=== PATIENT | female | born 1950 | race Caucasian/White ===

== ENCOUNTER → 2016-12-10 | Outpatient (CLI) | payer MEDICARE, OTHER | END | disposition home or self-care (01) | LOC: LABWHC1 13:02 | PROVIDERS: ATTEND Internal Medicine Endocrinology, Diabetes & Metabolism | DX: E05.90 Thyrotoxicosis, unspecified without thyrotoxic crisis or storm (principal) | CPT/HCPCS: 36415; 84439; 84443 ==

== ENCOUNTER → 2017-03-03 | Outpatient (CLI) | payer MEDICARE, OTHER ==
--- NOTE | 2017-03-03 13:56 | US ---
EXAMINATION TYPE: US thyroid st tissue head/neck DATE OF EXAM: 03/03/2017 COMPARISON: 09/28/2015 CLINICAL HISTORY: E05.90 THYROTOXICOSIS. Follow up thyroid nodules GLAND SIZE: Right Lobe: 4.3 x 1.8 x 1.6 cm Overall Parenchyma: heterogenous Left Lobe: 3.6 x 1.1 x 1.1 cm Overall Parenchyma: heterogeneous Isthmus Thickness: 0.3 cm NODULES RIGHT: # of nodules measured on right: 4 1. 1.1 X 0.7 x 1.1 cm solid nodule at the upper pole with well-defined margins; . This nodule is w ider than tall and shows intranodular vascularity. Prior size: 1.0 x 0.6 x 1.1 cm 2. 1.1 X 0.9 x 0.9 cm solid nodule at the mid pole with well-defined margins; . This nodule is tall er than wide and shows intranodular vascularity. Prior size: 1.1 x 0.9 x 1.1 cm 3. 1.0 X 0.6 x 0.8 cm solid nodule at the lower pole with well-defined margins; . This nodule is wi miriam than tall and shows intranodular vascularity. Prior size: 1.1 x 0.6 x 0.9 cm 4. 1.6 X 0.7 x 1.1 cm solid nodule at the lower pole with well-defined margins; . This nodule is wi miriam than tall and shows intranodular vascularity. Prior size: 1.6 x 1.1 x 1.4 cm LEFT: # of nodules measured on left: 3 1. 0.3 X 0.2 x 0.4 cm cystic nodule at the upper pole with well-defined margins; . This nodule is wider than tall and shows intranodular vascularity. Prior size: 0.4 x 0.4 x 0.4 cm 2. 1.0 X 0.6 x 0.7 cm solid nodule at the mid pole with well-defined margins; . This nodule is wide r than tall and shows intranodular vascularity. Prior size: 0.7 x 0.5 x 0.7 cm 3. 1.0 X 0.8 x 1.1 cm solid nodule at the lower pole with well-defined margins; . This nodule is wi miriam than tall and shows intranodular vascularity. Prior size: 1.1 x 1.0 x 1.1 cm ISTHMUS: # of nodules measured in the isthmus: 0 Bilateral neck scanned, no evidence of lymphadenopathy. Heterogeneous gland. Little change compared to prior exam IMPRESSION: Multinodular thyroid changes with a single nodule incrementally increased in size within the left thy roid now measuring 1 x 0.7 cm and previously measuring 0.7 x 0.7 cm. Thyroid tissue is heterogeneous correlate for thyroiditis.
== END | disposition home or self-care (01) ==
LOC: RADUSWWP 12:03
PROVIDERS: ATTEND Internal Medicine Endocrinology, Diabetes & Metabolism
DX: E04.2 Nontoxic multinodular goiter (principal)
CPT/HCPCS: 36415; 76536; 84439; 84443

== ENCOUNTER → 2017-06-23 | Outpatient (CLI) | payer MEDICARE, OTHER | END | disposition home or self-care (01) | LOC: LABWHC1 10:36 | PROVIDERS: ATTEND Internal Medicine Endocrinology, Diabetes & Metabolism | DX: E05.90 Thyrotoxicosis, unspecified without thyrotoxic crisis or storm (principal) | CPT/HCPCS: 36415; 84439; 84443; 84480 ==

== ENCOUNTER → 2017-09-11 | Outpatient (CLI) | payer MEDICARE, OTHER | END | disposition home or self-care (01) | LOC: LABWHC1 13:47 | PROVIDERS: ATTEND Internal Medicine Endocrinology, Diabetes & Metabolism | DX: E05.90 Thyrotoxicosis, unspecified without thyrotoxic crisis or storm (principal) | CPT/HCPCS: 36415; 84439; 84443; 84480 ==

== ENCOUNTER → 2018-09-01 | Outpatient (CLI) | payer MEDICARE, OTHER ==
--- NOTE | 2018-09-01 13:52 | US ---
EXAMINATION TYPE: US thyroid st tissue head/neck DATE OF EXAM: 09/01/2018 COMPARISON: US 03/03/17 CLINICAL HISTORY: E04.2 goiter. GLAND SIZE: Right Lobe: 3.6 x 1.9 x 1.3 cm Overall Parenchyma: heterogenous Left Lobe: 3.1 x 2.0 x 1.0 cm Overall Parenchyma: heterogeneous Isthmus Thickness: 0.3 cm NODULES RIGHT: # of nodules measured on right: 4 1. 1.6 X 1.3 x 0.8 cm hypoechoic solid nodule at the upper pole with well-defined margins; present with microcalcifications. This nodule is wider than tall and shows intranodular vascularity. Prior size: 1.1 x 0.7 x 0.1 cm 2. 1.1 X 0.9 x 0.8 cm hypoechoic solid nodule at the mid pole with well-defined margins; . This nod ule is wider than tall and shows intranodular vascularity. Prior size: 1.1 x 0.9 x 0.9 cm 3. 1.0 X 0.9 x 0.9 cm hypoechoic solid nodule at the lower pole with well-defined margins; . This n odule is wider than tall and shows intranodular vascularity. Prior size: 1.0 x 0.6 x 0.8 cm 4. 1.0 X 0.9 x 0.8 cm hypoechoic solid nodule at the lower pole with well-defined margins; . This n odule is wider than tall and shows intranodular vascularity. Prior size: 1.6 x 0.7 x 1.1 cm LEFT: # of nodules measured on left: 3 1. 0.5 X 0.4 x 0.4 cm hypoechoic cystic nodule at the upper pole with well-defined margins; . This nodule is wider than tall and shows no intranodular vascularity. Prior size: 0.3 x 0.2 x 0.4 cm 2. 0.9 X 0.7 x 0.7 cm hypoechoic solid nodule at the mid pole with well-defined margins; . This nod ule is wider than tall and shows intranodular vascularity. Prior size: 1.0 x 0.6 x 0.7 cm 3. 1.3 X 1.2 x 0.8 cm hypoechoic solid nodule at the lower pole with well-defined margins; present w ith microcalcifications. This nodule is wider than tall and shows intranodular vascularity. Prior size: 1.0 x 0.8 x 1.1 cm ISTHMUS: # of nodules measured in the isthmus: 0 Bilateral neck scanned, no evidence of lymphadenopathy. Heterogeneous multinodular small thyroid redemonstrated with scattered indistinct nodules. No signifi cant change from prior. IMPRESSION: Overall stable findings, markedly heterogeneous small size multinodular thyroid redemonstrated.
== END ==
LOC: RADUSWWP 12:11
PROVIDERS: ATTEND Internal Medicine Endocrinology, Diabetes & Metabolism
DX: E04.2 Nontoxic multinodular goiter (principal)
CPT/HCPCS: 76536

== ENCOUNTER → 2019-06-08 | Outpatient (CLI) | payer MEDICARE, OTHER ==
[2019-06-08 13:29] LABS: T4, Free (Free Thyroxine) 0.65 ng/dL (0.78-2.19)
--- NOTE | 2019-06-08 13:47 | US ---
EXAMINATION TYPE: US thyroid st tissue head/neck DATE OF EXAM: 06/08/2019 COMPARISON: Thyroid ultrasound September 01, 2018. CLINICAL HISTORY: E04.2 nontoxic multinodular goiter. follow up nodules. GLAND SIZE: Right Lobe: 3.2 x 1.7 x 1.6 cm Overall Parenchyma: heterogenous Left Lobe: 3.1 x 1.1 x 1.1 cm Overall Parenchyma: heterogeneous Isthmus Thickness: 0.3 cm NODULES RIGHT: # of nodules measured on right: 4 Very difficult to follow nodules due to nodular parench yma 1. 1.3 X 0.8 x 0.6 cm hypoechoic solid nodule at the upper pole with well-defined margins. This no dule is wider than tall and shows intranodular vascularity. Prior size: 1.6 x 1.3 x 0.8 cm 2. 1.1 X 1.0 x 0.8 cm hypoechoic nodule at the mid pole with well-defined margins. This nodule is w ider than tall and shows intranodular vascularity. Prior size: 1.1 x 0.9 x 0.8 cm 3. 1.1 X 0.6 x 0.7 cm hypoechoic nodule at the lower pole with well-defined margins. This nodule is taller than wide and shows intranodular vascularity. Prior size: 1.0 x 0.9 x 0.9 cm 4. 0.8 X 0.8 x 0.8 cm hypoechoic nodule at the lower pole with well-defined margins. This nodule is wide as tall and shows no intranodular vascularity. Prior size: 1.0 x 0.9 x 0.8 cm LEFT: # of nodules measured on left: 3 1. 0.4 X 0.3 x 0.3 cm cystic nodule at the upper pole with well-defined margins. This nodule is wi de as tall and shows no intranodular vascularity. Prior size: 0.5 x 0.4 x 0.4 cm 2. 0.6 X 0.5 x 0.6 cm hypoechoic nodule at the mid pole with well-defined margins. This nodule is t aller than wide and shows intranodular vascularity. Prior size: 0.9 x 0.7 x 0.7 cm 3. 1.0 X 1.0 x 1.1 cm mixed nodule at the lower pole with well-defined margins. This nodule is tall er than wide and shows intranodular vascularity. Prior size: 1.3 x 1.2 x 0.8 cm ISTHMUS: # of nodules measured in the isthmus: 0 Bilateral neck scanned, no evidence of lymphadenopathy. Redemonstration of heterogeneous somewhat small size multinodular thyroid without significant interva l change. IMPRESSION: As above. No new or enlarging nodules are seen.
== END | disposition home or self-care (01) ==
LOC: RADUSWWP 10:53
PROVIDERS: ATTEND Internal Medicine Endocrinology, Diabetes & Metabolism
DX: E04.2 Nontoxic multinodular goiter (principal)
CPT/HCPCS: 36415; 76536; 84439; 84443

== ENCOUNTER → 2020-11-27 | Outpatient (CLI) | payer MEDICARE, OTHER ==
--- NOTE | 2020-11-27 11:54 | US ---
EXAMINATION TYPE: US thyroid st tissue head/neck DATE OF EXAM: 11/27/2020 COMPARISON: 06/08/19 CLINICAL HISTORY: 70-year-old female E04.2 nontoxic multinodular goiter. TECHNIQUE: Multiple sonographic images of the thyroid gland are obtained. FINDINGS: GLAND SIZE: Right Lobe: 4.0 x 1.8 x 1.2 cm Overall Parenchyma: heterogenous Left Lobe: 3.3 x 1.6 x 1.2 cm Overall Parenchyma: heterogeneous Isthmus Thickness: 0.4 cm NODULES RIGHT: # of nodules measured on right: 4 1. 1.5 X 0.9 x 0.7 cm, upper , solid or almost completely solid, isoechoic nodule, which is wider than tall, with smooth margins, with echogenic foci. Prior size: 1.3 x 0.8 x 0.6 cm 2. 1.4X 1.1 x 1.1 cm, mid mid, , hypoechoic nodule, which is wider than tall, with smooth margins, without echogenic foci. Prior size: 1.1 x 1.0 x 0.8 cm 3. 1.0 X 0.8 x 0.5 cm, mid, solid or almost completely solid, hypoechoic nodule, which is wider austyn n tall, with smooth margins, with echogenic foci. Prior size: 1.1 x 0.6 x 0.7 cm 4. 1.1 X 1.0 x 0.9 cm, lower , , hypoechoic nodule, which is wider than tall, with smooth margins, without echogenic foci. Prior size: 0.8 x 0.8 x 0.9 cm LEFT: # of nodules measured on left: 3 1. 0.4 X 0.3 x 0.2 cm, upper , solid or almost completely solid, hypoechoic nodule, which is wider than tall, with ill-defined margins, without echogenic foci. Prior size: 0.4 x 0.3 x 0.3 cm 2. 0.8 X 0.7 x 0.7 cm, lower , solid or almost completely solid, hypoechoic nodule, which is wider than tall, with smooth margins, without echogenic foci. Prior size: 0.6 x 0.5 x 0.6 cm 3. 1.1 X 1.0 x 0.9 cm, lower , solid or almost completely solid, nodule, which is wider than tall, with ill-defined margins, with echogenic foci. Prior size: 1.0 x 1.0 x 1.1 cm ISTHMUS: # of nodules measured in the isthmus: 0 Bilateral neck scanned, no evidence of lymphadenopathy. IMPRESSION: 1. A 1.5 cm TR 4 nodule in the right upper pole, slightly increased from 1.3 cm. FNA can now be consi dered. 2. A 1 cm TR 5 nodule in the right midpole is relatively unchanged. Follow up versus FNA. 3. A 1.4 cm TR 4 nodule in the right midpole slightly increased from 1.1 cm. Continue to follow and F NA if it reaches 1.5 cm. 4. A 1.1 cm TR 5 nodule in the left lower pole remains unchanged. Follow-up versus FNA.
== END | disposition home or self-care (01) ==
LOC: RADUSWWP 10:57
PROVIDERS: ATTEND Internal Medicine Endocrinology, Diabetes & Metabolism
DX: E04.2 Nontoxic multinodular goiter (principal)
CPT/HCPCS: 76536

== ENCOUNTER → 2022-10-21 | Outpatient (CLI) | payer MEDICARE, OTHER ==
--- NOTE | 2022-10-21 12:10 | US ---
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 Thyrotoxicosis, goiter. Patient is on thyroid medication. GLAND SIZE: Right Lobe: 4.3 x 1.4 x 1.8 cm Overall Parenchyma: heterogenous Left Lobe: 3.7 x 1.2 x 1.1 cm Overall Parenchyma: heterogeneous Isthmus Thickness: 0.22 cm NODULES RIGHT: # of nodules measured on right: 4 1. 1.5 X 1.5 x 0.8 cm, upper mid, solid or almost completely solid, isoechoic nodule, which is wide r than tall, with smooth margins, with echogenic foci. TR 4. Prior size: 1.5 x 0.9 x 0.7 cm 2. 1.5 X 1.5 x 1.3 cm, mid mid, solid or almost completely solid, isoechoic nodule, which is wider than tall, with smooth margins, with echogenic foci. TR 4. Prior size: 1.5 x 1.1 x 1.1 cm 3. 0.5 X 0.5 x 0.7 cm, mid mid, solid or almost completely solid, hypoechoic nodule, which is talle r than wide, with smooth margins, without echogenic foci. TR 4. Prior size: Unable to correlate with certainty 4. 0.8 X 0.5 x 0.4 cm, upper lateral, mixed cystic and solid, hypoechoic nodule, which is wider austyn n tall, with smooth margins, without echogenic foci. TR 3. Prior size: Unable to correlate with certainty LEFT: # of nodules measured on left: 3 1. 0.4 X 0.5 x 0.4 cm, upper mid, solid or almost completely solid, hypoechoic nodule, which is wid er than tall, with smooth margins, without echogenic foci. TR 4. Prior size: 0.4 x 0.2 x 0.2 cm 2. 0.8 X 0.9 x 0.7 cm, mid, solid or almost completely solid, hypoechoic nodule, which is wider th an tall, with smooth margins, without echogenic foci. TR 4. Prior size: 0.8 x 0.7 x 0.7 cm 3. 1.6 X 1.3 x 1.2 cm, lower mid, solid or almost completely solid, isoechoic nodule, which is wide r than tall, with smooth margins, with echogenic foci. TR 4. Prior size: 1.1 x 1.0 x 0.9 cm ISTHMUS: # of nodules measured in the isthmus: 0 Bilateral neck scanned, Isoechoic areas seen within the right lateral neck may represent thyroid nodules. #1 measures: 1.5 x 0.8 x 0.9 cm. #2 measures: 1.5 x 1.1 x 0.9 cm. IMPRESSION: 1. Increased size of mid left thyroid lobe 1.6 cm TR 4 nodule. FNA cannot be considered. 2. 2 additional subcentimeter nodules within the right thyroid lobe that are not definitively visual ized prior examination. Remaining thyroid nodules are stable from prior examination as described abov e. 3. There 2 right lateral neck isoechoic areas which may represent thyroid nodules. Attention on foll ow-up examination in one year.
== END | disposition home or self-care (01) ==
LOC: RADUSWWP 11:02
PROVIDERS: ATTEND Internal Medicine Endocrinology, Diabetes & Metabolism
DX: E04.2 Nontoxic multinodular goiter (principal); E05.20 Thyrotoxicosis with toxic multinodular goiter without thyrotoxic crisis or storm
CPT/HCPCS: 76536

== ENCOUNTER 2023-03-10 09:28 | Day surgery (SDC) | payer MEDICARE, OTHER ==
[~2023-03-10 09:28] MED LIST: ACETAMINOPHEN TAB 500 MG TAB PO PRN; DEXAMETHASONE SOD PHOSPHATE 4 MG/ML 1 ML VIAL IV ONE; HEPARIN SODIUM,PORCINE/PF 5,000 UNIT/0.5 ML SYRINGE SQ PRN; HYDROmorphone 0.5 MG/0.5 ML SYRINGE IVP PRN; LIDOCAINE 1% (10MG/ML) FOR IV START INTRADERMA PRN; ONDANSETRON 4 MG/2 ML VIAL IVP ONE; Pre Op ABX Message 1 EACH MISC MISCELLANE ONE; droPERidol 5 MG/2 ML VIAL IVP ONE
[2023-03-10] MEDS: LACTATED RINGERS 1,000 ML IV SCH (10:26)
--- NOTE | 2023-03-10 11:44 | P.GSHP ---
History of Present Illness H&P Date: 03/10/23 Chief Complaint: Multinodular goiter This a 72-year-old female who has history of multinodular goiter. Patient has had increased in size or nodules. Patient resents today for total thyroidectomy. Patient is aware the risks of surgery including possible recurrent laryngeal nerve injury and injury to the parathyroid gland. Past Medical History Past Medical History: Osteoarthritis (OA), Thyroid Disorder Additional Past Medical History / Comment(s): hot thyroid nodules per pt. History of Any Multi-Drug Resistant Organisms: None Reported Past Surgical History: Hysterectomy Additional Past Surgical History / Comment(s): hemorrhoidectomy, colonoscopies Past Anesthesia/Blood Transfusion Reactions: No Reported Reaction Smoking Status: Current every day smoker - Past Family History Mother Family Medical History: No Reported History Medications and Allergies Home Medications Medication Instructions Recorded Confirmed Type Acetaminophen Tab [Tylenol] 325 mg PO Q4H PRN 03/07/23 03/07/23 History Multivitamins, Thera [Multivitamin 1 tab PO DAILY 03/07/23 03/07/23 History (formulary)] methIMAzole [Tapazole] 5 mg PO HS 03/07/23 03/07/23 History Allergies Allergy/AdvReac Type Severity Reaction Status Date / Time No Known Allergies Allergy Verified 03/10/23 09:48 Surgical - Exam Vital Signs Temp Pulse Resp BP Pulse Ox 97.7 F 89 16 129/59 95 03/10/23 09:59 03/10/23 09:59 03/10/23 09:59 03/10/23 09:59 03/10/23 09:59 - General well developed, well nourished, no distress - Eyes PERRL - ENT Prominent multinodular goiter Results - Labs Diabetes panel 03/10/23 Range/Units 10:13 Calcium 9.1 (8.4-10.2) mg/dL Calcium panel 03/10/23 Range/Units 10:13 Calcium 9.1 (8.4-10.2) mg/dL Pituitary panel 03/10/23 Range/Units 10:13 Calcium 9.1 (8.4-10.2) mg/dL Adrenal panel 03/10/23 Range/Units 10:13 Calcium 9.1 (8.4-10.2) mg/dL Assessment and Plan Plan: Multinodular goiter. We will perform Total thyroidectomy.
[2023-03-10] MEDS ORDERED: MIDAZOLAM 2 MG/2 ML VIAL ONE (12:04)
[2023-03-10] MEDS ORDERED: SUCCINYLCHOLINE CHLORIDE 200 MG/10 ML VIAL IV ONE (12:04)
[2023-03-10] MEDS ORDERED: PHENYLEPHRINE-0.9% NACL SYG 1,000 MCG/10 ML SYRINGE ONE (12:04)
[2023-03-10] MEDS ORDERED: ePHEDrine 50 MG/ML 1 ML VIAL ONE (12:04)
[2023-03-10] MEDS ORDERED: LIDOCAINE 2% INJ 20 MG/ML (2 ML VIAL) ONE (12:04)
[2023-03-10] MEDS ORDERED: fentaNYL (PF) 50 MCG/ML 2 ML AMP ONE (12:04)
[2023-03-10] MEDS ORDERED: LIDOCAINE 4% LTA KIT (4 ML) TOPICAL ONE (12:04)
[2023-03-10] MEDS ORDERED: PROPOFOL 10 MG/ML 20 ML VIAL IV ONE (12:04)
[2023-03-10] MEDS ORDERED: SODIUM CHLORIDE 0.9% 50 ML with ceFAZolin 1,000 MG IV ONE ×2 (12:10)
[2023-03-10] MEDS ORDERED: LACTATED RINGERS 1,000 ML IV ONE ×2 (12:40→13:17)
[2023-03-10] MEDS ORDERED: HYDROmorphone 0.5 MG/0.5 ML SYRINGE IVP PRN (13:17)
[2023-03-10] MEDS ORDERED: NALOXONE 0.4 MG/ML 1 ML VIAL IV PRN (13:17)
[2023-03-10] MEDS ORDERED: ONDANSETRON 4 MG/2 ML VIAL IVP PRN (13:17)
[2023-03-10] MEDS ORDERED: ACETAMINOPHEN TAB 325 MG TAB PO PRN (13:17)
[2023-03-10] MEDS: KETOROLAC 15 MG/ML 1 ML VIAL IVP SCH (18:03)
[2023-03-11] MEDS: KETOROLAC 15 MG/ML 1 ML VIAL IVP SCH ×3 (00:34→13:01)
[2023-03-11 06:44] LABS: ALT 17 U/L (4-34); AST 22 U/L (14-36); African American GFR (CKD) >90 (>60 ml/min/1.73 sqM); Albumin 3.3 g/dL (3.5-5.0); Alkaline Phosphatase 63 U/L (38-126); Anion Gap 8 mmol/L; Blood Urea Nitrogen 11 mg/dL (7-17); Calcium 8.8 mg/dL (8.4-10.2); Carbon Dioxide 20 mmol/L (22-30); Chloride 105 mmol/L (98-107); Globulin 3.2 g/dL; Glucose 107 mg/dL (74-99); Non-African American GFR(CKD) >90 (>60 ml/min/1.73 sqM); Sodium 133 mmol/L (137-145); Total Bilirubin 0.4 mg/dL (0.2-1.3); Total Protein 6.5 g/dL (6.3-8.2)
[2023-03-11] MEDS: LACTATED RINGERS 1,000 ML IV SCH (07:27)
[2023-03-11] MEDS ORDERED: ENOXAPARIN 40 MG/0.4 ML SYRINGE SQ SCH (09:00)
[2023-03-11] MEDS ORDERED: MULTIVITAMINS, THERA 1 EACH TAB PO SCH (09:00)
[2023-03-11 09:27] LABS: Basophils # (A) 0.04 X 10*3/uL (0.00-0.10); Basophils % (A) 0.6 %; Eosinophils # (A) 0.01 X 10*3/uL (0.04-0.35); Eosinophils % (A) 0.2 %; HCT 33.8 % (37.2-46.3); HGB 11.2 d/dL (12.0-15.0); Lymphocytes # (A) 1.06 X 10*3/uL (0.90-5.00); Lymphocytes % (A) 16.3 %; MCH 31.9 pg (27.0-32.0); MCHC 33.1 d/dL (32.0-37.0); MCV 96.3 FL (80.0-97.0); Mean Platelet Volume 9.3 FL (9.5-12.2); Monocytes # (A) 0.66 X 10*3/uL (0.20-1.00); Monocytes % (A) 10.2 %; NRBC Per 100 WBC 0 X 10*3/uL (0.00-0.01); Neutrophils # (A) 4.72 X 10*3/uL (1.80-7.70); Neutrophils % (A) 72.5 %; Platelet Count 295 X 10*3/uL (140-440); RBC 3.51 X 10*6/uL (4.10-5.20); RDW 13.3 % (11.5-14.5)
[2023-03-11] MEDS ORDERED: HYDROcodone/APAP 5-325MG 1 EACH TAB PO PRN (10:49)
--- NOTE | 2023-03-11 14:09 | P.DS ---
Providers Date of admission: 03/10/23 13:34 Expected date of discharge: 03/11/23 Attending physician: Alcides Balderas Consults: 03/10/23 13:17 Consult Physician Routine Consulting Provider: Geraldine Araya Consult Reason/Comments: Medical management Do you want consulting provider notified?: Yes Primary care physician: Nelsy Martinez Hospital Course: Discharge diagnosis 1. Multinodular goiter status post total thyroidectomy Hospital course This is a 72-year-old female with a multinodular goiter status post left total thyroidectomy. She tolerated surgery well. Her pain is controlled. No evidence of hoarseness. She has been up and ambulating without difficulty. She's afebrile. She is stable for discharge. Patient seen and examined with Dr. Balderas. Please refer to chart for any further details. Physician Spudder note has been reviewed by physician. Signing provider agrees with the documented findings, assessment, and plan of care. Patient Condition at Discharge: Stable Plan - Discharge Summary Discharge Rx Participant: Yes New Discharge Prescriptions: New oxyCODONE HCL [OxyIR] 5 mg PO Q6H PRN 3 Days #12 tab PRN Reason: Pain Acetaminophen Tab [Tylenol Tab] 650 mg PO Q4H PRN #30 tablet PRN Reason: Pain Continue Multivitamins, Thera [Multivitamin (formulary)] 1 tab PO DAILY Discontinued Acetaminophen Tab [Tylenol] 325 mg PO Q4H PRN PRN Reason: Pain methIMAzole [Tapazole] 5 mg PO HS Discharge Medication List Multivitamins, Thera [Multivitamin (formulary)] 1 tab PO DAILY 03/07/23 [History] Acetaminophen Tab [Tylenol Tab] 650 mg PO Q4H PRN #30 tablet 03/11/23 [Rx] oxyCODONE HCL [OxyIR] 5 mg PO Q6H PRN 3 Days #12 tab 03/11/23 [Rx] Follow up Appointment(s)/Referral(s): Alcides Balderas MD [STAFF PHYSICIAN] - 1 Week Nelsy Martinez MD [Primary Care Provider] - 3 Days Patient Instructions/Handouts: How to Stop Smoking (DC), Total Thyroidectomy (DC) Discharge Disposition: HOME SELF-CARE
[2023-03-11 15:00] VITALS: BP 163/78; PULSE 90; RESP 19; TEMP 98.6
--- NOTE | 2023-03-27 11:41 | P.OP ---
Date of Procedure: 03/10/23 Preoperative Diagnosis: Multinodular goiter Postoperative Diagnosis: Defer to pathology Procedure(s) Performed: Total Thyroidectomy Anesthesia: HALEIGH Surgeon: Alcides Balderas Estimated Blood Loss (ml): 15 Pathology: other (Thyroid gland) Condition: stable Disposition: PACU Description of Procedure: The patient's placed on the operating table in the supine position. She received general endotracheal tube anesthesia. The patient was then placed in a beachchair type position. Her neck was prepped and draped in usual sterile fashion. A standard Emma incision was made approximately 2 cm above the sternal notch. Using electrocautery the subcutaneous tissues and platysma was divided. The platysma flaps were created superiorly and inferiorly using electro cautery. And then a pair of Gelpi retractors placed in the wound to retract the flaps. The strap muscles were then divided in the midline. And then another retractor was used to retract the strap muscles. The thyroid gland was visualized. The right thyroid lobe was dissected first. Using a pair of retractors retractors the strap muscles retracted laterally. The thyroid was meticulously dissected. The middle thyroid vessels were ligated and divided between 3-0 silk ties. The superior thyroid vessels were meticulously dissected and then were ligated with 2-0 silk ties. The inferior thyroid vessels were dissected and then divided between 3-0 silk ties. The gland was rotated medially. There was some inflammatory changes around the gland. Using meticulous dissection the thyroid gland was dissected free. Care was taken to identify and preserve the recurrent laryngeal nerve. Several small venous branches were divided using the Harmonic scissors. The thyroid gland was then dissected off the trachea using the Harmonic scissors. The dissection continued towards the isthmus. And then the left thyroid gland was dissected. The Klein retractors were placed on the left side and retracted the strap muscles. The superior thyroid vessels were dissected and divided between 2-0 silk ties. The inferior thyroid vessels were divided between 3-0 silk ties. And then the middle thyroid vessels were divided between 3-0 silk ties. The gland was then rotated medially. Care was taken to identify and preserve the parathyroid glands. Using meticulous dissection the thyroid was dissected free. The recurrent laryngeal nerve was visualized and protected. The thyroid did have some inflammatory changes and appeared to be scarred. The gland was then mobilized off the trachea using the Harmonic scissors. A suture tag was placed to orientate the thyroid gland. And was sent to pathology. The wound was packed for hemostasis. There was no significant bleeding seen. Surgicel pallor was placed in the wound. No bleeding was seen. The strap muscles were then reapproximated using 3-0 Vicryl suture. The platysma was reapproximated using 3-0 Vicryl suture. The skin was then closed with Monocryl. Patient tolerated procedure well and was sent to recovery room stable condition.
== END 2023-03-11 17:30 | disposition home or self-care (01) ==
LOC: OR 09:28 → UNDOADMIN 13:34 → 5NMEDONC 13:34 → OR 03-11 17:30 → UNDODISIN 03-11 17:30
PROVIDERS: ATTEND Surgery
DX: D49.7 Neoplasm of unspecified behavior of endocrine glands and other parts of nervous system (principal); E04.2 Nontoxic multinodular goiter; F17.210 Nicotine dependence, cigarettes, uncomplicated; Z79.899 Other long term (current) drug therapy
CPT/HCPCS: 80053; 82310; 85025; 88307; 60240; J2250; J0330; J1100; J2405; J0690; J1650; J3010; J1885 ×2; J2370; J2704; J1170; J1644; J2001

== ENCOUNTER 2023-03-14 17:09 | Inpatient (IN) | payer MEDICARE, OTHER ==
--- NOTE | 2023-03-14 17:58 | ED ---
General Adult HPI - General Chief complaint: Shortness of Breath Stated complaint: SHIVA,sent from urgent care Time Seen by Provider: 03/14/23 17:45 Source: patient, RN notes reviewed, old records reviewed Mode of arrival: ambulatory Limitations: no limitations - History of Present Illness Initial comments: 72-year-old female presenting for evaluation of cough, dyspnea. Patient was seen in urgent care and sent to the emergency department for evaluation. She's had cough and increased respiratory noises over the past 4 days. She is postop day 4 status post thyroidectomy. Patient denies fever. She does report some sputum production. She quit smoking at the time of the surgery. Denies central chest pain. States she has a tightness in her neck at the surgical site. She states that the cough and dyspnea has been present this for the past 4 days. - Related Data Home Medications Medication Instructions Recorded Confirmed Multivitamins, Thera [Multivitamin 1 tab PO DAILY 03/07/23 03/14/23 (formulary)] Previous Rx's Medication Instructions Recorded Acetaminophen Tab [Tylenol Tab] 650 mg PO Q4H PRN #30 tablet 03/11/23 oxyCODONE HCL [OxyIR] 5 mg PO Q6H PRN 3 Days #12 tab 03/11/23 Allergies Allergy/AdvReac Type Severity Reaction Status Date / Time No Known Allergies Allergy Verified 03/14/23 19:56 Review of Systems ROS Statement: Those systems with pertinent positive or pertinent negative responses have been documented in the HPI. ROS Other: All systems not noted in ROS Statement are negative. Past Medical History Past Medical History: Osteoarthritis (OA), Thyroid Disorder Additional Past Medical History / Comment(s): hot thyroid nodules per pt. History of Any Multi-Drug Resistant Organisms: None Reported Past Surgical History: Hysterectomy Additional Past Surgical History / Comment(s): hemorrhoidectomy, colonoscopies, thyroidectomy Past Anesthesia/Blood Transfusion Reactions: No Reported Reaction Past Psychological History: No Psychological Hx Reported Smoking Status: Current every day smoker Past Alcohol Use History: None Reported Past Drug Use History: None Reported - Past Family History Mother Family Medical History: No Reported History General Exam Limitations: no limitations General appearance: alert, in no apparent distress Head exam: Present: atraumatic, normocephalic Eye exam: Present: normal appearance, PERRL ENT exam: Present: normal oropharynx, mucous membranes moist Neck exam: Present: other (Hematoma over the anterior neck, the incision is clean and dry, no active bleeding no erythema) Respiratory exam: Present: respiratory distress (Mild), rhonchi, stridor Cardiovascular Exam: Present: regular rate, normal rhythm GI/Abdominal exam: Present: soft. Absent: distended, tenderness Extremities exam: Present: normal inspection, normal capillary refill Neurological exam: Present: alert, oriented X3, CN II-XII intact. Absent: motor sensory deficit Psychiatric exam: Present: normal affect, normal mood Skin exam: Present: warm Course Vital Signs 03/14/23 17:39 Temperature 98.0 F Pulse Rate 74 Respiratory 26 H Rate Blood Pressure 167/77 O2 Sat by Pulse 95 Oximetry Medical Decision Making - Medical Decision Making Was pt. sent in by a medical professional or institution ([facility], [facility] [facility], urgent care, hospital, or [place] [facility] facility...) When possible be specific @ -No Did you speak to anyone other than the patient for history (EMS, parent, family, police, friend...)? What history was obtained from this source @ -No Did you review nursing and triage notes (agree or disagree)? Why? @ -I reviewed and agree with nursing and triage notes Were old charts reviewed (outside hosp., previous admission, EMS record, old EKG, old radiological studies, urgent care reports/EKG's, [place] [facility] facility records)? Report findings @ -No old charts were reviewed Differential Diagnosis (chest pain, altered mental status, abdominal pain women, abdominal pain men, vaginal bleeding, weakness, fever, dyspnea, syncope, headache, dizziness, GI bleed, back pain, seizure, CVA, palpatations, mental health, musculoskeletal)? @ -not applicable EKG interpreted by me (3pts min.). @ -EKG: Sinus rhythm rate of 68, MO interval 138, QRS duration 70, QTC [address] segment elevation. X-rays interpreted by me (1pt min.). @ -No focal pneumonia, changes consistent with COPD CT interpreted by me (1pt min.). @ -CT soft tissue neck showing postsurgical changes with mild narrowing of the trachea. U/S interpreted by me (1pt. min.). @ -None done What testing was considered but not performed or refused? (CT, X-rays, U/S, labs)? Why? @ -None What meds were considered but not given or refused? Why? @ -None Did you discuss the management of the patient with other professionals (professionals i.e. Dr., PA, DOCK PUMPER, lab, RT, psych nurse, social media content specialist, fire watchman, teacher, ethics officer, clinical case manager)? Give summary @ -[Dr. Araya, Dr. Mayfield Was smoking cessation discussed for >3mins.? @ -No Was critical care preformed (if so, how long)? @ -No Were there social determinants of health that impacted care today? How? (Homele ssness, low income, unemployed, alcoholism, drug addiction, transportation, low edu. Level, literacy, decrease access to med. care, fdc, rehab)? @ -No Was there de-escalation of care discussed even if they declined (Discuss DNR or withdrawal of care, Hospice)? DNR status @ -No What co-morbidities impacted this encounter? (DM, HTN, Smoking, COPD, CAD, Cancer, CVA, ARF, Chemo, Hep., AIDS, mental health diagnosis, sleep apnea, morbid obesity)? @ -[COPD, status post thyroidectomy Was patient admitted / discharged? Hospital course, mention meds given and route, prescriptions, significant lab abnormalities, going to OR and other pertinent info. @ -[72-year-old female with dyspnea, mild stridor at rest, 4 days status post thyroidectomy. She has stated that this dyspnea and stridor at the present in the entire postoperative period. She is mildly tachypneic with otherwise stable vitals. Workup reveals postsurgical changes in the thyroid bed and mild narrowing of the trachea. Patient started on Decadron in the emergency department. I think she also has a component of COPD contrary to her dyspnea and is also started on urinalysis. I discussed case with Dr. Mayfield who is covering for Dr. Balderas, and with Dr. Araya who will admit. Pulmonology will also be placed on consult. Undiagnosed new problem with uncertain prognosis? @ -No Drug Therapy requiring intensive monitoring for toxicity (Heparin, Nitro, Insulin, Cardizem)? @ -No Were any procedures done? @ -No Diagnosis/symptom? @ -Dyspnea, stridor secondary to upper airway soft tissue swelling and COPD Acute, or Chronic, or Acute on Chronic? @ -acute Uncomplicated (without systemic symptoms) or Complicated (systemic symptoms)? @ -[Complicated Side effects of treatment? @ -No Exacerbation, Progression, or Severe Exacerbation? @ -No Poses a threat to life or bodily function? How? (Chest pain, [place], [place], pneumonia, PE, COPD, DKA, ARF, appy, cholecystitis, CVA, Diverticulitis, Homicidal, Suicidal, threat to staff... and all critical care pts) @ -[Yes, airway compromise, respiratory failure - Lab Data Result diagrams: 03/14/23 18:12 03/14/23 18:12 Lab Results 03/14/23 03/14/23 03/14/23 Range/Units 18:12 18:12 18:12 WBC 6.1 (3.8-10.6) k/uL RBC 4.04 (3.80-5.40) m/uL Hgb 12.8 (11.4-16.0) gm/dL Hct 38.3 (34.0-46.0) % MCV 94.7 (80.0-100.0) fL MCH 31.7 (25.0-35.0) pg MCHC 33.4 (31.0-37.0) g/dL RDW 12.8 (11.5-15.5) % Plt Count 349 (150-450) k/uL MPV 7.0 Neutrophils % 80 % Lymphocytes % 13 % Monocytes % 4 % Eosinophils % 1 % Basophils % 0 % Neutrophils # 4.9 (1.3-7.7) k/uL Lymphocytes # 0.8 L (1.0-4.8) k/uL Monocytes # 0.3 (0-1.0) k/uL Eosinophils # 0.1 (0-0.7) k/uL Basophils # 0.0 (0-0.2) k/uL PT 9.9 (9.0-12.0) sec INR 0.9 (<1.2) APTT 26.1 (22.0-30.0) sec Sodium 130 L (137-145) mmol/L Potassium 3.7 (3.5-5.1) mmol/L Chloride 100 (98-107) mmol/L Carbon Dioxide 21 L (22-30) mmol/L Anion Gap 9 mmol/L BUN 11 (7-17) mg/dL Creatinine 0.51 L (0.52-1.04) mg/dL Est GFR (CKD-EPI)AfAm >90 (>60 ml/min/1.73 sqM) Est GFR (CKD-EPI)NonAf >90 (>60 ml/min/1.73 sqM) Glucose 133 H (74-99) mg/dL Plasma Lactic Acid Steve (0.7-2.0) mmol/L Calcium 9.3 (8.4-10.2) mg/dL Total Bilirubin 0.5 (0.2-1.3) mg/dL AST 27 (14-36) U/L ALT 17 (4-34) U/L Alkaline Phosphatase 71 (38-126) U/L Troponin I (0.000-0.034) ng/mL NT-Pro-B Natriuret Pep pg/mL Total Protein 7.5 (6.3-8.2) g/dL Albumin 4.1 (3.5-5.0) g/dL 03/14/23 03/14/23 03/14/23 Range/Units 18:12 18:12 18:12 WBC (3.8-10.6) k/uL RBC (3.80-5.40) m/uL Hgb (11.4-16.0) gm/dL Hct (34.0-46.0) % MCV (80.0-100.0) fL MCH (25.0-35.0) pg MCHC (31.0-37.0) g/dL RDW (11.5-15.5) % Plt Count (150-450) k/uL MPV Neutrophils % % Lymphocytes % % Monocytes % % Eosinophils % % Basophils % % Neutrophils # (1.3-7.7) k/uL Lymphocytes # (1.0-4.8) k/uL Monocytes # (0-1.0) k/uL Eosinophils # (0-0.7) k/uL Basophils # (0-0.2) k/uL PT (9.0-12.0) sec INR (<1.2) APTT (22.0-30.0) sec Sodium (137-145) mmol/L Potassium (3.5-5.1) mmol/L Chloride (98-107) mmol/L Carbon Dioxide (22-30) mmol/L Anion Gap mmol/L BUN (7-17) mg/dL Creatinine (0.52-1.04) mg/dL Est GFR (CKD-EPI)AfAm (>60 ml/min/1.73 sqM) Est GFR (CKD-EPI)NonAf (>60 ml/min/1.73 sqM) Glucose (74-99) mg/dL Plasma Lactic Acid Steve 0.8 (0.7-2.0) mmol/L Calcium (8.4-10.2) mg/dL Total Bilirubin (0.2-1.3) mg/dL AST (14-36) U/L ALT (4-34) U/L Alkaline Phosphatase (38-126) U/L Troponin I <0.012 (0.000-0.034) ng/mL NT-Pro-B Natriuret Pep 91 pg/mL Total Protein (6.3-8.2) g/dL Albumin (3.5-5.0) g/dL Disposition Clinical Impression: Acute exacerbation of chronic obstructive pulmonary disease, Stridor, Status post thyroidectomy Disposition: ADMITTED IP TO THIS HOSP Condition: Stable Is patient prescribed a controlled substance at d/c from ED?: No Referrals: Nelsy Martinez MD [Primary Care Provider] - 1-2 days Time of Disposition: 20:04
[2023-03-14 18:23] LABS: Basophils % (A) 0 %; Eosinophils # (A) 0.1 k/uL (0-0.7); Eosinophils % (A) 1 %; HCT 38.3 % (34.0-46.0); HGB 12.8 gm/dL (11.4-16.0); Lymphocytes # (A) 0.8 k/uL (1.0-4.8); Lymphocytes % (A) 13 %; MCH 31.7 pg (25.0-35.0); MCHC 33.4 g/dL (31.0-37.0); MCV 94.7 fL (80.0-100.0); Monocytes # (A) 0.3 k/uL (0-1.0); Monocytes % (A) 4 %; Neutrophils # (A) 4.9 k/uL (1.3-7.7); Neutrophils % (A) 80 %; Platelet Count 349 k/uL (150-450); RBC 4.04 m/uL (3.80-5.40); RDW 12.8 % (11.5-15.5); WBC 6.1 k/uL (3.8-10.6)
[2023-03-14 18:36] LABS: INR 0.9 (<1.2); Partial Thromboplastin Time 26.1 sec (22.0-30.0); Prothrombin Time 9.9 sec (9.0-12.0)
[2023-03-14 18:47] LABS: ALT 17 U/L (4-34); AST 27 U/L (14-36); African American GFR (CKD) >90 (>60 ml/min/1.73 sqM); Albumin 4.1 g/dL (3.5-5.0); Alkaline Phosphatase 71 U/L (38-126); Anion Gap 9 mmol/L; Blood Urea Nitrogen 11 mg/dL (7-17); Calcium 9.3 mg/dL (8.4-10.2); Carbon Dioxide 21 mmol/L (22-30); Chloride 100 mmol/L (98-107); Glucose 133 mg/dL (74-99); Non-African American GFR(CKD) >90 (>60 ml/min/1.73 sqM); Potassium 3.7 mmol/L (3.5-5.1); Sodium 130 mmol/L (137-145); Total Bilirubin 0.5 mg/dL (0.2-1.3); Total Protein 7.5 g/dL (6.3-8.2)
--- NOTE | 2023-03-14 19:11 | XR ---
EXAMINATION TYPE: XR chest 2V DATE OF EXAM: 03/14/2023 6:52 PM COMPARISON: None TECHNIQUE: XR chest 2V Frontal and lateral views of the chest. CLINICAL INDICATION:Female, 72 years old with history of difficulty breathing; FINDINGS: Lungs/Pleura: There is flattening of the diaphragm with increased lucency of the lungs. No evidence o f pneumothorax, pleural effusion or focal consolidation. Pulmonary vascularity: Unremarkable. Heart/mediastinum: Cardiomediastinal silhouette is unremarkable. Musculoskeletal: No acute osseous pathology. Scoliosis changes. IMPRESSION: 1. No acute cardiopulmonary disease process. 2. COPD changes.
--- NOTE | 2023-03-14 19:17 | CT ---
EXAMINATION TYPE: CT soft tissue neck w con CT DLP: 187.3 mGycm, Automated exposure control for dose reduction was used. DATE OF EXAM: 03/14/2023 7:06 PM COMPARISON: Thyroid 10/21/2022 ultrasound. CLINICAL INDICATION:Female, 72 years old with history of Stridor status post thyroidectomy; PHH, stri sandra after thyroidectomy on Friday03/10/23 TECHNIQUE: Standard enhanced CT of the neck. Axial sections with coronal and sagittal reformats were obtained. Contrast used:100 mL of Isovue 300 with IV Contrast, Oral contrast used: none. FINDINGS: Brain: Visualized portions are grossly unremarkable. Orbits: Unremarkable Sinuses: Grossly unremarkable. Spaces of the neck: As described below Musculoskeletal: No acute osseous pathology. Lymph nodes: Multiple nonenlarged lymph nodes are seen along both anterior chains of the neck. Vascular structures: Visualized major arteries are patent without evidence of aneurysm. No evidence f or pulmonary arterial vascular filling defect to suggest embolus. Thoracic Inlet/airway: There is mild narrowing of the trachea at the level of the surgical bed Moderate to severe emphysema changes. Right upper lung lung calcified granuloma. Soft tissues/Thyroid: Surgical thyroid bed demonstrates low density approximately 22 Hounsfield unit tissue. Few foci of gas which extend down into the anterior mediastinum. No peripheral enhancement v isualized. Other: none. IMPRESSION: 1. Suspected organizing fluid collections in the surgical bed bilaterally with few foci of gas exten ding into the mediastinum. These findings are likely postsurgical in change consider ultrasound imagi ng for characterization of the surgical bed. 2. There may be mild narrowing of the trachea at the level of the surgical bed. 3. Moderate to severe emphysema changes.
[2023-03-14] MEDS ORDERED: DEXAMETHASONE SOD PHOSPHATE 10 MG/ML 1 ML VIAL IV STA (19:49)
[2023-03-14] MEDS ORDERED: IPRATROPIUM-ALBUTEROL 3 ML NEB INHALATION STA (19:49)
[2023-03-14] MEDS ORDERED: ONDANSETRON 4 MG/2 ML VIAL IVP PRN (19:50)
[2023-03-14] MEDS ORDERED: NALOXONE 0.4 MG/ML 1 ML VIAL IV PRN (19:50)
[2023-03-15] MEDS: DEXAMETHASONE SOD PHOSPHATE 4 MG/ML 1 ML VIAL IVP SCH ×4 (01:14→20:41)
[2023-03-15] MEDS: IPRATROPIUM-ALBUTEROL 3 ML NEB INHALATION SCH ×4 (08:01→20:01)
--- NOTE | 2023-03-15 12:26 | P.HPIM ---
History of Present Illness H&P Date: 03/15/23 Maryann Santos, is a 72-year-old female patient of Dr. Martinez who presented to [facility] emergency room with a chief complaint of worsening shortness of breath and cough, patient was recently admitted to [facility] by Dr. Balderas and underwent complete thyroi dectomy, she was discharged home the next day in good condition, patient started having worsening shortness of breath and audible wheezing and decided to come to emergency room. She was evaluated in the emergency room vital examination on presentation revealed a temperature of 98 pulse 74 respiration 26 blood pressure 167/77 pulse ox 95% on room air Laboratory data revealed a white blood count of 6.1 hemoglobin 12.8 platelet count 349 sodium 1:30 potassium 3.7 chloride 100 CO2 21 BUN 11 creatinine 0.54 Testing in the emergency room revealed chest x-ray was done in the emergency room and revealed no acute cardiopulmonary disease, with changes suggestive of COPD, computed tomography scan of the neck revealed suspected organizing fluid collection in the surgical bed bilaterally with few foci of gas extending into the mediastinum with narrowing of the trachea at the level of the surgical bed, there was also evidence of moderate to severe emphysema changes. Patient was admitted to medical floor for further evaluation and treatment, surgical consultation was requested and pulmonary consultation was requested, patient was started on IV dexamethasone Past Medical History Past Medical History: Osteoarthritis (OA), Thyroid Disorder Additional Past Medical History / Comment(s): hot thyroid nodules per pt. History of Any Multi-Drug Resistant Organisms: None Reported Past Surgical History: Hysterectomy Additional Past Surgical History / Comment(s): hemorrhoidectomy, colonoscopies, thyroidectomy Past Anesthesia/Blood Transfusion Reactions: No Reported Reaction Past Psychological History: No Psychological Hx Reported Smoking Status: Current every day smoker Past Alcohol Use History: None Reported Past Drug Use History: None Reported - Past Family History Mother Family Medical History: No Reported History Medications and Allergies Home Medications Medication Instructions Recorded Confirmed Type Multivitamins, Thera [Multivitamin 1 tab PO DAILY 03/07/23 03/14/23 History (formulary)] Acetaminophen Tab [Tylenol Tab] 650 mg PO Q4H PRN #30 tablet 03/11/23 03/14/23 Rx oxyCODONE HCL [OxyIR] 5 mg PO Q6H PRN 3 Days #12 tab 03/11/23 03/14/23 Rx Allergies Allergy/AdvReac Type Severity Reaction Status Date / Time No Known Allergies Allergy Verified 03/14/23 19:56 Physical Exam Vitals: Vital Signs Temp Pulse Resp BP Pulse Ox 03/15/23 08:20 70 03/15/23 08:01 76 03/15/23 07:41 97.8 F 83 70 H 131/76 93 L 03/15/23 01:00 85 18 135/70 96 03/15/23 00:00 122/67 92 L 03/14/23 23:00 122/67 94 L 03/14/23 22:37 122/67 95 03/14/23 22:36 83 17 122/67 95 03/14/23 22:35 122/67 95 03/14/23 22:34 122/67 95 03/14/23 22:33 122/67 95 03/14/23 22:32 92 L 03/14/23 20:18 75 03/14/23 20:12 72 03/14/23 19:59 71 18 161/86 97 03/14/23 17:39 98.0 F 74 26 H 167/77 95 Intake and Output 03/14/23 03/15/23 03/15/23 22:59 06:59 14:59 Other: Weight 48.534 kg In general patient is alert and oriented x 3 in no distress HEENT head normocephalic and atraumatic Neck is supple no JVD no goiter no lymphadenopathy no carotid bruit Chest examination reveals a scattered rhonchi bilaterally with audible stridor and wheezing Cardiac exam reveals regular heart sounds S1 and S2 no gallops no murmurs Abdomen is soft nontender no organomegaly with normal bowel sounds Extremity exam reveals no edema no cyanosis or clubbing Neurological examination reveals no gross focal deficits Results CBC & Chem 7: 03/14/23 18:12 03/14/23 18:12 Labs: Abnormal Lab Results - Last 24 Hours (Table) 03/14/23 03/14/23 Range/Units 18:12 18:12 Lymphocytes # 0.8 L (1.0-4.8) k/uL Sodium 130 L (137-145) mmol/L Carbon Dioxide 21 L (22-30) mmol/L Creatinine 0.51 L (0.52-1.04) mg/dL Glucose 133 H (74-99) mg/dL Assessment and Plan Plan: Worsening shortness of breath and cough, post complete thyroidectomy done on 03/10/2023 for multinodular goiter Evidence of fluid collection in the surgical bed in the neck on computed tomography scan Evidence of COPD with moderate to severe emphysematous changes in the chest Post complete thyroidectomy, patient will need to be started on thyroid replacement therapy during this admission, will check TSH free T4 and free T3 At this time patient was seen and examined in the emergency room Home medications reviewed and reordered Consultation for pulmonary and surgery requested Check TSH, free T3, and free T4, will start thyroid replacement therapy during this admission Will follow closely
[2023-03-15 13:34] LABS: T4, Free (Free Thyroxine) 0.61 ng/dL (0.78-2.19)
--- NOTE | 2023-03-15 13:57 | P.CNPUL ---
History of Present Illness Consult date: 03/15/23 Reason for consult: COPD (Stridor) History of present illness: A 78-year-old female patient, known history of smoking, known history of multinodular goiter, underwent a thyroidectomy earlier this week and the patient was discharged home. While at home and over the past 24-48 hours, the patient developed worsening shortness of breath and she is having some audible stridor. For that reason, the patient came in back to the hospital for evaluation. Surgical scar is clean. No hematoma. No bruising. Pulse ox is 95% on room air oxygen. The patient has a stridor indeed. The patient also has developed some organizing fluid collection in the surgical bed based on the CAT scan of the neck that was done in emergency department. She also was found to have some gas extending into the mediastinum which is a routine postsurgical changes. The patient has some limited narrowing of the trachea at the level of the surgical bed. There is also background emphysema. She, clinically stable. She is currently on Decadron. She is also on bronchodilators. Her speech is also change. She is able to swallow. She has no drooling. She is breathing comfortably at this point in time. Review of Systems Constitutional: Reports as per HPI Eyes: denies as per HPI, denies blurred vision, denies bulging eye, denies decreased vision, denies diplopia, denies discharge, denies dry eye, denies irritation, denies itching, denies pain, denies photophobia, denies loss of peripheral vision, denies loss of vision, denies tunnel vision/blind spots Ears: deny: decreased hearing, ear discharge, earache, tinnitus Ears, nose, mouth and throat: Reports as per HPI Breasts: absent: as per HPI, change in shape, gynecomastia, masses, nipple discharge, pain, skin changes, swelling Cardiovascular: Reports as per HPI Respiratory: Reports as per HPI, Reports dyspnea Gastrointestinal: Reports as per HPI Genitourinary: Reports as per HPI Menstruation: Reports as per HPI Musculoskeletal: Reports as per HPI Musculoskeletal: absent: ankle pain, ankle stiffness, ankle swelling Integumentary: Reports as per HPI Neurological: Reports as per HPI Psychiatric: Reports as per HPI Endocrine: Reports as per HPI Hematologic/Lymphatic: Reports as per HPI Allergic/Immunologic: Reports as per HPI Past Medical History Past Medical History: COPD, Osteoarthritis (OA), Thyroid Disorder Additional Past Medical History / Comment(s): Multinodular goiter History of Any Multi-Drug Resistant Organisms: None Reported Past Surgical History: Hysterectomy Additional Past Surgical History / Comment(s): hemorrhoidectomy, colonoscopies, thyroidectomy Past Anesthesia/Blood Transfusion Reactions: No Reported Reaction Past Psychological History: No Psychological Hx Reported Smoking Status: Current every day smoker Past Alcohol Use History: None Reported Past Drug Use History: None Reported - Past Family History Mother Family Medical History: No Reported History Medications and Allergies Home Medications Medication Instructions Recorded Confirmed Type Multivitamins, Thera [Multivitamin 1 tab PO DAILY 03/07/23 03/14/23 History (formulary)] Acetaminophen Tab [Tylenol Tab] 650 mg PO Q4H PRN #30 tablet 03/11/23 03/14/23 Rx oxyCODONE HCL [OxyIR] 5 mg PO Q6H PRN 3 Days #12 tab 03/11/23 03/14/23 Rx Allergies Allergy/AdvReac Type Severity Reaction Status Date / Time No Known Allergies Allergy Verified 03/14/23 19:56 Physical Exam Vitals: Vital Signs Temp Pulse Resp BP Pulse Ox 03/15/23 11:33 88 03/15/23 11:21 92 03/15/23 08:20 70 03/15/23 08:01 76 03/15/23 07:41 97.8 F 83 70 H 131/76 93 L 03/15/23 01:00 85 18 135/70 96 03/15/23 00:00 122/67 92 L 03/14/23 23:00 122/67 94 L 03/14/23 22:37 122/67 95 03/14/23 22:36 83 17 122/67 95 03/14/23 22:35 122/67 95 03/14/23 22:34 122/67 95 03/14/23 22:33 122/67 95 03/14/23 22:32 92 L 03/14/23 20:18 75 03/14/23 20:12 72 03/14/23 19:59 71 18 161/86 97 03/14/23 17:39 98.0 F 74 26 H 167/77 95 Intake and Output 06/23/23 06/24/23 06/24/23 22:59 06:59 14:59 Other: Weight 48.534 kg The patient appeared well nourished and normally developed. Vital signs as documented. Head exam is unremarkable. No scleral icterus or corneal arcus noted. Neck is without jugular venous distension, thyromegaly, or carotid bruits. The patient has a scar over the anterior neck the level of her thyroid. No significant swelling. No definite hematoma. The surgical one-sided dry clean and intact. There is some inspiratory stridor appreciated. Carotid upstrokes are brisk bilaterally. Lungs are clear to auscultation and percussion. Cardiac exam reveals the PMI to be normally sized and situated. Rhythm is regular. First and second heart sounds normal. No murmurs, rubs or gallops. Abdominal exam reveals normal bowel sounds, no masses, no organomegaly and no aortic enlargement. Extremities are nonedematous and both femoral and pedal pulses are normal.Examination of the skin revealed no evidence of significant rashes, suspicious appearing nevi or other concerning lesions.Neurologically, the patient is awake and alert and the patient does not have any focal neurological deficit. Cranial nerves are essentially intact. Results - Laboratory Findings CBC and BMP: 03/14/23 18:12 03/14/23 18:12 PT/INR, D-dimer PT 9.9 sec (9.0-12.0) 03/14/23 18:12 INR 0.9 (<1.2) 03/14/23 18:12 Abnormal lab findings: Abnormal Labs 03/14/23 03/14/23 18:12 18:12 Lymphocytes # 0.8 L Sodium 130 L Carbon Dioxide 21 L Creatinine 0.51 L Glucose 133 H - Diagnostic Findings Chest x-ray: image reviewed Assessment and Plan Plan: Stridor, most likely due to some edema in the surgical bed causing some tracheal narrowing. No clear indication for any vocal cords paralysis. Shortness of breath secondary to above, no hypoxemia COPD Multinodular goiter point thyroidectomy, surgery was done on 03/10/2023. The calcium levels are normal at this point in time. Plan Continue Decadron Monitor stridor Monitor speech Monitor swallow May need an ENT evaluation of dizziness suspicion for vocal cords visually/paralysis post thyroidectomy We'll continue to follow He is receiving the hospital for now for further monitoring and steroid treatment
--- NOTE | 2023-03-15 15:30 | P.GSCN ---
History of Present Illness Consult date: 03/15/23 History of present illness: Patient seen and evaluated. Has clinical stridor however denies any troubles with breathing. Patient has baseline COPD. Since admission, she reports her breathing has improved. Incisions are clean dry and intact status post thyroidectomy. Stable for discharge pending pulmonary clear. CT of the neck independent review without gross hematoma. Follow-up as outpatient with index surgeon. Past Medical History Past Medical History: COPD, Osteoarthritis (OA), Thyroid Disorder Additional Past Medical History / Comment(s): Multinodular goiter History of Any Multi-Drug Resistant Organisms: None Reported Past Surgical History: Hysterectomy Additional Past Surgical History / Comment(s): hemorrhoidectomy, colonoscopies, thyroidectomy Past Anesthesia/Blood Transfusion Reactions: No Reported Reaction Past Psychological History: No Psychological Hx Reported Smoking Status: Current every day smoker Past Alcohol Use History: None Reported Past Drug Use History: None Reported - Past Family History Mother Family Medical History: No Reported History Medications and Allergies Home Medications Medication Instructions Recorded Confirmed Type Multivitamins, Thera [Multivitamin 1 tab PO DAILY 03/07/23 03/14/23 History (formulary)] Acetaminophen Tab [Tylenol Tab] 650 mg PO Q4H PRN #30 tablet 03/11/23 03/14/23 Rx oxyCODONE HCL [OxyIR] 5 mg PO Q6H PRN 3 Days #12 tab 03/11/23 03/14/23 Rx Allergies Allergy/AdvReac Type Severity Reaction Status Date / Time No Known Allergies Allergy Verified 03/14/23 19:56 Surgical - Exam Vital Signs Temp Pulse Resp BP Pulse Ox 98.0 F 74 26 H 167/77 95 03/14/23 17:39 03/14/23 17:39 03/14/23 17:39 03/14/23 17:39 03/14/23 17:39 Results - Labs 03/14/23 18:12 03/14/23 18:12 Abnormal Lab Results - Last 24 Hours (Table) 03/14/23 03/14/23 03/15/23 Range/Units 18:12 18:12 12:45 Lymphocytes # 0.8 L (1.0-4.8) k/uL Sodium 130 L (137-145) mmol/L Carbon Dioxide 21 L (22-30) mmol/L Creatinine 0.51 L (0.52-1.04) mg/dL Glucose 133 H (74-99) mg/dL Free T4 0.61 L (0.78-2.19) ng/dL Free T3 pg/mL 1.5 L (2.8-5.3) pg/ml Diabetes panel 03/14/23 Range/Units 18:12 Sodium 130 L (137-145) mmol/L Potassium 3.7 (3.5-5.1) mmol/L Chloride 100 (98-107) mmol/L Carbon Dioxide 21 L (22-30) mmol/L BUN 11 (7-17) mg/dL Creatinine 0.51 L (0.52-1.04) mg/dL Glucose 133 H (74-99) mg/dL Calcium 9.3 (8.4-10.2) mg/dL AST 27 (14-36) U/L ALT 17 (4-34) U/L Alkaline Phosphatase 71 (38-126) U/L Total Protein 7.5 (6.3-8.2) g/dL Albumin 4.1 (3.5-5.0) g/dL Thyroid panel 03/15/23 Range/Units 12:45 TSH 1.520 (0.465-4.680) mIU/L Calcium panel 03/14/23 Range/Units 18:12 Calcium 9.3 (8.4-10.2) mg/dL Albumin 4.1 (3.5-5.0) g/dL Pituitary panel 03/14/23 03/15/23 Range/Units 18:12 12:45 Sodium 130 L (137-145) mmol/L Potassium 3.7 (3.5-5.1) mmol/L Chloride 100 (98-107) mmol/L Carbon Dioxide 21 L (22-30) mmol/L BUN 11 (7-17) mg/dL Creatinine 0.51 L (0.52-1.04) mg/dL Glucose 133 H (74-99) mg/dL Calcium 9.3 (8.4-10.2) mg/dL TSH 1.520 (0.465-4.680) mIU/L Adrenal panel 03/14/23 Range/Units 18:12 Sodium 130 L (137-145) mmol/L Potassium 3.7 (3.5-5.1) mmol/L Chloride 100 (98-107) mmol/L Carbon Dioxide 21 L (22-30) mmol/L BUN 11 (7-17) mg/dL Creatinine 0.51 L (0.52-1.04) mg/dL Glucose 133 H (74-99) mg/dL Calcium 9.3 (8.4-10.2) mg/dL Total Bilirubin 0.5 (0.2-1.3) mg/dL AST 27 (14-36) U/L ALT 17 (4-34) U/L Alkaline Phosphatase 71 (38-126) U/L Total Protein 7.5 (6.3-8.2) g/dL Albumin 4.1 (3.5-5.0) g/dL
[2023-03-15] MEDS ORDERED: ACETAMINOPHEN TAB 325 MG TAB PO PRN (23:30)
[2023-03-16] MEDS: DEXAMETHASONE SOD PHOSPHATE 4 MG/ML 1 ML VIAL IVP SCH ×4 (02:55→20:18)
[2023-03-16] MEDS: IPRATROPIUM-ALBUTEROL 3 ML NEB INHALATION SCH ×4 (07:33→20:55)
[2023-03-16] MEDS ORDERED: DEXTROSE 50% SYRINGE 50 ML IVP PRN ×2 (08:58)
--- NOTE | 2023-03-16 10:19 | P.PN ---
Subjective Progress Note Date: 03/16/23 Maryann Santos, is a 72-year-old female patient of Dr. Martinez who presented to [facility] emergency room with a chief complaint of worsening shortness of breath and cough, patient was recently admitted to [facility] by Dr. Balderas and underwent complete thyroidectomy , she was discharged home the next day in good condition, patient started having worsening shortness of breath and audible wheezing and decided to come to emergency room. She was evaluated in the emergency room vital examination on presentation revealed a temperature of 98 pulse 74 respiration 26 blood pressure 167/77 pulse ox 95% on room air Laboratory data revealed a white blood count of 6.1 hemoglobin 12.8 platelet count 349 sodium 1:30 potassium 3.7 chloride 100 CO2 21 BUN 11 creatinine 0.54 Testing in the emergency room revealed chest x-ray was done in the emergency room and revealed no acute cardiopulmonary disease, with changes suggestive of COPD, computed tomography scan of the neck revealed suspected organizing fluid collection in the surgical bed bilaterally with few foci of gas extending into the mediastinum with narrowing of the trachea at the level of the surgical bed, there was also evidence of moderate to severe emphysema changes. Patient was admitted to medical floor for further evaluation and treatment, surgical consultation was requested and pulmonary consultation was requested, patient was started on IV dexamethasone On patient is alert and oriented 3. Patient remains on IV Decadron. Pulmonary and surgical services following. Current vital signs temp 97.5, heart rate 84, respiratory rate 18, blood pressure 144/73 with pulse ox 96% on room air Objective - Vital Signs Vital signs: Vital Signs Temp 97.5 F L 03/16/23 08:53 Pulse 84 03/16/23 08:53 Resp 18 03/16/23 08:53 BP 144/73 03/16/23 08:53 Pulse Ox 96 03/16/23 08:53 FiO2 Intake & Output 03/15/23 03/16/23 03/16/23 18:59 06:59 18:59 Intake Total 1090 120 Output Total 0 Balance 1090 120 Weight 48.534 kg Intake: IV 10 Invasive Line 1 10 Oral 1080 120 Output: Urine 0 Other: Voiding Method Toilet - Exam In general patient is alert and oriented x 3 in no distress HEENT head normocephalic and atraumatic Neck is supple no JVD no goiter no lymphadenopathy no carotid bruit Chest examination reveals a scattered rhonchi bilaterally with audible stridor and wheezing Cardiac exam reveals regular heart sounds S1 and S2 no gallops no murmurs Abdomen is soft nontender no organomegaly with normal bowel sounds Extremity exam reveals no edema no cyanosis or clubbing Neurological examination reveals no gross focal deficits - Labs CBC & Chem 7: 03/14/23 18:12 03/14/23 18:12 Labs: Abnormal Lab Results - Last 24 Hours (Table) 03/15/23 Range/Units 12:45 Free T4 0.61 L (0.78-2.19) ng/dL Free T3 pg/mL 1.5 L (2.8-5.3) pg/ml Assessment and Plan Plan: Worsening shortness of breath and cough, post complete thyroidectomy done on 03/10/2023 for multinodular goiter Evidence of fluid collection in the surgical bed in the neck on computed tomography scan Evidence of COPD with moderate to severe emphysematous changes in the chest Post complete thyroidectomy, patient will need to be started on thyroid replacement therapy during this admission, will check TSH free T4 and free T3 At this time patient was seen and examined in the emergency room Home medications reviewed and reordered Consultation for pulmonary and surgery requested Check TSH, free T3, and free T4, will start thyroid replacement therapy during this admission Will follow closely
[2023-03-16 11:50] LABS: Glucose,Whole Blood 146 mg/dL (70-110)
[2023-03-16] MEDS: INSULIN ASPART (NovoLOG) 100 UNIT/ML VIAL SQ SCH ×3 (12:01→20:36)
--- NOTE | 2023-03-16 12:17 | P.PN ---
Subjective Progress Note Date: 03/16/23 A 78-year-old female patient, known history of smoking, known history of multin odular goiter, underwent a thyroidectomy earlier this week and the patient was discharged home. While at home and over the past 24-48 hours, the patient developed worsening shortness of breath and she is having some audible stridor. For that reason, the patient came in back to the hospital for evaluation. Surgical scar is clean. No hematoma. No bruising. Pulse ox is 95% on room air oxygen. The patient has a stridor indeed. The patient also has developed some organizing fluid collection in the surgical bed based on the CAT scan of the neck that was done in emergency department. She also was found to have some gas extending into the mediastinum which is a routine postsurgical changes. The patient has some limited narrowing of the trachea at the level of the surgical bed. There is also background emphysema. She, clinically stable. She is currently on Decadron. She is also on bronchodilators. Her speech is also change. She is able to swallow. She has no drooling. She is breathing comfortably at this point in time. On today's evaluation of 03/16/2023, the patient is slightly improved compared to yesterday. Speech is better. Continues to have some limited stridor. R emains on Decadron. Surgical one-sided striking and intact. A surgical consultation was also obtained. No drooling. No aspiration. Objective - Vital Signs Vital signs: Vital Signs Temp 97.5 F L 03/16/23 08:53 Pulse 84 03/16/23 08:53 Resp 18 03/16/23 08:53 BP 144/73 03/16/23 08:53 Pulse Ox 96 03/16/23 08:53 FiO2 Intake & Output 03/15/23 03/16/23 03/16/23 18:59 06:59 18:59 Intake Total 1090 120 Output Total 0 Balance 1090 120 Weight 48.534 kg Intake: IV 10 Invasive Line 1 10 Oral 1080 120 Output: Urine 0 Other: Voiding Method Toilet - Exam The patient appeared well nourished and normally developed. Vital signs as documented. Head exam is unremarkable. No scleral icterus or corneal arcus noted. Neck is without jugular venous distension, thyromegaly, or carotid bruits. The patient has a scar over the anterior neck the level of her thyroid. No significant swelling. No definite hematoma. The surgical one-sided dry clean and intact. There is some inspiratory stridor appreciated. Carotid upstrokes are brisk bilaterally. Lungs are clear to auscultation and percussion. Cardiac exam reveals the PMI to be normally sized and situated. Rhythm is regular. First and second heart sounds normal. No murmurs, rubs or gallops. Abdominal exam reveals normal bowel sounds, no masses, no organomegaly and no aortic enlargement. Extremities are nonedematous and both femoral and pedal pulses are normal.Examination of the skin revealed no evidence of significant rashes, suspicious appearing nevi or other concerning lesions.Neurologically, the patient is awake and alert and the patient does not have any focal neurological deficit. Cranial nerves are essentially intact. - Labs CBC & Chem 7: 03/14/23 18:12 03/14/23 18:12 Labs: Abnormal Lab Results - Last 24 Hours (Table) 03/15/23 Range/Units 12:45 Free T4 0.61 L (0.78-2.19) ng/dL Free T3 pg/mL 1.5 L (2.8-5.3) pg/ml Assessment and Plan Plan: Stridor, most likely due to some edema in the surgical bed causing some tracheal narrowing. No clear indication for any vocal cords paralysis. Shortness of breath secondary to above, no hypoxemia COPD Multinodular goiter point thyroidectomy, surgery was done on 03/10/2023. The calcium levels are normal at this point in time. Plan The patient's stridor is improving Continue Decadron Monitor stridor Monitor speech Monitor swallow May need an ENT evaluation of dizziness suspicion for vocal cords visually/paralysis post thyroidectomy We'll continue to follow May need another 24 hours of systemic steroids
[2023-03-16 16:45] LABS: Glucose,Whole Blood 147 mg/dL (70-110)
[2023-03-16 20:30] LABS: Glucose,Whole Blood 132 mg/dL (70-110)
--- NOTE | 2023-03-16 21:08 | P.PN ---
Subjective Progress Note Date: 03/16/23 CHIEF COMPLAINT: Status post thyroidectomy HISTORY OF PRESENT ILLNESS: The patient is a 72-year-old female status post thyroidectomy who is brought in family for inspiratory stridor. She reports feeling better. She has COPD. No dysphagia. ROS: No reports of nausea and vomiting. No fevers or chills. No new chest pain. PHYSICAL EXAM: VITAL SIGNS: Reviewed CONSTITUTIONAL: Well developed and in no acute distress. EYES: Conjuctivae without sclera icterus. Extraocular movements grossly intact. HEAD, EARS, NOSE, THROAT: Moist buccal mucosa. Head is atraumatic, normocephalic. Hears conversational speech. Collar incision is intact. RESPIRATORY: Non-labored respirations and equal bilateral excursions. Inspiratory stridor improving. CARDIOVASCULAR: Palpable 2+ radial pulses. ABDOMEN: Nontender MUSCULOSKELETAL: No gross deformity of the lower extremities noted. No clubbing. No cyanosis. SKIN: Good skin turgor. Well perfused. NEUROLOGIC: Cranial nerves II through XII grossly intact. No focal or lateralizing signs. PSYCH: Appropriate affect. Alert and oriented to [place]. CLINICAL LABS: Reviewed. ASSESSMENT: 1. Multinodular goiter 2. Status post thyroidectomy 3. COPD. PLAN: 1. Diet as tolerated 2. Discharge pending clearance from pulmonary. Objective - Vital Signs Vital signs: Vital Signs Temp 98 F 03/16/23 20:00 Pulse 75 03/16/23 20:55 Resp 18 03/16/23 20:00 BP 161/82 03/16/23 20:00 Pulse Ox 96 03/16/23 20:00 FiO2 Intake & Output 03/16/23 03/16/23 03/17/23 06:59 18:59 06:59 Intake Total 1090 120 550 Output Total 0 Balance 1090 120 550 Intake: IV 10 10 Invasive Line 1 10 10 Oral 1080 120 540 Output: Urine 0 Other: Voiding Method Toilet Toilet Toilet - Labs CBC & Chem 7: 03/14/23 18:12 03/14/23 18:12 Labs: Abnormal Lab Results - Last 24 Hours (Table) 03/16/23 03/16/23 03/16/23 Range/Units 11:49 16:44 20:28 POC Glucose (mg/dL) 146 H 147 H 132 H (70-110) mg/dL Microbiology - Last 24 Hours (Table) 03/14/23 18:00 Blood Culture - Preliminary Blood 03/14/23 18:10 Blood Culture - Preliminary Blood
[2023-03-17] MEDS: DEXAMETHASONE SOD PHOSPHATE 4 MG/ML 1 ML VIAL IVP SCH ×3 (03:02→14:14)
[2023-03-17 06:16] LABS: Glucose,Whole Blood 110 mg/dL (70-110)
[2023-03-17] MEDS ORDERED: LEVOTHYROXINE 100 MCG TAB PO SCH (06:30)
[2023-03-17] MEDS: INSULIN ASPART (NovoLOG) 100 UNIT/ML VIAL SQ SCH ×2 (06:41→11:36)
[2023-03-17 08:12] LABS: Basophils % (A) 0 %; Eosinophils % (A) 0 %; HCT 40.5 % (34.0-46.0); Lymphocytes # (A) 0.3 k/uL (1.0-4.8); Lymphocytes % (A) 3 %; MCH 30.6 pg (25.0-35.0); MCHC 32.1 g/dL (31.0-37.0); MCV 95.4 fL (80.0-100.0); Mean Platelet Volume 7.7; Monocytes # (A) 0.3 k/uL (0-1.0); Monocytes % (A) 2 %; Neutrophils # (A) 10.9 k/uL (1.3-7.7); Neutrophils % (A) 95 %; Platelet Count 441 k/uL (150-450); RBC 4.25 m/uL (3.80-5.40); RDW 13.1 % (11.5-15.5); WBC 11.5 k/uL (3.8-10.6)
[2023-03-17 08:24] VITALS: RESP 18; TEMP 98.5
[2023-03-17 08:27] LABS: ALT 21 U/L (4-34); AST 25 U/L (14-36); African American GFR (CKD) >90 (>60 ml/min/1.73 sqM); Albumin 4.4 g/dL (3.5-5.0); Alkaline Phosphatase 69 U/L (38-126); Anion Gap 13 mmol/L; Blood Urea Nitrogen 14 mg/dL (7-17); Calcium 10.8 mg/dL (8.4-10.2); Carbon Dioxide 25 mmol/L (22-30); Chloride 92 mmol/L (98-107); Glucose 97 mg/dL (74-99); Non-African American GFR(CKD) 88 (>60 ml/min/1.73 sqM); Potassium 4.6 mmol/L (3.5-5.1); Sodium 130 mmol/L (137-145); Total Bilirubin 0.4 mg/dL (0.2-1.3); Total Protein 7.9 g/dL (6.3-8.2)
[2023-03-17] MEDS: IPRATROPIUM-ALBUTEROL 3 ML NEB INHALATION SCH ×2 (09:39→13:14)
[2023-03-17 11:34] LABS: Glucose,Whole Blood 115 mg/dL (70-110)
[2023-03-17 12:14] VITALS: BP 135/78
[2023-03-17 12:20] VITALS: BMI 20.1
--- NOTE | 2023-03-17 13:43 | P.PN ---
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 While at home and over the past 24-48 hours, the patient developed worsening shortness of breath and she is having some audible stridor. For that reason, the patient came in back to the hospital for evaluation. Surgical scar is clean. No hematoma. No bruising. Pulse ox is 95% on room air oxygen. The patient has a stridor indeed. The patient also has developed some organizing fluid collection in the surgical bed based on the CAT scan of the neck that was done in emergency department. She also was found to have some gas extending into the mediastinum which is a routine postsurgical changes. The patient has some limited narrowing of the trachea at the level of the surgical bed. There is also background emphysema. She, clinically stable. She is currently on Decadron. She is also on bronchodilators. Her speech is also change. She is able to swallow. She has no drooling. She is breathing comfortably at this point in time. Reevaluated today on 03/17/2023, continues to have hoarseness in her voice, continues to have inspiratory stridor, ENT consultation is pending. Patient is not in any distress, not complaining of shortness of breath or cough. Remains on Decadron and on bronchodilators CBC is relatively normal electrocerebral normal renal profile is normal Objective - Vital Signs Vital signs: Vital Signs Temp 98.5 F 03/17/23 08:22 Pulse 92 03/17/23 13:26 Resp 18 03/17/23 12:13 BP 135/78 03/17/23 12:13 Pulse Ox 97 03/17/23 12:13 FiO2 Intake & Output 03/16/23 03/17/23 03/17/23 18:59 06:59 18:59 Intake Total 120 1090 340 Balance 120 1090 340 Weight 48.398 kg Intake: IV 10 Invasive Line 1 10 Oral 120 1080 340 Other: Voiding Method Toilet Toilet Toilet - Exam Physical Exam: Revealed a 72-year-old female in no distress, patient is noted to have dysphonia. Head: Atraumatic, normocephalic. HEENT:[Neck is supple.] [No neck masses.] [No thyromegaly.] [No JVD.] Surgical incision is clean and intact. Chest: [Clear throughout, no crackles, no rhonchi, no wheezes.] Cardiac Exam: [Normal S1 and S2, no S3 gallop, no murmur.] Abdomen: [Soft, nontender, no megaly, no rebound, no guarding, normal bowel sounds.] Extremities: [No clubbing, no edema, no cyanosis.] Neurological Exam: [No focal neurologic deficit.] Psychiatric: Normal mood affect and normal mental status examination. Skin: No rashes - Labs CBC & Chem 7: 03/17/23 06:50 03/17/23 06:50 Labs: Abnormal Lab Results - Last 24 Hours (Table) 03/16/23 03/16/23 03/17/23 Range/Units 16:44 20:28 06:50 WBC 11.5 H (3.8-10.6) k/uL Neutrophils # 10.9 H (1.3-7.7) k/uL Lymphocytes # 0.3 L (1.0-4.8) k/uL Sodium (137-145) mmol/L Chloride (98-107) mmol/L POC Glucose (mg/dL) 147 H 132 H (70-110) mg/dL Calcium (8.4-10.2) mg/dL 03/17/23 03/17/23 Range/Units 06:50 11:32 WBC (3.8-10.6) k/uL Neutrophils # (1.3-7.7) k/uL Lymphocytes # (1.0-4.8) k/uL Sodium 130 L (137-145) mmol/L Chloride 92 L (98-107) mmol/L POC Glucose (mg/dL) 115 H (70-110) mg/dL Calcium 10.8 H (8.4-10.2) mg/dL Microbiology - Last 24 Hours (Table) 03/14/23 18:00 Blood Culture - Preliminary Blood 03/14/23 18:10 Blood Culture - Preliminary Blood Assessment and Plan Assessment: Impression: Stridor secondary to postoperative laryngeal edema or possible vocal cord paralysis. 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 Recommendation: Continue Decadron Continue bronchodilators Continue to monitor speech ENT consultation is pending. We will continue to follow Time with Patient: Less than 30
--- NOTE | 2023-03-17 13:58 | P.PN ---
Subjective Progress Note Date: 03/17/23 CHIEF COMPLAINT: Status post thyroidectomy with stridor HISTORY OF PRESENT ILLNESS: Patient continues to have a weak voice. Her stridor has improved.. She reports that it's less than it had been. She is on Decadron. ENT consult is pending. She is followed by pulmonary service. Afebrile. WBC 11.5 H to be 13 platelets 441 seconds 1:30 potassium 4.6 creatinine 0.68 calcium 10.8 PHYSICAL EXAM: VITAL SIGNS: Reviewed. GENERAL: Well-developed in no acute distress. HEENT: Incision site clean dry and intact ABDOMEN: Soft. Nondistended. Nontender. NEUROLOGIC: Alert and oriented. Cranial nerves II through XII grossly intact. ASSESSMENT: 1. Multiple nodular goiter status post total thyroidectomy on 03/10/2023. 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 The patient's stridor has improved. The patient is awaiting ENT evaluation for possible recurrent laryngeal nerve injury/palsy. The patient's voice was normal immediately postoperative period PLAN: -Awaiting ENT evaluation -Continue IV Decadron -Continue supportive care -Continue regular Physician [employer]ctor note has been reviewed by physician. Signing provider agrees with the documented findings, assessment, and plan of care. Objective - Vital Signs Vital signs: Vital Signs Temp 98.5 F 03/17/23 08:22 Pulse 92 03/17/23 13:26 Resp 18 03/17/23 12:13 BP 135/78 03/17/23 12:13 Pulse Ox 97 03/17/23 12:13 FiO2 Intake & Output 03/16/23 03/17/23 03/17/23 18:59 06:59 18:59 Intake Total 120 1090 340 Balance 120 1090 340 Weight 48.398 kg Intake: IV 10 Invasive Line 1 10 Oral 120 1080 340 Other: Voiding Method Toilet Toilet Toilet - Labs CBC & Chem 7: 03/17/23 06:50 03/17/23 06:50 Labs: Abnormal Lab Results - Last 24 Hours (Table) 03/16/23 03/16/23 03/17/23 Range/Units 16:44 20:28 06:50 WBC 11.5 H (3.8-10.6) k/uL Neutrophils # 10.9 H (1.3-7.7) k/uL Lymphocytes # 0.3 L (1.0-4.8) k/uL Sodium (137-145) mmol/L Chloride (98-107) mmol/L POC Glucose (mg/dL) 147 H 132 H (70-110) mg/dL Calcium (8.4-10.2) mg/dL 03/17/23 03/17/23 Range/Units 06:50 11:32 WBC (3.8-10.6) k/uL Neutrophils # (1.3-7.7) k/uL Lymphocytes # (1.0-4.8) k/uL Sodium 130 L (137-145) mmol/L Chloride 92 L (98-107) mmol/L POC Glucose (mg/dL) 115 H (70-110) mg/dL Calcium 10.8 H (8.4-10.2) mg/dL Microbiology - Last 24 Hours (Table) 03/14/23 18:00 Blood Culture - Preliminary Blood 03/14/23 18:10 Blood Culture - Preliminary Blood
[2023-03-17 14:45] VITALS: PULSE 88
--- NOTE | 2023-03-17 15:41 | P.DS ---
Providers Date of admission: 03/14/23 19:50 Expected date of discharge: 03/17/23 Attending physician: Geraldine Araya Consults: 03/14/23 19:50 Consult Physician Routine Consulting Provider: Jass Moya Consult Reason/Comments: COPD, stridor after thyroidectomy Do you want consulting provider notified?: Yes 03/17/23 08:22 Consult Physician Routine Consulting Provider: Alcides Balderas Consult Reason/Comments: stridor, post thyroidectomy Do you want consulting provider notified?: Already Contacted 03/17/23 09:26 Consult Physician Routine Consulting Provider: Jack Hackett Consult Reason/Comments: ? vocal cord injury post thyroidectomy Do you want consulting provider notified?: Yes Primary care physician: Nelsy Martinez Hospital Course: Diagnosis on discharge: Worsening shortness of breath and cough, post complete thyroidectomy done on 03/10/2023 for multinodular goiter Evidence of fluid collection in the surgical bed in the neck on computed tomography scan Evidence of COPD with moderate to severe emphysematous changes in the chest Post complete thyroidectomy, patient will need to be started on thyroid replacement therapy during this admission, will check TSH free T4 and free T3 Pathology report significant for 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 Patient will need to be referred to endocrinology and ENT for follow-up as outpatient. Patient was informed she will follow-up with her primary care physician within few days for further evaluation and treatment Hospital course: Maryann Santos, is a 72-year-old female patient of Dr. Martinez who presented to [facility] emergency room with a chief complaint of worsening shortness of breath and cough, patient was recently admitted to [facility] by Dr. Balderas and underwent complete thyroidectomy, she was discharged home the next day in good condition, patient started having worsening shortness of breath and audible wheezing and decided to come to emergency room. She was evaluated in the emergency room vital examination on presentation revealed a temperature of 98 pulse 74 respiration 26 blood pressure 167/77 pulse ox 95% on room air Laboratory data revealed a white blood count of 6.1 hemoglobin 12.8 platelet count 349 sodium 1:30 potassium 3.7 chloride 100 CO2 21 BUN 11 creatinine 0.54 Testing in the emergency room revealed chest x-ray was done in the emergency room and revealed no acute cardiopulmonary disease, with changes suggestive of COPD, computed tomography scan of the neck revealed suspected organizing fluid collection in the surgical bed bilaterally with few foci of gas extending into the mediastinum with narrowing of the trachea at the level of the surgical bed, there was also evidence of moderate to severe emphysema changes. Patient was admitted to medical floor for further evaluation and treatment, surgical consultation was requested and pulmonary consultation was requested, patient was started on IV dexamethasone On 03/16/2023 patient is alert and oriented 3. Patient remains on IV Decadron. Pulmonary and surgical services following. Current vital signs temp 97.5, heart rate 84, respiratory rate 18, blood pressure 144/73 with pulse ox 96% on room air On 03/17/2023 patient was seen and examined on the medical floor she is alert and oriented 3 in no apparent distress there is no fever or chills no headache or dizziness no chest pain no shortness of breath no cough no nausea or vomiting no abdominal pain no diarrhea and no urinary symptoms. Patient shortness of breath and stridors has improved, she was cleared by pulmonary and general surgery for discharge, she was given a prescription for a nebulizer and 1 neb updrafts or effusion, she was also given a prescription for a steroid taper. During this admission patient was started on Synthroid 100 g daily, she will need to follow-up with endocrinology for further adjustment of her thyroid med ications. Patient Condition at Discharge: Stable Plan - Discharge Summary Discharge Rx Participant: Yes New Discharge Prescriptions: New Ipratropium-Albuterol Nebulize [Duoneb 0.5 mg-3 mg/3 ml Soln] 3 ml INHALATION RT-QID each dexAMETHasone [Decadron] 4 mg PO DIRECTED #15 tablet Levothyroxine Sodium [Synthroid] 100 mcg PO DAILY@0630 tab Continue oxyCODONE HCL [OxyIR] 5 mg PO Q6H PRN 3 Days #12 tab PRN Reason: Pain Acetaminophen Tab [Tylenol] 650 mg PO Q4H PRN #30 tablet PRN Reason: Pain Multivitamins, Thera [Multivitamin (formulary)] 1 tab PO DAILY Discharge Medication List Multivitamins, Thera [Multivitamin (formulary)] 1 tab PO DAILY 03/07/23 [History] Acetaminophen Tab [Tylenol] 650 mg PO Q4H PRN #30 tablet 03/11/23 [Rx] oxyCODONE HCL [OxyIR] 5 mg PO Q6H PRN 3 Days #12 tab 03/11/23 [Rx] Ipratropium-Albuterol Nebulize [Duoneb 0.5 mg-3 mg/3 ml Soln] 3 ml INHALATION RT-QID each 03/17/23 [Rx] Levothyroxine Sodium [Synthroid] 100 mcg PO DAILY@0630 tab 03/17/23 [Rx] dexAMETHasone [Decadron] 4 mg PO DIRECTED #15 tablet 03/17/23 [Rx] Follow up Appointment(s)/Referral(s): Nelsy Martinez MD [Primary Care Provider] - 1-2 days Alcides Balderas MD [STAFF PHYSICIAN] - 03/20/23
--- NOTE | 2023-03-18 12:13 | CDI ---
Documentation Clarification Form Date: 03/18/2023 11:55:05 AM From: Cherri Huff Admit Date: 03/14/2023 07:50:00 PM Patient Name: Maryann Santos Visit Number: [id number] Discharge Date: 03/17/2023 04:26:00 PM ATTENTION: The Clinical Documentation Specialists (CDI) and [facility] Coding Staff appreciate your assistance in clarifying documentation. Please respond to the clarification below the line at the bottom and electronically sign. The CDI & [facility] Coding staff will review the response and follow-up if needed. Please note: Queries are made part of the Legal Health Record. If you have any questions, please contact the author of this message via ITS. Dr. Geraldine Araya Postoperativelaryngeal edema is documented per Progress Note 03/17/23. Additional clarification regarding laryngeal edema is requested. History/Risk Factors: 72yo F, non-invasive follicular thyroidneoplasm s/p total thyroidectomy,stridor, AECOPD, recently quit smoking Clinical Indicators: postsurgical changes with mildnarrowingof the trachea; No clear indication for any vocal cordsparalysis Treatment: Pathology report significant for noninvasivefollicular thyroidneoplasmwith papillary like nuclear feature and NIFTP withnegativemargins and background nodularhyperplasiaand a small benign extrathyroid the lymphnode. Patient will need to be referred to endocrinology and ENT forfollow-upas outpatient. Patient was informed she willfollow- upwith her primary care physician within few days for furtherevaluationand treatment Please clarify if laryngeal edema is a complication of the surgical procedure? [ ] Yes, laryngeal edema is a complication of surgical procedure [ ] No, laryngeal edema is an expected outcome of the surgical procedure [ ] Laryngeal edema is related to patients co-morbid condition(s) of (insert co-morbid condition(s)) & not a complication of the procedure [ ] Other, please specify [ ] Unable to determine please send to surgical team. MIHIR BRAN
== END 2023-03-17 16:26 | disposition home or self-care (01) | DRG 921 ==
LOC: EC 17:09 → 3SCARD 19:50
PROVIDERS: ADMIT Internal Medicine; ATTEND Internal Medicine
DX: T81.89XA Other complications of procedures, not elsewhere classified, initial encounter (principal); J38.4 Edema of larynx; J39.8 Other specified diseases of upper respiratory tract; E89.0 Postprocedural hypothyroidism; J43.9 Emphysema, unspecified; S10.83XA Contusion of other specified part of neck, initial encounter; R49.0 Dysphonia; Z86.018 Personal history of other benign neoplasm; Z98.890 Other specified postprocedural states; Z87.891 Personal history of nicotine dependence
CPT/HCPCS: 36415; 70491; 71046; 80053; 83605; 83880; 84439; 84443; 84481; 84484; 85025; 85610; 85730; 87040; 93005; 94640; 96361; 96365; 96375; 99285

== ENCOUNTER 2023-03-24 21:48 | Inpatient (IN) | payer MEDICARE, OTHER ==
--- NOTE | 2023-03-24 22:11 | ED ---
SOB HPI - General Chief Complaint: Shortness of Breath Stated Complaint: Difficulty breathing Time Seen by Provider: 03/24/23 21:54 Source: patient Mode of arrival: EMS Limitations: no limitations - History of Present Illness Initial Comments: This patient is 72-year-old woman who is here complaining of trouble with breathing and increased noise of breathing. She states that she did have a thyroidectomy here, with Dr. Balderas, 03/11. She had been admitted in the hospital a few days later for some swelling at surgical site and some shortness of breath. She was subsequently discharged and has been taking dexamethasone and states she was a little better and then today the symptoms started to worsen. She does note swelling anteriorly at the surgical site. She states it feels like there is pressure when she breathes. She has not noted fever or chills. She does have occasional cough. Nonproductive. MD Complaint: shortness of breath, cough Onset/Timin -: week(s) Severity: moderate Quality: dull Consistency: constant Improves With: nothing Worsens With: nothing Known History Of: COPD Associated Symptoms: cough - Related Data Home Medications Medication Instructions Recorded Confirmed Multivitamins, Thera [Multivitamin 1 tab PO DAILY 03/07/23 03/25/23 (formulary)] dexAMETHasone [Decadron] See Taper PO DIRECTED 03/25/23 03/25/23 Previous Rx's Medication Instructions Recorded Acetaminophen Tab [Tylenol] 650 mg PO Q4H PRN #30 tablet 03/11/23 oxyCODONE HCL [OxyIR] 5 mg PO Q6H PRN 3 Days #12 tab 03/11/23 Ipratropium-Albuterol Nebulize 3 ml INHALATION RT-QID each 03/17/23 [Duoneb 0.5 mg-3 mg/3 ml Soln] Levothyroxine Sodium [Synthroid] 100 mcg PO DAILY@0630 tab 03/17/23 Amoxic-Pot Clav 875-125Mg 1 tab PO BID 10 Days #20 tab 03/31/23 [Augmentin 875-125] Ciprofloxacin HCl [Cipro] 500 mg PO Q12HR 10 Days #20 tab 03/31/23 Allergies Allergy/AdvReac Type Severity Reaction Status Date / Time No Known Allergies Allergy Verified 03/25/23 11:01 Review of Systems ROS Statement: Those systems with pertinent positive or pertinent negative responses have been documented in the HPI. ROS Other: All systems not noted in ROS Statement are negative. Constitutional: Denies: fever, chills, weakness ENT: Reports: throat pain. Denies: congestion Respiratory: Reports: cough, dyspnea, stridor Cardiovascular: Denies: chest pain, palpitations, syncope Gastrointestinal: Denies: abdominal pain, vomiting, diarrhea Genitourinary: Denies: dysuria, hematuria Musculoskeletal: Denies: back pain Skin: Denies: rash Neurological: Denies: headache, weakness, numbness Past Medical History Past Medical History: COPD, Osteoarthritis (OA), Thyroid Disorder Additional Past Medical History / Comment(s): Multinodular goiter History of Any Multi-Drug Resistant Organisms: None Reported Past Surgical History: Hysterectomy Additional Past Surgical History / Comment(s): hemorrhoidectomy, colonoscopies, thyroidectomy Past Anesthesia/Blood Transfusion Reactions: No Reported Reaction Past Psychological History: No Psychological Hx Reported Smoking Status: Current every day smoker Past Alcohol Use History: None Reported Past Drug Use History: None Reported - Past Family History Mother Family Medical History: No Reported History General Exam Limitations: no limitations General appearance: alert, in no apparent distress Head exam: Present: atraumatic, normocephalic Eye exam: Present: normal appearance. Absent: scleral icterus, conjunctival injection ENT exam: Present: normal oropharynx Neck exam: Present: tenderness, full ROM, other (There is a mild amount of swelling anteriorly on the neck centered on the surgical incision. Trace erythema and warmth.). Absent: meningismus, lymphadenopathy Respiratory exam: Present: normal lung sounds bilaterally, wheezes, stridor. Absent: respiratory distress, rales, rhonchi Cardiovascular Exam: Present: regular rate, normal rhythm, normal heart sounds. Absent: systolic murmur, diastolic murmur, rubs, gallop GI/Abdominal exam: Present: soft. Absent: distended, tenderness, guarding, rebound, rigid, mass Extremities exam: Present: normal inspection, normal capillary refill. Absent: pedal edema, calf tenderness Back exam: Present: normal inspection. Absent: CVA tenderness (R), CVA tenderness (L) Neurological exam: Present: alert Skin exam: Present: warm, dry, intact, normal color. Absent: rash Course Vital Signs 03/24/23 03/24/23 03/24/23 21:49 22:35 23:00 Temperature 98 F Pulse Rate 88 82 Respiratory 22 22 16 Rate Blood Pressure 119/64 O2 Sat by Pulse 97 98 98 Oximetry 03/25/23 03/25/23 03/25/23 02:38 03:26 06:13 Temperature Pulse Rate 83 82 79 Respiratory 20 18 Rate Blood Pressure 132/64 143/74 O2 Sat by Pulse 98 98 Oximetry 03/25/23 03/25/23 03/25/23 07:17 07:44 07:55 Temperature Pulse Rate 93 89 88 Respiratory 18 Rate Blood Pressure O2 Sat by Pulse 96 97 Oximetry 03/25/23 03/25/23 03/25/23 10:55 11:06 11:40 Temperature Pulse Rate 88 90 90 Respiratory 16 Rate Blood Pressure 146/70 O2 Sat by Pulse 97 Oximetry 03/25/23 03/25/23 03/25/23 12:15 12:30 12:45 Temperature Pulse Rate 95 96 98 Respiratory 20 20 17 Rate Blood Pressure 144/68 144/68 144/68 O2 Sat by Pulse 98 98 98 Oximetry 03/25/23 03/25/23 03/25/23 13:00 13:15 13:26 Temperature Pulse Rate 96 78 Respiratory 18 18 Rate Blood Pressure 144/68 147/63 134/78 O2 Sat by Pulse 98 99 Oximetry Medical Decision Making - Medical Decision Making This patient is 72-year-old woman presenting for evaluation related to noisy breathing and swelling of the anterior neck area. She had previous thyroidectomy days ago. The workup reveals that the patient's airway is patent. She does have marked leukocytosis and there is concern about possibility of postoperative infection versus leukocytosis due to the steroids that she had been given. In addition patient is found to be moderately hyponatremic. The patient will be admitted, have consultation related to the neck swelling Was pt. sent in by a medical professional or institution (, PA, [facility] [employer] [facility], urgent care, hospital, or jail...) When possible be specific @ -[No] Did you speak to anyone other than the patient for history (EMS, parent, family, police, friend...)? What history was obtained from this source @ -[No] Did you review nursing and triage notes (agree or disagree)? Why? @ -[I reviewed and agree with nursing and triage notes] Were old charts reviewed (outside hosp., previous admission, EMS record, old EKG, old radiological studies, urgent care reports/EKG's, jail records)? Report findings @ -[yes, old charts were reviewed] Differential Diagnosis (chest pain, altered mental status, abdominal pain women, abdominal pain men, vaginal bleeding, weakness, fever, dyspnea, syncope, headache, dizziness, GI bleed, back pain, seizure, CVA, palpatations, mental health, musculoskeletal)? @ -[Differential Dyspnea: Coronary syndrome, arrhythmia, tamponade, asthma, COPD, pulmonary embolism, pneumonia, pneumothorax, pulmonary effusion, anaphylaxis, diabetic ketoacidosis, flailed chest, pulmonary contusion, diaphragmatic rupture, anemia, neuromuscular, this is not meant to be an all-inclusive list. EKG interpreted by me (3pts min.). @ -[As above] X-rays interpreted by me (1pt min.). @ -[None done] CT interpreted by me (1pt min.). @ -[The patient had CT scan of the soft tissue of the neck that I interpreted as showing patency of the airway. There is fluid collection anteriorly in the postsurgical area U/S interpreted by me (1pt. min.). @ -[None done] What testing was considered but not performed or refused? (CT, X-rays, U/S, labs)? Why? @ -[None] What meds were considered but not given or refused? Why? @ -[None] Did you discuss the management of the patient with other professionals (professionals i.e. , PA, [facility] [employer] [facility], lab, RT, psych nurse, social work nurse, parking lot attendant, teacher, credit officer, case making machine operator)? Give summary @ -[Yes the case is discussed with the admitting physician Was smoking cessation discussed for >3mins.? @ -[No] Was critical care preformed (if so, how long)? @ -[No] Were there social determinants of health that impacted care today? How? (Homelessness, low income, unemployed, alcoholism, drug addiction, transportation, low edu. Level, literacy, decrease access to med. care, [facility], rehab)? @ -[No] Was there de-escalation of care discussed even if they declined (Discuss DNR or withdrawal of care, Hospice)? DNR status @ -[No] What co-morbidities impacted this encounter? (DM, HTN, Smoking, COPD, CAD, Cancer, CVA, ARF, Chemo, Hep., AIDS, mental health diagnosis, sleep apnea, morbid obesity)? @ -[None] Was patient admitted / discharged? Hospital course, mention meds given and route, prescriptions, significant lab abnormalities, going to OR and other pertinent info. @ -[Patient admitted to have treatment of the hyponatremia as well as surgical consultation. Started on saline replacement. Undiagnosed new problem with uncertain prognosis? @ -[No] Drug Therapy requiring intensive monitoring for toxicity (Heparin, Nitro, Insulin, Cardizem)? @ -[No] Were any procedures done? @ -[No] Diagnosis/symptom? @ -[Mild COPD exacerbation Acute hyponatremia Anterior neck swelling Acute, or Chronic, or Acute on Chronic? @ -[Acute Uncomplicated (without systemic symptoms) or Complicated (systemic symptoms)? @ -[Uncomplicated Side effects of treatment? @ -[No] Exacerbation, Progression, or Severe Exacerbation? @ -[No] Poses a threat to life or bodily function? How? (Chest pain, USA, PR, pneumonia, PE, COPD, DKA, ARF, appy, cholecystitis, CVA, Diverticulitis, Homicidal, Suicidal, threat to staff... and all critical care pts) @ -[No] - Lab Data Result diagrams: 04/01/23 06:36 04/01/23 06:36 Lab Results 03/24/23 03/24/23 Range/Units 22:08 22:08 WBC 28.1 H (3.8-10.6) k/uL RBC 4.10 (3.80-5.40) m/uL Hgb 13.0 (11.4-16.0) gm/dL Hct 39.4 (34.0-46.0) % MCV 95.9 (80.0-100.0) fL MCH 31.6 (25.0-35.0) pg MCHC 33.0 (31.0-37.0) g/dL RDW 13.0 (11.5-15.5) % Plt Count 444 (150-450) k/uL MPV 7.2 Neutrophils % (Manual) 83 % Band Neuts % (Manual) 10 % Lymphocytes % (Manual) 3 % Monocytes % (Manual) 4 % Metamyelocytes % 1 % Neutrophils # (Manual) 26.10 H (1.3-7.7) k/uL Lymphocytes # (Manual) 0.84 L (1.0-4.8) k/uL Monocytes # (Manual) 1.12 H (0-1.0) k/uL Metamyelocytes # (Man) 0.28 H (0) k/uL Nucleated RBCs 0 (0-0) /100 WBC Manual Slide Review Performed RBC Morphology Normal ESR 12 (0-20) mm/hr Sodium 124 L (137-145) mmol/L Potassium 4.3 (3.5-5.1) mmol/L Chloride 92 L (98-107) mmol/L Carbon Dioxide 22 (22-30) mmol/L Anion Gap 10 mmol/L BUN 14 (7-17) mg/dL Creatinine 0.48 L (0.52-1.04) mg/dL Est GFR (CKD-EPI)AfAm >90 (>60 ml/min/1.73 sqM) Est GFR (CKD-EPI)NonAf >90 (>60 ml/min/1.73 sqM) Glucose 155 H (74-99) mg/dL Calcium 9.0 (8.4-10.2) mg/dL Total Bilirubin 0.9 (0.2-1.3) mg/dL AST 24 (14-36) U/L ALT 23 (4-34) U/L Alkaline Phosphatase 73 (38-126) U/L Total Protein 7.1 (6.3-8.2) g/dL Albumin 4.2 (3.5-5.0) g/dL Disposition Clinical Impression: Acute exacerbation of chronic obstructive pulmonary disease, Hyponatremia Disposition: ADMITTED IP TO THIS HOSP Condition: Fair
[2023-03-24 22:29] LABS: ALT 23 U/L (4-34); AST 24 U/L (14-36); African American GFR (CKD) >90 (>60 ml/min/1.73 sqM); Albumin 4.2 g/dL (3.5-5.0); Alkaline Phosphatase 73 U/L (38-126); Anion Gap 10 mmol/L; Blood Urea Nitrogen 14 mg/dL (7-17); Carbon Dioxide 22 mmol/L (22-30); Chloride 92 mmol/L (98-107); Glucose 155 mg/dL (74-99); Non-African American GFR(CKD) >90 (>60 ml/min/1.73 sqM); Potassium 4.3 mmol/L (3.5-5.1); Sodium 124 mmol/L (137-145); Total Bilirubin 0.9 mg/dL (0.2-1.3); Total Protein 7.1 g/dL (6.3-8.2)
[2023-03-24 22:35] LABS: HCT 39.4 % (34.0-46.0); MCH 31.6 pg (25.0-35.0); MCV 95.9 fL (80.0-100.0); Mean Platelet Volume 7.2; Platelet Count 444 k/uL (150-450)
[2023-03-24 22:45] LABS: WBC 28.1 k/uL (3.8-10.6)
[2023-03-24 23:21] LABS: Band Neutrophils % 10 %; Lymphocytes # (M) 0.84 k/uL (1.0-4.8); Metamyelocytes # (M) 0.28 k/uL (0); Metamyelocytes % 1 %; Monocytes # (M) 1.12 k/uL (0-1.0); Neutrophils % (M) 83 %; Nucleated Red Blood Cells 0 /100 WBC (0-0); Total Cells Counted 200
[2023-03-24 23:22] LABS: RBC Morphology Normal
--- NOTE | 2023-03-24 23:39 | CT ---
EXAM: CT Neck Without Intravenous Contrast CLINICAL HISTORY: ITS.REASON CT Reason: stridor, post-surgery TECHNIQUE: Axial computed tomography images of the neck without intravenous contrast. CTDI is 5 mGy and DLP is 168.8 mGy-cm. This CT exam was performed using one or more of the following dose reduction techniques: automated exposure control, adjustment of the mA and/or kV according to patient size, and/or use of iterative reconstruction technique. COMPARISON: 03/14/2023 FINDINGS: Oropharynx: Unremarkable. No significant tonsillar enlargement. Hypopharynx: Unremarkable. Larynx: Unremarkable. Normal epiglottis. Trachea: Unremarkable. Retropharyngeal space: Unremarkable. Submandibular/parotid glands: Unremarkable. Glands are normal in size. Thyroid: Status post thyroidectomy. Fluid within the surgical bed circumferentially around the lower neck airway measuring up to 2.6 cm in thickness anteriorly, 2.3 cm in thickness laterally to the left and 2.3 cm in thickness laterally to the right. Overall fluid is not significantly changed and no compression of the airway. Bones/joints: No acute fracture. Soft tissues: Opacification of the right sphenoid sinus. Vasculature: No acute findings. Lymph nodes: Unremarkable. No lymphadenopathy. Lung apices: Centrilobular emphysema. IMPRESSION: Status post thyroidectomy. Fluid within the surgical bed circumferentially around the lower neck airway measuring up to 2.6 cm in thickness anteriorly, 2.3 cm in thickness laterally to the left and 2.3 cm in thickness laterally to the right. Overall fluid is not significantly changed from prior study and no compression of the airway.
[2023-03-24 23:48] LABS: Erythrocyte Sedimentation Rate 12 mm/hr (0-20)
[2023-03-25] MEDS ORDERED: SODIUM CHLORIDE 0.9% 1,000 ML IV STA (01:59)
[2023-03-25] MEDS ORDERED: SODIUM CHLORIDE 0.9% 500 ML 500 ML IV STA (01:59)
[2023-03-25] MEDS ORDERED: NALOXONE 0.4 MG/ML 1 ML VIAL IV PRN (02:00)
[2023-03-25] MEDS ORDERED: ALBUTEROL NEBULIZED 2.5 MG/3 ML INHALATION PRN (02:28)
[2023-03-25] MEDS: ALBUTEROL NEBULIZED 2.5 MG/3 ML INHALATION SCH ×2 (07:41→10:52)
--- NOTE | 2023-03-25 10:08 | XR ---
EXAMINATION TYPE: XR chest 1V portable DATE OF EXAM: 03/25/2023 COMPARISON: 03/14/2023 INDICATION: Short of breath TECHNIQUE: Single frontal view of the chest is obtained. FINDINGS: The heart size is normal. The pulmonary vasculature is normal. Right lower lobe infiltrate is present. Correlate for pneumonia, follow-up is recommended. IMPRESSION: 1. Right lower lobe consolidation with air bronchograms. Correlate for pneumonia. Follow-up is recomm ended.
[2023-03-25] MEDS: DEXAMETHASONE SOD PHOSPHATE 4 MG/ML 1 ML VIAL IVP SCH ×4 (10:31→21:05)
[2023-03-25] MEDS ORDERED: IPRATROPIUM-ALBUTEROL 3 ML NEB INHALATION PRN (11:19)
[2023-03-25] MEDS ORDERED: AMPICILLIN-SULBACTAM 3 GM in SODIUM CHLORIDE 0.9% 100 ML IVPB SCH (12:00)
[2023-03-25] MEDS: FOLIC ACID 1 MG TAB PO SCH (12:26)
[2023-03-25] MEDS: THIAMINE 100 MG TAB PO SCH (12:26)
[2023-03-25] MEDS: MULTIVITAMINS, THERA 1 EACH TAB PO SCH (12:26)
--- NOTE | 2023-03-25 12:51 | HP ---
HISTORY AND PHYSICAL CHIEF COMPLAINT: Stridor and shortness of breath. HISTORY OF PRESENT ILLNESS: This is a 72-year-old woman with a past medical history of recent thyroidectomy, had shortness of breath previously. The patient was admitted and treated symptomatically. The patient was discharged, but because of her increasing symptoms of shortness of breath, stridor, and neck swelling, the patient came to [facility] and admitted for further evaluation and treatment. The biopsy was apparently positive for noninvasive follicular thyroid neoplasm with papillary-like nuclear features. Outpatient followup is also planned. CT scan showed fluid within the surgical bed circumferentially and some thickening, but no compression of the airway was noted. There is no history of any fever, rigor, or chills at this time. PAST MEDICAL HISTORY: Reviewed includes recent thyroidectomy and COPD. Rest of the history and rest of the chart are also reviewed. HOME MEDICATIONS: Oxy IR. Doses and rest of the medications are reviewed. ALLERGIES: None. FAMILY HISTORY: No history of heart disease or strokes in the family. SOCIAL HISTORY: History of continued smoking. REVIEW OF SYSTEMS: Fourteen-point review of system is negative except as mentioned earlier. PHYSICAL EXAMINATION: VITAL SIGNS: Pulse is 88, blood pressure is 143/75, respirations 18. HEENT: Conjunctivae are normal. NECK: Status post thyroid surgery. Erythema and minimal tenderness also present. RESPIRATORY: Bilateral scattered rhonchi and crackles. Stridor also present. ABDOMEN: Soft and nontender. LEGS: No edema. NERVOUS SYSTEM: Nonfocal. SKIN: No ulcers or rashes. JOINTS: No active deforming arthropathy. LABORATORY DATA: WBC 28.1. Procalcitonin 0.17. ASSESSMENT: 1. Chronic obstructive pulmonary disease acute exacerbation. 2. Possible stridor. Rt lower lobe pneumonia 3. History of recent thyroidectomy for noninvasive follicular thyroid neoplasm. 4. Increased WBC. 5. Hyponatremia. 6. Degenerative joint disease. 7. History of multinodular goiter. 8. History of nicotine dependence, continued ongoing. RECOMMENDATIONS AND DISCUSSION: In this 72-year-old woman presented with multiple complex medical issues, we will monitor the patient closely. Treat the COPD intensively with intensive bronchodilators and IV steroids. Empiric antibiotics will be given. Cultures will be obtained. We will also obtain ENT consultation. I have talked with Dr. Hahn, who will evaluate the patient, and we will recommend Pulmonary and Infectious Disease evaluation also. Overall, prognosis is extremely guarded because of multiple complex medical issues, which was discussed with the family and the patient. Further recommendations to follow. See orders for the details. DVT prophylaxis. MMODL / IJN: [id number] / MTDDorothy
[2023-03-25] MEDS: PIPERACILLIN-TAZOBACTAM 3.375 GM in SODIUM CHLORIDE 0.9% 100 ML IVPB SCH ×2 (13:02→19:26)
--- NOTE | 2023-03-25 13:07 | P.GSCN ---
History of Present Illness Consult date: 03/25/23 Reason for Consult: Surgical site swelling History of present illness: 72-year-old female underwent total thyroidectomy on 03/10. She came back to the hospital on 623 with complaints of stridor. She was seen by surgery and pulmonary. She was treated with steroids, clinically improved, and discharged home. She was home on oral steroids apparently. Starting earlier yesterday she noticed increased stridor and some trouble breathing. No dysphagia. No fevers. She says the incision site became more swollen over the last 2 days. Some re dness was noted. She came to the ER for evaluation. Apparently she was admitted to the medical team and we were consulted. Dr. Larson notified me of the consult about an hour and a half ago. Patient was still in the emergency department. She was there with her niece at the bedside. Patient complains of feeling anxious. Says the stridor is about the same as it was when she came to the ER last night. White blood cell count noted to be elevated at 28,000. X- ray of the chest suggested right lower lobe infiltrate. CT of the neck was performed showing a 2.6 cm fluid collection at the surgical site. This is similar in size to the previous CAT scan. Fluid is seen both anterior and lateral to the trachea. Patient was then assessed by pulmonary and our anesthesia team. Review of Systems The patient denies any acute changes in vision or hearing, no dysphagia or odynophagia, no dysuria or hematuria, no headache, no runny nose, no rectal bleeding or melena, no unexplained weight loss Past Medical History Past Medical History: COPD, Osteoarthritis (OA), Thyroid Disorder Additional Past Medical History / Comment(s): Multinodular goiter History of Any Multi-Drug Resistant Organisms: None Reported Past Surgical History: Hysterectomy Additional Past Surgical History / Comment(s): hemorrhoidectomy, colonoscopies, thyroidectomy Past Anesthesia/Blood Transfusion Reactions: No Reported Reaction Past Psychological History: No Psychological Hx Reported Smoking Status: Current every day smoker Past Alcohol Use History: None Reported Past Drug Use History: None Reported - Past Family History Mother Family Medical History: No Reported History Medications and Allergies Home Medications Medication Instructions Recorded Confirmed Type Multivitamins, Thera [Multivitamin 1 tab PO DAILY 03/07/23 03/25/23 History (formulary)] Acetaminophen Tab [Tylenol] 650 mg PO Q4H PRN #30 tablet 03/11/23 03/25/23 Rx oxyCODONE HCL [OxyIR] 5 mg PO Q6H PRN 3 Days #12 tab 03/11/23 03/25/23 Rx Ipratropium-Albuterol Nebulize 3 ml INHALATION RT-QID each 03/17/23 03/25/23 Rx [Duoneb 0.5 mg-3 mg/3 ml Soln] Levothyroxine Sodium [Synthroid] 100 mcg PO DAILY@0630 tab 03/17/23 03/25/23 Rx dexAMETHasone [Decadron] See Taper PO DIRECTED 03/25/23 03/25/23 History Allergies Allergy/AdvReac Type Severity Reaction Status Date / Time No Known Allergies Allergy Verified 03/25/23 11:01 Surgical - Exam Vital Signs Temp Pulse Resp BP Pulse Ox 98 F 88 22 119/64 97 03/24/23 21:49 03/24/23 21:49 03/24/23 21:49 03/24/23 21:49 03/24/23 21:49 Physical exam: General: Well-developed, well-nourished, audible stridor present, patient appears anxious HEENT: Lower cervical transverse incision noted, mild erythema, some edema present with serous drainage laterally on the left, mild tenderness Abdomen: Nontender, nondistended Extremities: No edema Neuro: Alert and oriented Results - Labs 03/24/23 22:08 03/24/23 22:08 Abnormal Lab Results - Last 24 Hours (Table) 03/24/23 03/24/23 03/25/23 Range/Units 22:08 22:08 02:02 WBC 28.1 H (3.8-10.6) k/uL Neutrophils # (Manual) 26.10 H (1.3-7.7) k/uL Lymphocytes # (Manual) 0.84 L (1.0-4.8) k/uL Monocytes # (Manual) 1.12 H (0-1.0) k/uL Metamyelocytes # (Man) 0.28 H (0) k/uL Sodium 124 L (137-145) mmol/L Chloride 92 L (98-107) mmol/L Creatinine 0.48 L (0.52-1.04) mg/dL Glucose 155 H (74-99) mg/dL Procalcitonin 0.17 H (0.02-0.09) ng/mL Diabetes panel 03/24/23 Range/Units 22:08 Sodium 124 L (137-145) mmol/L Potassium 4.3 (3.5-5.1) mmol/L Chloride 92 L (98-107) mmol/L Carbon Dioxide 22 (22-30) mmol/L BUN 14 (7-17) mg/dL Creatinine 0.48 L (0.52-1.04) mg/dL Glucose 155 H (74-99) mg/dL Calcium 9.0 (8.4-10.2) mg/dL AST 24 (14-36) U/L ALT 23 (4-34) U/L Alkaline Phosphatase 73 (38-126) U/L Total Protein 7.1 (6.3-8.2) g/dL Albumin 4.2 (3.5-5.0) g/dL Calcium panel 03/24/23 Range/Units 22:08 Calcium 9.0 (8.4-10.2) mg/dL Albumin 4.2 (3.5-5.0) g/dL Pituitary panel 03/24/23 Range/Units 22:08 Sodium 124 L (137-145) mmol/L Potassium 4.3 (3.5-5.1) mmol/L Chloride 92 L (98-107) mmol/L Carbon Dioxide 22 (22-30) mmol/L BUN 14 (7-17) mg/dL Creatinine 0.48 L (0.52-1.04) mg/dL Glucose 155 H (74-99) mg/dL Calcium 9.0 (8.4-10.2) mg/dL Adrenal panel 03/24/23 Range/Units 22:08 Sodium 124 L (137-145) mmol/L Potassium 4.3 (3.5-5.1) mmol/L Chloride 92 L (98-107) mmol/L Carbon Dioxide 22 (22-30) mmol/L BUN 14 (7-17) mg/dL Creatinine 0.48 L (0.52-1.04) mg/dL Glucose 155 H (74-99) mg/dL Calcium 9.0 (8.4-10.2) mg/dL Total Bilirubin 0.9 (0.2-1.3) mg/dL AST 24 (14-36) U/L ALT 23 (4-34) U/L Alkaline Phosphatase 73 (38-126) U/L Total Protein 7.1 (6.3-8.2) g/dL Albumin 4.2 (3.5-5.0) g/dL Assessment and Plan Assessment: 72-year-old female with stridor after recent total thyroidectomy. Patient previously was admitted for this and seemed to respond well to IV steroids. Patient now with elevated white blood cell count and erythema at the incision site. Suspect seroma or possibly infected seroma. Case discussed with anesthesia and pulmonary along with the hospitalist service. Both operative and nonoperative approaches discussed with patient and family as well. At this time recommend and we will proceed with evacuation of surgical site seroma. We'll obtain cultures. Will leave a Casanova drain in place. With decompression of the surgical bed we would anticipate improvement in the patient's stridorous symptoms. May still require laryngoscopy to evaluate the vocal cords. Continue antibiotics for possible surgical site infection and pneumonia. Patient will be kept on the ventilator overnight tonight and reassess airway by pulmonary tomorrow. Risks of bleeding, infection, wound formation, recurrent symptoms, loss of airway, respiratory failure, cardiac complications, and reviewed. Patient understands and wishes to proceed.
--- NOTE | 2023-03-25 13:11 | P.CNPUL ---
History of Present Illness Consult date: 03/25/23 Requesting physician: Dennise Larson Reason for consult: other (Stridor) Chief complaint: Difficulty breathing, swollen neck History of present illness: This is a very pleasant 72-year-old female patient with a known history of chronic obstructive pulmonary disease, chronic and ongoing tobacco dependence. She was noted to have a multinodular goiter and had undergone thyroidectomy on 03/10/2023 and discharged home. She returned to the emergency room on 03/15/2023 with increasing shortness of breath and audible stridor. She had been treated with Decadron and an ENT consult was placed. She is discharged home on 03/17/2023 with Decadron. She came back to the emergency room last evening after her surgical site developed significant edema and swelling and she again developed stridor. Computed tomography scan of the neck revealed status post thyroidectomy. Fluid within the surgical bed circumferentially around the lower neck airway measuring up to 2.6 cm in thickness anteriorly, 2.3 cm in thickness laterally to the left and 2.3 cm in thickness laterally to the right. Chest x-ray reveals a right lower lobe infiltrate. White count 28.1. Hemoglobin 13.0. Platelets 444. Sodium 124. Potassium 4.3. Bicarb 22. BUN 14. Creatinine 0.48. Glucose 155. Pro-calcitonin 0.17. He's been initiated on IV Decadron 4 mg every 4 hours. Antibiotics in the form of cefazolin and Zosyn. DuoNeb inhalations. Heparin for DVT prophylaxis. Review of Systems REVIEW OF SYSTEMS: CONSTITUTIONAL: Denies any recent significant weight loss or weight gain. EYES: Denies change in vision. EARS, NOSE, MOUTH, THROAT: Positive for difficulty swallowing, stridor. CARDIOVASCULAR: Denies chest pain, palpitations or syncopal episodes. RESPIRATORY: Positive for shortness of breath, no cough, congestion or hemoptysis. GASTROINTESTINAL: Denies change in appetite, denies abdominal pain GENITOURINARY: Denies hematuria, denies infections. MUSKULOSKELETAL: Denies pain, denies swelling. INTEGUMENTARY: Denies rash, denies eczema. NEUROLOGICAL: Denies recent memory loss, no recent seizure activity. PSYCHIATRIC: Positive for anxiety. HEMATOLOGIC/LYMPHATIC: Denies anemia, denies enlarged lymph nodes. Past Medical History Past Medical History: COPD, Osteoarthritis (OA), Thyroid Disorder Additional Past Medical History / Comment(s): Multinodular goiter History of Any Multi-Drug Resistant Organisms: None Reported Past Surgical History: Hysterectomy Additional Past Surgical History / Comment(s): hemorrhoidectomy, colonoscopies, thyroidectomy Past Anesthesia/Blood Transfusion Reactions: No Reported Reaction Past Psychological History: No Psychological Hx Reported Smoking Status: Current every day smoker Past Alcohol Use History: None Reported Past Drug Use History: None Reported - Past Family History Mother Family Medical History: No Reported History Medications and Allergies Home Medications Medication Instructions Recorded Confirmed Type Multivitamins, Thera [Multivitamin 1 tab PO DAILY 03/07/23 03/25/23 History (formulary)] Acetaminophen Tab [Tylenol] 650 mg PO Q4H PRN #30 tablet 03/11/23 03/25/23 Rx oxyCODONE HCL [OxyIR] 5 mg PO Q6H PRN 3 Days #12 tab 03/11/23 03/25/23 Rx Ipratropium-Albuterol Nebulize 3 ml INHALATION RT-QID each 03/17/23 03/25/23 Rx [Duoneb 0.5 mg-3 mg/3 ml Soln] Levothyroxine Sodium [Synthroid] 100 mcg PO DAILY@0630 tab 03/17/23 03/25/23 Rx dexAMETHasone [Decadron] See Taper PO DIRECTED 03/25/23 03/25/23 History Allergies Allergy/AdvReac Type Severity Reaction Status Date / Time No Known Allergies Allergy Verified 03/25/23 11:01 Physical Exam Vitals: Vital Signs Temp Pulse Resp BP Pulse Ox 03/25/23 11:40 90 16 146/70 97 03/25/23 11:06 90 03/25/23 10:55 88 03/25/23 07:55 88 03/25/23 07:44 89 97 03/25/23 07:17 93 18 96 03/25/23 06:13 79 18 143/74 98 03/25/23 03:26 82 20 132/64 98 03/25/23 02:38 83 03/24/23 23:00 82 16 98 03/24/23 22:35 22 98 03/24/23 21:49 98 F 88 22 119/64 97 Intake and Output 03/24/23 03/25/23 03/25/23 22:59 06:59 14:59 Other: Weight 48.988 kg GENERAL EXAM: Alert, anxious 72-year-old female, on 2 L nasal cannula, fairly comfortable in no apparent distress. HEAD: Normocephalic. EYES: Normal reaction of pupils, equal size. NOSE: Clear with pink turbinates. THROAT: Anterior neck from previous thyroidectomy incision red raised with soft tissue edema surrounding. No erythema or exudates. NECK: No masses, no JVD. CHEST: No chest wall deformity. LUNGS: Equal air entry with echos in the right lung base. CVS: S1 and S2 normal with no audible murmur, regular rhythm. ABDOMEN: No hepatosplenomegaly, normal bowel sounds, no guarding or rigidity. SPINE: No scoliosis or deformity SKIN: No rashes CENTRAL NERVOUS SYSTEM: No focal deficits, tone is normal in all 4 extremities. EXTREMITIES: There is no peripheral edema. No clubbing, no cyanosis. Peripheral pulses are intact. Results - Laboratory Findings CBC and BMP: 03/24/23 22:08 03/24/23 22:08 Abnormal lab findings: Abnormal Labs 03/24/23 03/24/23 03/25/23 22:08 22:08 02:02 WBC 28.1 H Neutrophils # (Manual) 26.10 H Lymphocytes # (Manual) 0.84 L Monocytes # (Manual) 1.12 H Metamyelocytes # (Man) 0.28 H Sodium 124 L Chloride 92 L Creatinine 0.48 L Glucose 155 H Procalcitonin 0.17 H - Diagnostic Findings Chest x-ray: image reviewed Assessment and Plan Assessment: Acute stridor secondary to soft tissue edema and swelling around the incision from previous thyroidectomy on 03/10/2023 Acute hypoxemic respiratory failure secondary to above in addition to suspected aspiration pneumonia of the right lower lung Recent admission for stridor on 03/14/2023, improved with Decadron and discharged on 03/17/2023 History of multinodular goiter status post total thyroidectomy on 03/10/2023 Chronic and ongoing tobacco dependence Chronic obstructive pulmonary disease Osteoarthritis Plan: The patient was seen and evaluated Chest x-ray, CAT scan of the neck, labs and medications reviewed The patient has significant stridor Continue Decadron Plan is for intubation and incision and drainage of the neck edema May need to remain intubated overnight We will continue to follow and make further recommendations based on her clinical status I have personally seen and examined the patient, performed the documentation and the assessment and plan as written. Number of minutes spent on the visit: 20.
[2023-03-25] MEDS: IPRATROPIUM-ALBUTEROL 3 ML NEB INHALATION SCH ×4 (13:17→23:04)
[2023-03-25] MEDS ORDERED: PROPOFOL 10 MG/ML 20 ML VIAL IV ONE (13:50)
[2023-03-25] MEDS ORDERED: LIDOCAINE 2% INJ 20 MG/ML (2 ML VIAL) ONE (13:50)
[2023-03-25] MEDS ORDERED: fentaNYL (PF) 50 MCG/ML 2 ML AMP ONE (13:50)
[2023-03-25] MEDS ORDERED: MIDAZOLAM 2 MG/2 ML VIAL ONE (13:50)
[2023-03-25] MEDS ORDERED: ROCURONIUM 10 MG/ML (5 ML VIAL) IV ONE (13:50)
[2023-03-25] MEDS ORDERED: SUCCINYLCHOLINE CHLORIDE 200 MG/10 ML VIAL IV ONE (13:50)
[2023-03-25] MEDS ORDERED: IV FLUID CONTINUATION 1,000 ML IV ONE (13:54)
[2023-03-25] MEDS ORDERED: BUPIVACAINE (PF) 0.25% 30 ML VIAL SQ ONE (14:12)
[2023-03-25 14:35] LABS: Glucose,Whole Blood 169 mg/dL (70-110)
--- NOTE | 2023-03-25 14:36 | P.OP ---
Date of Procedure: 03/25/23 Procedure(s) Performed: PREOPERATIVE DIAGNOSIS: Post-thyroidectomy neck seroma POSTOPERATIVE DIAGNOSIS: Same PROCEDURE: Incision and drainage postop infected neck seroma SURGEON: [place] EBL: 2 Leander ANESTHESIA: Gen. COMPLICATIONS: None OPERATIVE PROCEDURE: Patient was brought into the operating room. She was kept with her head upright somewhat. She was able to be intubated per anesthesia without difficulty. A size 7 endotracheal tube was utilized. The neck was prepped and draped sterilely. The previous incision was re-incised. The previous Monocryl and Vicryl sutures were removed. Entrance into a pocket of fluid measuring approximate 40-[address] This was cloudy in appearance. Some particulate matter that was thought to represent surgical site hemostatic material was evacuated. Cultures were taken. Area thoroughly irrigated both on the right and left side of the trachea. Molly drain 2 were cut to fit on each side of the neck. These were sutured to the skin using a 3-0 silk stitch. Strap muscles reapproximated using 3-0 Vicryl suture. Subcutaneous layer closed using interrupted 3-0 Vicryl sutures. Skin lateral to the drains were closed using interrupted 4-0 Monocryl sutures. Sterile dressings applied. DISPOSITION: Stable to ICU
[2023-03-25] MEDS ORDERED: Magnesium Replacement Protocol 1 EACH MISC MISCELLANE PRN (14:48)
[2023-03-25] MEDS ORDERED: Potassium Replacement Protocol 1 EACH MISC MISCELLANE PRN (14:48)
[2023-03-25] MEDS ORDERED: DEXTROSE 50% SYRINGE 50 ML IVP PRN ×2 (14:52)
[2023-03-25 15:09] LABS: ABG Base Excess -5.3 mmol/L; ABG HCO3 22 mmol/L (21-25); ABG Oxygen Saturation 99.4 % (94-97); ABG PCO2 50 mmHg (35-45); ABG PH 7.25 (7.35-7.45); ABG PO2 387 mmHg (83-108); ABG TCO2 23 mmol/L (19-24); Allen Test Performed? Yes
--- NOTE | 2023-03-25 15:14 | XR ---
EXAMINATION TYPE: XR chest 1V portable DATE OF EXAM: 03/25/2023 COMPARISON: 03/25/2023 earlier exam INDICATION: Tube placement TECHNIQUE: Single frontal view of the chest is obtained. FINDINGS: The heart size is normal. The pulmonary vasculature is normal. Mild right lower lobe infiltrate is present which appears improved from comparison. Endotracheal tube is been placed with the tip 2.4 cm above the yecenia. Nasogastric transversus thorac is left upper quadrant of the abdomen. IMPRESSION: 1. Improving right lower lobe infiltrate. Continued follow-up is recommended. 2. Interval placement of the endotracheal tube and nasogastric tube.
[2023-03-25 15:47] LABS: Basophils % (A) 0 %; Eosinophils # (A) 0.2 k/uL (0-0.7); Eosinophils % (A) 1 %; HCT 37.8 % (34.0-46.0); HGB 12.3 gm/dL (11.4-16.0); Lymphocytes # (A) 0.2 k/uL (1.0-4.8); Lymphocytes % (A) 1 %; MCH 32.3 pg (25.0-35.0); MCHC 32.5 g/dL (31.0-37.0); MCV 99.3 fL (80.0-100.0); Monocytes # (A) 0.4 k/uL (0-1.0); Monocytes % (A) 2 %; Neutrophils # (A) 23.2 k/uL (1.3-7.7); Neutrophils % (A) 97 %; Platelet Count 366 k/uL (150-450); WBC 24.1 k/uL (3.8-10.6)
[2023-03-25 15:58] LABS: African American GFR (CKD) >90 (>60 ml/min/1.73 sqM); Anion Gap 10 mmol/L; Blood Urea Nitrogen 11 mg/dL (7-17); Carbon Dioxide 15 mmol/L (22-30); Chloride 98 mmol/L (98-107); Glucose 157 mg/dL (74-99); Non-African American GFR(CKD) >90 (>60 ml/min/1.73 sqM); Sodium 123 mmol/L (137-145)
[2023-03-25 15:59] LABS: Potassium 4.4 mmol/L (3.5-5.1)
[2023-03-25] MEDS ORDERED: SODIUM CHLORIDE 0.9% IVPB SCH ×2 (16:15)
[2023-03-25] MEDS ORDERED: DAPTOMYCIN IVPB SCH ×2 (16:15)
[2023-03-25] MEDS ORDERED: INSULIN ASPART (NovoLOG) 100 UNIT/ML VIAL SQ SCH (17:30)
[2023-03-25 18:06] LABS: Glucose,Whole Blood 169 mg/dL (70-110)
[2023-03-25] MEDS: INSULIN ASPART (NovoLOG) 100 UNIT/ML VIAL SQ SCH (18:23)
[2023-03-25] MEDS: CHLORHEXIDINE GLUCONATE 15 ML CUP MUCOUS MEM SCH (20:01)
[2023-03-25] MEDS: HEPARIN SODIUM,PORCINE/PF 5,000 UNIT/0.5 ML SYRINGE SQ SCH (20:01)
[2023-03-25] MEDS: LACTATED RINGERS 1,000 ML IV SCH (21:02)
[2023-03-25] MEDS: HYDROmorphone 1 MG/ML 1 ML SYRINGE IVP PRN (21:07)
[2023-03-25] MEDS ORDERED: SODIUM CHLORIDE 0.9% 500 ML 500 ML IV ONE (22:05)
--- NOTE | 2023-03-25 22:28 | P.CONS ---
History of Present Illness - Reason for Consult Consult date: 03/25/23 - History of Present Illness Patient is a 72-year-old female with a past medical history taken for COPD multinodular goiter in this patient status post thyroidectomy completed on 03/10/2023 patient subsequently presented back to the hospital on 03/15/2023 with increasing shortness of breath and audible stridor patient was treated with a Decadron and evaluated by ENT subsequent discharged home with a Decadron patient did have a CT of the neck which did show some fluid collection patient is now brought back to the hospital last night for evaluation of difficulty breathing increased noise of breathing symptom has been getting worse for the last few days and did not mention any drainage or high-grade fever patient on presentation to the hospital was afebrile she did have a low-grade fever of 99 F this afternoon patient did have vital at 28,000 with a left shift creatinine was normal liver enzymes are normal patient did have a CT of the soft tissue of the neck which still shows fluid within the surgical blood circumflexion around the door neck area measuring up to 2.2 cm in thickness, patient has been evaluated by general surgery was taken to the OR s/p drainage of the seroma patient was started on Zosyn infectious disease was consulted for further management of antibiotic therapy patient also have a chest x-ray concerning for right lower lobe infiltrate most information has been obtained from review the chart talking nursing staff the patient is currently intubated on the right unable to provide any history patient is not requiring any pressor support and no significant purulent secretion through the ET reported Past Medical History Past Medical History: COPD, Osteoarthritis (OA), Thyroid Disorder Additional Past Medical History / Comment(s): Multinodular goiter History of Any Multi-Drug Resistant Organisms: None Reported Past Surgical History: Hysterectomy Additional Past Surgical History / Comment(s): hemorrhoidectomy, colonoscopies, thyroidectomy Past Anesthesia/Blood Transfusion Reactions: No Reported Reaction Past Psychological History: No Psychological Hx Reported Smoking Status: Current every day smoker Past Alcohol Use History: None Reported Past Drug Use History: None Reported - Past Family History Mother Family Medical History: No Reported History Medications and Allergies Home Medications Medication Instructions Recorded Confirmed Type Multivitamins, Thera [Multivitamin 1 tab PO DAILY 03/07/23 03/25/23 History (formulary)] Acetaminophen Tab [Tylenol] 650 mg PO Q4H PRN #30 tablet 03/11/23 03/25/23 Rx oxyCODONE HCL [OxyIR] 5 mg PO Q6H PRN 3 Days #12 tab 03/11/23 03/25/23 Rx Ipratropium-Albuterol Nebulize 3 ml INHALATION RT-QID each 03/17/23 03/25/23 Rx [Duoneb 0.5 mg-3 mg/3 ml Soln] Levothyroxine Sodium [Synthroid] 100 mcg PO DAILY@0630 tab 03/17/23 03/25/23 Rx dexAMETHasone [Decadron] See Taper PO DIRECTED 03/25/23 03/25/23 History Allergies Allergy/AdvReac Type Severity Reaction Status Date / Time No Known Allergies Allergy Verified 03/25/23 11:01 Physical Exam Vitals: Vital Signs Temp Pulse Resp BP Pulse Ox 03/25/23 11:40 90 16 146/70 97 03/25/23 11:06 90 03/25/23 10:55 88 03/25/23 07:55 88 03/25/23 07:44 89 97 03/25/23 07:17 93 18 96 03/25/23 06:13 79 18 143/74 98 03/25/23 03:26 82 20 132/64 98 03/25/23 02:38 83 03/24/23 23:00 82 16 98 03/24/23 22:35 22 98 03/24/23 21:49 98 F 88 22 119/64 97 Intake and Output 03/24/23 03/25/23 03/25/23 22:59 06:59 14:59 Other: Weight 48.988 kg Results CBC & Chem 7: 03/25/23 15:28 03/25/23 15:28 Labs: Abnormal Lab Results - Last 24 Hours (Table) 03/24/23 03/24/23 03/25/23 Range/Units 22:08 22:08 02:02 WBC 28.1 H (3.8-10.6) k/uL Neutrophils # (Manual) 26.10 H (1.3-7.7) k/uL Lymphocytes # (Manual) 0.84 L (1.0-4.8) k/uL Monocytes # (Manual) 1.12 H (0-1.0) k/uL Metamyelocytes # (Man) 0.28 H (0) k/uL Sodium 124 L (137-145) mmol/L Chloride 92 L (98-107) mmol/L Creatinine 0.48 L (0.52-1.04) mg/dL Glucose 155 H (74-99) mg/dL Procalcitonin 0.17 H (0.02-0.09) ng/mL Assessment and Plan Plan: 1patient presented to hospital with increasing shortness of breath stridor in this patient who did have a history of thyroidectomy on 03/10/2023 now presenting to the hospital with above symptoms patient did have abnormal CT and is s/p surgical drainage of postop seroma culture has been obtained and will need to cover for both gram-positive as well as gram-negative pathogen, patient also have right lower lobe infiltrate concern for possible aspiration pneumonitis 2-patient to continue with the Zosyn however we will add daptomycin to cover for the gram-positive while waiting for the culture to finalize 3-cultures will be followed and we will also obtain sputum for Gram stain and culture We will follow on clinical condition and cultures to further adjust medication if needed Thank you for this consultation we will follow the patient along with you Time with Patient: Greater than 30
[2023-03-25] MEDS ORDERED: CISATRACURIUM 2 MG/ML 5 ML VIAL IV ONE (23:27)
[2023-03-25] MEDS ORDERED: SODIUM CHLORIDE 0.9% 1,000 ML IV ONE (23:29)
[2023-03-25] MEDS ORDERED: CISATRACURIUM 200 MG in SODIUM CHLORIDE 0.9% 180 ML IV SCH (23:45)
[2023-03-25] MEDS: NOREPINEPHRINE 4 MG in SODIUM CHLORIDE 0.9% 250 ML IV SCH (23:45)
[2023-03-26] MEDS: INSULIN ASPART (NovoLOG) 100 UNIT/ML VIAL SQ SCH ×5 (00:14→23:01)
[2023-03-26 00:15] LABS: Glucose,Whole Blood 127 mg/dL (70-110)
[2023-03-26] MEDS ORDERED: SODIUM CHLORIDE 0.9% 500 ML 500 ML IV ONE (01:15)
[2023-03-26] MEDS: DEXAMETHASONE SOD PHOSPHATE 4 MG/ML 1 ML VIAL IVP SCH ×6 (01:58→23:01)
[2023-03-26] MEDS: IPRATROPIUM-ALBUTEROL 3 ML NEB INHALATION SCH ×5 (03:17→20:18)
[2023-03-26] MEDS: HYDROmorphone 1 MG/ML 1 ML SYRINGE IVP PRN (03:42)
[2023-03-26 04:09] LABS: African American GFR (CKD) >90 (>60 ml/min/1.73 sqM); Anion Gap 6 mmol/L; Blood Urea Nitrogen 11 mg/dL (7-17); Calcium 7.3 mg/dL (8.4-10.2); Carbon Dioxide 21 mmol/L (22-30); Chloride 101 mmol/L (98-107); Glucose 119 mg/dL (74-99); Magnesium 1.8 mg/dL (1.6-2.3); Non-African American GFR(CKD) >90 (>60 ml/min/1.73 sqM); Potassium 3.6 mmol/L (3.5-5.1); Sodium 128 mmol/L (137-145)
[2023-03-26] MEDS: PIPERACILLIN-TAZOBACTAM 3.375 GM in SODIUM CHLORIDE 0.9% 100 ML IVPB SCH ×3 (04:21→20:41)
[2023-03-26 04:43] LABS: Basophils % (A) 0 %; Eosinophils % (A) 0 %; HCT 30.4 % (34.0-46.0); HGB 10.1 gm/dL (11.4-16.0); Lymphocytes # (A) 0.2 k/uL (1.0-4.8); Lymphocytes % (A) 2 %; MCH 32.2 pg (25.0-35.0); MCHC 33.2 g/dL (31.0-37.0); Monocytes # (A) 0.2 k/uL (0-1.0); Monocytes % (A) 1 %; Neutrophils # (A) 13.6 k/uL (1.3-7.7); Neutrophils % (A) 97 %; Platelet Count 241 k/uL (150-450); RBC 3.14 m/uL (3.80-5.40); RDW 13.5 % (11.5-15.5); WBC 14.1 k/uL (3.8-10.6)
[2023-03-26 06:28] LABS: ABG Base Excess 2.8 mmol/L; ABG HCO3 28 mmol/L (21-25); ABG PCO2 46 mmHg (35-45); ABG PH 7.39 (7.35-7.45); ABG PO2 107 mmHg (83-108); ABG TCO2 29 mmol/L (19-24); Allen Test Performed? Yes
[2023-03-26] MEDS: LACTATED RINGERS 1,000 ML IV SCH (06:46)
[2023-03-26 06:47] LABS: Glucose,Whole Blood 149 mg/dL (70-110)
[2023-03-26] MEDS: LEVOTHYROXINE 100 MCG TAB PO SCH (06:52)
--- NOTE | 2023-03-26 08:12 | XR ---
EXAMINATION TYPE: XR chest 1V portable DATE OF EXAM: 03/26/2023 5:39 AM COMPARISON: Chest radiographs from 03/25/2023 TECHNIQUE: XR chest 1V portable Portable AP radiograph of the chest. CLINICAL INDICATION:Female, 72 years old with history of Tube placement; FINDINGS: Lungs/Pleura: Bibasilar patchy opacities with blunting of the left costophrenic angle. Hyperinflation . No pneumothorax. Pulmonary vascularity: Unremarkable. Heart/mediastinum: Cardiomediastinal silhouette is enlarged and stable. Atherosclerotic calcificatio ns are seen in the aorta. Musculoskeletal: No acute osseous pathology. Scoliotic curvature of the visualized thoracal lumbar sp ine. Other findings: None Lines/Tubes: Endotracheal tube with distal tip 3.2 cm above the yecenia Nasogastric tube with its distal tip and side-port projecting under the diaphragm. IMPRESSION: 1. Similar bibasilar patchy airspace opacities with small left pleural effusion. 2. Stable support tubes.
[2023-03-26] MEDS ORDERED: Potassium Replacement Protocol 1 EACH MISC MISCELLANE PRN (08:23)
[2023-03-26] MEDS ORDERED: Magnesium Replacement Protocol 1 EACH MISC MISCELLANE PRN (08:24)
[2023-03-26] MEDS ORDERED: MAGNESIUM SULFATE-D5W PMX 1 GM in DEXTROSE/WATER 1 100ML.BAG IVPB ONE (08:30)
[2023-03-26] MEDS: MULTIVITAMINS, THERA 1 EACH TAB PO SCH (09:07)
[2023-03-26] MEDS: HEPARIN SODIUM,PORCINE/PF 5,000 UNIT/0.5 ML SYRINGE SQ SCH ×2 (09:07→20:41)
[2023-03-26] MEDS: THIAMINE 100 MG TAB PO SCH (09:07)
[2023-03-26] MEDS: POTASSIUM CHLORIDE 10 MEQ in WATER FOR INJECTION 1 100ML.BAG IVPB SCH ×2 (09:07→11:03)
[2023-03-26] MEDS: FOLIC ACID 1 MG TAB PO SCH (09:07)
[2023-03-26] MEDS: PANTOPRAZOLE 40 MG/10 ML VIAL IV SCH (09:08)
[2023-03-26] MEDS: CHLORHEXIDINE GLUCONATE 15 ML CUP MUCOUS MEM SCH (09:08)
--- NOTE | 2023-03-26 10:32 | P.PN ---
Subjective Progress Note Date: 03/26/23 This is a 72-year-old female who presented to the ER with concerns of increased neck swelling. Patient recently underwent thyroidectomy and developed some stridor edema postoperatively but was treated with IV steroids DC'd home. 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 Patient apparently developed increased shortness of breath stridor and neck swelling and presented to ER for further evaluation. Patient had CT completed showing fluid within the surgical bed circumferentially and some thickening. Also concerns of possible aspiration pneumonia. Patient also found to be hyponatremic with sodium at 123. Pulmonary and surgical services were consulted along with infectious disease services. Patient started on IV antibiotics. Patient was to OR for evacuation of surgical site seroma. Patient was mechanically ventilated for airway precautions postoperatively and sent to the ICU for recovery. On 03/26/2023 I am resuming care of patient Dr. Larson covering previously Patient remains in the intensive care unit currently on CPAP with tentative plans for extubation today. Patient remains on IV daptomycin and Zosyn. Infectious disease, surgical services and pulmonary services following. Sodium level improving at 128. Current vital signs temp 97.5, heart rate 67, respiratory rate 24, blood pressure 115/72 pulse ox 99% on mechanical ventilation with an FiO2 of 50%. Patient currently on sedation holiday following commands. Objective - Vital Signs Vital signs: Vital Signs Temp 97.5 F L 03/26/23 04:00 Pulse 67 03/26/23 07:54 Resp 24 03/26/23 07:00 BP 115/72 03/26/23 07:00 Pulse Ox 99 03/26/23 07:00 FiO2 50 03/26/23 08:00 Intake & Output 03/25/23 03/26/23 03/26/23 18:59 06:59 18:59 Intake Total 1677.888 3962.002 364.215 Output Total 777 1060 185 Balance 700.995 4069.002 179.215 Weight 48.988 kg 54.7 kg Intake: IV 1035 4030 290 DAPTOmycin 293.9 mg In 50 Sodium Chloride 0.9% 50 ml @ 100 mls/hr IVPB Q24HR [facility] Rx#:[id number] Lactated Ringers 1,000 ml 1430 260 @ 130 mls/hr IV .Q7H42M [facility] Rx#:[id number] Piperacillin-Tazobactam 3 100 .375 gm In Sodium Chloride 0.9% 100 ml @ 25 mls/hr IVPB Q8H [facility] Rx#: [id number] Sodium Chloride 0.9% 1, 585 000 ml @ 130 mls/hr IV . Q7H42M [facility] Rx#:[id number] Sodium Chloride 0.9% 1, 2000 30 000 ml @ 999 mls/hr IV . Q1H1M [facility] Rx#:[id number] Sodium Chloride 0.9% 500 500 ml 500 ml @ 1000 mls/hr IV .Q30M [facility] Rx#: [id number] Intake, IV Titration 17.808 112.002 74.215 Amount Cisatracurium 200 mg In 0.98 Sodium Chloride 0.9% 180 ml @ 1 MCG/KG/MIN 2.939 mls/hr IV .Q24H [facility] Rx#: [id number] propofoL 1,000 mg In 17.808 111.022 74.215 Empty Bag 1 bag @ 15 MCG/ KG/MIN 4.409 mls/hr IV . [id number] [facility] Rx#:[id number] Output: Urine 775 1060 185 Estimated Blood Loss 2 Other: Voiding Method Indwelling Catheter Indwelling Catheter Indwelling Catheter - Exam Head normocephalic Neck dressing clean dry and intact js drain in place Lungs clear to auscultation bilaterally no wheezing or crackles Heart regular rate and rhythm S1-S2, no rub or gallop Abdomen is soft nontender nondistended positive bowel sounds no hepatosplenomegaly Extremities no edema Neuro alert and orientated to 3 - Labs CBC & Chem 7: 03/26/23 02:26 03/26/23 02:26 Labs: Abnormal Lab Results - Last 24 Hours (Table) 03/25/23 03/25/23 03/25/23 Range/Units 02:02 14:33 15:07 WBC (3.8-10.6) k/uL RBC (3.80-5.40) m/uL Hgb (11.4-16.0) gm/dL Hct (34.0-46.0) % Neutrophils # (1.3-7.7) k/uL Lymphocytes # (1.0-4.8) k/uL ABG pH 7.25 L (7.35-7.45) ABG pCO2 50 H (35-45) mmHg ABG pO2 387 H (83-108) mmHg ABG HCO3 (21-25) mmol/L ABG Total CO2 (19-24) mmol/L ABG O2 Saturation 99.4 H (94-97) % Sodium (137-145) mmol/L Carbon Dioxide (22-30) mmol/L Creatinine (0.52-1.04) mg/dL Glucose (74-99) mg/dL POC Glucose (mg/dL) 169 H (70-110) mg/dL Hemoglobin A1c (<=6.0) % Calcium (8.4-10.2) mg/dL Procalcitonin 0.17 H (0.02-0.09) ng/mL 03/25/23 03/25/23 03/25/23 Range/Units 15:28 15:28 18:06 WBC 24.1 H (3.8-10.6) k/uL RBC (3.80-5.40) m/uL Hgb (11.4-16.0) gm/dL Hct (34.0-46.0) % Neutrophils # 23.2 H (1.3-7.7) k/uL Lymphocytes # 0.2 L (1.0-4.8) k/uL ABG pH (7.35-7.45) ABG pCO2 (35-45) mmHg ABG pO2 (83-108) mmHg ABG HCO3 (21-25) mmol/L ABG Total CO2 (19-24) mmol/L ABG O2 Saturation (94-97) % Sodium 123 L (137-145) mmol/L Carbon Dioxide 15 L (22-30) mmol/L Creatinine 0.44 L (0.52-1.04) mg/dL Glucose 157 H (74-99) mg/dL POC Glucose (mg/dL) 169 H (70-110) mg/dL Hemoglobin A1c (<=6.0) % Calcium 8.0 L (8.4-10.2) mg/dL Procalcitonin (0.02-0.09) ng/mL 03/26/23 03/26/23 03/26/23 Range/Units 00:13 02:26 02:26 WBC 14.1 H (3.8-10.6) k/uL RBC 3.14 L (3.80-5.40) m/uL Hgb 10.1 L (11.4-16.0) gm/dL Hct 30.4 L (34.0-46.0) % Neutrophils # 13.6 H (1.3-7.7) k/uL Lymphocytes # 0.2 L (1.0-4.8) k/uL ABG pH (7.35-7.45) ABG pCO2 (35-45) mmHg ABG pO2 (83-108) mmHg ABG HCO3 (21-25) mmol/L ABG Total CO2 (19-24) mmol/L ABG O2 Saturation (94-97) % Sodium (137-145) mmol/L Carbon Dioxide (22-30) mmol/L Creatinine (0.52-1.04) mg/dL Glucose (74-99) mg/dL POC Glucose (mg/dL) 127 H (70-110) mg/dL Hemoglobin A1c 6.1 H (<=6.0) % Calcium (8.4-10.2) mg/dL Procalcitonin (0.02-0.09) ng/mL 03/26/23 03/26/23 03/26/23 Range/Units 02:26 06:27 06:46 WBC (3.8-10.6) k/uL RBC (3.80-5.40) m/uL Hgb (11.4-16.0) gm/dL Hct (34.0-46.0) % Neutrophils # (1.3-7.7) k/uL Lymphocytes # (1.0-4.8) k/uL ABG pH (7.35-7.45) ABG pCO2 46 H (35-45) mmHg ABG pO2 (83-108) mmHg ABG HCO3 28 H (21-25) mmol/L ABG Total CO2 29 H (19-24) mmol/L ABG O2 Saturation 98.0 H (94-97) % Sodium 128 L (137-145) mmol/L Carbon Dioxide 21 L (22-30) mmol/L Creatinine 0.43 L (0.52-1.04) mg/dL Glucose 119 H (74-99) mg/dL POC Glucose (mg/dL) 149 H (70-110) mg/dL Hemoglobin A1c (<=6.0) % Calcium 7.3 L (8.4-10.2) mg/dL Procalcitonin (0.02-0.09) ng/mL Assessment and Plan Assessment: 1. Acute stridor secondary to soft tissue edema and swelling around incision from previous thyroidectomy on 03/10/2023. Status post surgical incision and drainage on 03/25/2023 2. Suspected aspiration pneumonia 3. Thyroidectomy on 03/10/2023 with stridor postoperatively improved with Decadron and discharged on 03/17/2023. 4. History of COPD 5. History of osteoarthritis 6. History of nicotine dependence 7. Hyponatremia. Improving Patient currently admitted to the intensive care unit Patient currently on mechanical ventilation Infectious disease, surgical and pulmonary service is following Patient remains on IV antibiotics Repeat labs ordered
--- NOTE | 2023-03-26 11:02 | P.PN ---
Subjective Progress Note Date: 03/26/23 This is a very pleasant 72-year-old female patient with a known history of chronic obstructive pulmonary disease, chronic and ongoing tobacco dependence. She was noted to have a multinodular goiter and had undergone thyroidectomy on 03/10/2023 and discharged home. She returned to the emergency room on 0 03/15/2023 with increasing shortness of breath and audible stridor. She had been treated with Decadron and an ENT consult was placed. She is discharged home on 03/17/2023 with Decadron. She came back to the emergency room last evening after her surgical site developed significant edema and swelling and she again developed stridor. Computed tomography scan of the neck revealed status post thyroidectomy. Fluid within the surgical bed circumferentially around the lower neck airway measuring up to 2.6 cm in thickness anteriorly, 2.3 cm in thickness laterally to the left and 2.3 cm in thickness laterally to the right. Chest x- ray reveals a right lower lobe infiltrate. White count 28.1. Hemoglobin 13.0. Platelets 444. Sodium 124. Potassium 4.3. Bicarb 22. BUN 14. Creatinine 0.48. Glucose 155. Pro-calcitonin 0.17. He's been initiated on IV Decadron 4 mg every 4 hours. Antibiotics in the form of cefazolin and Zosyn. DuoNeb inhalations. Heparin for DVT prophylaxis. The patient is seen today 03/26/2023 in follow-up in the intensive care unit. Last evening she did undergo incision and drainage of a postoperative infected neck seroma. She returned to the ICU and intubated on mechanical ventilator. Current settings are assist-control mode at a rate of 24, tidal volume 325, FiO2 50% and a PEEP of 5. Morning blood gases reveal a P O2 of 107, pCO2 46, pH 7.39. She is receiving lactated Ringer's 130 ML's per hour. Sedated with propofol at 50 mcg/kg/m. She required Nimbex at 2 pg/kg/m. She is on antibiotics in the form of daptomycin and Zosyn. Cultures are pending. White count 14.1. Hemoglobin 10.1. Platelets 241. Sodium 128. Potassium 3.6. Bicarb 21. BUN 11. Creatinine 0.43. Glucose 119. He remains on Decadron 4 mg IVP every 4 hours. Remains on bronchodilators. She did develop a prolapsed rectum with forceful coughing. Objective - Vital Signs Vital signs: Vital Signs Temp 97.6 F 03/26/23 08:00 Pulse 89 03/26/23 10:30 Resp 15 03/26/23 10:30 BP 147/87 03/26/23 10:30 Pulse Ox 97 03/26/23 10:30 FiO2 50 03/26/23 08:00 Intake & Output 03/25/23 03/26/23 03/26/23 18:59 06:59 18:59 Intake Total 1380.590 9607.002 689.115 Output Total 777 1060 360 Balance 338.217 7089.002 329.115 Weight 48.988 kg 54.7 kg Intake: IV 1035 4030 610 DAPTOmycin 293.9 mg In 50 Sodium Chloride 0.9% 50 ml @ 100 mls/hr IVPB Q24HR [facility] Rx#:[id number] Lactated Ringers 1,000 ml 1430 520 @ 20 mls/hr IV .Q24H [facility] Rx#:[id number] Piperacillin-Tazobactam 3 100 .375 gm In Sodium Chloride 0.9% 100 ml @ 25 mls/hr IVPB Q8H [facility] Rx#: [id number] Sodium Chloride 0.9% 1, 585 000 ml @ 130 mls/hr IV . Q7H42M [facility] Rx#:[id number] Sodium Chloride 0.9% 1, 2000 90 000 ml @ 999 mls/hr IV . Q1H1M [facility] Rx#:[id number] Sodium Chloride 0.9% 500 500 ml 500 ml @ 1000 mls/hr IV .Q30M [facility] Rx#: [id number] Intake, IV Titration 17.808 112.002 79.115 Amount Cisatracurium 200 mg In 0.98 Sodium Chloride 0.9% 180 ml @ 1 MCG/KG/MIN 2.939 mls/hr IV .Q24H [facility] Rx#: [id number] propofoL 1,000 mg In 17.808 111.022 79.115 Empty Bag 1 bag @ 15 MCG/ KG/MIN 4.409 mls/hr IV . [id number] [facility] Rx#:[id number] Output: Urine 775 1060 360 Estimated Blood Loss 2 Other: Voiding Method Indwelling Catheter Indwelling Catheter Indwelling Catheter - Exam GENERAL EXAM: Intubated, sedated 72-year-old female, comfortable in no apparent distress. HEAD: Normocephalic. EYES: Normal reaction of pupils, equal size. NOSE: Clear with pink turbinates. THROAT: No erythema or ulcers NECK: Anterior neck dressing dry and intact. CHEST: No chest wall deformity. LUNGS: Equal air entry with no crackles, wheeze, rhonchi or dullness. CVS: S1 and S2 normal with no audible murmur, regular rhythm. ABDOMEN: No hepatosplenomegaly, normal bowel sounds, no guarding or rigidity. SPINE: No scoliosis or deformity SKIN: No rashes CENTRAL NERVOUS SYSTEM: No focal deficits, tone is normal in all 4 extremities. EXTREMITIES: There is no peripheral edema. No clubbing, no cyanosis. Peripheral pulses are intact. - Labs CBC & Chem 7: 03/26/23 02:26 03/26/23 02:26 Labs: Abnormal Lab Results - Last 24 Hours (Table) 03/25/23 03/25/23 03/25/23 Range/Units 14:33 15:07 15:28 WBC 24.1 H (3.8-10.6) k/uL RBC (3.80-5.40) m/uL Hgb (11.4-16.0) gm/dL Hct (34.0-46.0) % Neutrophils # 23.2 H (1.3-7.7) k/uL Lymphocytes # 0.2 L (1.0-4.8) k/uL ABG pH 7.25 L (7.35-7.45) ABG pCO2 50 H (35-45) mmHg ABG pO2 387 H (83-108) mmHg ABG HCO3 (21-25) mmol/L ABG Total CO2 (19-24) mmol/L ABG O2 Saturation 99.4 H (94-97) % Sodium (137-145) mmol/L Carbon Dioxide (22-30) mmol/L Creatinine (0.52-1.04) mg/dL Glucose (74-99) mg/dL POC Glucose (mg/dL) 169 H (70-110) mg/dL Hemoglobin A1c (<=6.0) % Calcium (8.4-10.2) mg/dL 03/25/23 03/25/2303/26/23 Range/Units 15:28 18:06 00:13 WBC (3.8-10.6) k/uL RBC (3.80-5.40) m/uL Hgb (11.4-16.0) gm/dL Hct (34.0-46.0) % Neutrophils # (1.3-7.7) k/uL Lymphocytes # (1.0-4.8) k/uL ABG pH (7.35-7.45) ABG pCO2 (35-45) mmHg ABG pO2 (83-108) mmHg ABG HCO3 (21-25) mmol/L ABG Total CO2 (19-24) mmol/L ABG O2 Saturation (94-97) % Sodium 123 L (137-145) mmol/L Carbon Dioxide 15 L (22-30) mmol/L Creatinine 0.44 L (0.52-1.04) mg/dL Glucose 157 H (74-99) mg/dL POC Glucose (mg/dL) 169 H 127 H (70-110) mg/dL Hemoglobin A1c (<=6.0) % Calcium 8.0 L (8.4-10.2) mg/dL 03/26/23 03/26/23 03/26/23 Range/Units 02:26 02:26 02:26 WBC 14.1 H (3.8-10.6) k/uL RBC 3.14 L (3.80-5.40) m/uL Hgb 10.1 L (11.4-16.0) gm/dL Hct 30.4 L (34.0-46.0) % Neutrophils # 13.6 H (1.3-7.7) k/uL Lymphocytes # 0.2 L (1.0-4.8) k/uL ABG pH (7.35-7.45) ABG pCO2 (35-45) mmHg ABG pO2 (83-108) mmHg ABG HCO3 (21-25) mmol/L ABG Total CO2 (19-24) mmol/L ABG O2 Saturation (94-97) % Sodium 128 L (137-145) mmol/L Carbon Dioxide 21 L (22-30) mmol/L Creatinine 0.43 L (0.52-1.04) mg/dL Glucose 119 H (74-99) mg/dL POC Glucose (mg/dL) (70-110) mg/dL Hemoglobin A1c 6.1 H (<=6.0) % Calcium 7.3 L (8.4-10.2) mg/dL 03/26/23 03/26/23 Range/Units 06:27 06:46 WBC (3.8-10.6) k/uL RBC (3.80-5.40) m/uL Hgb (11.4-16.0) gm/dL Hct (34.0-46.0) % Neutrophils # (1.3-7.7) k/uL Lymphocytes # (1.0-4.8) k/uL ABG pH (7.35-7.45) ABG pCO2 46 H (35-45) mmHg ABG pO2 (83-108) mmHg ABG HCO3 28 H (21-25) mmol/L ABG Total CO2 29 H (19-24) mmol/L ABG O2 Saturation 98.0 H (94-97) % Sodium (137-145) mmol/L Carbon Dioxide (22-30) mmol/L Creatinine (0.52-1.04) mg/dL Glucose (74-99) mg/dL POC Glucose (mg/dL) 149 H (70-110) mg/dL Hemoglobin A1c (<=6.0) % Calcium (8.4-10.2) mg/dL Assessment and Plan Assessment: Acute stridor secondary to soft tissue edema and swelling around the incision from previous thyroidectomy on 03/10/2023. Status post incision and drainage on 03/25/2023 of the postoperative neck seroma. Cultures pending. Maintained intubated on the mechanical ventilator. Subsequent extubated on 03/26/2023. Acute hypoxemic respiratory failure secondary to above in addition to suspected aspiration pneumonia of the right lower lung Recent admission for stridor on 03/14/2023, improved with Decadron and discharged on 03/17/2023 History of multinodular goiter status post total thyroidectomy on 03/10/2023 History of prolapsed rectum Chronic and ongoing tobacco dependence Chronic obstructive pulmonary disease Osteoarthritis Plan: The patient was seen and evaluated Chest x-ray, ABGs, labs and medications reviewed Plan for daily interruption of sedation and weaning trial Will most likely be extubated today Continue Zosyn and daptomycin Continue Decadron Continue bronchodilators Heparin for DVT prophylaxis We will continue to follow I have personally seen and examined the patient, performed the documentation and the assessment and plan as written. Number of minutes spent on the visit: 15.
[2023-03-26] MEDS: SODIUM CHLORIDE 0.9% 500 ML 500 ML IV SCH (11:03)
--- NOTE | 2023-03-26 11:23 | P.PN ---
Subjective Progress Note Date: 03/26/23 CHIEF COMPLAINT: Post-thyroidectomy neck seroma HISTORY OF PRESENT ILLNESS: Patient is postop day #1 status post incision and drainage of postop infected neck seroma. Patient is undergoing weaning from the vent this morning. She is awake. Afebrile. WBC is down from 24.1-14.1 hemoglobin 10.1 platelets 241 sodium 128 creatinine 0.43 calcium 7. PHYSICAL EXAM: VITAL SIGNS: Reviewed. GENERAL: Well-developed in no acute distress. HEENT: Bandage around neck clean dry and intact ABDOMEN: Soft. Nondistended. Nontender. ASSESSMENT: 1. Post-thyroidectomy infected neck seroma status post incision and drainage with Dr. Hahn PLAN: -Vent management per pulmonary service -Continue antibiotics per infectious disease -Continue supportive care -Continue pain management -DVT prophylaxis subcu heparin Physician Photo Tech note has been reviewed by physician. Signing provider agrees with the documented findings, assessment, and plan of care. I have personally seen and examined the patient, reviewed the CLINICAL HAEMATOLOGIST /PAs history, exam and MDM and agree with the assessment and plan as written. Based on total visit time, I have performed more than 50% of the visit. As above: Patient doing better today. No stridor. Voice feels weak she says. Minimal drainage from the Molly drains. Rectal prolapse improved. Dr. Balderas will continue covering this patient. Objective - Vital Signs Vital signs: Vital Signs Temp 97.6 F 03/26/23 08:00 Pulse 80 03/26/23 11:00 Resp 13 03/26/23 11:00 BP 124/90 03/26/23 11:00 Pulse Ox 100 03/26/23 11:00 FiO2 50 03/26/23 08:00 Intake & Output 03/25/23 03/26/23 03/26/23 18:59 06:59 18:59 Intake Total 0682.678 5998.002 689.115 Output Total 777 1060 360 Balance 259.265 2401.002 329.115 Weight 48.988 kg 54.7 kg Intake: IV 1035 4030 610 DAPTOmycin 293.9 mg In 50 Sodium Chloride 0.9% 50 ml @ 100 mls/hr IVPB Q24HR [facility] Rx#:[id number] Lactated Ringers 1,000 ml 1430 520 @ 20 mls/hr IV .Q24H [facility] Rx#:[id number] Piperacillin-Tazobactam 3 100 .375 gm In Sodium Chloride 0.9% 100 ml @ 25 mls/hr IVPB Q8H [facility] Rx#: [id number] Sodium Chloride 0.9% 1, 585 000 ml @ 130 mls/hr IV . Q7H42M [facility] Rx#:[id number] Sodium Chloride 0.9% 1, 2000 90 000 ml @ 999 mls/hr IV . Q1H1M [facility] Rx#:[id number] Sodium Chloride 0.9% 500 500 ml 500 ml @ 1000 mls/hr IV .Q30M [facility] Rx#: [id number] Intake, IV Titration 17.808 112.002 79.115 Amount Cisatracurium 200 mg In 0.98 Sodium Chloride 0.9% 180 ml @ 1 MCG/KG/MIN 2.939 mls/hr IV .Q24H [facility] Rx#: [id number] propofoL 1,000 mg In 17.808 111.022 79.115 Empty Bag 1 bag @ 15 MCG/ KG/MIN 4.409 mls/hr IV . [id number] [facility] Rx#:[id number] Output: Urine 775 1060 360 Estimated Blood Loss 2 Other: Voiding Method Indwelling Catheter Indwelling Catheter Indwelling Catheter - Labs CBC & Chem 7: 03/26/23 02:26 03/26/23 02:26 Labs: Abnormal Lab Results - Last 24 Hours (Table) 03/25/23 03/25/23 03/25/23 Range/Units 14:33 15:07 15:28 WBC 24.1 H (3.8-10.6) k/uL RBC (3.80-5.40) m/uL Hgb (11.4-16.0) gm/dL Hct (34.0-46.0) % Neutrophils # 23.2 H (1.3-7.7) k/uL Lymphocytes # 0.2 L (1.0-4.8) k/uL ABG pH 7.25 L (7.35-7.45) ABG pCO2 50 H (35-45) mmHg ABG pO2 387 H (83-108) mmHg ABG HCO3 (21-25) mmol/L ABG Total CO2 (19-24) mmol/L ABG O2 Saturation 99.4 H (94-97) % Sodium (137-145) mmol/L Carbon Dioxide (22-30) mmol/L Creatinine (0.52-1.04) mg/dL Glucose (74-99) mg/dL POC Glucose (mg/dL) 169 H (70-110) mg/dL Hemoglobin A1c (<=6.0) % Calcium (8.4-10.2) mg/dL 03/25/23 03/25/23 03/26/23 Range/Units 15:28 18:06 00:13 WBC (3.8-10.6) k/uL RBC (3.80-5.40) m/uL Hgb (11.4-16.0) gm/dL Hct (34.0-46.0) % Neutrophils # (1.3-7.7) k/uL Lymphocytes # (1.0-4.8) k/uL ABG pH (7.35-7.45) ABG pCO2 (35-45) mmHg ABG pO2 (83-108) mmHg ABG HCO3 (21-25) mmol/L ABG Total CO2 (19-24) mmol/L ABG O2 Saturation (94-97) % Sodium 123 L (137-145) mmol/L Carbon Dioxide 15 L (22-30) mmol/L Creatinine 0.44 L (0.52-1.04) mg/dL Glucose 157 H (74-99) mg/dL POC Glucose (mg/dL) 169 H 127 H (70-110) mg/dL Hemoglobin A1c (<=6.0) % Calcium 8.0 L (8.4-10.2) mg/dL 03/26/23 03/26/23 03/26/23 Range/Units 02:26 02:26 02:26 WBC 14.1 H (3.8-10.6) k/uL RBC 3.14 L (3.80-5.40) m/uL Hgb 10.1 L (11.4-16.0) gm/dL Hct 30.4 L (34.0-46.0) % Neutrophils # 13.6 H (1.3-7.7) k/uL Lymphocytes # 0.2 L (1.0-4.8) k/uL ABG pH (7.35-7.45) ABG pCO2 (35-45) mmHg ABG pO2 (83-108) mmHg ABG HCO3 (21-25) mmol/L ABG Total CO2 (19-24) mmol/L ABG O2 Saturation (94-97) % Sodium 128 L (137-145) mmol/L Carbon Dioxide 21 L (22-30) mmol/L Creatinine 0.43 L (0.52-1.04) mg/dL Glucose 119 H (74-99) mg/dL POC Glucose (mg/dL) (70-110) mg/dL Hemoglobin A1c 6.1 H (<=6.0) % Calcium 7.3 L (8.4-10.2) mg/dL 03/26/23 03/26/23 Range/Units 06:27 06:46 WBC (3.8-10.6) k/uL RBC (3.80-5.40) m/uL Hgb (11.4-16.0) gm/dL Hct (34.0-46.0) % Neutrophils # (1.3-7.7) k/uL Lymphocytes # (1.0-4.8) k/uL ABG pH (7.35-7.45) ABG pCO2 46 H (35-45) mmHg ABG pO2 (83-108) mmHg ABG HCO3 28 H (21-25) mmol/L ABG Total CO2 29 H (19-24) mmol/L ABG O2 Saturation 98.0 H (94-97) % Sodium (137-145) mmol/L Carbon Dioxide (22-30) mmol/L Creatinine (0.52-1.04) mg/dL Glucose (74-99) mg/dL POC Glucose (mg/dL) 149 H (70-110) mg/dL Hemoglobin A1c (<=6.0) % Calcium (8.4-10.2) mg/dL
[2023-03-26 11:36] LABS: Glucose,Whole Blood 173 mg/dL (70-110)
[2023-03-26 13:28] LABS: Glucose,Whole Blood 149 mg/dL (70-110)
--- NOTE | 2023-03-26 16:21 | P.PN ---
Subjective Progress Note Date: 03/26/23 Principal diagnosis: Neck abscess Patient is a 72-year-old female with a past medical history taken for COPD multinodular goiter in this patient status post thyroidectomy completed on 03/10/2023 patient subsequently presented back to the hospital on 03/15/2023 with increasing shortness of breath and audible stridor patient was treated with a Decadron , presenting back to the hospital increasing shortness of breath abnormal CT concerning for possible abscess in this patient with status post surgical drainage of infected hematoma. On today's evaluation 180 03/26/2023, the patient is afebrile the patient has been extubated and is breathing comfortably on 3 L nasal cannula oxygen, patient pain to the neck area is controlled denies any chest pain or shortness of breath occasional cough no abdominal pain or diarrhea Objective - Vital Signs Vital signs: Vital Signs Temp 98.0 F 03/26/23 12:00 Pulse 81 03/26/23 12:00 Resp 11 L 03/26/23 12:00 BP 140/76 03/26/23 12:00 Pulse Ox 92 L 03/26/23 12:00 FiO2 50 03/26/23 12:00 Intake & Output 03/25/23 03/26/23 03/26/23 18:59 06:59 18:59 Intake Total 2457.383 7436.002 709.115 Output Total 777 1060 1170 Balance 508.984 4044.002 -460.885 Weight 48.988 kg 54.7 kg Intake: IV 1035 4030 630 DAPTOmycin 293.9 mg In 50 Sodium Chloride 0.9% 50 ml @ 100 mls/hr IVPB Q24HR [facility] Rx#:[id number] Lactated Ringers 1,000 ml 1430 520 @ 20 mls/hr IV .Q24H [facility] Rx#:[id number] Piperacillin-Tazobactam 3 100 .375 gm In Sodium Chloride 0.9% 100 ml @ 25 mls/hr IVPB Q8H [facility] Rx#: [id number] Sodium Chloride 0.9% 1, 585 000 ml @ 130 mls/hr IV . Q7H42M [facility] Rx#:[id number] Sodium Chloride 0.9% 1, 2000 110 000 ml @ 999 mls/hr IV . Q1H1M [facility] Rx#:[id number] Sodium Chloride 0.9% 500 500 ml 500 ml @ 1000 mls/hr IV .Q30M [facility] Rx#: [id number] Intake, IV Titration 17.808 112.002 79.115 Amount Cisatracurium 200 mg In 0.98 Sodium Chloride 0.9% 180 ml @ 1 MCG/KG/MIN 2.939 mls/hr IV .Q24H [facility] Rx#: [id number] propofoL 1,000 mg In 17.808 111.022 79.115 Empty Bag 1 bag @ 15 MCG/ KG/MIN 4.409 mls/hr IV . [id number] [facility] Rx#:[id number] Output: Gastric Drainage 600 Urine 775 1060 570 Estimated Blood Loss 2 Other: Voiding Method Indwelling Catheter Indwelling Catheter Indwelling Catheter - Exam GENERAL DESCRIPTION: An elderly female lying in bed in no distress HEENT: Neck incision is dressed no drainage on the dressing RESPIRATORY SYSTEM: Unlabored breathing , decreased breath sounds at bases HEART: S1 S2 regular rate and rhythm , ABDOMEN: Soft , no tenderness EXTREMITIES: No edema feet - Labs CBC & Chem 7: 03/26/23 02:26 03/26/23 02:26 Labs: Abnormal Lab Results - Last 24 Hours (Table) 03/25/23 03/25/23 03/25/23 Range/Units 14:33 15:07 15:28 WBC 24.1 H (3.8-10.6) k/uL RBC (3.80-5.40) m/uL Hgb (11.4-16.0) gm/dL Hct (34.0-46.0) % Neutrophils # 23.2 H (1.3-7.7) k/uL Lymphocytes # 0.2 L (1.0-4.8) k/uL ABG pH 7.25 L (7.35-7.45) ABG pCO2 50 H (35-45) mmHg ABG pO2 387 H (83-108) mmHg ABG HCO3 (21-25) mmol/L ABG Total CO2 (19-24) mmol/L ABG O2 Saturation 99.4 H (94-97) % Sodium (137-145) mmol/L Carbon Dioxide (22-30) mmol/L Creatinine (0.52-1.04) mg/dL Glucose (74-99) mg/dL POC Glucose (mg/dL) 169 H (70-110) mg/dL Hemoglobin A1c (<=6.0) % Calcium (8.4-10.2) mg/dL 03/25/23 03/25/23 03/26/23 Range/Units 15:28 18:06 00:13 WBC (3.8-10.6) k/uL RBC (3.80-5.40) m/uL Hgb (11.4-16.0) gm/dL Hct (34.0-46.0) % Neutrophils # (1.3-7.7) k/uL Lymphocytes # (1.0-4.8) k/uL ABG pH (7.35-7.45) ABG pCO2 (35-45) mmHg ABG pO2 (83-108) mmHg ABG HCO3 (21-25) mmol/L ABG Total CO2 (19-24) mmol/L ABG O2 Saturation (94-97) % Sodium 123 L (137-145) mmol/L Carbon Dioxide 15 L (22-30) mmol/L Creatinine 0.44 L (0.52-1.04) mg/dL Glucose 157 H (74-99) mg/dL POC Glucose (mg/dL) 169 H 127 H (70-110) mg/dL Hemoglobin A1c (<=6.0) % Calcium 8.0 L (8.4-10.2) mg/dL 03/26/23 03/26/23 03/26/23 Range/Units 02:26 02:26 02:26 WBC 14.1 H (3.8-10.6) k/uL RBC 3.14 L (3.80-5.40) m/uL Hgb 10.1 L (11.4-16.0) gm/dL Hct 30.4 L (34.0-46.0) % Neutrophils # 13.6 H (1.3-7.7) k/uL Lymphocytes # 0.2 L (1.0-4.8) k/uL ABG pH (7.35-7.45) ABG pCO2 (35-45) mmHg ABG pO2 (83-108) mmHg ABG HCO3 (21-25) mmol/L ABG Total CO2 (19-24) mmol/L ABG O2 Saturation (94-97) % Sodium 128 L (137-145) mmol/L Carbon Dioxide 21 L (22-30) mmol/L Creatinine 0.43 L (0.52-1.04) mg/dL Glucose 119 H (74-99) mg/dL POC Glucose (mg/dL) (70-110) mg/dL Hemoglobin A1c 6.1 H (<=6.0) % Calcium 7.3 L (8.4-10.2) mg/dL 03/26/23 03/26/23 03/26/23 Range/Units 06:27 06:46 11:33 WBC (3.8-10.6) k/uL RBC (3.80-5.40) m/uL Hgb (11.4-16.0) gm/dL Hct (34.0-46.0) % Neutrophils # (1.3-7.7) k/uL Lymphocytes # (1.0-4.8) k/uL ABG pH (7.35-7.45) ABG pCO2 46 H (35-45) mmHg ABG pO2 (83-108) mmHg ABG HCO3 28 H (21-25) mmol/L ABG Total CO2 29 H (19-24) mmol/L ABG O2 Saturation 98.0 H (94-97) % Sodium (137-145) mmol/L Carbon Dioxide (22-30) mmol/L Creatinine (0.52-1.04) mg/dL Glucose (74-99) mg/dL POC Glucose (mg/dL) 149 H 173 H (70-110) mg/dL Hemoglobin A1c (<=6.0) % Calcium (8.4-10.2) mg/dL Assessment and Plan (1) Infected hematoma following procedure Current Visit: Yes Status: Acute Code(s): UOF8000 - SNOMED Code(s): 716070981 Plan: 1patient presented to hospital with increasing shortness of breath stridor in this patient who did have a history of thyroidectomy on 03/10/2023 now presenting to the hospital with above symptoms patient did have abnormal CT and is s/p surgical drainage of postop seroma culture has been obtained and will need to cover for both gram-positive as well as gram-negative pathogen, patient also have right lower lobe infiltrate concern for possible aspiration pneumonitis 2-patient to continue with the Zosyn and daptomycin while waiting for the cultu re to finalize Time with Patient: Less than 30
[2023-03-26 16:26] LABS: Glucose,Whole Blood 119 mg/dL (70-110)
--- NOTE | 2023-03-26 20:21 | P.OP ---
Date of Procedure: 03/26/23 Preoperative Diagnosis: Hoarseness, shortness of breath, status post total thyroidectomy Postoperative Diagnosis: Same Procedure(s) Performed: Flexible nasopharyngolaryngoscope Anesthesia: none Surgeon: Jack Hackett Pathology: none sent Condition: stable Disposition: ICU Indications for Procedure: This patient had a thyroidectomy mid February and developed a seroma that required drainage. She's had hoarseness since her surgery. She has some airway difficulty and she tells me her airway is better. She has no stridor. Been asked to consult regarding airway and vocal cord function. Operative Findings: Patient was found to have a bilateral vocal cord paralysis. The vocal cords are fixated in the median position with adequate airway at this time. The patient has a whisper voice and is talking with her false vocal cords. No signs of any tumors or masses of the nasopharynx oropharynx or hypopharynx. Description of Procedure: An EF type GP nasopharyngoscope was inserted into the patient's nose with care to avoid any trauma to the nasal mucosa. The nose and nasal mucosa was evaluated shortly dryness from the nasal oxygen. Nasopharynx and no pathology. The oropharynx and no pathology. The hypopharynx has a nonspecific hyperemia. Bilateral vocal cord paralysis was noted and both vocal cords were fixated in the median position but posteriorly has an adequate airway. The patient has no stridor.
--- NOTE | 2023-03-26 20:36 | P.GSCN ---
History of Present Illness Consult date: 03/26/23 Reason for Consult: Hoarseness and shortness of breath Requesting physician: Geraldine Araya History of present illness: This is a 72-year-old white female who was found have thyroid nodule. Consulted general surgery. Surgery was recommended and she underwent surgery in March 10. 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 She tells me she said vocal changes since surgery. She developed a seroma requiring drainage this was performed yesterday by Dr. Hahn. Her neck swelling is markedly improved. Her airway is adequate. Her voice is improved. And she is talking with a whisper voice utilizing her false cords. Voice is not breathy. There is no stridor. No hemoptysis. Patient has a large dressing over the neck making examination of the neck itself difficult. Review of Systems All systems: negative Past Medical History Past Medical History: COPD, Osteoarthritis (OA), Thyroid Disorder Additional Past Medical History / Comment(s): Multinodular goiter History of Any Multi-Drug Resistant Organisms: None Reported Past Surgical History: Hysterectomy Additional Past Surgical History / Comment(s): hemorrhoidectomy, colonoscopies, thyroidectomy Past Anesthesia/Blood Transfusion Reactions: No Reported Reaction Past Psychological History: No Psychological Hx Reported Smoking Status: Current every day smoker Past Alcohol Use History: None Reported Past Drug Use History: None Reported - Past Family History Mother Family Medical History: No Reported History Medications and Allergies Home Medications Medication Instructions Recorded Confirmed Type Multivitamins, Thera [Multivitamin 1 tab PO DAILY 03/07/23 03/25/23 History (formulary)] Acetaminophen Tab [Tylenol] 650 mg PO Q4H PRN #30 tablet 03/11/23 03/25/23 Rx oxyCODONE HCL [OxyIR] 5 mg PO Q6H PRN 3 Days #12 tab 03/11/23 03/25/23 Rx Ipratropium-Albuterol Nebulize 3 ml INHALATION RT-QID each 03/17/23 03/25/23 Rx [Duoneb 0.5 mg-3 mg/3 ml Soln] Levothyroxine Sodium [Synthroid] 100 mcg PO DAILY@0630 tab 03/17/23 03/25/23 Rx dexAMETHasone [Decadron] See Taper PO DIRECTED 03/25/23 03/25/23 History Allergies Allergy/AdvReac Type Severity Reaction Status Date / Time No Known Allergies Allergy Verified 03/25/23 11:01 Surgical - Exam Osteopathic Statement: *. No significant issues noted on an osteopathic structural exam other than those noted in the History and Physical/Consult. Vital Signs Temp Pulse Resp BP Pulse Ox 98 F 88 22 119/64 97 03/24/23 21:49 03/24/23 21:49 03/24/23 21:49 03/24/23 21:49 03/24/23 21:49 - General well developed, well nourished, no distress - Eyes PERRL, normal ocular movement - ENT Head is normocephalic the face is symmetric there's no abnormal movements. No tenderness to the sinuses are mastoids is no nodules or eruptions or parasites on scalp. Local evaluation reveals a pulsatile type voice. No stridor noted. Nose is patent. Mouth and throat no oral lesions are noted. Neck shows swell ing and incision noted lower neck anteriorly midline. No tumors or masses are noted. normal nares, normal mucosa - Integumentary no rash, no growths, no abnormal pigmentation - Neurologic normal sensation - Musculoskeletal normal posture - Psychiatric oriented to time, oriented to person, oriented to place Results - Labs 03/26/23 02:26 03/26/23 02:26 Abnormal Lab Results - Last 24 Hours (Table) 03/25/23 03/26/23 03/26/23 Range/Units 15:07 00:13 02:26 WBC (3.8-10.6) k/uL RBC (3.80-5.40) m/uL Hgb (11.4-16.0) gm/dL Hct (34.0-46.0) % Neutrophils # (1.3-7.7) k/uL Lymphocytes # (1.0-4.8) k/uL ABG pH 7.25 L (7.35-7.45) ABG pCO2 50 H (35-45) mmHg ABG pO2 387 H (83-108) mmHg ABG HCO3 (21-25) mmol/L ABG Total CO2 (19-24) mmol/L ABG O2 Saturation 99.4 H (94-97) % Sodium (137-145) mmol/L Carbon Dioxide (22-30) mmol/L Creatinine (0.52-1.04) mg/dL Glucose (74-99) mg/dL POC Glucose (mg/dL) 127 H (70-110) mg/dL Hemoglobin A1c 6.1 H (<=6.0) % Calcium (8.4-10.2) mg/dL 03/26/23 03/26/23 03/26/23 Range/Units 02:26 02:26 06:27 WBC 14.1 H (3.8-10.6) k/uL RBC 3.14 L (3.80-5.40) m/uL Hgb 10.1 L (11.4-16.0) gm/dL Hct 30.4 L (34.0-46.0) % Neutrophils # 13.6 H (1.3-7.7) k/uL Lymphocytes # 0.2 L (1.0-4.8) k/uL ABG pH (7.35-7.45) ABG pCO2 46 H (35-45) mmHg ABG pO2 (83-108) mmHg ABG HCO3 28 H (21-25) mmol/L ABG Total CO2 29 H (19-24) mmol/L ABG O2 Saturation 98.0 H (94-97) % Sodium 128 L (137-145) mmol/L Carbon Dioxide 21 L (22-30) mmol/L Creatinine 0.43 L (0.52-1.04) mg/dL Glucose 119 H (74-99) mg/dL POC Glucose (mg/dL) (70-110) mg/dL Hemoglobin A1c (<=6.0) % Calcium 7.3 L (8.4-10.2) mg/dL 03/26/23 03/26/23 03/26/23 Range/Units 06:46 11:33 13:27 WBC (3.8-10.6) k/uL RBC (3.80-5.40) m/uL Hgb (11.4-16.0) gm/dL Hct (34.0-46.0) % Neutrophils # (1.3-7.7) k/uL Lymphocytes # (1.0-4.8) k/uL ABG pH (7.35-7.45) ABG pCO2 (35-45) mmHg ABG pO2 (83-108) mmHg ABG HCO3 (21-25) mmol/L ABG Total CO2 (19-24) mmol/L ABG O2 Saturation (94-97) % Sodium (137-145) mmol/L Carbon Dioxide (22-30) mmol/L Creatinine (0.52-1.04) mg/dL Glucose (74-99) mg/dL POC Glucose (mg/dL) 149 H 173 H 149 H (70-110) mg/dL Hemoglobin A1c (<=6.0) % Calcium (8.4-10.2) mg/dL 03/26/23 Range/Units 16:24 WBC (3.8-10.6) k/uL RBC (3.80-5.40) m/uL Hgb (11.4-16.0) gm/dL Hct (34.0-46.0) % Neutrophils # (1.3-7.7) k/uL Lymphocytes # (1.0-4.8) k/uL ABG pH (7.35-7.45) ABG pCO2 (35-45) mmHg ABG pO2 (83-108) mmHg ABG HCO3 (21-25) mmol/L ABG Total CO2 (19-24) mmol/L ABG O2 Saturation (94-97) % Sodium (137-145) mmol/L Carbon Dioxide (22-30) mmol/L Creatinine (0.52-1.04) mg/dL Glucose (74-99) mg/dL POC Glucose (mg/dL) 119 H (70-110) mg/dL Hemoglobin A1c (<=6.0) % Calcium (8.4-10.2) mg/dL Microbiology - Last 24 Hours (Table) 03/25/23 02:05 Blood Culture - Preliminary Blood 03/25/23 01:45 Blood Culture - Preliminary Blood Diabetes panel 03/26/23 03/26/23 Range/Units 02:26 02:26 Sodium 128 L (137-145) mmol/L Potassium 3.6 (3.5-5.1) mmol/L Chloride 101 (98-107) mmol/L Carbon Dioxide 21 L (22-30) mmol/L BUN 11 (7-17) mg/dL Creatinine 0.43 L (0.52-1.04) mg/dL Glucose 119 H (74-99) mg/dL Hemoglobin A1c 6.1 H (<=6.0) % Calcium 7.3 L (8.4-10.2) mg/dL Calcium panel 03/26/23 Range/Units 02:26 Calcium 7.3 L (8.4-10.2) mg/dL Pituitary panel 03/26/23 Range/Units 02:26 Sodium 128 L (137-145) mmol/L Potassium 3.6 (3.5-5.1) mmol/L Chloride 101 (98-107) mmol/L Carbon Dioxide 21 L (22-30) mmol/L BUN 11 (7-17) mg/dL Creatinine 0.43 L (0.52-1.04) mg/dL Glucose 119 H (74-99) mg/dL Calcium 7.3 L (8.4-10.2) mg/dL Adrenal panel 03/26/23 Range/Units 02:26 Sodium 128 L (137-145) mmol/L Potassium 3.6 (3.5-5.1) mmol/L Chloride 101 (98-107) mmol/L Carbon Dioxide 21 L (22-30) mmol/L BUN 11 (7-17) mg/dL Creatinine 0.43 L (0.52-1.04) mg/dL Glucose 119 H (74-99) mg/dL Calcium 7.3 L (8.4-10.2) mg/dL Assessment and Plan (1) Bilateral vocal cord paralysis Current Visit: Yes Status: Acute Code(s): J38.02 - PARALYSIS OF VOCAL CORDS AND LARYNX, BILATERAL SNOMED Code(s): 12939903 Plan: Patient unfortunately has a bilateral vocal cord paralysis. Currently her airway is adequate. If we see stridor developing the patient will need a trach eotomy and this was discussed with the patient. This is a neurologic issue and may resolve over time. If in 6 months we do not see any vocal cord movement, the patient would be a candidate for a cordectomy or an arytenoid adduction procedure. These procedures sometimes can cause aspiration. After discharge I would consult a loft patternmaker by the name of Lorenzo Gracia at [facility] who has a large amount of experience with this issue. Thank you for allowing me to participate in the care of this patient. I've given her my card and I'm happy to help in any capacity I can. I will be happy to see her on an outpatient basis after discharge. Close observation of her airway is needed and if any stridor is noted, tracheotomy is indicated. Time with Patient: Greater than 30
[2023-03-26] MEDS: NOREPINEPHRINE 4 MG in SODIUM CHLORIDE 0.9% 250 ML IV SCH (20:41)
[2023-03-26 23:00] LABS: Glucose,Whole Blood 183 mg/dL (70-110)
[2023-03-27] MEDS: IPRATROPIUM-ALBUTEROL 3 ML NEB INHALATION SCH ×7 (00:22→23:54)
[2023-03-27] MEDS: DEXAMETHASONE SOD PHOSPHATE 4 MG/ML 1 ML VIAL IVP SCH ×9 (00:32→23:09)
[2023-03-27] MEDS: LACTATED RINGERS 1,000 ML IV SCH (03:36)
[2023-03-27] MEDS: PIPERACILLIN-TAZOBACTAM 3.375 GM in SODIUM CHLORIDE 0.9% 100 ML IVPB SCH ×3 (03:56→20:24)
[2023-03-27 05:27] LABS: Basophils % (A) 0 %; Eosinophils % (A) 0 %; HCT 29.7 % (34.0-46.0); HGB 9.9 gm/dL (11.4-16.0); Lymphocytes # (A) 0.2 k/uL (1.0-4.8); Lymphocytes % (A) 2 %; MCH 31.5 pg (25.0-35.0); MCHC 33.4 g/dL (31.0-37.0); MCV 94.3 fL (80.0-100.0); Mean Platelet Volume 7.1; Monocytes # (A) 0.4 k/uL (0-1.0); Monocytes % (A) 4 %; Neutrophils # (A) 9.7 k/uL (1.3-7.7); Neutrophils % (A) 93 %; Platelet Count 367 k/uL (150-450); RBC 3.15 m/uL (3.80-5.40); RDW 13.5 % (11.5-15.5); WBC 10.4 k/uL (3.8-10.6)
[2023-03-27] MEDS: INSULIN ASPART (NovoLOG) 100 UNIT/ML VIAL SQ SCH ×4 (05:43→23:09)
[2023-03-27 05:44] LABS: Glucose,Whole Blood 136 mg/dL (70-110)
[2023-03-27] MEDS: LEVOTHYROXINE 100 MCG TAB PO SCH (05:46)
[2023-03-27 05:52] LABS: ALT 16 U/L (4-34); AST 17 U/L (14-36); African American GFR (CKD) >90 (>60 ml/min/1.73 sqM); Albumin 2.7 g/dL (3.5-5.0); Alkaline Phosphatase 58 U/L (38-126); Anion Gap 3 mmol/L; Blood Urea Nitrogen 12 mg/dL (7-17); Calcium 7.9 mg/dL (8.4-10.2); Carbon Dioxide 25 mmol/L (22-30); Chloride 98 mmol/L (98-107); Glucose 133 mg/dL (74-99); Magnesium 2.2 mg/dL (1.6-2.3); Non-African American GFR(CKD) >90 (>60 ml/min/1.73 sqM); Potassium 3.6 mmol/L (3.5-5.1); Sodium 126 mmol/L (137-145); Total Bilirubin 0.6 mg/dL (0.2-1.3); Total Protein 5.1 g/dL (6.3-8.2)
[2023-03-27] MEDS ORDERED: POTASSIUM BICARBONATE/CIT AC 20 MEQ TABLET.EFF NG-TUBE SCH (06:00)
[2023-03-27] MEDS: HEPARIN SODIUM,PORCINE/PF 5,000 UNIT/0.5 ML SYRINGE SQ SCH ×2 (08:56→20:24)
[2023-03-27] MEDS: PANTOPRAZOLE 40 MG/10 ML VIAL IV SCH (08:59)
--- NOTE | 2023-03-27 09:55 | P.PN ---
Subjective Progress Note Date: 03/27/23 This is a very pleasant 72-year-old female patient with a known history of chronic obstructive pulmonary disease, chronic and ongoing tobacco dependence. She was noted to have a multinodular goiter and had undergone thyroidectomy on 03/10/2023 and discharged home. She returned to the emergency room on 0 03/15/2023 with increasing shortness of breath and audible stridor. She had been treated with Decadron and an ENT consult was placed. She is discharged home on 03/17/2023 with Decadron. She came back to the emergency room last evening after her surgical site developed significant edema and swelling and she again developed stridor. Computed tomography scan of the neck revealed status post thyroidectomy. Fluid within the surgical bed circumferentially around the lower neck airway measuring up to 2.6 cm in thickness anteriorly, 2.3 cm in thickness laterally to the left and 2.3 cm in thickness laterally to the right. Chest x- ray reveals a right lower lobe infiltrate. White count 28.1. Hemoglobin 13.0. Platelets 444. Sodium 124. Potassium 4.3. Bicarb 22. BUN 14. Creatinine 0.48. Glucose 155. Pro-calcitonin 0.17. He's been initiated on IV Decadron 4 mg every 4 hours. Antibiotics in the form of cefazolin and Zosyn. DuoNeb inhalations. Heparin for DVT prophylaxis. The patient is seen today 03/26/2023 in follow-up in the intensive care unit. Last evening she did undergo incision and drainage of a postoperative infected neck seroma. She returned to the ICU and intubated on mechanical ventilator. Current settings are assist-control mode at a rate of 24, tidal volume 325, FiO2 50% and a PEEP of 5. Morning blood gases reveal a P O2 of 107, pCO2 46, pH 7.39. She is receiving lactated Ringer's 130 ML's per hour. Sedated with propofol at 50 mcg/kg/m. She required Nimbex at 2 pg/kg/m. She is on antibiotics in the form of daptomycin and Zosyn. Cultures are pending. White count 14.1. Hemoglobin 10.1. Platelets 241. Sodium 128. Potassium 3.6. Bicarb 21. BUN 11. Creatinine 0.43. Glucose 119. He remains on Decadron 4 mg IVP every 4 hours. Remains on bronchodilators. She did develop a prolapsed rectum with forceful coughing. The patient is seen today 03/27/2023 in follow-up in the intensive care unit. She is currently sitting up in bed. Awake and alert in no acute distress. Maintaining good O2 saturations in the 90s on 2 L/m per nasal cannula. She's been afebrile. Hemodynamically stable. She still has some hoarseness and very mild stridor. She had been seen by ENT yesterday and a flexible nasopharyngeal laryngoscope was passed and she was found to have bilateral vocal cord paralysis noted at both vocal cords were fixed in the median position but posteriorly has adequate airway. No significant stridor. Recent anterior not dry and intact. Cultures are pending. White count 10.4. Hemoglobin 9.9. Platelets 367. Sodium 126. Potassium 3.6. Bicarb 25. BUN 12. Creatinine 0.61. Glucose 133. She remains on Decadron, bronchodilators. Antibiotics in the form of Zosyn and daptomycin. Objective - Vital Signs Vital signs: Vital Signs Temp 98.1 F 03/27/23 08:00 Pulse 90 03/27/23 08:00 Resp 15 03/27/23 08:00 BP 127/74 03/27/23 08:00 Pulse Ox 96 03/27/23 08:00 FiO2 50 03/26/23 08:00 Intake & Output 03/26/23 03/27/23 03/27/23 18:59 06:59 18:59 Intake Total 829.115 860 20 Output Total 1765 820 50 Balance -935.885 40 -30 Weight 56.1 kg Intake: IV 630 320 20 0.9 220 20 Lactated Ringers 1,000 ml 520 @ 20 mls/hr IV .Q24H [facility] Rx#:[id number] Piperacillin-Tazobactam 3 100 .375 gm In Sodium Chloride 0.9% 100 ml @ 25 mls/hr IVPB Q8H [facility] Rx#: [id number] Sodium Chloride 0.9% 1, 110 000 ml @ 999 mls/hr IV . Q1H1M [facility] Rx#:[id number] Intake, IV Titration 79.115 Amount propofoL 1,000 mg In 79.115 Empty Bag 1 bag @ 15 MCG/ KG/MIN 4.409 mls/hr IV . [id number] [facility] Rx#:[id number] Oral 120 540 Output: Gastric Drainage 600 Urine 1165 820 50 Other: Voiding Method Indwelling Catheter Indwelling Catheter Indwelling Catheter - Exam GENERAL EXAM: Alert, oriented, very pleasant 72-year-old female, and 2 L nasal cannula, comfortable in no apparent distress. HEAD: Normocephalic. EYES: Normal reaction of pupils, equal size. NOSE: Clear with pink turbinates. THROAT: No erythema or ulcers NECK: Anterior neck dressing dry and intact. CHEST: No chest wall deformity. LUNGS: Equal air entry with no crackles, wheeze, rhonchi or dullness. CVS: S1 and S2 normal with no audible murmur, regular rhythm. ABDOMEN: No hepatosplenomegaly, normal bowel sounds, no guarding or rigidity. SPINE: No scoliosis or deformity SKIN: No rashes CENTRAL NERVOUS SYSTEM: No focal deficits, tone is normal in all 4 extremities. EXTREMITIES: There is no peripheral edema. No clubbing, no cyanosis. Peripheral pulses are intact. - Labs CBC & Chem 7: 03/27/23 04:54 03/27/23 04:54 Labs: Abnormal Lab Results - Last 24 Hours (Table) 03/26/23 03/26/23 03/26/23 Range/Units 11:33 13:27 16:24 RBC (3.80-5.40) m/uL Hgb (11.4-16.0) gm/dL Hct (34.0-46.0) % Neutrophils # (1.3-7.7) k/uL Lymphocytes # (1.0-4.8) k/uL Sodium (137-145) mmol/L Glucose (74-99) mg/dL POC Glucose (mg/dL) 173 H 149 H 119 H (70-110) mg/dL Calcium (8.4-10.2) mg/dL Total Protein (6.3-8.2) g/dL Albumin (3.5-5.0) g/dL 03/26/23 03/27/23 03/27/23 Range/Units 22:58 04:54 04:54 RBC 3.15 L (3.80-5.40) m/uL Hgb 9.9 L (11.4-16.0) gm/dL Hct 29.7 L (34.0-46.0) % Neutrophils # 9.7 H (1.3-7.7) k/uL Lymphocytes # 0.2 L (1.0-4.8) k/uL Sodium 126 L (137-145) mmol/L Glucose 133 H (74-99) mg/dL POC Glucose (mg/dL) 183 H (70-110) mg/dL Calcium 7.9 L (8.4-10.2) mg/dL Total Protein 5.1 L (6.3-8.2) g/dL Albumin 2.7 L (3.5-5.0) g/dL 03/27/23 Range/Units 05:43 RBC (3.80-5.40) m/uL Hgb (11.4-16.0) gm/dL Hct (34.0-46.0) % Neutrophils # (1.3-7.7) k/uL Lymphocytes # (1.0-4.8) k/uL Sodium (137-145) mmol/L Glucose (74-99) mg/dL POC Glucose (mg/dL) 136 H (70-110) mg/dL Calcium (8.4-10.2) mg/dL Total Protein (6.3-8.2) g/dL Albumin (3.5-5.0) g/dL Microbiology - Last 24 Hours (Table) 03/25/23 14:15 Gram Stain - Preliminary Neck 03/25/23 14:15 Gram Stain - Preliminary Neck 03/25/23 02:05 Blood Culture - Preliminary Blood 03/25/23 01:45 Blood Culture - Preliminary Blood Assessment and Plan Assessment: Acute stridor secondary to soft tissue edema and swelling around the incision from previous thyroidectomy on 03/10/2023. Status post incision and drainage on 03/25/2023 of the postoperative neck seroma. Cultures pending. Maintained intubated on the mechanical ventilator. Subsequently extubated on 03/26/2023. Currently stable and on 2 L nasal cannula. On 03/26/2023 the patient did undergo flexible nasopharyngeal laryngoscope and was noted to have vocal cord paralysis of both vocal cords and fixated in the median position but posteriorly had adequate airway. No active stridor. Acute hypoxemic respiratory failure secondary to above in addition to suspected aspiration pneumonia of the right lower lung Recent admission for stridor on 03/14/2023, improved with Decadron and discharged on 03/17/2023 History of multinodular goiter status post total thyroidectomy on 03/10/2023 History of prolapsed rectum Chronic and ongoing tobacco dependence Chronic obstructive pulmonary disease Osteoarthritis Plan: The patient was seen and evaluated Chest x-ray, ABGs, labs and medications reviewed Plan for daily interruption of sedation and weaning trial Will most likely be extubated today Continue Zosyn and daptomycin Continue Decadron Continue bronchodilators Heparin for DVT prophylaxis We will continue to follow I have personally seen and examined the patient, performed the documentation and the assessment and plan as written. Number of minutes spent on the visit: 10.
--- NOTE | 2023-03-27 11:03 | FL ---
INDICATION: Patient age:Female; 72 years old; Reason for study: Dysphagia COMPARISON: None TECHNIQUE: Utilizing real-time video recording fluoroscopy, multiple images were obtained after admin istration of various consistencies of barium contrast. A speech pathologist was present throughout the exam. Fluoroscopic time: 1.52 min Fluoroscopic images: None saved Total DAP: 87.17 mGym2 FINDINGS: Consistencies administered: Pudding, thin, and cracker barium. During the oral phase there is normal formation of food bolus with normal initiation of swallow with all consistencies. Premature spill: All consistencies. Laryngeal penetration: Single transient silent laryngeal penetration with thin consistency. Piriform Retention:None identified Vallecular retention: All consistencies. Nasopharyngeal reflux: None identified. Tracheal aspiration: None identified. IMPRESSION: 1. No evidence of tracheal aspiration. 2. Single silent transient laryngeal penetration with thin consistency. 3. Premature spill with all consistencies. 4. Vallecular retention with all consistencies. Please see dedicated speech pathology report for additional information.
[2023-03-27 11:37] LABS: Glucose,Whole Blood 120 mg/dL (70-110)
[2023-03-27] MEDS: THIAMINE 100 MG TAB PO SCH (11:48)
[2023-03-27] MEDS: MULTIVITAMINS, THERA 1 EACH TAB PO SCH (11:48)
[2023-03-27] MEDS: FOLIC ACID 1 MG TAB PO SCH (11:48)
--- NOTE | 2023-03-27 12:44 | P.PN ---
Subjective Progress Note Date: 03/27/23 CHIEF COMPLAINT: Post-thyroidectomy neck seroma HISTORY OF PRESENT ILLNESS: Patient is postop day #2 status post incision and drainage of postop infected neck seroma. Patient extubated yesterday. She sit ting up in bed. Still has evidence of hoarseness. Was evaluated by ENT service and had flexible nasopharyngolaryngoscope which demonstrated bilateral vocal cord paralysis and evidence of adequate airway. ENT recommendations noted. Patient has hoarseness. No stridor. She was tolerating clear liquid diet. She's been seen by speech therapy and underwent swallowing eval and they recommended a dysphagia chopped diet. Afebrile. Cultures growing gram-negative bacilli and group D enterococcus. WBC is 10.4 Hgb 9.9 plt 367 na 126 K 3.6 cr 0.61 ca 7.9 PHYSICAL EXAM: VITAL SIGNS: Reviewed. GENERAL: Well-developed in no acute distress. HEENT: neck dressing clean dry and intact ABDOMEN: Soft. Nondistended. Nontender. ASSESSMENT: 1. Post-thyroidectomy infected neck seroma status post incision and drainage with Dr. Hahn 2. Bilateral vocal cord paralysis 3. Chronic Rectal prolapse. Currently reduced. Mucosa was pink. PLAN: -Continue daily dressing changes to neck -Continue IV antibiotics per ID service -Continue to observe -For the chronic rectal prolapse continue to observe. Currently reduced. Will eventually need surgical correction. -Diet per speech therapy recommendations -Continue supportive care -Continue pain management -DVT prophylaxis subcu heparin Physician [employer] note has been reviewed by physician. Signing provider agrees with the documented findings, assessment, and plan of care. Objective - Vital Signs Vital signs: Vital Signs Temp 98.1 F 03/27/23 08:00 Pulse 87 03/27/23 11:47 Resp 15 03/27/23 08:00 BP 127/74 03/27/23 08:00 Pulse Ox 96 03/27/23 08:00 FiO2 50 03/26/23 08:00 Intake & Output 03/26/23 03/27/23 03/27/23 18:59 06:59 18:59 Intake Total 829.115 860 20 Output Total 1765 820 50 Balance -935.885 40 -30 Weight 56.1 kg Intake: IV 630 320 20 0.9 220 20 Lactated Ringers 1,000 ml 520 @ 20 mls/hr IV .Q24H [facility] Rx#:[id number] Piperacillin-Tazobactam 3 100 .375 gm In Sodium Chloride 0.9% 100 ml @ 25 mls/hr IVPB Q8H [facility] Rx#: [id number] Sodium Chloride 0.9% 1, 110 000 ml @ 999 mls/hr IV . Q1H1M [facility] Rx#:[id number] Intake, IV Titration 79.115 Amount propofoL 1,000 mg In 79.115 Empty Bag 1 bag @ 15 MCG/ KG/MIN 4.409 mls/hr IV . [id number] [facility] Rx#:[id number] Oral 120 540 Output: Gastric Drainage 600 Urine 1165 820 50 Other: Voiding Method Indwelling Catheter Indwelling Catheter Indwelling Catheter - Labs CBC & Chem 7: 03/27/23 04:54 03/27/23 04:54 Labs: Abnormal Lab Results - Last 24 Hours (Table) 03/26/23 03/26/23 03/26/23 Range/Units 13:27 16:24 22:58 RBC (3.80-5.40) m/uL Hgb (11.4-16.0) gm/dL Hct (34.0-46.0) % Neutrophils # (1.3-7.7) k/uL Lymphocytes # (1.0-4.8) k/uL Sodium (137-145) mmol/L Glucose (74-99) mg/dL POC Glucose (mg/dL) 149 H 119 H 183 H (70-110) mg/dL Calcium (8.4-10.2) mg/dL Total Protein (6.3-8.2) g/dL Albumin (3.5-5.0) g/dL 03/27/23 03/27/23 03/27/23 Range/Units 04:54 04:54 05:43 RBC 3.15 L (3.80-5.40) m/uL Hgb 9.9 L (11.4-16.0) gm/dL Hct 29.7 L (34.0-46.0) % Neutrophils # 9.7 H (1.3-7.7) k/uL Lymphocytes # 0.2 L (1.0-4.8) k/uL Sodium 126 L (137-145) mmol/L Glucose 133 H (74-99) mg/dL POC Glucose (mg/dL) 136 H (70-110) mg/dL Calcium 7.9 L (8.4-10.2) mg/dL Total Protein 5.1 L (6.3-8.2) g/dL Albumin 2.7 L (3.5-5.0) g/dL 03/27/23 Range/Units 11:35 RBC (3.80-5.40) m/uL Hgb (11.4-16.0) gm/dL Hct (34.0-46.0) % Neutrophils # (1.3-7.7) k/uL Lymphocytes # (1.0-4.8) k/uL Sodium (137-145) mmol/L Glucose (74-99) mg/dL POC Glucose (mg/dL) 120 H (70-110) mg/dL Calcium (8.4-10.2) mg/dL Total Protein (6.3-8.2) g/dL Albumin (3.5-5.0) g/dL Microbiology - Last 24 Hours (Table) 03/25/23 14:15 Gram Stain - Preliminary Neck Wound Culture - Preliminary Gram Neg Bacilli Group D Enterococcus 03/25/23 14:15 Gram Stain - Preliminary Neck Wound Culture - Preliminary Gram Neg Bacilli Group D Enterococcus 03/25/23 02:05 Blood Culture - Preliminary Blood 03/25/23 01:45 Blood Culture - Preliminary Blood
[2023-03-27] MEDS: SODIUM CHLORIDE 0.9% 500 ML 500 ML IV SCH (14:32)
[2023-03-27 16:32] LABS: Glucose,Whole Blood 160 mg/dL (70-110)
[2023-03-27] MEDS: ACETAMINOPHEN TAB 325 MG TAB PO PRN (16:55)
--- NOTE | 2023-03-27 17:14 | P.PN ---
Subjective Progress Note Date: 03/27/23 This is a 72-year-old female who presented to the ER with concerns of increased neck swelling. Patient recently underwent thyroidectomy and developed some stridor edema postoperatively but was treated with IV steroids DC'd home. 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 Patient apparently developed increased shortness of breath stridor and neck swelling and presented to ER for further evaluation. Patient had CT completed showing fluid within the surgical bed circumferentially and some thickening. Also concerns of possible aspiration pneumonia. Patient also found to be hyponatremic with sodium at 123. Pulmonary and surgical services were consulted along with infectious disease services. Patient started on IV antibiotics. Patient was to OR for evacuation of surgical site seroma. Patient was mechanically ventilated for airway precautions postoperatively and sent to the ICU for recovery. On 03/26/2023 I am resuming care of patient Dr. Larson covering previously Patient remains in the intensive care unit currently on CPAP with tentative plans for extubation today. Patient remains on IV daptomycin and Zosyn. Infectious disease, surgical services and pulmonary services following. Sodium level improving at 128. Current vital signs temp 97.5, heart rate 67, respiratory rate 24, blood pressure 115/72 pulse ox 99% on mechanical ventilation with an FiO2 of 50%. Patient currently on sedation holiday following commands. On 03/27/2023 patient was seen and examined in the ICU she is alert responsive in no apparent distress there is no fever or chills no headache or dizziness no chest pain no shortness of breath no cough no nausea or vomiting no abdominal pain no diarrhea and no urinary symptoms temperature is 98.2 pulse 88 respiration 16 blood pressure 131/75 pulse ox 91% on room air white blood count 10.4 hemoglobin 9.9 platelet count 367 input from pulmonary general surgery and ENT reviewed Objective - Vital Signs Vital signs: Vital Signs Temp 98.1 F 03/27/23 08:00 Pulse 90 03/27/23 08:00 Resp 15 03/27/23 08:00 BP 127/74 03/27/23 08:00 Pulse Ox 96 03/27/23 08:00 FiO2 50 03/26/23 08:00 Intake & Output 03/26/23 03/27/23 03/27/23 18:59 06:59 18:59 Intake Total 829.115 860 20 Output Total 1765 820 50 Balance -935.885 40 -30 Weight 56.1 kg Intake: IV 630 320 20 0.9 220 20 Lactated Ringers 1,000 ml 520 @ 20 mls/hr IV .Q24H [facility] Rx#:[id number] Piperacillin-Tazobactam 3 100 .375 gm In Sodium Chloride 0.9% 100 ml @ 25 mls/hr IVPB Q8H [facility] Rx#: [id number] Sodium Chloride 0.9% 1, 110 000 ml @ 999 mls/hr IV . Q1H1M [facility] Rx#:[id number] Intake, IV Titration 79.115 Amount propofoL 1,000 mg In 79.115 Empty Bag 1 bag @ 15 MCG/ KG/MIN 4.409 mls/hr IV . [id number] [facility] Rx#:[id number] Oral 120 540 Output: Gastric Drainage 600 Urine 1165 820 50 Other: Voiding Method Indwelling Catheter Indwelling Catheter Indwelling Catheter - Exam Head normocephalic Neck dressing clean dry and intact js drain in place Lungs clear to auscultation bilaterally no wheezing or crackles Heart regular rate and rhythm S1-S2, no rub or gallop Abdomen is soft nontender nondistended positive bowel sounds no hepatosplenomegaly Extremities no edema Neuro alert and orientated to 3 - Labs CBC & Chem 7: 03/27/23 04:54 03/27/23 04:54 Labs: Abnormal Lab Results - Last 24 Hours (Table) 03/26/23 03/26/23 03/26/23 Range/Units 11:33 13:27 16:24 RBC (3.80-5.40) m/uL Hgb (11.4-16.0) gm/dL Hct (34.0-46.0) % Neutrophils # (1.3-7.7) k/uL Lymphocytes # (1.0-4.8) k/uL Sodium (137-145) mmol/L Glucose (74-99) mg/dL POC Glucose (mg/dL) 173 H 149 H 119 H (70-110) mg/dL Calcium (8.4-10.2) mg/dL Total Protein (6.3-8.2) g/dL Albumin (3.5-5.0) g/dL 03/26/23 03/27/23 03/27/23 Range/Units 22:58 04:54 04:54 RBC 3.15 L (3.80-5.40) m/uL Hgb 9.9 L (11.4-16.0) gm/dL Hct 29.7 L (34.0-46.0) % Neutrophils # 9.7 H (1.3-7.7) k/uL Lymphocytes # 0.2 L (1.0-4.8) k/uL Sodium 126 L (137-145) mmol/L Glucose 133 H (74-99) mg/dL POC Glucose (mg/dL) 183 H (70-110) mg/dL Calcium 7.9 L (8.4-10.2) mg/dL Total Protein 5.1 L (6.3-8.2) g/dL Albumin 2.7 L (3.5-5.0) g/dL 03/27/23 Range/Units 05:43 RBC (3.80-5.40) m/uL Hgb (11.4-16.0) gm/dL Hct (34.0-46.0) % Neutrophils # (1.3-7.7) k/uL Lymphocytes # (1.0-4.8) k/uL Sodium (137-145) mmol/L Glucose (74-99) mg/dL POC Glucose (mg/dL) 136 H (70-110) mg/dL Calcium (8.4-10.2) mg/dL Total Protein (6.3-8.2) g/dL Albumin (3.5-5.0) g/dL Microbiology - Last 24 Hours (Table) 03/25/23 14:15 Gram Stain - Preliminary Neck 03/25/23 14:15 Gram Stain - Preliminary Neck 03/25/23 02:05 Blood Culture - Preliminary Blood 03/25/23 01:45 Blood Culture - Preliminary Blood Assessment and Plan Assessment: 1. Acute stridor secondary to soft tissue edema and swelling around incision from previous thyroidectomy on 03/10/2023. Status post surgical incision and drainage on 03/25/2023 2. Suspected aspiration pneumonia 3. Thyroidectomy on 03/10/2023 with stridor postoperatively improved with Decadron and discharged on 03/17/2023. 4. History of COPD 5. History of osteoarthritis 6. History of nicotine dependence 7. Hyponatremia. Improving Patient currently admitted to the intensive care unit Patient currently on mechanical ventilation Infectious disease, surgical and pulmonary service is following Patient remains on IV antibiotics Repeat labs ordered
[2023-03-27 20:09] LABS: Glucose,Whole Blood 213 mg/dL (70-110)
[2023-03-27 23:06] LABS: Glucose,Whole Blood 190 mg/dL (70-110)
[2023-03-28] MEDS: IPRATROPIUM-ALBUTEROL 3 ML NEB INHALATION SCH ×6 (04:06→20:26)
[2023-03-28] MEDS: PIPERACILLIN-TAZOBACTAM 3.375 GM in SODIUM CHLORIDE 0.9% 100 ML IVPB SCH ×3 (04:54→20:21)
[2023-03-28] MEDS: DEXAMETHASONE SOD PHOSPHATE 4 MG/ML 1 ML VIAL IVP SCH ×5 (04:54→20:21)
[2023-03-28] MEDS: LACTATED RINGERS 1,000 ML IV SCH (04:54)
[2023-03-28 05:25] LABS: African American GFR (CKD) >90 (>60 ml/min/1.73 sqM); Anion Gap 5 mmol/L; Blood Urea Nitrogen 12 mg/dL (7-17); Calcium 8.1 mg/dL (8.4-10.2); Carbon Dioxide 25 mmol/L (22-30); Chloride 97 mmol/L (98-107); Glucose 122 mg/dL (74-99); Non-African American GFR(CKD) >90 (>60 ml/min/1.73 sqM); Potassium 3.5 mmol/L (3.5-5.1); Sodium 127 mmol/L (137-145)
[2023-03-28] MEDS: INSULIN ASPART (NovoLOG) 100 UNIT/ML VIAL SQ SCH ×3 (05:40→18:37)
[2023-03-28 05:41] LABS: Glucose,Whole Blood 118 mg/dL (70-110)
[2023-03-28] MEDS: LEVOTHYROXINE 100 MCG TAB PO SCH (05:46)
[2023-03-28] MEDS: PANTOPRAZOLE 40 MG/10 ML VIAL IV SCH (09:44)
[2023-03-28] MEDS: HEPARIN SODIUM,PORCINE/PF 5,000 UNIT/0.5 ML SYRINGE SQ SCH ×2 (09:45→20:21)
[2023-03-28] MEDS: FOLIC ACID 1 MG TAB PO SCH (09:45)
[2023-03-28] MEDS: MULTIVITAMINS, THERA 1 EACH TAB PO SCH (09:45)
[2023-03-28] MEDS: THIAMINE 100 MG TAB PO SCH (09:45)
--- NOTE | 2023-03-28 10:18 | P.PN ---
Subjective Progress Note Date: 03/28/23 This is a 72-year-old female who presented to the ER with concerns of increased neck swelling. Patient recently underwent thyroidectomy and developed some stridor edema postoperatively but was treated with IV steroids DC'd home. 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 Patient apparently developed increased shortness of breath stridor and neck swelling and presented to ER for further evaluation. Patient had CT completed showing fluid within the surgical bed circumferentially and some thickening. Also concerns of possible aspiration pneumonia. Patient also found to be hyponatremic with sodium at 123. Pulmonary and surgical services were consulted along with infectious disease services. Patient started on IV antibiotics. Patient was to OR for evacuation of surgical site seroma. Patient was mechanically ventilated for airway precautions postoperatively and sent to the ICU for recovery. On 03/26/2023 I am resuming care of patient Dr. Larson covering previously Patient remains in the intensive care unit currently on CPAP with tentative plans for extubation today. Patient remains on IV daptomycin and Zosyn. Infectious disease, surgical services and pulmonary services following. Sodium level improving at 128. Current vital signs temp 97.5, heart rate 67, respiratory rate 24, blood pressure 115/72 pulse ox 99% on mechanical ventilation with an FiO2 of 50%. Patient currently on sedation holiday following commands. On 03/27/2023 patient was seen and examined in the ICU she is alert responsive in no apparent distress there is no fever or chills no headache or dizziness no chest pain no shortness of breath no cough no nausea or vomiting no abdominal pain no diarrhea and no urinary symptoms temperature is 98.2 pulse 88 respiration 16 blood pressure 131/75 pulse ox 91% on room air white blood count 10.4 hemoglobin 9.9 platelet count 367 input from pulmonary general surgery and ENT reviewed On 03/28/2023 patient remains in the intensive care alert responsive 3. Patient remains with focal cord paralysis patient was evaluated by ENT and rec ommendations for follow-up outpatient with specialist for vocal cord paralysis. Patient under close monitoring for possible stridor. Current vital signs temp 98.2, heart rate 89, respiratory rate 18, blood pressure 135/76 with a pulse ox 92%. Objective - Vital Signs Vital signs: Vital Signs Temp 98.2 F 03/28/23 08:00 Pulse 81 03/28/23 08:10 Resp 18 03/28/23 08:00 BP 135/76 07/07/23 08:00 Pulse Ox 92 L 03/28/23 08:00 FiO2 50 03/26/23 08:00 Intake & Output 03/27/23 03/28/23 03/28/23 18:59 06:59 18:59 Intake Total 270 10 Output Total 50 500 Balance 220 -500 10 Weight 53.6 kg Intake: IV 220 10 0.9 220 Invasive Line 1 10 Intake, IV Titration 50 Amount DAPTOmycin 300 mg In 50 Sodium Chloride 0.9% 50 ml @ 100 mls/hr IVPB Q24H [facility] Rx#:[id number] Output: Urine 50 500 Other: Voiding Method Toilet Toilet # Voids 1 # Bowel Movements 1 - Exam Head normocephalic Neck dressing clean dry and intact js drain in place Lungs clear to auscultation bilaterally no wheezing or crackles Heart regular rate and rhythm S1-S2, no rub or gallop Abdomen is soft nontender nondistended positive bowel sounds no hepatosplenomegaly Extremities no edema Neuro alert and orientated to 3 - Labs CBC & Chem 7: 03/27/23 04:54 03/28/23 04:46 Labs: Abnormal Lab Results - Last 24 Hours (Table) 03/27/23 03/27/23 03/27/23 Range/Units 11:35 16:29 20:08 Sodium (137-145) mmol/L Chloride (98-107) mmol/L Glucose (74-99) mg/dL POC Glucose (mg/dL) 120 H 160 H 213 H (70-110) mg/dL Calcium (8.4-10.2) mg/dL 03/27/23 03/28/23 03/28/23 Range/Units 23:05 04:46 05:39 Sodium 127 L (137-145) mmol/L Chloride 97 L (98-107) mmol/L Glucose 122 H (74-99) mg/dL POC Glucose (mg/dL) 190 H 118 H (70-110) mg/dL Calcium 8.1 L (8.4-10.2) mg/dL Microbiology - Last 24 Hours (Table) 03/25/23 02:05 Blood Culture - Preliminary Blood 03/25/23 01:45 Blood Culture - Preliminary Blood 03/25/23 14:15 Gram Stain - Preliminary Neck Wound Culture - Preliminary Gram Neg Bacilli Group D Enterococcus 03/25/23 14:15 Gram Stain - Preliminary Neck Wound Culture - Preliminary Gram Neg Bacilli Group D Enterococcus Assessment and Plan Assessment: 1. Acute stridor secondary to soft tissue edema and swelling around incision f rom previous thyroidectomy on 03/10/2023. Status post surgical incision and drainage on 03/25/2023 2. Suspected aspiration pneumonia 3. Thyroidectomy on 03/10/2023 with stridor postoperatively improved with Decadron and discharged on 03/17/2023. 4. History of COPD 5. History of osteoarthritis 6. History of nicotine dependence 7. Hyponatremia. Improving 8. Vocal Cord paralysis. Patient was evaluated by ENT Patient currently admitted to the intensive care unit Infectious disease, surgical and pulmonary service is following Patient remains on IV antibiotics Repeat labs ordered
[2023-03-28 10:53] LABS: Basophils % (A) 0 %; Eosinophils % (A) 1 %; HCT 34.1 % (34.0-46.0); Lymphocytes # (A) 0.2 k/uL (1.0-4.8); Lymphocytes % (A) 3 %; MCHC 32.4 g/dL (31.0-37.0); MCV 98.8 fL (80.0-100.0); Mean Platelet Volume 6.9; Monocytes # (A) 0.3 k/uL (0-1.0); Monocytes % (A) 5 %; Neutrophils # (A) 6.9 k/uL (1.3-7.7); Neutrophils % (A) 92 %; Platelet Count 368 k/uL (150-450); RBC 3.45 m/uL (3.80-5.40); RDW 12.9 % (11.5-15.5); WBC 7.5 k/uL (3.8-10.6)
--- NOTE | 2023-03-28 11:37 | P.PN ---
Subjective Progress Note Date: 03/28/23 This is a very pleasant 72-year-old female patient with a known history of chronic obstructive pulmonary disease, chronic and ongoing tobacco dependence. She was noted to have a multinodular goiter and had undergone thyroidectomy on 03/10/2023 and discharged home. She returned to the emergency room on 0 03/15/2023 with increasing shortness of breath and audible stridor. She had been treated with Decadron and an ENT consult was placed. She is discharged home on 03/17/2023 with Decadron. She came back to the emergency room last evening after her surgical site developed significant edema and swelling and she again developed stridor. Computed tomography scan of the neck revealed status post thyroidectomy. Fluid within the surgical bed circumferentially around the lower neck airway measuring up to 2.6 cm in thickness anteriorly, 2.3 cm in thickness laterally to the left and 2.3 cm in thickness laterally to the right. Chest x- ray reveals a right lower lobe infiltrate. White count 28.1. Hemoglobin 13.0. Platelets 444. Sodium 124. Potassium 4.3. Bicarb 22. BUN 14. Creatinine 0.48. Glucose 155. Pro-calcitonin 0.17. He's been initiated on IV Decadron 4 mg every 4 hours. Antibiotics in the form of cefazolin and Zosyn. DuoNeb inhalations. Heparin for DVT prophylaxis. The patient is seen today 03/26/2023 in follow-up in the intensive care unit. Last evening she did undergo incision and drainage of a postoperative infected neck seroma. She returned to the ICU and intubated on mechanical ventilator. Current settings are assist-control mode at a rate of 24, tidal volume 325, FiO2 50% and a PEEP of 5. Morning blood gases reveal a P O2 of 107, pCO2 46, pH 7.39. She is receiving lactated Ringer's 130 ML's per hour. Sedated with propofol at 50 mcg/kg/m. She required Nimbex at 2 pg/kg/m. She is on antibiotics in the form of daptomycin and Zosyn. Cultures are pending. White count 14.1. Hemoglobin 10.1. Platelets 241. Sodium 128. Potassium 3.6. Bicarb 21. BUN 11. Creatinine 0.43. Glucose 119. He remains on Decadron 4 mg IVP every 4 hours. Remains on bronchodilators. She did develop a prolapsed rectum with forceful coughing. The patient is seen today 03/27/2023 in follow-up in the intensive care unit. She is currently sitting up in bed. Awake and alert in no acute distress. Maintaining good O2 saturations in the 90s on 2 L/m per nasal cannula. She's been afebrile. Hemodynamically stable. She still has some hoarseness and very mild stridor. She had been seen by ENT yesterday and a flexible nasopharyngeal laryngoscope was passed and she was found to have bilateral vocal cord paralysis noted at both vocal cords were fixed in the median position but posteriorly has adequate airway. No significant stridor. Recent anterior not dry and intact. Cultures are pending. White count 10.4. Hemoglobin 9.9. Platelets 367. Sodium 126. Potassium 3.6. Bicarb 25. BUN 12. Creatinine 0.61. Glucose 133. She remains on Decadron, bronchodilators. Antibiotics in the form of Zosyn and daptomycin. The patient is seen today 03/28/2023 in follow-up in the intensive care unit. She is sitting up in bed. Awake and alert in no acute distress. She still has some very mild stridor. Still with a very soft voice. She is swallowing well. Anterior neck incision is clean dry well approximated. Cultures were positive for gram-negative bacilli and group D enterococcus. She remains on daptomycin and Zosyn. She is on 2 L nasal cannula. Lactated Ringer's at 20 ML's per hour. She is continued on DuoNeb inhalations, Decadron. Heparin for DVT prophylaxis. White count 7.5. Hemoglobin 11.0. Platelets 368. Sodium 127. Potassium 3.5. BUN 12. Creatinine 0.61. Glucose 122. Objective - Vital Signs Vital signs: Vital Signs Temp 98.2 F 03/28/23 08:00 Pulse 81 03/28/23 11:15 Resp 18 03/28/23 08:00 BP 135/76 03/28/23 08:00 Pulse Ox 92 L 03/28/23 08:00 FiO2 50 03/26/23 08:00 Intake & Output 03/27/23 03/28/23 03/28/23 18:59 06:59 18:59 Intake Total 270 270 Output Total 50 500 Balance 220 -500 270 Weight 53.6 kg Intake: IV 220 10 0.9 220 Invasive Line 1 10 Intake, IV Titration 50 Amount DAPTOmycin 300 mg In 50 Sodium Chloride 0.9% 50 ml @ 100 mls/hr IVPB Q24H [facility] Rx#:[id number] Oral 260 Output: Urine 50 500 Other: Voiding Method Toilet Toilet # Voids 1 # Bowel Movements 1 - Exam GENERAL EXAM: Alert, pleasant 72-year-old female, and room air, comfortable in no apparent distress. HEAD: Normocephalic. EYES: Normal reaction of pupils, equal size. NOSE: Clear with pink turbinates. THROAT: No erythema or ulcers NECK: Anterior neck dressing dry and intact. CHEST: No chest wall deformity. LUNGS: Equal air entry with no crackles, wheeze, rhonchi or dullness. CVS: S1 and S2 normal with no audible murmur, regular rhythm. ABDOMEN: No hepatosplenomegaly, normal bowel sounds, no guarding or rigidity. SPINE: No scoliosis or deformity SKIN: No rashes CENTRAL NERVOUS SYSTEM: No focal deficits, tone is normal in all 4 extremities. EXTREMITIES: There is no peripheral edema. No clubbing, no cyanosis. Peripheral pulses are intact. - Labs CBC & Chem 7: 03/28/23 10:33 03/28/23 04:46 Labs: Abnormal Lab Results - Last 24 Hours (Table) 03/27/23 03/27/23 03/27/23 Range/Units 11:35 16:29 20:08 RBC (3.80-5.40) m/uL Hgb (11.4-16.0) gm/dL Lymphocytes # (1.0-4.8) k/uL Sodium (137-145) mmol/L Chloride (98-107) mmol/L Glucose (74-99) mg/dL POC Glucose (mg/dL) 120 H 160 H 213 H (70-110) mg/dL Calcium (8.4-10.2) mg/dL 03/27/23 03/28/23 03/28/23 Range/Units 23:05 04:46 05:39 RBC (3.80-5.40) m/uL Hgb (11.4-16.0) gm/dL Lymphocytes # (1.0-4.8) k/uL Sodium 127 L (137-145) mmol/L Chloride 97 L (98-107) mmol/L Glucose 122 H (74-99) mg/dL POC Glucose (mg/dL) 190 H 118 H (70-110) mg/dL Calcium 8.1 L (8.4-10.2) mg/dL 03/28/23 Range/Units 10:33 RBC 3.45 L (3.80-5.40) m/uL Hgb 11.0 L (11.4-16.0) gm/dL Lymphocytes # 0.2 L (1.0-4.8) k/uL Sodium (137-145) mmol/L Chloride (98-107) mmol/L Glucose (74-99) mg/dL POC Glucose (mg/dL) (70-110) mg/dL Calcium (8.4-10.2) mg/dL Microbiology - Last 24 Hours (Table) 03/25/23 02:05 Blood Culture - Preliminary Blood 03/25/23 01:45 Blood Culture - Preliminary Blood 03/25/23 14:15 Gram Stain - Preliminary Neck Wound Culture - Preliminary Gram Neg Bacilli Group D Enterococcus 03/25/23 14:15 Gram Stain - Preliminary Neck Wound Culture - Preliminary Gram Neg Bacilli Group D Enterococcus Assessment and Plan Assessment: Acute stridor secondary to soft tissue edema and swelling around the incision from previous thyroidectomy on 03/10/2023. Status post incision and drainage on 03/25/2023 of the postoperative neck seroma. Cultures pending. Maintained intubated on the mechanical ventilator. Subsequently extubated on 03/26/2023. Currently stable and on room air. On 03/26/2023 the patient did undergo flexible nasopharyngeal laryngoscope and was noted to have vocal cord paralysis of both vocal cords and fixated in the median position but posteriorly had adequate airway. Very mild stridor. Acute hypoxemic respiratory failure secondary to above in addition to suspected aspiration pneumonia of the right lower lung, recovered and on room air Recent admission for stridor on 03/14/2023, improved with Decadron and discharged on 03/17/2023 History of multinodular goiter status post total thyroidectomy on 03/10/2023 History of rectal prolapse Chronic and ongoing tobacco dependence Chronic obstructive pulmonary disease Osteoarthritis Plan: The patient was seen and evaluated Labs and medications reviewed Currently stable and on room air Continue Zosyn and daptomycin Continue Decadron Continue bronchodilators Heparin for DVT prophylaxis Transfer to the regular medical floor We will continue to follow I have personally seen and examined the patient, performed the documentation and the assessment and plan as written. Number of minutes spent on the visit: 10.
[2023-03-28 11:39] LABS: Glucose,Whole Blood 131 mg/dL (70-110)
--- NOTE | 2023-03-28 11:56 | P.PN ---
Subjective Progress Note Date: 03/28/23 CHIEF COMPLAINT: Post-thyroidectomy neck seroma HISTORY OF PRESENT ILLNESS: Patient is postop day #3 status post incision and drainage of postop infected neck seroma. She sitting up in bed. Patient has h oarseness. She does occasionally have stridor. She is receiving the IV Decadron . And she reports occasional shortness of breath. She is tolerating the dysphagia chopped diet. Denies any pain. Rectal prolapse is reduced. Afebrile WBC 7.5 Hgb is 11 platelets 368 sodium 127 creatinine 0.61 PHYSICAL EXAM: VITAL SIGNS: Reviewed. GENERAL: Well-developed in no acute distress. HEENT: neck incision site clean dry and intact with [place] drain. No drainage at this time ABDOMEN: Soft. Nondistended. Nontender. ASSESSMENT: 1. Post-thyroidectomy infected neck seroma status post incision and drainage with Dr. Hahn 2. Bilateral vocal cord paralysis 3. Chronic Rectal prolapse. Currently reduced. PLAN: -Continue daily dressing changes to neck -Continue antibiotics per ID service -Continue to observe -For the chronic rectal prolapse continue to observe. Currently reduced. Will eventually need surgical correction at a later time -Continue supportive care -Ok to transfer out of ICU -DVT prophylaxis subcu heparin Physician Manager Placement note has been reviewed by physician. Signing provider agrees with the documented findings, assessment, and plan of care. Objective - Vital Signs Vital signs: Vital Signs Temp 98.2 F 03/28/23 08:00 Pulse 81 03/28/23 11:15 Resp 18 03/28/23 08:00 BP 135/76 03/28/23 08:00 Pulse Ox 92 L 03/28/23 08:00 FiO2 50 03/26/23 08:00 Intake & Output 03/27/23 03/28/23 03/28/23 18:59 06:59 18:59 Intake Total 270 270 Output Total 50 500 Balance 220 -500 270 Weight 53.6 kg Intake: IV 220 10 0.9 220 Invasive Line 1 10 Intake, IV Titration 50 Amount DAPTOmycin 300 mg In 50 Sodium Chloride 0.9% 50 ml @ 100 mls/hr IVPB Q24H [facility] Rx#:[id number] Oral 260 Output: Urine 50 500 Other: Voiding Method Toilet Toilet # Voids 1 # Bowel Movements 1 - Labs CBC & Chem 7: 03/28/23 10:33 03/28/23 04:46 Labs: Abnormal Lab Results - Last 24 Hours (Table) 03/27/23 03/27/23 03/27/23 Range/Units 16:29 20:08 23:05 RBC (3.80-5.40) m/uL Hgb (11.4-16.0) gm/dL Lymphocytes # (1.0-4.8) k/uL Sodium (137-145) mmol/L Chloride (98-107) mmol/L Glucose (74-99) mg/dL POC Glucose (mg/dL) 160 H 213 H 190 H (70-110) mg/dL Calcium (8.4-10.2) mg/dL 03/28/23 03/28/23 03/28/23 Range/Units 04:46 05:39 10:33 RBC 3.45 L (3.80-5.40) m/uL Hgb 11.0 L (11.4-16.0) gm/dL Lymphocytes # 0.2 L (1.0-4.8) k/uL Sodium 127 L (137-145) mmol/L Chloride 97 L (98-107) mmol/L Glucose 122 H (74-99) mg/dL POC Glucose (mg/dL) 118 H (70-110) mg/dL Calcium 8.1 L (8.4-10.2) mg/dL 03/28/23 Range/Units 11:38 RBC (3.80-5.40) m/uL Hgb (11.4-16.0) gm/dL Lymphocytes # (1.0-4.8) k/uL Sodium (137-145) mmol/L Chloride (98-107) mmol/L Glucose (74-99) mg/dL POC Glucose (mg/dL) 131 H (70-110) mg/dL Calcium (8.4-10.2) mg/dL Microbiology - Last 24 Hours (Table) 03/25/23 02:05 Blood Culture - Preliminary Blood 03/25/23 01:45 Blood Culture - Preliminary Blood 03/25/23 14:15 Gram Stain - Preliminary Neck Wound Culture - Preliminary Gram Neg Bacilli Group D Enterococcus 03/25/23 14:15 Gram Stain - Preliminary Neck Wound Culture - Preliminary Gram Neg Bacilli Group D Enterococcus
[2023-03-28] MEDS: SODIUM CHLORIDE 0.9% 1,000 ML IV SCH (12:38)
[2023-03-28] MEDS: SODIUM CHLORIDE 0.9% 500 ML 500 ML IV SCH (12:39)
--- NOTE | 2023-03-28 15:35 | P.PN ---
Subjective Progress Note Date: 03/27/23 Principal diagnosis: Neck abscess Patient is a 72-year-old female with a past medical history taken for COPD multinodular goiter in this patient status post thyroidectomy completed on 03/10/2023 patient subsequently presented back to the hospital on 03/15/2023 with increasing shortness of breath and audible stridor patient was treated with a Decadron , presenting back to the hospital increasing shortness of breath abnormal CT concerning for possible abscess in this patient with status post surgical drainage of infected hematoma. On today's evaluation that is 03/27/2023, the patient is afebrile and the patient is currently breathing comfortably on the 2 L nasal cannula but denies any chest pain or shortness of breath or cough pain to the neck area is currently con trolled and no diarrhea Objective - Vital Signs Vital signs: Vital Signs Temp 98.3 F 03/27/23 04:00 Pulse 84 03/27/23 07:42 Resp 12 03/27/23 07:00 BP 135/71 03/27/23 07:00 Pulse Ox 98 03/27/23 07:31 FiO2 50 03/26/23 08:00 Intake & Output 03/26/23 03/27/23 03/27/23 18:59 06:59 18:59 Intake Total 829.115 860 20 Output Total 1765 820 50 Balance -935.885 40 -30 Weight 56.1 kg Intake: IV 630 320 20 0.9 220 20 Lactated Ringers 1,000 ml 520 @ 20 mls/hr IV .Q24H [facility] Rx#:[id number] Piperacillin-Tazobactam 3 100 .375 gm In Sodium Chloride 0.9% 100 ml @ 25 mls/hr IVPB Q8H [facility] Rx#: [id number] Sodium Chloride 0.9% 1, 110 000 ml @ 999 mls/hr IV . Q1H1M [facility] Rx#:[id number] Intake, IV Titration 79.115 Amount propofoL 1,000 mg In 79.115 Empty Bag 1 bag @ 15 MCG/ KG/MIN 4.409 mls/hr IV . [id number] [facility] Rx#:[id number] Oral 120 540 Output: Gastric Drainage 600 Urine 1165 820 50 Other: Voiding Method Indwelling Catheter Indwelling Catheter - Exam GENERAL DESCRIPTION: An elderly female lying in bed in no distress HEENT: Neck incision is dressed no drainage on the dressing RESPIRATORY SYSTEM: Unlabored breathing , decreased breath sounds at bases HEART: S1 S2 regular rate and rhythm , ABDOMEN: Soft , no tenderness EXTREMITIES: No edema feet - Labs CBC & Chem 7: 03/28/23 10:33 03/28/23 04:46 Labs: Abnormal Lab Results - Last 24 Hours (Table) 03/26/23 03/26/23 03/26/23 Range/Units 02:26 11:33 13:27 RBC (3.80-5.40) m/uL Hgb (11.4-16.0) gm/dL Hct (34.0-46.0) % Neutrophils # (1.3-7.7) k/uL Lymphocytes # (1.0-4.8) k/uL Sodium (137-145) mmol/L Glucose (74-99) mg/dL POC Glucose (mg/dL) 173 H 149 H (70-110) mg/dL Hemoglobin A1c 6.1 H (<=6.0) % Calcium (8.4-10.2) mg/dL Total Protein (6.3-8.2) g/dL Albumin (3.5-5.0) g/dL 03/26/23 03/26/23 03/27/23 Range/Units 16:24 22:58 04:54 RBC (3.80-5.40) m/uL Hgb (11.4-16.0) gm/dL Hct (34.0-46.0) % Neutrophils # (1.3-7.7) k/uL Lymphocytes # (1.0-4.8) k/uL Sodium 126 L (137-145) mmol/L Glucose 133 H (74-99) mg/dL POC Glucose (mg/dL) 119 H 183 H (70-110) mg/dL Hemoglobin A1c (<=6.0) % Calcium 7.9 L (8.4-10.2) mg/dL Total Protein 5.1 L (6.3-8.2) g/dL Albumin 2.7 L (3.5-5.0) g/dL 03/27/23 03/27/23 Range/Units 04:54 05:43 RBC 3.15 L (3.80-5.40) m/uL Hgb 9.9 L (11.4-16.0) gm/dL Hct 29.7 L (34.0-46.0) % Neutrophils # 9.7 H (1.3-7.7) k/uL Lymphocytes # 0.2 L (1.0-4.8) k/uL Sodium (137-145) mmol/L Glucose (74-99) mg/dL POC Glucose (mg/dL) 136 H (70-110) mg/dL Hemoglobin A1c (<=6.0) % Calcium (8.4-10.2) mg/dL Total Protein (6.3-8.2) g/dL Albumin (3.5-5.0) g/dL Microbiology - Last 24 Hours (Table) 03/25/23 14:15 Gram Stain - Preliminary Neck 03/25/23 14:15 Gram Stain - Preliminary Neck 03/25/23 02:05 Blood Culture - Preliminary Blood 03/25/23 01:45 Blood Culture - Preliminary Blood Assessment and Plan (1) Infected hematoma following procedure Current Visit: Yes Status: Acute Code(s): [id number] - SNOMED Code(s): 293923990 Plan: 1patient presented to hospital with increasing shortness of breath stridor in this patient who did have a history of thyroidectomy on 03/10/2023 now presenting to the hospital with above symptoms patient did have abnormal CT and is s/p surgical drainage of postop seroma culture has been obtained and will need to cover for both gram-positive as well as gram-negative pathogen, patient also have right lower lobe infiltrate concern for possible aspiration pneumonitis 2-Patient local cultures are currently pending, patient will continue with the Zosyn and daptomycin while waiting for the culture to finalize antibiotic clinical course closely Time with Patient: Less than 30
--- NOTE | 2023-03-28 15:37 | P.PN ---
Subjective Progress Note Date: 03/28/23 Principal diagnosis: Neck abscess Patient is a 72-year-old female with a past medical history taken for COPD multinodular goiter in this patient status post thyroidectomy completed on 03/10/2023 patient subsequently presented back to the hospital on 03/15/2023 with increasing shortness of breath and audible stridor patient was treated with a Decadron , presenting back to the hospital increasing shortness of breath abnormal CT concerning for possible abscess in this patient with status post surgical drainage of infected hematoma. On today's evaluation that is 03/28/2023, the patient remains to be afebrile patient is breathing comfortably on 2 L nasal cannula oxygen, patient denies having any chest pain or shortness of breath or cough no nausea vomiting or diarrhea has been reported Objective - Vital Signs Vital signs: Vital Signs Temp 98.2 F 03/28/23 08:00 Pulse 81 03/28/23 11:15 Resp 18 03/28/23 08:00 BP 135/76 03/28/23 08:00 Pulse Ox 92 L 03/28/23 08:00 FiO2 50 03/26/23 08:00 Intake & Output 03/27/23 03/28/23 03/28/23 18:59 06:59 18:59 Intake Total 270 510 Output Total 50 500 Balance 220 -500 510 Weight 53.6 kg Intake: IV 220 10 0.9 220 Invasive Line 1 10 Intake, IV Titration 50 Amount DAPTOmycin 300 mg In 50 Sodium Chloride 0.9% 50 ml @ 100 mls/hr IVPB Q24H [facility] Rx#:[id number] Oral 500 Output: Urine 50 500 Other: Voiding Method Toilet Toilet # Voids 1 # Bowel Movements 1 - Exam GENERAL DESCRIPTION: An elderly female lying in bed in no distress HEENT: Neck incision is dressed no drainage on the dressing RESPIRATORY SYSTEM: Unlabored breathing , decreased breath sounds at bases HEART: S1 S2 regular rate and rhythm , ABDOMEN: Soft , no tenderness EXTREMITIES: No edema feet - Labs CBC & Chem 7: 03/28/23 10:33 03/28/23 04:46 Labs: Abnormal Lab Results - Last 24 Hours (Table) 03/27/23 03/27/23 03/27/23 Range/Units 16:29 20:08 23:05 RBC (3.80-5.40) m/uL Hgb (11.4-16.0) gm/dL Lymphocytes # (1.0-4.8) k/uL Sodium (137-145) mmol/L Chloride (98-107) mmol/L Glucose (74-99) mg/dL POC Glucose (mg/dL) 160 H 213 H 190 H (70-110) mg/dL Calcium (8.4-10.2) mg/dL 03/28/23 03/28/23 03/28/23 Range/Units 04:46 05:39 10:33 RBC 3.45 L (3.80-5.40) m/uL Hgb 11.0 L (11.4-16.0) gm/dL Lymphocytes # 0.2 L (1.0-4.8) k/uL Sodium 127 L (137-145) mmol/L Chloride 97 L (98-107) mmol/L Glucose 122 H (74-99) mg/dL POC Glucose (mg/dL) 118 H (70-110) mg/dL Calcium 8.1 L (8.4-10.2) mg/dL 03/28/23 Range/Units 11:38 RBC (3.80-5.40) m/uL Hgb (11.4-16.0) gm/dL Lymphocytes # (1.0-4.8) k/uL Sodium (137-145) mmol/L Chloride (98-107) mmol/L Glucose (74-99) mg/dL POC Glucose (mg/dL) 131 H (70-110) mg/dL Calcium (8.4-10.2) mg/dL Microbiology - Last 24 Hours (Table) 03/25/23 02:05 Blood Culture - Preliminary Blood 03/25/23 01:45 Blood Culture - Preliminary Blood 03/25/23 14:15 Gram Stain - Preliminary Neck Wound Culture - Preliminary Gram Neg Bacilli Group D Enterococcus 03/25/23 14:15 Gram Stain - Preliminary Neck Wound Culture - Preliminary Gram Neg Bacilli Group D Enterococcus Assessment and Plan (1) Infected hematoma following procedure Current Visit: Yes Status: Acute Code(s): [id number] - SNOMED Code(s): 223357934 Plan: this was a telehealth 1patient presented to hospital with increasing shortness of breath stridor in this patient who did have a history of thyroidectomy on 03/10/2023 now presenting to the hospital with above symptoms patient did have abnormal CT and is s/p surgical drainage of postop seroma culture has been obtained and will need to cover for both gram-positive as well as gram-negative pathogen, patient also have right lower lobe infiltrate concern for possible aspiration pneumonitis 2-Patient local cultures currently growing Pseudomonas and Enterococcus faecalis Enterococcus is sensitive to ampicillin we will continue patient on Zosyn and discontinue daptomycin and monitor clinical course closely Time with Patient: Less than 30
[2023-03-28 17:46] LABS: Glucose,Whole Blood 204 mg/dL (70-110)
[2023-03-28 20:05] LABS: Glucose,Whole Blood 151 mg/dL (70-110)
[2023-03-28] MEDS: ACETAMINOPHEN TAB 325 MG TAB PO PRN (21:56)
[2023-03-29 00:07] LABS: Glucose,Whole Blood 134 mg/dL (70-110)
[2023-03-29] MEDS: INSULIN ASPART (NovoLOG) 100 UNIT/ML VIAL SQ SCH ×4 (00:08→17:48)
[2023-03-29] MEDS: DEXAMETHASONE SOD PHOSPHATE 4 MG/ML 1 ML VIAL IVP SCH ×5 (00:09→17:48)
[2023-03-29] MEDS: SODIUM CHLORIDE 0.9% 1,000 ML IV SCH ×2 (03:11→17:50)
[2023-03-29] MEDS: PIPERACILLIN-TAZOBACTAM 3.375 GM in SODIUM CHLORIDE 0.9% 100 ML IVPB SCH ×3 (04:21→20:10)
[2023-03-29] MEDS: LACTATED RINGERS 1,000 ML IV SCH (05:18)
[2023-03-29 06:09] LABS: Glucose,Whole Blood 135 mg/dL (70-110)
[2023-03-29] MEDS: LEVOTHYROXINE 100 MCG TAB PO SCH (06:11)
[2023-03-29 07:07] LABS: Glucose,Whole Blood 109 mg/dL (70-110)
--- NOTE | 2023-03-29 07:13 | P.PN ---
Progress Note - Text Progress Note Date: 03/29/23 The patient's resting comfortably bed. She shows no signs of respiratory distress. She still has a productive cough. On exam vital signs are stable. The patient still has a weak voice. Neck is clean. There is no significant drainage. Status post total thyroidectomy for thyroid cancer with subsequent drainage of infected seroma. Right lower lobe pneumonia Patient has developed vocal cord weakness. The patient appears to be in no respiratory distress. The patient will continue to be observed. We discussed with discharged home hopefully next 48 hours.
[2023-03-29] MEDS: IPRATROPIUM-ALBUTEROL 3 ML NEB INHALATION SCH ×4 (07:48→20:29)
[2023-03-29 09:07] LABS: Basophils # (A) 0 X 10*3/uL (0.00-0.10); Basophils % (A) 0 %; Eosinophils # (A) 0 X 10*3/uL (0.04-0.35); Eosinophils % (A) 0 %; HCT 31.7 % (37.2-46.3); HGB 10.4 d/dL (12.0-15.0); Lymphocytes # (A) 0.24 X 10*3/uL (0.90-5.00); Lymphocytes % (A) 3.9 %; MCH 31.2 pg (27.0-32.0); MCHC 32.8 d/dL (32.0-37.0); MCV 95.2 FL (80.0-97.0); Mean Platelet Volume 8.9 FL (9.5-12.2); Monocytes # (A) 0.25 X 10*3/uL (0.20-1.00); Monocytes % (A) 4.1 %; NRBC Per 100 WBC 0 X 10*3/uL (0.00-0.01); Neutrophils # (A) 5.56 X 10*3/uL (1.80-7.70); Neutrophils % (A) 91.5 %; Platelet Count 351 X 10*3/uL (140-440); RBC 3.33 X 10*6/uL (4.10-5.20); RDW 13.1 % (11.5-14.5); WBC 6.08 X 10*3/uL (4.50-10.00)
[2023-03-29 09:21] LABS: ALT 24 U/L (8-44); AST 20 U/L (13-35); Albumin 3.6 d/dL (3.8-4.9); Albumin/Globulin Ratio 1.64 Ratio (1.60-3.17); Alkaline Phosphatase 55 U/L (41-126); BUN/Creat Ratio 17.17 Ratio (12.00-20.00); Blood Urea Nitrogen 10.3 mg/dL (9.0-27.0); Calcium 8.5 mg/dL (8.7-10.3); Carbon Dioxide 24.1 mmol/L (21.6-31.8); Chloride 94 mmol/L (96-109); Globulin 2.2 d/dL (1.6-3.3); Glucose 124 mg/dL (70-110); Potassium 3.8 mmol/L (3.5-5.5); Sodium 130 mmol/L (135-145); Total Bilirubin 0.4 mg/dL (0.3-1.2); Total Protein 5.8 d/dL (6.2-8.2)
[2023-03-29] MEDS: FOLIC ACID 1 MG TAB PO SCH (09:26)
[2023-03-29] MEDS: THIAMINE 100 MG TAB PO SCH (09:26)
[2023-03-29] MEDS: MULTIVITAMINS, THERA 1 EACH TAB PO SCH (09:26)
[2023-03-29] MEDS: HEPARIN SODIUM,PORCINE/PF 5,000 UNIT/0.5 ML SYRINGE SQ SCH ×2 (09:26→20:10)
[2023-03-29] MEDS: PANTOPRAZOLE 40 MG/10 ML VIAL IV SCH (09:26)
[2023-03-29 11:50] LABS: Glucose,Whole Blood 208 mg/dL (70-110)
--- NOTE | 2023-03-29 12:01 | P.PN ---
Subjective Progress Note Date: 03/29/23 This is a very pleasant 72-year-old female patient with a known history of chronic obstructive pulmonary disease, chronic and ongoing tobacco dependence. She was noted to have a multinodular goiter and had undergone thyroidectomy on 03/10/2023 and discharged home. She returned to the emergency room on 0 03/15/2023 with increasing shortness of breath and audible stridor. She had been treated with Decadron and an ENT consult was placed. She is discharged home on 03/17/2023 with Decadron. She came back to the emergency room last evening after her surgical site developed significant edema and swelling and she again developed stridor. Computed tomography scan of the neck revealed status post thyroidectomy. Fluid within the surgical bed circumferentially around the lower neck airway measuring up to 2.6 cm in thickness anteriorly, 2.3 cm in thickness laterally to the left and 2.3 cm in thickness laterally to the right. Chest x- ray reveals a right lower lobe infiltrate. White count 28.1. Hemoglobin 13.0. Platelets 444. Sodium 124. Potassium 4.3. Bicarb 22. BUN 14. Creatinine 0.48. Glucose 155. Pro-calcitonin 0.17. He's been initiated on IV Decadron 4 mg every 4 hours. Antibiotics in the form of cefazolin and Zosyn. DuoNeb inhalations. Heparin for DVT prophylaxis. The patient is seen today 03/26/2023 in follow-up in the intensive care unit. Last evening she did undergo incision and drainage of a postoperative infected neck seroma. She returned to the ICU and intubated on mechanical ventilator. Current settings are assist-control mode at a rate of 24, tidal volume 325, FiO2 50% and a PEEP of 5. Morning blood gases reveal a P O2 of 107, pCO2 46, pH 7.39. She is receiving lactated Ringer's 130 ML's per hour. Sedated with propofol at 50 mcg/kg/m. She required Nimbex at 2 pg/kg/m. She is on antibiotics in the form of daptomycin and Zosyn. Cultures are pending. White count 14.1. Hemoglobin 10.1. Platelets 241. Sodium 128. Potassium 3.6. Bicarb 21. BUN 11. Creatinine 0.43. Glucose 119. He remains on Decadron 4 mg IVP every 4 hours. Remains on bronchodilators. She did develop a prolapsed rectum with forceful coughing. The patient is seen today 03/27/2023 in follow-up in the intensive care unit. She is currently sitting up in bed. Awake and alert in no acute distress. Maintaining good O2 saturations in the 90s on 2 L/m per nasal cannula. She's been afebrile. Hemodynamically stable. She still has some hoarseness and very mild stridor. She had been seen by ENT yesterday and a flexible nasopharyngeal laryngoscope was passed and she was found to have bilateral vocal cord paralysis noted at both vocal cords were fixed in the median position but posteriorly has adequate airway. No significant stridor. Recent anterior not dry and intact. Cultures are pending. White count 10.4. Hemoglobin 9.9. Platelets 367. Sodium 126. Potassium 3.6. Bicarb 25. BUN 12. Creatinine 0.61. Glucose 133. She remains on Decadron, bronchodilators. Antibiotics in the form of Zosyn and daptomycin. The patient is seen today 03/28/2023 in follow-up in the intensive care unit. She is sitting up in bed. Awake and alert in no acute distress. She still has some very mild stridor. Still with a very soft voice. She is swallowing well. Anterior neck incision is clean dry well approximated. Cultures were positive for gram-negative bacilli and group D enterococcus. She remains on daptomycin and Zosyn. She is on 2 L nasal cannula. Lactated Ringer's at 20 ML's per hour. She is continued on DuoNeb inhalations, Decadron. Heparin for DVT prophylaxis. White count 7.5. Hemoglobin 11.0. Platelets 368. Sodium 127. Potassium 3.5. BUN 12. Creatinine 0.61. Glucose 122. The patient is seen today 03/29/2023 in follow-up on the regular medical floor. She is sitting up in bed. Awake and alert in no acute distress. Maintaining good O2 saturations in the 90s on 2 L/m per nasal cannula. She has some very mild stridor left greater than right. Her incision is clean dry well approximated. Drain remains in place. Dressing dry and intact. Continued on Decadron 4 mg every 4 hours remains on antibiotics in the form of Zosyn and daptomycin. Continued on bronchodilators. Heparin for DVT prophylaxis. Objective - Vital Signs Vital signs: Vital Signs Temp 97.7 F 03/29/23 08:01 Pulse 75 03/29/23 11:36 Resp 16 03/29/23 08:01 BP 148/72 03/29/23 08:01 Pulse Ox 95 03/29/23 08:01 FiO2 50 03/26/23 08:00 Intake & Output 03/28/23 03/29/23 03/29/23 18:59 06:59 18:59 Intake Total 910 1590 Output Total 500 Balance 410 1590 Intake: IV 410 100 0.9 300 Invasive Line 1 10 Piperacillin-Tazobactam 3 100 100 .375 gm In Sodium Chloride 0.9% 100 ml @ 25 mls/hr IVPB Q8H [facility] Rx#: [id number] Intake, IV Titration 900 Amount Sodium Chloride 0.9% 1, 900 000 ml @ 75 mls/hr IV . [id number] [facility] Rx#:[id number] Oral 500 590 Output: Urine 500 Other: Voiding Method Toilet Toilet # Voids 3 - Exam GENERAL EXAM: Alert, pleasant 72-year-old female, on 3 liters per minute per nasal cannula, comfortable in no apparent distress. HEAD: Normocephalic. EYES: Normal reaction of pupils, equal size. NOSE: Clear with pink turbinates. THROAT: No erythema or ulcers NECK: Anterior neck dressing dry and intact. Drain remains in place CHEST: No chest wall deformity. LUNGS: Equal air entry with no crackles, wheeze, rhonchi or dullness. CVS: S1 and S2 normal with no audible murmur, regular rhythm. ABDOMEN: No hepatosplenomegaly, normal bowel sounds, no guarding or rigidity. SPINE: No scoliosis or deformity SKIN: No rashes CENTRAL NERVOUS SYSTEM: No focal deficits, tone is normal in all 4 extremities. EXTREMITIES: There is no peripheral edema. No clubbing, no cyanosis. Per ipheral pulses are intact. - Labs CBC & Chem 7: 03/29/23 04:48 03/29/23 04:48 Labs: Abnormal Lab Results - Last 24 Hours (Table) 03/28/23 03/28/23 03/29/23 Range/Units 17:43 20:03 00:06 RBC (4.10-5.20) X 10*6/uL Hgb (12.0-15.0) d/dL Hct (37.2-46.3) % MPV (9.5-12.2) FL Lymphocytes # (0.90-5.00) X 10*3/uL Eosinophils # (0.04-0.35) X 10*3/uL Sodium (135-145) mmol/L Chloride (96-109) mmol/L Glucose (70-110) mg/dL POC Glucose (mg/dL) 204 H 151 H 134 H (70-110) mg/dL Calcium (8.7-10.3) mg/dL Total Protein (6.2-8.2) d/dL Albumin (3.8-4.9) d/dL 03/29/23 03/29/23 03/29/23 Range/Units 04:48 04:48 06:08 RBC 3.33 L (4.10-5.20) X 10*6/uL Hgb 10.4 L (12.0-15.0) d/dL Hct 31.7 L (37.2-46.3) % MPV 8.9 L (9.5-12.2) FL Lymphocytes # 0.24 L (0.90-5.00) X 10*3/uL Eosinophils # 0 L (0.04-0.35) X 10*3/uL Sodium 130 L (135-145) mmol/L Chloride 94 L (96-109) mmol/L Glucose 124 H (70-110) mg/dL POC Glucose (mg/dL) 135 H (70-110) mg/dL Calcium 8.5 L (8.7-10.3) mg/dL Total Protein 5.8 L (6.2-8.2) d/dL Albumin 3.6 L (3.8-4.9) d/dL 03/29/23 Range/Units 11:49 RBC (4.10-5.20) X 10*6/uL Hgb (12.0-15.0) d/dL Hct (37.2-46.3) % MPV (9.5-12.2) FL Lymphocytes # (0.90-5.00) X 10*3/uL Eosinophils # (0.04-0.35) X 10*3/uL Sodium (135-145) mmol/L Chloride (96-109) mmol/L Glucose (70-110) mg/dL POC Glucose (mg/dL) 208 H (70-110) mg/dL Calcium (8.7-10.3) mg/dL Total Protein (6.2-8.2) d/dL Albumin (3.8-4.9) d/dL Microbiology - Last 24 Hours (Table) 03/25/23 02:05 Blood Culture - Preliminary Blood 03/25/23 01:45 Blood Culture - Preliminary Blood 03/25/23 14:15 Anaerobic Culture - Preliminary Neck 03/25/23 14:15 Anaerobic Culture - Preliminary Neck 03/25/23 14:15 Gram Stain - Final Neck Wound Culture - Final Pseudomonas fluorescens/putida Enterococcus faecalis 03/25/23 14:15 Gram Stain - Final Neck Wound Culture - Final Pseudomonas fluorescens/putida Enterococcus faecalis Assessment and Plan Assessment: Acute stridor secondary to soft tissue edema and swelling around the incision from previous thyroidectomy on 03/10/2023. Status post incision and drainage on 03/25/2023 of the postoperative neck seroma. Drain in place. Cultures positive for Pseudomonas fluorescens/putida and enterococcus faecalis. Extubated on 03/26/2023. On 03/26/2023 the patient did undergo flexible nasopharyngeal laryngoscope and was noted to have vocal cord paralysis of both vocal cords and fixated in the median position but posteriorly had adequate airway. Very mild stridor. Acute hypoxemic respiratory failure secondary to above in addition to suspected aspiration pneumonia of the right lower lung Recent admission for stridor on 03/14/2023, improved with Decadron and discharged on 03/17/2023 History of multinodular goiter status post total thyroidectomy on 03/10/2023 History of rectal prolapse Chronic and ongoing tobacco dependence Chronic obstructive pulmonary disease Osteoarthritis Plan: The patient was seen and evaluated Medications and microbiology reviewed Continue Zosyn Daptomycin discontinued Decrease Decadron to 4 mg every 6 hours Continue bronchodilators Heparin for DVT prophylaxis We will continue to follow I have personally seen and examined the patient, performed the documentation and the assessment and plan as written. Number of minutes spent on the visit: 10.
[2023-03-29] MEDS: SODIUM CHLORIDE 0.9% 500 ML 500 ML IV SCH (12:37)
--- NOTE | 2023-03-29 14:33 | P.PN ---
Subjective Progress Note Date: 03/29/23 Principal diagnosis: Neck abscess Patient is a 72-year-old female with a past medical history taken for COPD multinodular goiter in this patient status post thyroidectomy completed on 03/10/2023 patient subsequently presented back to the hospital on 03/15/2023 with increasing shortness of breath and audible stridor patient was treated with a Decadron , presenting back to the hospital increasing shortness of breath abnormal CT concerning for possible abscess in this patient with status post surgical drainage of infected hematoma. On today's evaluation that is 03/29/2023 the patient is afebrile patient is breathing comfortably on room air patient has been moved out of ICU no chest pain or shortness of breath cough no abdominal pain or diarrhea Objective - Vital Signs Vital signs: Vital Signs Temp 97.7 F 03/29/23 08:01 Pulse 76 03/29/23 08:03 Resp 16 03/29/23 08:01 BP 148/72 03/29/23 08:01 Pulse Ox 95 03/29/23 08:01 FiO2 50 03/26/23 08:00 Intake & Output 03/28/23 03/29/23 03/29/23 18:59 06:59 18:59 Intake Total 910 1590 Output Total 500 Balance 410 1590 Intake: IV 410 100 0.9 300 Invasive Line 1 10 Piperacillin-Tazobactam 3 100 100 .375 gm In Sodium Chloride 0.9% 100 ml @ 25 mls/hr IVPB Q8H [facility] Rx#: [id number] Intake, IV Titration 900 Amount Sodium Chloride 0.9% 1, 900 000 ml @ 75 mls/hr IV . [id number] [facility] Rx#:[id number] Oral 500 590 Output: Urine 500 Other: Voiding Method Toilet Toilet # Voids 3 - Exam GENERAL DESCRIPTION: An elderly female lying in bed in no distress HEENT: Neck incision is dressed no drainage on the dressing RESPIRATORY SYSTEM: Unlabored breathing , decreased breath sounds at bases HEART: S1 S2 regular rate and rhythm , ABDOMEN: Soft , no tenderness EXTREMITIES: No edema feet - Labs CBC & Chem 7: 03/29/23 04:48 03/29/23 04:48 Labs: Abnormal Lab Results - Last 24 Hours (Table) 03/28/23 03/28/23 03/28/23 Range/Units 11:38 17:43 20:03 RBC (4.10-5.20) X 10*6/uL Hgb (12.0-15.0) d/dL Hct (37.2-46.3) % MPV (9.5-12.2) FL Lymphocytes # (0.90-5.00) X 10*3/uL Eosinophils # (0.04-0.35) X 10*3/uL Sodium (135-145) mmol/L Chloride (96-109) mmol/L Glucose (70-110) mg/dL POC Glucose (mg/dL) 131 H 204 H 151 H (70-110) mg/dL Calcium (8.7-10.3) mg/dL Total Protein (6.2-8.2) d/dL Albumin (3.8-4.9) d/dL 03/29/23 03/29/23 03/29/23 Range/Units 00:06 04:48 04:48 RBC 3.33 L (4.10-5.20) X 10*6/uL Hgb 10.4 L (12.0-15.0) d/dL Hct 31.7 L (37.2-46.3) % MPV 8.9 L (9.5-12.2) FL Lymphocytes # 0.24 L (0.90-5.00) X 10*3/uL Eosinophils # 0 L (0.04-0.35) X 10*3/uL Sodium 130 L (135-145) mmol/L Chloride 94 L (96-109) mmol/L Glucose 124 H (70-110) mg/dL POC Glucose (mg/dL) 134 H (70-110) mg/dL Calcium 8.5 L (8.7-10.3) mg/dL Total Protein 5.8 L (6.2-8.2) d/dL Albumin 3.6 L (3.8-4.9) d/dL 03/29/23 Range/Units 06:08 RBC (4.10-5.20) X 10*6/uL Hgb (12.0-15.0) d/dL Hct (37.2-46.3) % MPV (9.5-12.2) FL Lymphocytes # (0.90-5.00) X 10*3/uL Eosinophils # (0.04-0.35) X 10*3/uL Sodium (135-145) mmol/L Chloride (96-109) mmol/L Glucose (70-110) mg/dL POC Glucose (mg/dL) 135 H (70-110) mg/dL Calcium (8.7-10.3) mg/dL Total Protein (6.2-8.2) d/dL Albumin (3.8-4.9) d/dL Microbiology - Last 24 Hours (Table) 03/25/23 02:05 Blood Culture - Preliminary Blood 03/25/23 01:45 Blood Culture - Preliminary Blood 03/25/23 14:15 Anaerobic Culture - Preliminary Neck 03/25/23 14:15 Anaerobic Culture - Preliminary Neck 03/25/23 14:15 Gram Stain - Final Neck Wound Culture - Final Pseudomonas fluorescens/putida Enterococcus faecalis 03/25/23 14:15 Gram Stain - Final Neck Wound Culture - Final Pseudomonas fluorescens/putida Enterococcus faecalis Assessment and Plan (1) Infected hematoma following procedure Current Visit: Yes Status: Acute Code(s): [id number] - SNOMED Code(s): 170923054 Plan: this was a telehealth 1patient presented to hospital with increasing shortness of breath stridor in this patient who did have a history of thyroidectomy on 03/10/2023 now presenting to the hospital with above symptoms patient did have abnormal CT and is s/p surgical drainage of postop seroma culture has been obtained and will need to cover for both gram-positive as well as gram-negative pathogen, patient also have right lower lobe infiltrate concern for possible aspiration pneumonitis 2-Patient local cultures currently growing Pseudomonas and Enterococcus faecalis Enterococcus is sensitive to ampicillin 3- Pt will continue patient on Zosyn and monitor clinical course closely Time with Patient: Less than 30
--- NOTE | 2023-03-29 15:42 | P.PN ---
Subjective Progress Note Date: 03/29/23 This is a 72-year-old female who presented to the ER with concerns of increased neck swelling. Patient recently underwent thyroidectomy and developed some stridor edema postoperatively but was treated with IV steroids DC'd home. 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 Patient apparently developed increased shortness of breath stridor and neck swelling and presented to ER for further evaluation. Patient had CT completed showing fluid within the surgical bed circumferentially and some thickening. Also concerns of possible aspiration pneumonia. Patient also found to be hyponatremic with sodium at 123. Pulmonary and surgical services were consulted along with infectious disease services. Patient started on IV antibiotics. Patient was to OR for evacuation of surgical site seroma. Patient was mechanically ventilated for airway precautions postoperatively and sent to the ICU for recovery. On 03/26/2023 I am resuming care of patient Dr. Larson covering previously Patient remains in the intensive care unit currently on CPAP with tentative plans for extubation today. Patient remains on IV daptomycin and Zosyn. Infectious disease, surgical services and pulmonary services following. Sodium level improving at 128. Current vital signs temp 97.5, heart rate 67, respiratory rate 24, blood pressure 115/72 pulse ox 99% on mechanical ventilation with an FiO2 of 50%. Patient currently on sedation holiday following commands. On 03/27/2023 patient was seen and examined in the ICU she is alert responsive in no apparent distress there is no fever or chills no headache or dizziness no chest pain no shortness of breath no cough no nausea or vomiting no abdominal pain no diarrhea and no urinary symptoms temperature is 98.2 pulse 88 respiration 16 blood pressure 131/75 pulse ox 91% on room air white blood count 10.4 hemoglobin 9.9 platelet count 367 input from pulmonary general surgery and ENT reviewed On 03/28/2023 patient remains in the intensive care alert responsive 3. Patient remains with focal cord paralysis patient was evaluated by ENT and rec ommendations for follow-up outpatient with specialist for vocal cord paralysis. Patient under close monitoring for possible stridor. Current vital signs temp 98.2, heart rate 89, respiratory rate 18, blood pressure 135/76 with a pulse ox 92%. On 03/29/2023 patient was seen and examined on the medical floor she is alert and oriented 3 in no apparent distress she is still complaining of hoarseness in her voice and difficulty swallowing otherwise no complaints there is no fever or chills no headache or dizziness no chest pain no shortness of breath no cough no nausea or vomiting no abdominal pain no diarrhea and no urinary symptoms Objective - Vital Signs Vital signs: Vital Signs Temp 98.8 F 03/29/23 12:09 Pulse 83 03/29/23 12:09 Resp 16 03/29/23 12:09 BP 135/62 03/29/23 12:09 Pulse Ox 96 03/29/23 12:09 FiO2 50 03/26/23 08:00 Intake & Output 03/28/23 03/29/23 03/29/23 18:59 06:59 18:59 Intake Total 910 1590 Output Total 500 Balance 410 1590 Intake: IV 410 100 0.9 300 Invasive Line 1 10 Piperacillin-Tazobactam 3 100 100 .375 gm In Sodium Chloride 0.9% 100 ml @ 25 mls/hr IVPB Q8H [facility] Rx#: [id number] Intake, IV Titration 900 Amount Sodium Chloride 0.9% 1, 900 000 ml @ 75 mls/hr IV . [id number] [facility] Rx#:[id number] Oral 500 590 Output: Urine 500 Other: Voiding Method Toilet Toilet # Voids 3 - Exam Head normocephalic Neck dressing clean dry and intact js drain in place Lungs clear to auscultation bilaterally no wheezing or crackles Heart regular rate and rhythm S1-S2, no rub or gallop Abdomen is soft nontender nondistended positive bowel sounds no hepatosplenomegaly Extremities no edema Neuro alert and orientated to 3 - Labs CBC & Chem 7: 03/29/23 04:48 03/29/23 04:48 Labs: Abnormal Lab Results - Last 24 Hours (Table) 03/28/23 03/28/23 03/29/23 Range/Units 17:43 20:03 00:06 RBC (4.10-5.20) X 10*6/uL Hgb (12.0-15.0) d/dL Hct (37.2-46.3) % MPV (9.5-12.2) FL Lymphocytes # (0.90-5.00) X 10*3/uL Eosinophils # (0.04-0.35) X 10*3/uL Sodium (135-145) mmol/L Chloride (96-109) mmol/L Glucose (70-110) mg/dL POC Glucose (mg/dL) 204 H 151 H 134 H (70-110) mg/dL Calcium (8.7-10.3) mg/dL Total Protein (6.2-8.2) d/dL Albumin (3.8-4.9) d/dL 03/29/23 03/29/23 03/29/23 Range/Units 04:48 04:48 06:08 RBC 3.33 L (4.10-5.20) X 10*6/uL Hgb 10.4 L (12.0-15.0) d/dL Hct 31.7 L (37.2-46.3) % MPV 8.9 L (9.5-12.2) FL Lymphocytes # 0.24 L (0.90-5.00) X 10*3/uL Eosinophils # 0 L (0.04-0.35) X 10*3/uL Sodium 130 L (135-145) mmol/L Chloride 94 L (96-109) mmol/L Glucose 124 H (70-110) mg/dL POC Glucose (mg/dL) 135 H (70-110) mg/dL Calcium 8.5 L (8.7-10.3) mg/dL Total Protein 5.8 L (6.2-8.2) d/dL Albumin 3.6 L (3.8-4.9) d/dL 03/29/23 Range/Units 11:49 RBC (4.10-5.20) X 10*6/uL Hgb (12.0-15.0) d/dL Hct (37.2-46.3) % MPV (9.5-12.2) FL Lymphocytes # (0.90-5.00) X 10*3/uL Eosinophils # (0.04-0.35) X 10*3/uL Sodium (135-145) mmol/L Chloride (96-109) mmol/L Glucose (70-110) mg/dL POC Glucose (mg/dL) 208 H (70-110) mg/dL Calcium (8.7-10.3) mg/dL Total Protein (6.2-8.2) d/dL Albumin (3.8-4.9) d/dL Microbiology - Last 24 Hours (Table) 03/25/23 02:05 Blood Culture - Preliminary Blood 03/25/23 01:45 Blood Culture - Preliminary Blood 03/25/23 14:15 Anaerobic Culture - Preliminary Neck 03/25/23 14:15 Anaerobic Culture - Preliminary Neck 03/25/23 14:15 Gram Stain - Final Neck Wound Culture - Final Pseudomonas fluorescens/putida Enterococcus faecalis 03/25/23 14:15 Gram Stain - Final Neck Wound Culture - Final Pseudomonas fluorescens/putida Enterococcus faecalis Assessment and Plan Assessment: 1. Acute stridor secondary to soft tissue edema and swelling around incision from previous thyroidectomy on 03/10/2023. Status post surgical incision and drainage on 03/25/2023 2. Suspected aspiration pneumonia 3. Thyroidectomy on 03/10/2023 with stridor postoperatively improved with Decadron and discharged on 03/17/2023. 4. History of COPD 5. History of osteoarthritis 6. History of nicotine dependence 7. Hyponatremia. Improving 8. Vocal Cord paralysis. Patient was evaluated by ENT Patient currently admitted to the intensive care unit Infectious disease, surgical and pulmonary service is following Patient remains on IV antibiotics Repeat labs ordered
[2023-03-29 17:44] LABS: Glucose,Whole Blood 169 mg/dL (70-110)
[2023-03-29 23:48] LABS: Glucose,Whole Blood 199 mg/dL (70-110)
[2023-03-30] MEDS: DEXAMETHASONE SOD PHOSPHATE 4 MG/ML 1 ML VIAL IVP SCH ×2 (00:01→06:33)
[2023-03-30] MEDS: INSULIN ASPART (NovoLOG) 100 UNIT/ML VIAL SQ SCH ×4 (00:02→20:37)
[2023-03-30] MEDS: PIPERACILLIN-TAZOBACTAM 3.375 GM in SODIUM CHLORIDE 0.9% 100 ML IVPB SCH ×3 (04:45→20:39)
[2023-03-30] MEDS: SODIUM CHLORIDE 0.9% 1,000 ML IV SCH ×2 (05:36→23:34)
[2023-03-30 05:49] LABS: Glucose,Whole Blood 109 mg/dL (70-110)
[2023-03-30] MEDS: LEVOTHYROXINE 100 MCG TAB PO SCH (06:33)
[2023-03-30] MEDS: LACTATED RINGERS 1,000 ML IV SCH (06:56)
[2023-03-30] MEDS: IPRATROPIUM-ALBUTEROL 3 ML NEB INHALATION SCH ×4 (07:15→19:28)
[2023-03-30] MEDS: HEPARIN SODIUM,PORCINE/PF 5,000 UNIT/0.5 ML SYRINGE SQ SCH ×2 (09:28→20:39)
[2023-03-30] MEDS: FOLIC ACID 1 MG TAB PO SCH (09:28)
[2023-03-30] MEDS: PANTOPRAZOLE 40 MG/10 ML VIAL IV SCH (09:28)
[2023-03-30] MEDS: THIAMINE 100 MG TAB PO SCH (09:28)
[2023-03-30] MEDS: MULTIVITAMINS, THERA 1 EACH TAB PO SCH (09:28)
--- NOTE | 2023-03-30 09:36 | P.PN ---
Subjective Progress Note Date: 03/30/23 This is a 72-year-old female who presented to the ER with concerns of increased neck swelling. Patient recently underwent thyroidectomy and developed some stridor edema postoperatively but was treated with IV steroids DC'd home. 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 Patient apparently developed increased shortness of breath stridor and neck swelling and presented to ER for further evaluation. Patient had CT completed showing fluid within the surgical bed circumferentially and some thickening. Also concerns of possible aspiration pneumonia. Patient also found to be hyponatremic with sodium at 123. Pulmonary and surgical services were consulted along with infectious disease services. Patient started on IV antibiotics. Patient was to OR for evacuation of surgical site seroma. Patient was mechanically ventilated for airway precautions postoperatively and sent to the ICU for recovery. On 03/26/2023 I am resuming care of patient Dr. Larson covering previously Patient remains in the intensive care unit currently on CPAP with tentative plans for extubation today. Patient remains on IV daptomycin and Zosyn. Infectious disease, surgical services and pulmonary services following. Sodium level improving at 128. Current vital signs temp 97.5, heart rate 67, respiratory rate 24, blood pressure 115/72 pulse ox 99% on mechanical ventilation with an FiO2 of 50%. Patient currently on sedation holiday following commands. On 03/27/2023 patient was seen and examined in the ICU she is alert responsive in no apparent distress there is no fever or chills no headache or dizziness no chest pain no shortness of breath no cough no nausea or vomiting no abdominal pain no diarrhea and no urinary symptoms temperature is 98.2 pulse 88 respiration 16 blood pressure 131/75 pulse ox 91% on room air white blood count 10.4 hemoglobin 9.9 platelet count 367 input from pulmonary general surgery and ENT reviewed On 03/28/2023 patient remains in the intensive care alert responsive 3. Patient remains with focal cord paralysis patient was evaluated by ENT and rec ommendations for follow-up outpatient with specialist for vocal cord paralysis. Patient under close monitoring for possible stridor. Current vital signs temp 98.2, heart rate 89, respiratory rate 18, blood pressure 135/76 with a pulse ox 92%. On 03/29/2023 patient was seen and examined on the medical floor she is alert and oriented 3 in no apparent distress she is still complaining of hoarseness in her voice and difficulty swallowing otherwise no complaints there is no fever or chills no headache or dizziness no chest pain no shortness of breath no cough no nausea or vomiting no abdominal pain no diarrhea and no urinary symptoms On 03/30/2023 patient alert and oriented 3. Patient still having some hoarseness and mild stridor. Denies any further episodes of shortness breath. Has been tolerating diet. IV steroids have been decreased. We'll continue to monitor patient. Current vital signs temp 98.7, heart rate 92, respiratory rate 18, blood pressure 152/71 pulse ox 96% on 2 L Objective - Vital Signs Vital signs: Vital Signs Temp 98.7 F 03/30/23 08:16 Pulse 92 03/30/23 08:16 Resp 18 03/30/23 08:16 BP 152/71 03/30/23 08:16 Pulse Ox 96 03/30/23 08:16 FiO2 50 03/26/23 08:00 Intake & Output 03/29/23 03/30/23 03/30/23 18:59 06:59 18:59 Intake Total 100 1100 Balance 100 1100 Intake: IV 100 200 Piperacillin-Tazobactam 3 100 200 .375 gm In Sodium Chloride 0.9% 100 ml @ 25 mls/hr IVPB Q8H [facility] Rx#: [id number] Intake, IV Titration 900 Amount Sodium Chloride 0.9% 1, 900 000 ml @ 75 mls/hr IV . [id number] [facility] Rx#:[id number] Other: Voiding Method Toilet Toilet # Voids 4 - Exam Head normocephalic Neck dressing clean dry and intact js drain in place Lungs clear to auscultation bilaterally no wheezing or crackles Heart regular rate and rhythm S1-S2, no rub or gallop Abdomen is soft nontender nondistended positive bowel sounds no he patosplenomegaly Extremities no edema Neuro alert and orientated to 3 - Labs CBC & Chem 7: 03/29/23 04:48 03/29/23 04:48 Labs: Abnormal Lab Results - Last 24 Hours (Table) 03/29/23 03/29/23 03/29/23 Range/Units 11:49 17:43 23:46 POC Glucose (mg/dL) 208 H 169 H 199 H (70-110) mg/dL Assessment and Plan Assessment: 1. Acute stridor secondary to soft tissue edema and swelling around incision from previous thyroidectomy on 03/10/2023. Status post surgical incision and drainage on 03/25/2023 2. Suspected aspiration pneumonia 3. Thyroidectomy on 03/10/2023 with stridor postoperatively improved with Decadron and discharged on 03/17/2023. 4. History of COPD 5. History of osteoarthritis 6. History of nicotine dependence 7. Hyponatremia. Improving 8. Vocal Cord paralysis. Patient was evaluated by ENT Patient currently admitted to the intensive care unit Infectious disease, surgical and pulmonary service is following Patient remains on IV antibiotics Repeat labs ordered
--- NOTE | 2023-03-30 09:57 | P.PN ---
Progress Note - Text Progress Note Date: 03/30/23 The patient states she feels better today. She has had no significant drainage from her neck wound. On exam vital signs are stable. Voice still has hoarseness. Abdomen is soft nontender. Rectal prolapse has reduced. Patient is improving slowly. She is still receiving IV antibiotics and steroids for her pneumonia. The patient's rectal prolapse will be observed. Her vocal hoarseness due to probable recurrent laryngeal nerve palsy/injury will take several months to be observed. Hopefully she will have returned voice. The patient is getting closer to discharge. The medical team is adjusting her medications due to her hyponatremia.
--- NOTE | 2023-03-30 11:30 | P.PN ---
Subjective Progress Note Date: 03/30/23 This is a very pleasant 72-year-old female patient with a known history of chronic obstructive pulmonary disease, chronic and ongoing tobacco dependence. She was noted to have a multinodular goiter and had undergone thyroidectomy on 03/10/2023 and discharged home. She returned to the emergency room on 0 03/15/2023 with increasing shortness of breath and audible stridor. She had been treated with Decadron and an ENT consult was placed. She is discharged home on 03/17/2023 with Decadron. She came back to the emergency room last evening after her surgical site developed significant edema and swelling and she again developed stridor. Computed tomography scan of the neck revealed status post thyroidectomy. Fluid within the surgical bed circumferentially around the lower neck airway measuring up to 2.6 cm in thickness anteriorly, 2.3 cm in thickness laterally to the left and 2.3 cm in thickness laterally to the right. Chest x- ray reveals a right lower lobe infiltrate. White count 28.1. Hemoglobin 13.0. Platelets 444. Sodium 124. Potassium 4.3. Bicarb 22. BUN 14. Creatinine 0.48. Glucose 155. Pro-calcitonin 0.17. He's been initiated on IV Decadron 4 mg every 4 hours. Antibiotics in the form of cefazolin and Zosyn. DuoNeb inhalations. Heparin for DVT prophylaxis. The patient is seen today 03/26/2023 in follow-up in the intensive care unit. Last evening she did undergo incision and drainage of a postoperative infected neck seroma. She returned to the ICU and intubated on mechanical ventilator. Current settings are assist-control mode at a rate of 24, tidal volume 325, FiO2 50% and a PEEP of 5. Morning blood gases reveal a P O2 of 107, pCO2 46, pH 7.39. She is receiving lactated Ringer's 130 ML's per hour. Sedated with propofol at 50 mcg/kg/m. She required Nimbex at 2 pg/kg/m. She is on antibiotics in the form of daptomycin and Zosyn. Cultures are pending. White count 14.1. Hemoglobin 10.1. Platelets 241. Sodium 128. Potassium 3.6. Bicarb 21. BUN 11. Creatinine 0.43. Glucose 119. He remains on Decadron 4 mg IVP every 4 hours. Remains on bronchodilators. She did develop a prolapsed rectum with forceful coughing. The patient is seen today 03/27/2023 in follow-up in the intensive care unit. She is currently sitting up in bed. Awake and alert in no acute distress. Maintaining good O2 saturations in the 90s on 2 L/m per nasal cannula. She's been afebrile. Hemodynamically stable. She still has some hoarseness and very mild stridor. She had been seen by ENT yesterday and a flexible nasopharyngeal laryngoscope was passed and she was found to have bilateral vocal cord paralysis noted at both vocal cords were fixed in the median position but posteriorly has adequate airway. No significant stridor. Recent anterior not dry and intact. Cultures are pending. White count 10.4. Hemoglobin 9.9. Platelets 367. Sodium 126. Potassium 3.6. Bicarb 25. BUN 12. Creatinine 0.61. Glucose 133. She remains on Decadron, bronchodilators. Antibiotics in the form of Zosyn and daptomycin. The patient is seen today 03/28/2023 in follow-up in the intensive care unit. She is sitting up in bed. Awake and alert in no acute distress. She still has some very mild stridor. Still with a very soft voice. She is swallowing well. Anterior neck incision is clean dry well approximated. Cultures were positive for gram-negative bacilli and group D enterococcus. She remains on daptomycin and Zosyn. She is on 2 L nasal cannula. Lactated Ringer's at 20 ML's per hour. She is continued on DuoNeb inhalations, Decadron. Heparin for DVT prophylaxis. White count 7.5. Hemoglobin 11.0. Platelets 368. Sodium 127. Potassium 3.5. BUN 12. Creatinine 0.61. Glucose 122. The patient is seen today 03/29/2023 in follow-up on the regular medical floor. She is sitting up in bed. Awake and alert in no acute distress. Maintaining good O2 saturations in the 90s on 2 L/m per nasal cannula. She has some very mild stridor left greater than right. Her incision is clean dry well approximated. Drain remains in place. Dressing dry and intact. Continued on Decadron 4 mg every 4 hours remains on antibiotics in the form of Zosyn and daptomycin. Continued on bronchodilators. Heparin for DVT prophylaxis. The patient is seen today 04/09/2023 in follow-up on the regular medical floor. She remains awake and alert in no acute distress. Sitting up having breakfast. No difficulties in swallowing. No worsening shortness of breath, cough or congestion. No worsening stridor. Maintaining O2 saturations in the mid 90s on 2 L/m per nasal cannula. Afebrile. Neck incision remains clean dry well approximated. Drain remains in place. She is continued on Zosyn. Wound cultures were positive for Pseudomonas and enterococcus. Glucose 109. She is continued on DuoNeb inhalations. Decadron. Heparin for DVT prophylaxis. Objective - Vital Signs Vital signs: Vital Signs Temp 98.7 F 03/30/23 08:16 Pulse 83 03/30/23 11:19 Resp 18 03/30/23 08:16 BP 152/71 03/30/23 08:16 Pulse Ox 96 03/30/23 08:16 FiO2 50 03/26/23 08:00 Intake & Output 03/29/23 03/30/23 03/30/23 18:59 06:59 18:59 Intake Total 100 1100 Balance 100 1100 Intake: IV 100 200 Piperacillin-Tazobactam 3 100 200 .375 gm In Sodium Chloride 0.9% 100 ml @ 25 mls/hr IVPB Q8H [facility] Rx#: [id number] Intake, IV Titration 900 Amount Sodium Chloride 0.9% 1, 900 000 ml @ 75 mls/hr IV . [id number] [facility] Rx#:[id number] Other: Voiding Method Toilet Toilet Toilet # Voids 4 - Exam GENERAL EXAM: Alert, pleasant 72-year-old female, sitting up in bed, on 2 L/min per nasal cannula, comfortable in no apparent distress. HEAD: Normocephalic. EYES: Normal reaction of pupils, equal size. NOSE: Clear with pink turbinates. THROAT: No erythema or ulcers NECK: Anterior neck dressing dry and intact. Drain remains in place CHEST: No chest wall deformity. LUNGS: Equal air entry with no crackles, wheeze, rhonchi or dullness. CVS: S1 and S2 normal with no audible murmur, regular rhythm. ABDOMEN: No hepatosplenomegaly, normal bowel sounds, no guarding or rigidity. SPINE: No scoliosis or deformity SKIN: No rashes CENTRAL NERVOUS SYSTEM: No focal deficits, tone is normal in all 4 extremities. EXTREMITIES: There is no peripheral edema. No clubbing, no cyanosis. Peripheral pulses are intact. - Labs CBC & Chem 7: 03/29/23 04:48 03/29/23 04:48 Labs: Abnormal Lab Results - Last 24 Hours (Table) 03/29/23 03/29/23 03/29/23 Range/Units 11:49 17:43 23:46 POC Glucose (mg/dL) 208 H 169 H 199 H (70-110) mg/dL Microbiology - Last 24 Hours (Table) 03/25/23 14:15 Anaerobic Culture - Final Neck 03/25/23 14:15 Anaerobic Culture - Final Neck Assessment and Plan Assessment: Acute stridor secondary to soft tissue edema and swelling around the incision from previous thyroidectomy on 03/10/2023. Status post incision and drainage on 03/25/2023 of the postoperative neck seroma. Drain in place. Cultures positive for Pseudomonas fluorescens/putida and enterococcus faecalis. Extubated on 03/26/2023. On 03/26/2023 the patient did undergo flexible nasopharyngeal laryngoscope and was noted to have vocal cord paralysis of both vocal cords and fixated in the median position but posteriorly had adequate airway. Very mild stridor. Acute hypoxemic respiratory failure secondary to above in addition to suspected aspiration pneumonia of the right lower lung Recent admission for stridor on 03/14/2023, improved with Decadron and discharged on 03/17/2023 History of multinodular goiter status post total thyroidectomy on 03/10/2023 Hyponatremia History of rectal prolapse Chronic and ongoing tobacco dependence Chronic obstructive pulmonary disease Osteoarthritis Plan: The patient was seen and evaluated Medications reviewed Continue Zosyn Discontinue Decadron Add a Medrol Dosepak Lasix 40 mg IVP 1 today BMP in the a.m. Continue bronchodilators Heparin for DVT prophylaxis Probable discharge in the a.m. We will continue to follow I have personally seen and examined the patient, performed the documentation and the assessment and plan as written. Number of minutes spent on the visit: 10.
[2023-03-30] MEDS ORDERED: FUROSEMIDE 10 MG/ML 4 ML VIAL IV STA (11:31)
[2023-03-30 12:06] LABS: Glucose,Whole Blood 141 mg/dL (70-110)
[2023-03-30] MEDS: SODIUM CHLORIDE 0.9% 500 ML 500 ML IV SCH (13:56)
[2023-03-30] MEDS: ALPRAZolam 0.25 MG TAB PO PRN (14:30)
[2023-03-30 17:10] LABS: Glucose,Whole Blood 126 mg/dL (70-110)
[2023-03-30 20:14] LABS: Glucose,Whole Blood 127 mg/dL (70-110)
[2023-03-31] MEDS: LACTATED RINGERS 1,000 ML IV SCH (04:13)
[2023-03-31] MEDS: PIPERACILLIN-TAZOBACTAM 3.375 GM in SODIUM CHLORIDE 0.9% 100 ML IVPB SCH ×3 (04:13→19:54)
[2023-03-31] MEDS: SODIUM CHLORIDE 0.9% 1,000 ML IV SCH (04:14)
[2023-03-31] MEDS: LEVOTHYROXINE 100 MCG TAB PO SCH (05:59)
[2023-03-31 07:05] LABS: Glucose,Whole Blood 81 mg/dL (70-110)
[2023-03-31] MEDS: INSULIN ASPART (NovoLOG) 100 UNIT/ML VIAL SQ SCH ×4 (07:34→20:02)
[2023-03-31] MEDS: IPRATROPIUM-ALBUTEROL 3 ML NEB INHALATION SCH ×4 (07:36→19:28)
[2023-03-31] MEDS: FOLIC ACID 1 MG TAB PO SCH (09:10)
[2023-03-31] MEDS: HEPARIN SODIUM,PORCINE/PF 5,000 UNIT/0.5 ML SYRINGE SQ SCH ×2 (09:10→19:59)
[2023-03-31] MEDS: MULTIVITAMINS, THERA 1 EACH TAB PO SCH (09:10)
[2023-03-31] MEDS: THIAMINE 100 MG TAB PO SCH (09:10)
[2023-03-31] MEDS: methylPREDNISolone 4 MG TAB TAPER PO SCH (09:10)
[2023-03-31] MEDS: PANTOPRAZOLE 40 MG/10 ML VIAL IV SCH (09:10)
[2023-03-31 11:19] LABS: ALT 42 U/L (8-44); AST 28 U/L (13-35); Albumin 3.5 d/dL (3.8-4.9); Albumin/Globulin Ratio 1.67 Ratio (1.60-3.17); Alkaline Phosphatase 53 U/L (41-126); BUN/Creat Ratio 18.86 Ratio (12.00-20.00); Blood Urea Nitrogen 13.2 mg/dL (9.0-27.0); Calcium 8.3 mg/dL (8.7-10.3); Carbon Dioxide 27.3 mmol/L (21.6-31.8); Chloride 94 mmol/L (96-109); Globulin 2.1 d/dL (1.6-3.3); Glucose 65 mg/dL (70-110); Potassium 3.1 mmol/L (3.5-5.5); Sodium 133 mmol/L (135-145); Total Bilirubin 0.3 mg/dL (0.3-1.2); Total Protein 5.6 d/dL (6.2-8.2)
--- NOTE | 2023-03-31 11:35 | P.PN ---
Subjective Progress Note Date: 03/31/23 CHIEF COMPLAINT: Post-thyroidectomy neck seroma HISTORY OF PRESENT ILLNESS: Patient is postop day #6 status post incision and drainage of postop infected neck seroma. Patient's has hoarseness and stridor. Her steroids were switched yesterday to oral. Patient reports that the stridor seems a little worse today. She denies shortness of breath. Afebrile. Sodium 133 potassium 3.1 PHYSICAL EXAM: VITAL SIGNS: Reviewed. GENERAL: Well-developed in no acute distress. HEENT: neck incision site clean dry and intact with [place] drain. No drainage ABDOMEN: Soft. Nondistended. Nontender. ASSESSMENT: 1. Post-thyroidectomy infected neck seroma status post incision and drainage with Dr. Hahn 2. Patient's hoarseness likely due to probable recurrent laryngeal nerve palsy/injury 3. Bilateral vocal cord paralysis 4. Chronic Rectal prolapse. Currently reduced. PLAN: -Continue supportive care -Continue dysphagia chopped diet -For the chronic rectal prolapse continue to observe. Currently reduced. Will eventually need surgical correction at a later time -DVT prophylaxis subcu heparin Physician [employer] note has been reviewed by physician. Signing provider agrees with the documented findings, assessment, and plan of care. Objective - Vital Signs Vital signs: Vital Signs Temp 98.0 F 03/31/23 07:05 Pulse 76 03/31/23 10:57 Resp 16 03/31/23 07:05 BP 154/84 03/31/23 07:05 Pulse Ox 98 03/31/23 07:38 FiO2 50 03/26/23 08:00 Intake & Output 03/30/23 03/31/23 03/31/23 18:59 06:59 18:59 Intake Total 1100 Balance 1100 Intake: IV 200 Piperacillin-Tazobactam 3 200 .375 gm In Sodium Chloride 0.9% 100 ml @ 25 mls/hr IVPB Q8H [facility] Rx#: [id number] Intake, IV Titration 900 Amount Sodium Chloride 0.9% 1, 900 000 ml @ 75 mls/hr IV . [id number] [facility] Rx#:[id number] Other: Voiding Method Toilet Toilet # Voids 3 3 - Labs CBC & Chem 7: 03/29/23 04:48 03/31/23 06:14 Labs: Abnormal Lab Results - Last 24 Hours (Table) 03/30/23 03/30/23 03/30/23 Range/Units 12:05 17:08 20:13 Sodium (135-145) mmol/L Potassium (3.5-5.5) mmol/L Chloride (96-109) mmol/L Glucose (70-110) mg/dL POC Glucose (mg/dL) 141 H 126 H 127 H (70-110) mg/dL Calcium (8.7-10.3) mg/dL Total Protein (6.2-8.2) d/dL Albumin (3.8-4.9) d/dL 03/31/23 Range/Units 06:14 Sodium 133 L (135-145) mmol/L Potassium 3.1 L (3.5-5.5) mmol/L Chloride 94 L (96-109) mmol/L Glucose 65 L (70-110) mg/dL POC Glucose (mg/dL) (70-110) mg/dL Calcium 8.3 L (8.7-10.3) mg/dL Total Protein 5.6 L (6.2-8.2) d/dL Albumin 3.5 L (3.8-4.9) d/dL Microbiology - Last 24 Hours (Table) 03/25/23 02:05 Blood Culture - Final Blood 03/25/23 01:45 Blood Culture - Final Blood 03/25/23 14:15 Anaerobic Culture - Final Neck 03/25/23 14:15 Anaerobic Culture - Final Neck
[2023-03-31 11:47] LABS: Glucose,Whole Blood 123 mg/dL (70-110)
[2023-03-31 11:50] LABS: Basophils # (A) 0.01 X 10*3/uL (0.00-0.10); Basophils % (A) 0.1 %; Eosinophils # (A) 0.13 X 10*3/uL (0.04-0.35); Eosinophils % (A) 1.4 %; HCT 32.7 % (37.2-46.3); HGB 11.1 d/dL (12.0-15.0); Lymphocytes # (A) 1.11 X 10*3/uL (0.90-5.00); Lymphocytes % (A) 12.4 %; MCH 31.9 pg (27.0-32.0); MCHC 33.9 d/dL (32.0-37.0); Mean Platelet Volume 8.7 FL (9.5-12.2); Monocytes # (A) 0.62 X 10*3/uL (0.20-1.00); Monocytes % (A) 6.9 %; NRBC Per 100 WBC 0 X 10*3/uL (0.00-0.01); Neutrophils # (A) 7.01 X 10*3/uL (1.80-7.70); Neutrophils % (A) 78.2 %; Platelet Count 334 X 10*3/uL (140-440); RBC 3.48 X 10*6/uL (4.10-5.20); RDW 13.2 % (11.5-14.5); WBC 8.97 X 10*3/uL (4.50-10.00)
[2023-03-31] MEDS: POTASSIUM CHLORIDE ER 20 MEQ TAB.ER PO SCH (13:10)
[2023-03-31] MEDS: SODIUM CHLORIDE 0.9% 500 ML 500 ML IV SCH (13:11)
--- NOTE | 2023-03-31 14:25 | P.PN ---
Subjective Progress Note Date: 03/31/23 Principal diagnosis: Neck abscess Patient is a 72-year-old female with a past medical history taken for COPD multinodular goiter in this patient status post thyroidectomy completed on 03/10/2023 patient subsequently presented back to the hospital on 03/15/2023 with increasing shortness of breath and audible stridor patient was treated with a Decadron , presenting back to the hospital increasing shortness of breath abnormal CT concerning for possible abscess in this patient with status post surgical drainage of infected hematoma. On today's evaluation that is 03/31/2020 the patient denies any fever or any chills, the patient denies pain to the neck area and no drainage has been recently complaining of some shortness of breath today however the patient is not hypoxic or need for supplemental oxygen, no nausea no vomiting no diarrhea Objective - Vital Signs Vital signs: Vital Signs Temp 99.0 F 03/31/23 13:32 Pulse 88 03/31/23 13:32 Resp 18 03/31/23 13:32 BP 155/76 03/31/23 13:32 Pulse Ox 97 03/31/23 13:32 FiO2 50 03/26/23 08:00 Intake & Output 03/30/23 03/31/23 03/31/23 18:59 06:59 18:59 Intake Total 1100 Balance 1100 Intake: IV 200 Piperacillin-Tazobactam 3 200 .375 gm In Sodium Chloride 0.9% 100 ml @ 25 mls/hr IVPB Q8H [facility] Rx#: [id number] Intake, IV Titration 900 Amount Sodium Chloride 0.9% 1, 900 000 ml @ 75 mls/hr IV . [id number] [facility] Rx#:[id number] Other: Voiding Method Toilet Toilet Toilet # Voids 3 3 1 - Exam GENERAL DESCRIPTION: An elderly female lying in bed in no distress HEENT: Neck incision is clean no drainage was noticed RESPIRATORY SYSTEM: Unlabored breathing , decreased breath sounds at bases HEART: S1 S2 regular rate and rhythm , ABDOMEN: Soft , no tenderness EXTREMITIES: No edema feet - Labs CBC & Chem 7: 03/31/23 06:14 03/31/23 06:14 Labs: Abnormal Lab Results - Last 24 Hours (Table) 03/30/23 03/30/23 03/31/23 Range/Units 17:08 20:13 06:14 RBC (4.10-5.20) X 10*6/uL Hgb (12.0-15.0) d/dL Hct (37.2-46.3) % MPV (9.5-12.2) FL Sodium 133 L (135-145) mmol/L Potassium 3.1 L (3.5-5.5) mmol/L Chloride 94 L (96-109) mmol/L Glucose 65 L (70-110) mg/dL POC Glucose (mg/dL) 126 H 127 H (70-110) mg/dL Calcium 8.3 L (8.7-10.3) mg/dL Total Protein 5.6 L (6.2-8.2) d/dL Albumin 3.5 L (3.8-4.9) d/dL 03/31/23 03/31/23 Range/Units 06:14 11:46 RBC 3.48 L (4.10-5.20) X 10*6/uL Hgb 11.1 L (12.0-15.0) d/dL Hct 32.7 L (37.2-46.3) % MPV 8.7 L (9.5-12.2) [place] Sodium (135-145) mmol/L Potassium (3.5-5.5) mmol/L Chloride (96-109) mmol/L Glucose (70-110) mg/dL POC Glucose (mg/dL) 123 H (70-110) mg/dL Calcium (8.7-10.3) mg/dL Total Protein (6.2-8.2) d/dL Albumin (3.8-4.9) d/dL Microbiology - Last 24 Hours (Table) 03/25/23 02:05 Blood Culture - Final Blood 03/25/23 01:45 Blood Culture - Final Blood Assessment and Plan (1) Infected hematoma following procedure Current Visit: Yes Status: Acute Code(s): FJS8566 - SNOMED Code(s): 698027887 Plan: this was a telehealth 1patient presented to hospital with increasing shortness of breath stridor in this patient who did have a history of thyroidectomy on 03/10/2023 now presenting to the hospital with above symptoms patient did have abnormal CT and is s/p surgical drainage of postop seroma culture has been obtained and will need to cover for both gram-positive as well as gram-negative pathogen, patient also have right lower lobe infiltrate concern for possible aspiration pneumonitis 2-Patient local cultures currently growing Pseudomonas and Enterococcus faecalis, Enterococcus is sensitive to ampicillin 3-patient has shown clinical improvement and will continue patient on Zosyn with plan to finish therapy with Cipro and Augmentin Time with Patient: Less than 30
--- NOTE | 2023-03-31 15:52 | P.PN ---
Subjective Progress Note Date: 03/31/23 This is a very pleasant 72-year-old female patient with a known history of chronic obstructive pulmonary disease, chronic and ongoing tobacco dependence. She was noted to have a multinodular goiter and had undergone thyroidectomy on 03/10/2023 and discharged home. She returned to the emergency room on 03/15/2023 with increasing shortness of breath and audible stridor. She had been treated with Decadron and an ENT consult was placed. She is discharged home on 03/17/2023 with Decadron. She came back to the emergency room last evening after her surgical site developed significant edema and swelling and she again developed stridor. Computed tomography scan of the neck revealed status post thyroidectomy. Fluid within the surgical bed circumferentially around the lower neck airway measuring up to 2.6 cm in thickness anteriorly, 2.3 cm in thickness laterally to the left and 2.3 cm in thickness laterally to the right. Chest x-ray reveals a right lower lobe infiltrate. White count 28.1. He moglobin 13.0. Platelets 444. Sodium 124. Potassium 4.3. Bicarb 22. BUN 14. Creatinine 0.48. Glucose 155. Pro-calcitonin 0.17. He's been initiated on IV Decadron 4 mg every 4 hours. Antibiotics in the form of cefazolin and Zosyn. DuoNeb inhalations. Heparin for DVT prophylaxis. The patient is seen today 03/26/2023 in follow-up in the intensive care unit. Last evening she did undergo incision and drainage of a postoperative infected neck seroma. She returned to the ICU and intubated on mechanical ventilator. Current settings are assist-control mode at a rate of 24, tidal volume 325, FiO2 50% and a PEEP of 5. Morning blood gases reveal a P O2 of 107, pCO2 46, pH 7.39. She is receiving lactated Ringer's 130 ML's per hour. Sedated with propofol at 50 mcg/kg/m. She required Nimbex at 2 pg/kg/m. She is on antibiotics in the form of daptomycin and Zosyn. Cultures are pending. White count 14.1. Hemoglobin 10.1. Platelets 241. Sodium 128. Potassium 3.6. Bicarb 21. BUN 11. Creatinine 0.43. Glucose 119. He remains on Decadron 4 mg IVP every 4 hours. Remains on bronchodilators. She did develop a prolapsed rectum with forceful coughing. The patient is seen today 03/27/2023 in follow-up in the intensive care unit. She is currently sitting up in bed. Awake and alert in no acute distress. Maintaining good O2 saturations in the 90s on 2 L/m per nasal cannula. She's been afebrile. Hemodynamically stable. She still has some hoarseness and very mild stridor. She had been seen by ENT yesterday and a flexible nasopharyngeal laryngoscope was passed and she was found to have bilateral vocal cord paralysis noted at both vocal cords were fixed in the median position but posteriorly has adequate airway. No significant stridor. Recent anterior not dry and intact. Cultures are pending. White count 10.4. Hemoglobin 9.9. Platelets 367. Sodium 126. Potassium 3.6. Bicarb 25. BUN 12. Creatinine 0.61. Glucose 133. She remains on Decadron, bronchodilators. Antibiotics in the form of Zosyn and daptomycin. The patient is seen today 03/28/2023 in follow-up in the intensive care unit. She is sitting up in bed. Awake and alert in no acute distress. She still has some very mild stridor. Still with a very soft voice. She is swallowing well. Anterior neck incision is clean dry well approximated. Cultures were positive for gram-negative bacilli and group D enterococcus. She remains on daptomycin and Zosyn. She is on 2 L nasal cannula. Lactated Ringer's at 20 ML's per hour. She is continued on DuoNeb inhalations, Decadron. Heparin for DVT prophylaxis. White count 7.5. Hemoglobin 11.0. Platelets 368. Sodium 127. Potassium 3.5. BUN 12. Creatinine 0.61. Glucose 122. The patient is seen today 03/29/2023 in follow-up on the regular medical floor. She is sitting up in bed. Awake and alert in no acute distress. Maintaining good O2 saturations in the 90s on 2 L/m per nasal cannula. She has some very mild stridor left greater than right. Her incision is clean dry well approximated. Drain remains in place. Dressing dry and intact. Continued on Decadron 4 mg every 4 hours remains on antibiotics in the form of Zosyn and daptomycin. Continued on bronchodilators. Heparin for DVT prophylaxis. The patient is seen today 04/09/2023 in follow-up on the regular medical floor. She remains awake and alert in no acute distress. Sitting up having breakfast. No difficulties in swallowing. No worsening shortness of breath, cough or congestion. No worsening stridor. Maintaining O2 saturations in the mid 90s on 2 L/m per nasal cannula. Afebrile. Neck incision remains clean dry well approximated. Drain remains in place. She is continued on Zosyn. Wound cultures were positive for Pseudomonas and enterococcus. Glucose 109. She is continued on DuoNeb inhalations. Decadron. Heparin for DVT prophylaxis. On today's evaluation of 03/31/2023 the patient continues to have difficulties with hoarseness and some occasional stridor. The patient underwent an ENT evaluation and the patient was found to have bilateral vocal cord paralysis. Nevertheless, the patient was told to have adequate airway patency. She is currently on room air oxygen. Surgical wound has been drained and the patient remains on IV Zosyn and the wound cultures positive for Pseudomonas and enterococcus. No active drainage. The patient remains on Medrol. The patient is also on bronchodilators. The labs from today shows a WBC count of 8.9 with a hemoglobin of 11 and a platelet count of 334. Sodiums of 133, potassium is at 3.1, bicarb is at 27, BUN is at 30 with a creatinine of 0.7. LFTs are normal. Objective - Vital Signs Vital signs: Vital Signs Temp 98.0 F 03/31/23 07:05 Pulse 76 03/31/23 10:57 Resp 16 03/31/23 07:05 BP 154/84 03/31/23 07:05 Pulse Ox 98 03/31/23 07:38 FiO2 50 03/26/23 08:00 Intake & Output 03/30/23 03/31/23 03/31/23 18:59 06:59 18:59 Intake Total 1100 Balance 1100 Intake: IV 200 Piperacillin-Tazobactam 3 200 .375 gm In Sodium Chloride 0.9% 100 ml @ 25 mls/hr IVPB Q8H [facility] Rx#: [id number] Intake, IV Titration 900 Amount Sodium Chloride 0.9% 1, 900 000 ml @ 75 mls/hr IV . [id number] [facility] Rx#:[id number] Other: Voiding Method Toilet Toilet Toilet # Voids 3 3 1 - Exam GENERAL EXAM: Alert, pleasant 72-year-old female, sitting up in bed, on 2 L/min per nasal cannula, comfortable in no apparent distress. Patient has audible stridor HEAD: Normocephalic. EYES: Normal reaction of pupils, equal size. NOSE: Clear with pink turbinates. THROAT: No erythema or ulcers NECK: Anterior neck dressing dry and intact. Drain remains in place, no active drainage at this point in time CHEST: No chest wall deformity. LUNGS: Equal air entry with no crackles, wheeze, rhonchi or dullness. CVS: S1 and S2 normal with no audible murmur, regular rhythm. ABDOMEN: No hepatosplenomegaly, normal bowel sounds, no guarding or rigidity. SPINE: No scoliosis or deformity SKIN: No rashes CENTRAL NERVOUS SYSTEM: No focal deficits, tone is normal in all 4 extremities. EXTREMITIES: There is no peripheral edema. No clubbing, no cyanosis. Peripheral pulses are intact. - Labs CBC & Chem 7: 03/31/23 06:14 03/31/23 06:14 Labs: Abnormal Lab Results - Last 24 Hours (Table) 03/30/23 03/30/23 03/31/23 Range/Units 17:08 20:13 06:14 RBC (4.10-5.20) X 10*6/uL Hgb (12.0-15.0) d/dL Hct (37.2-46.3) % MPV (9.5-12.2) FL Sodium 133 L (135-145) mmol/L Potassium 3.1 L (3.5-5.5) mmol/L Chloride 94 L (96-109) mmol/L Glucose 65 L (70-110) mg/dL POC Glucose (mg/dL) 126 H 127 H (70-110) mg/dL Calcium 8.3 L (8.7-10.3) mg/dL Total Protein 5.6 L (6.2-8.2) d/dL Albumin 3.5 L (3.8-4.9) d/dL 03/31/23 03/31/23 Range/Units 06:14 11:46 RBC 3.48 L (4.10-5.20) X 10*6/uL Hgb 11.1 L (12.0-15.0) d/dL Hct 32.7 L (37.2-46.3) % MPV 8.7 L (9.5-12.2) FL Sodium (135-145) mmol/L Potassium (3.5-5.5) mmol/L Chloride (96-109) mmol/L Glucose (70-110) mg/dL POC Glucose (mg/dL) 123 H (70-110) mg/dL Calcium (8.7-10.3) mg/dL Total Protein (6.2-8.2) d/dL Albumin (3.8-4.9) d/dL Microbiology - Last 24 Hours (Table) 03/25/23 02:05 Blood Culture - Final Blood 03/25/23 01:45 Blood Culture - Final Blood 03/25/23 14:15 Anaerobic Culture - Final Neck 03/25/23 14:15 Anaerobic Culture - Final Neck Assessment and Plan Plan: Acute stridor secondary to soft tissue edema and swelling around the incision from previous thyroidectomy on 03/10/2023. Status post incision and drainage on 03/25/2023 of the postoperative neck seroma. Drain in place. Cultures positive for Pseudomonas fluorescens/putida and enterococcus faecalis. Extubated on 03/26/2023. On 03/26/2023 the patient did undergo flexible nasopharyngeal laryngoscope and was noted to have vocal cord paralysis of both vocal cords and fixated in the median position but posteriorly had adequate airway. Started is still present. The patient not having any significant shortness of breath however. Acute hypoxemic respiratory failure secondary to above in addition to suspected aspiration pneumonia of the right lower lung, currently on 1-2 L of oxygen by nasal cannula Recent admission for stridor on 03/14/2023, improved with Decadron and discharged on 03/17/2023 History of multinodular goiter status post total thyroidectomy on 03/10/2023 Hyponatremia History of rectal prolapse Chronic and ongoing tobacco dependence Chronic obstructive pulmonary disease Osteoarthritis Plan: Monitor respiratory status and repeat chest x-ray Continue Zosyn Continue Medrol Dosepak Close monitoring of respiratory status and possible tracheostomy if there is any worsening shortness of breath. She continues to have stridor. ENT evaluation was done and the airway was thought to be adequate Continue bronchodilators Heparin for DVT prophylaxis We'll continue to follow.
--- NOTE | 2023-03-31 17:00 | P.PN ---
Subjective Progress Note Date: 03/31/23 This is a 72-year-old female who presented to the ER with concerns of increased neck swelling. Patient recently underwent thyroidectomy and developed some stridor edema postoperatively but was treated with IV steroids DC'd home. 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 Patient apparently developed increased shortness of breath stridor and neck swelling and presented to ER for further evaluation. Patient had CT completed showing fluid within the surgical bed circumferentially and some thickening. Also concerns of possible aspiration pneumonia. Patient also found to be hyponatremic with sodium at 123. Pulmonary and surgical services were consulted along with infectious disease services. Patient started on IV antibiotics. Patient was to OR for evacuation of surgical site seroma. Patient was mechanically ventilated for airway precautions postoperatively and sent to the ICU for recovery. On 03/26/2023 I am resuming care of patient Dr. Larson covering previously Patient remains in the intensive care unit currently on CPAP with tentative plans for extubation today. Patient remains on IV daptomycin and Zosyn. Infectious disease, surgical services and pulmonary services following. Sodium level improving at 128. Current vital signs temp 97.5, heart rate 67, respiratory rate 24, blood pressure 115/72 pulse ox 99% on mechanical ventilation with an FiO2 of 50%. Patient currently on sedation holiday following commands. On 03/27/2023 patient was seen and examined in the ICU she is alert responsive in no apparent distress there is no fever or chills no headache or dizziness no chest pain no shortness of breath no cough no nausea or vomiting no abdominal pain no diarrhea and no urinary symptoms temperature is 98.2 pulse 88 respiration 16 blood pressure 131/75 pulse ox 91% on room air white blood count 10.4 hemoglobin 9.9 platelet count 367 input from pulmonary general surgery and ENT reviewed On 03/28/2023 patient remains in the intensive care alert responsive 3. Patient remains with focal cord paralysis patient was evaluated by ENT and rec ommendations for follow-up outpatient with specialist for vocal cord paralysis. Patient under close monitoring for possible stridor. Current vital signs temp 98.2, heart rate 89, respiratory rate 18, blood pressure 135/76 with a pulse ox 92%. On 03/29/2023 patient was seen and examined on the medical floor she is alert and oriented 3 in no apparent distress she is still complaining of hoarseness in her voice and difficulty swallowing otherwise no complaints there is no fever or chills no headache or dizziness no chest pain no shortness of breath no cough no nausea or vomiting no abdominal pain no diarrhea and no urinary symptoms On 03/30/2023 patient alert and oriented 3. Patient still having some hoarseness and mild stridor. Denies any further episodes of shortness breath. Has been tolerating diet. IV steroids have been decreased. We'll continue to monitor patient. Current vital signs temp 98.7, heart rate 92, respiratory rate 18, blood pressure 152/71 pulse ox 96% on 2 L On 03/31/2023 patient is alert and oriented 3 in no apparent distress she is still complaining of hoarseness in her voice and stridor with her breathing otherwise she denies any complaints there is no fever or chills no headache or dizziness no chest pain no palpitation no cough no nausea or vomiting no abdominal pain no diarrhea and no urinary symptoms she remains on IV Zosyn and on oral steroids awaiting further recommendation from pulmonary ENT and infectious disease Objective - Vital Signs Vital signs: Vital Signs Temp 98.0 F 03/31/23 07:05 Pulse 80 03/31/23 07:49 Resp 16 03/31/23 07:05 BP 154/84 03/31/23 07:05 Pulse Ox 98 03/31/23 07:38 FiO2 50 03/26/23 08:00 Intake & Output 03/30/23 03/31/23 03/31/23 18:59 06:59 18:59 Intake Total 1100 Balance 1100 Intake: IV 200 Piperacillin-Tazobactam 3 200 .375 gm In Sodium Chloride 0.9% 100 ml @ 25 mls/hr IVPB Q8H [facility] Rx#: [id number] Intake, IV Titration 900 Amount Sodium Chloride 0.9% 1, 900 000 ml @ 75 mls/hr IV . [id number] [facility] Rx#:[id number] Other: Voiding Method Toilet Toilet # Voids 3 3 - Exam Head normocephalic Neck dressing clean dry and intact js drain in place Lungs clear to auscultation bilaterally no wheezing or crackles Heart regular rate and rhythm S1-S2, no rub or gallop Abdomen is soft nontender nondistended positive bowel sounds no hepatosplenomegaly Extremities no edema Neuro alert and orientated to 3 - Labs CBC & Chem 7: 03/31/23 06:14 03/31/23 06:14 Labs: Abnormal Lab Results - Last 24 Hours (Table) 03/30/23 03/30/23 03/30/23 Range/Units 12:05 17:08 20:13 POC Glucose (mg/dL) 141 H 126 H 127 H (70-110) mg/dL Microbiology - Last 24 Hours (Table) 03/25/23 02:05 Blood Culture - Final Blood 03/25/23 01:45 Blood Culture - Final Blood 03/25/23 14:15 Anaerobic Culture - Final Neck 03/25/23 14:15 Anaerobic Culture - Final Neck Assessment and Plan Assessment: 1. Acute stridor secondary to soft tissue edema and swelling around incision from previous thyroidectomy on 03/10/2023. Status post surgical incision and drainage on 03/25/2023 2. Suspected aspiration pneumonia 3. Thyroidectomy on 03/10/2023 with stridor postoperatively improved with Decadron and discharged on 03/17/2023. 4. History of COPD 5. History of osteoarthritis 6. History of nicotine dependence 7. Hyponatremia. Improving 8. Vocal Cord paralysis. Patient was evaluated by ENT Patient currently admitted to the intensive care unit Infectious disease, surgical and pulmonary service is following Patient remains on IV antibiotics Repeat labs ordered
[2023-03-31 17:13] LABS: Glucose,Whole Blood 165 mg/dL (70-110)
[2023-03-31] MEDS: ACETAMINOPHEN TAB 325 MG TAB PO PRN (19:58)
[2023-03-31 20:15] LABS: Glucose,Whole Blood 168 mg/dL (70-110)
[2023-04-01] MEDS: SODIUM CHLORIDE 0.9% 1,000 ML IV SCH ×3 (01:39→22:14)
[2023-04-01] MEDS: LACTATED RINGERS 1,000 ML IV SCH (04:08)
[2023-04-01] MEDS: PIPERACILLIN-TAZOBACTAM 3.375 GM in SODIUM CHLORIDE 0.9% 100 ML IVPB SCH ×2 (04:37→12:38)
[2023-04-01] MEDS: LEVOTHYROXINE 100 MCG TAB PO SCH (05:49)
[2023-04-01 07:16] LABS: Glucose,Whole Blood 87 mg/dL (70-110)
[2023-04-01] MEDS: INSULIN ASPART (NovoLOG) 100 UNIT/ML VIAL SQ SCH ×4 (07:28→20:29)
[2023-04-01] MEDS: THIAMINE 100 MG TAB PO SCH (08:09)
[2023-04-01] MEDS: MULTIVITAMINS, THERA 1 EACH TAB PO SCH (08:09)
[2023-04-01] MEDS: PANTOPRAZOLE 40 MG/10 ML VIAL IV SCH (08:09)
[2023-04-01] MEDS: methylPREDNISolone 4 MG TAB TAPER PO SCH (08:09)
[2023-04-01] MEDS: FOLIC ACID 1 MG TAB PO SCH (08:09)
[2023-04-01] MEDS: HEPARIN SODIUM,PORCINE/PF 5,000 UNIT/0.5 ML SYRINGE SQ SCH ×2 (08:09→20:29)
[2023-04-01] MEDS: IPRATROPIUM-ALBUTEROL 3 ML NEB INHALATION SCH ×4 (09:40→20:02)
[2023-04-01 11:31] LABS: Basophils # (A) 0.01 X 10*3/uL (0.00-0.10); Basophils % (A) 0.1 %; Eosinophils # (A) 0.15 X 10*3/uL (0.04-0.35); Eosinophils % (A) 2.1 %; HCT 32.3 % (37.2-46.3); Lymphocytes # (A) 0.84 X 10*3/uL (0.90-5.00); Lymphocytes % (A) 11.5 %; MCH 32.6 pg (27.0-32.0); MCHC 34.1 d/dL (32.0-37.0); MCV 95.8 FL (80.0-97.0); Mean Platelet Volume 8.4 FL (9.5-12.2); Monocytes # (A) 0.46 X 10*3/uL (0.20-1.00); Monocytes % (A) 6.3 %; NRBC Per 100 WBC 0 X 10*3/uL (0.00-0.01); Neutrophils # (A) 5.77 X 10*3/uL (1.80-7.70); Platelet Count 286 X 10*3/uL (140-440); RBC 3.37 X 10*6/uL (4.10-5.20); RDW 13.3 % (11.5-14.5)
[2023-04-01 11:49] LABS: ALT 41 U/L (8-44); AST 24 U/L (13-35); Albumin 3.4 d/dL (3.8-4.9); Albumin/Globulin Ratio 1.62 Ratio (1.60-3.17); Alkaline Phosphatase 53 U/L (41-126); BUN/Creat Ratio 16.17 Ratio (12.00-20.00); Blood Urea Nitrogen 9.7 mg/dL (9.0-27.0); Calcium 8.3 mg/dL (8.7-10.3); Carbon Dioxide 25.5 mmol/L (21.6-31.8); Chloride 94 mmol/L (96-109); Globulin 2.1 d/dL (1.6-3.3); Glucose 73 mg/dL (70-110); Potassium 3.7 mmol/L (3.5-5.5); Sodium 131 mmol/L (135-145); Total Bilirubin 0.3 mg/dL (0.3-1.2); Total Protein 5.5 d/dL (6.2-8.2)
[2023-04-01 11:51] LABS: Glucose,Whole Blood 160 mg/dL (70-110)
[2023-04-01 12:13] VITALS: BMI 21.6
--- NOTE | 2023-04-01 13:32 | P.PN ---
Subjective Progress Note Date: 04/01/23 CHIEF COMPLAINT: Post-thyroidectomy neck seroma HISTORY OF PRESENT ILLNESS: Patient is postop day #7 status post incision and drainage of postop infected neck seroma. Patient's has hoarseness and intermit tent stridor. She is on oral steroids. She denies shortness of breath. Her [place] drain was pulled yesterday. Patient reports no drainage from the incision site. Afebrile. WBC 7.3 hgb 11.0 platelets 286 sodium 131 potassium 3.7 creatinine 0.6 PHYSICAL EXAM: VITAL SIGNS: Reviewed. GENERAL: Well-developed in no acute distress. HEENT: neck incision site clean dry and intact. Opening from [place] drain is closing. No drainage ABDOMEN: Soft. Nondistended. Nontender. ASSESSMENT: 1. Post-thyroidectomy infected neck seroma status post incision and drainage with Dr. Hahn 2. Patient's hoarseness likely due to probable recurrent laryngeal nerve palsy/injury 3. Bilateral vocal cord paralysis 4. Chronic Rectal prolapse. Currently reduced. PLAN: -Continue supportive care -Continue dysphagia chopped diet -[place] drain discontinued yesterday. Keep area covered with gauze. -For the chronic rectal prolapse continue to observe. Currently reduced. Will eventually need surgical correction at a later time -DVT prophylaxis subcu heparin Physician Grocery Clerk note has been reviewed by physician. Signing provider agrees with the documented findings, assessment, and plan of care. Objective - Vital Signs Vital signs: Vital Signs Temp 98 F 04/01/23 07:10 Pulse 80 04/01/23 09:59 Resp 18 04/01/23 07:10 BP 153/78 04/01/23 07:10 Pulse Ox 96 04/01/23 07:10 FiO2 50 03/26/23 08:00 Intake & Output 03/31/23 04/01/23 04/01/23 18:59 06:59 18:59 Intake Total 400 Balance 400 Intake: Oral 400 Other: Voiding Method Toilet Toilet Toilet # Voids 3 1 1 - Labs CBC & Chem 7: 04/01/23 06:36 04/01/23 06:36 Labs: Abnormal Lab Results - Last 24 Hours (Table) 03/31/23 03/31/23 04/01/23 Range/Units 17:12 20:00 06:36 RBC (4.10-5.20) X 10*6/uL Hgb (12.0-15.0) d/dL Hct (37.2-46.3) % MCH (27.0-32.0) pg MPV (9.5-12.2) FL Lymphocytes # (0.90-5.00) X 10*3/uL Sodium 131 L (135-145) mmol/L Chloride 94 L (96-109) mmol/L POC Glucose (mg/dL) 165 H 168 H (70-110) mg/dL Calcium 8.3 L (8.7-10.3) mg/dL Total Protein 5.5 L (6.2-8.2) d/dL Albumin 3.4 L (3.8-4.9) d/dL 04/01/23 04/01/23 Range/Units 06:36 11:49 RBC 3.37 L (4.10-5.20) X 10*6/uL Hgb 11.0 L (12.0-15.0) d/dL Hct 32.3 L (37.2-46.3) % MCH 32.6 H (27.0-32.0) pg MPV 8.4 L (9.5-12.2) FL Lymphocytes # 0.84 L (0.90-5.00) X 10*3/uL Sodium (135-145) mmol/L Chloride (96-109) mmol/L POC Glucose (mg/dL) 160 H (70-110) mg/dL Calcium (8.7-10.3) mg/dL Total Protein (6.2-8.2) d/dL Albumin (3.8-4.9) d/dL
--- NOTE | 2023-04-01 14:17 | P.PN ---
Subjective Progress Note Date: 04/01/23 This is a very pleasant 72-year-old female patient with a known history of chronic obstructive pulmonary disease, chronic and ongoing tobacco dependence. She was noted to have a multinodular goiter and had undergone thyroidectomy on 03/10/2023 and discharged home. She returned to the emergency room on 03/15/2023 with increasing shortness of breath and audible stridor. She had been treated with Decadron and an ENT consult was placed. She is discharged home on 03/17/2023 with Decadron. She came back to the emergency room last evening after her surgical site developed significant edema and swelling and she again developed stridor. Computed tomography scan of the neck revealed status post thyroidectomy. Fluid within the surgical bed circumferentially around the lower neck airway measuring up to 2.6 cm in thickness anteriorly, 2.3 cm in thickness laterally to the left and 2.3 cm in thickness laterally to the right. Chest x-ray reveals a right lower lobe infiltrate. White count 28.1. He moglobin 13.0. Platelets 444. Sodium 124. Potassium 4.3. Bicarb 22. BUN 14. Creatinine 0.48. Glucose 155. Pro-calcitonin 0.17. He's been initiated on IV Decadron 4 mg every 4 hours. Antibiotics in the form of cefazolin and Zosyn. DuoNeb inhalations. Heparin for DVT prophylaxis. The patient is seen today 03/26/2023 in follow-up in the intensive care unit. Last evening she did undergo incision and drainage of a postoperative infected neck seroma. She returned to the ICU and intubated on mechanical ventilator. Current settings are assist-control mode at a rate of 24, tidal volume 325, FiO2 50% and a PEEP of 5. Morning blood gases reveal a P O2 of 107, pCO2 46, pH 7.39. She is receiving lactated Ringer's 130 ML's per hour. Sedated with propofol at 50 mcg/kg/m. She required Nimbex at 2 pg/kg/m. She is on antibiotics in the form of daptomycin and Zosyn. Cultures are pending. White count 14.1. Hemoglobin 10.1. Platelets 241. Sodium 128. Potassium 3.6. Bicarb 21. BUN 11. Creatinine 0.43. Glucose 119. He remains on Decadron 4 mg IVP every 4 hours. Remains on bronchodilators. She did develop a prolapsed rectum with forceful coughing. The patient is seen today 03/27/2023 in follow-up in the intensive care unit. She is currently sitting up in bed. Awake and alert in no acute distress. Maintaining good O2 saturations in the 90s on 2 L/m per nasal cannula. She's been afebrile. Hemodynamically stable. She still has some hoarseness and very mild stridor. She had been seen by ENT yesterday and a flexible nasopharyngeal laryngoscope was passed and she was found to have bilateral vocal cord paralysis noted at both vocal cords were fixed in the median position but posteriorly has adequate airway. No significant stridor. Recent anterior not dry and intact. Cultures are pending. White count 10.4. Hemoglobin 9.9. Platelets 367. Sodium 126. Potassium 3.6. Bicarb 25. BUN 12. Creatinine 0.61. Glucose 133. She remains on Decadron, bronchodilators. Antibiotics in the form of Zosyn and daptomycin. The patient is seen today 03/28/2023 in follow-up in the intensive care unit. She is sitting up in bed. Awake and alert in no acute distress. She still has some very mild stridor. Still with a very soft voice. She is swallowing well. Anterior neck incision is clean dry well approximated. Cultures were positive for gram-negative bacilli and group D enterococcus. She remains on daptomycin and Zosyn. She is on 2 L nasal cannula. Lactated Ringer's at 20 ML's per hour. She is continued on DuoNeb inhalations, Decadron. Heparin for DVT prophylaxis. White count 7.5. Hemoglobin 11.0. Platelets 368. Sodium 127. Potassium 3.5. BUN 12. Creatinine 0.61. Glucose 122. The patient is seen today 03/29/2023 in follow-up on the regular medical floor. She is sitting up in bed. Awake and alert in no acute distress. Maintaining good O2 saturations in the 90s on 2 L/m per nasal cannula. She has some very mild stridor left greater than right. Her incision is clean dry well approximated. Drain remains in place. Dressing dry and intact. Continued on Decadron 4 mg every 4 hours remains on antibiotics in the form of Zosyn and daptomycin. Continued on bronchodilators. Heparin for DVT prophylaxis. The patient is seen today 04/09/2023 in follow-up on the regular medical floor. She remains awake and alert in no acute distress. Sitting up having breakfast. No difficulties in swallowing. No worsening shortness of breath, cough or congestion. No worsening stridor. Maintaining O2 saturations in the mid 90s on 2 L/m per nasal cannula. Afebrile. Neck incision remains clean dry well approximated. Drain remains in place. She is continued on Zosyn. Wound cultures were positive for Pseudomonas and enterococcus. Glucose 109. She is continued on DuoNeb inhalations. Decadron. Heparin for DVT prophylaxis. On today's evaluation of 03/31/2023 the patient continues to have difficulties with hoarseness and some occasional stridor. The patient underwent an ENT evaluation and the patient was found to have bilateral vocal cord paralysis. Nevertheless, the patient was told to have adequate airway patency. She is currently on room air oxygen. Surgical wound has been drained and the patient remains on IV Zosyn and the wound cultures positive for Pseudomonas and enterococcus. No active drainage. The patient remains on Medrol. The patient is also on bronchodilators. The labs from today shows a WBC count of 8.9 with a hemoglobin of 11 and a platelet count of 334. Sodiums of 133, potassium is at 3.1, bicarb is at 27, BUN is at 30 with a creatinine of 0.7. LFTs are normal. On today's evaluation of 04/01/2023, the patient continues to have stridor. The drain has been removed. The swelling in her neck is improved. She remains on IV Zosyn. The patient is also on methylprednisolone 20 mg by mouth and this is part of a burst taper as the patient is taking a Medrol Dosepak. She is not having any major stressor distress at rest. Nevertheless, she has audible stridor. Her voice is extremely muffled. The echoes at 7.3 with a hemoglobin of 11 and the BUN is at 9.7 with a creatinine of 0.6 and a sodium level is at 131. The wound cultures have grown Pseudomonas and Enterococcus mildred calis. Objective - Vital Signs Vital signs: Vital Signs Temp 98 F 04/01/23 07:10 Pulse 80 04/01/23 09:59 Resp 18 04/01/23 07:10 BP 153/78 04/01/23 07:10 Pulse Ox 96 04/01/23 07:10 FiO2 50 03/26/23 08:00 Intake & Output 03/31/23 04/01/23 04/01/23 18:59 06:59 18:59 Intake Total 400 Balance 400 Intake: Oral 400 Other: Voiding Method Toilet Toilet Toilet # Voids 3 1 1 - Exam GENERAL EXAM: Alert, pleasant 72-year-old female, sitting up in bed, on 2 L/min per nasal cannula, comfortable in no apparent distress. Patient has audible stridor HEAD: Normocephalic. EYES: Normal reaction of pupils, equal size. NOSE: Clear with pink turbinates. THROAT: No erythema or ulcers NECK: Anterior neck dressing dry and intact. Drain remains in place, no active drainage at this point in time CHEST: No chest wall deformity. LUNGS: Equal air entry with no crackles, wheeze, rhonchi or dullness. CVS: S1 and S2 normal with no audible murmur, regular rhythm. ABDOMEN: No hepatosplenomegaly, normal bowel sounds, no guarding or rigidity. SPINE: No scoliosis or deformity SKIN: No rashes CENTRAL NERVOUS SYSTEM: No focal deficits, tone is normal in all 4 extremities. EXTREMITIES: There is no peripheral edema. No clubbing, no cyanosis. Periphe ral pulses are intact. - Labs CBC & Chem 7: 04/01/23 06:36 04/01/23 06:36 Labs: Abnormal Lab Results - Last 24 Hours (Table) 03/31/23 03/31/23 04/01/23 Range/Units 17:12 20:00 06:36 RBC (4.10-5.20) X 10*6/uL Hgb (12.0-15.0) d/dL Hct (37.2-46.3) % MCH (27.0-32.0) pg MPV (9.5-12.2) FL Lymphocytes # (0.90-5.00) X 10*3/uL Sodium 131 L (135-145) mmol/L Chloride 94 L (96-109) mmol/L POC Glucose (mg/dL) 165 H 168 H (70-110) mg/dL Calcium 8.3 L (8.7-10.3) mg/dL Total Protein 5.5 L (6.2-8.2) d/dL Albumin 3.4 L (3.8-4.9) d/dL 04/01/23 04/01/23 Range/Units 06:36 11:49 RBC 3.37 L (4.10-5.20) X 10*6/uL Hgb 11.0 L (12.0-15.0) d/dL Hct 32.3 L (37.2-46.3) % MCH 32.6 H (27.0-32.0) pg MPV 8.4 L (9.5-12.2) FL Lymphocytes # 0.84 L (0.90-5.00) X 10*3/uL Sodium (135-145) mmol/L Chloride (96-109) mmol/L POC Glucose (mg/dL) 160 H (70-110) mg/dL Calcium (8.7-10.3) mg/dL Total Protein (6.2-8.2) d/dL Albumin (3.8-4.9) d/dL Assessment and Plan Plan: Acute stridor secondary to soft tissue edema and swelling around the incision from previous thyroidectomy on 03/10/2023. Status post incision and drainage on 03/25/2023 of the postoperative neck seroma. Drain in place. Cultures positive for Pseudomonas fluorescens/putida and enterococcus faecalis. Extubated on 03/26/2023. On 03/26/2023 the patient did undergo flexible nasopharyngeal laryngoscope and was noted to have vocal cord paralysis of both vocal cords and fixated in the median position but posteriorly had adequate airway. Started is still present. The patient not having any significant shortness of breath however. The stylet is still present. The drain has been removed. Acute hypoxemic respiratory failure secondary to above in addition to suspected aspiration pneumonia of the right lower lung, currently on 1-2 L of oxygen by nasal cannula Recent admission for stridor on 03/14/2023, improved with Decadron and discharge d on 03/17/2023 History of multinodular goiter status post total thyroidectomy on 03/10/2023 Hyponatremia History of rectal prolapse Chronic and ongoing tobacco dependence Chronic obstructive pulmonary disease Osteoarthritis Plan: The patient continues to have stridor Voice is muffled There is concern of airway compromise with bilateral vocal cord paralysis. Nevertheless, the ENT evaluation stated that the patient has adequate airway The drain has been removed Monitor respiratory status very closely Continue Zosyn Continue Medrol Dosepak Close monitoring of respiratory status and possible tracheostomy if there is any worsening shortness of breath. She continues to have stridor. ENT evaluation was done and the airway was thought to be adequate Continue bronchodilators Heparin for DVT prophylaxis We'll continue to follow. I will suggest keeping the patient hospital for another 24 hours
[2023-04-01 17:03] LABS: Glucose,Whole Blood 149 mg/dL (70-110)
[2023-04-01] MEDS: SODIUM CHLORIDE 0.9% 500 ML 500 ML IV SCH (17:34)
[2023-04-01 20:11] LABS: Glucose,Whole Blood 161 mg/dL (70-110)
[2023-04-02] MEDS: LACTATED RINGERS 1,000 ML IV SCH (01:42)
[2023-04-02] MEDS: LEVOTHYROXINE 100 MCG TAB PO SCH (05:30)
[2023-04-02 07:06] LABS: Glucose,Whole Blood 104 mg/dL (70-110)
[2023-04-02] MEDS: INSULIN ASPART (NovoLOG) 100 UNIT/ML VIAL SQ SCH ×4 (08:10→21:22)
[2023-04-02] MEDS: IPRATROPIUM-ALBUTEROL 3 ML NEB INHALATION SCH ×4 (08:37→19:51)
[2023-04-02] MEDS: THIAMINE 100 MG TAB PO SCH (08:42)
[2023-04-02] MEDS: FOLIC ACID 1 MG TAB PO SCH (08:42)
[2023-04-02] MEDS: MULTIVITAMINS, THERA 1 EACH TAB PO SCH (08:42)
[2023-04-02] MEDS: PANTOPRAZOLE 40 MG/10 ML VIAL IV SCH (08:42)
[2023-04-02] MEDS: methylPREDNISolone 4 MG TAB TAPER PO SCH (08:42)
[2023-04-02] MEDS: HEPARIN SODIUM,PORCINE/PF 5,000 UNIT/0.5 ML SYRINGE SQ SCH ×2 (08:42→21:22)
[2023-04-02] MEDS: SODIUM CHLORIDE 0.9% 500 ML 500 ML IV SCH (08:43)
--- NOTE | 2023-04-02 10:27 | P.PN ---
Subjective Progress Note Date: 04/02/23 This is a 72-year-old female who presented to the ER with concerns of increased neck swelling. Patient recently underwent thyroidectomy and developed some stridor edema postoperatively but was treated with IV steroids DC'd home. 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 Patient apparently developed increased shortness of breath stridor and neck swelling and presented to ER for further evaluation. Patient had CT completed showing fluid within the surgical bed circumferentially and some thickening. Also concerns of possible aspiration pneumonia. Patient also found to be hyponatremic with sodium at 123. Pulmonary and surgical services were consulted along with infectious disease services. Patient started on IV antibiotics. Patient was to OR for evacuation of surgical site seroma. Patient was mechanically ventilated for airway precautions postoperatively and sent to the ICU for recovery. On 03/26/2023 I am resuming care of patient Dr. Larson covering previously Patient remains in the intensive care unit currently on CPAP with tentative plans for extubation today. Patient remains on IV daptomycin and Zosyn. Infectious disease, surgical services and pulmonary services following. Sodium level improving at 128. Current vital signs temp 97.5, heart rate 67, respiratory rate 24, blood pressure 115/72 pulse ox 99% on mechanical ventilation with an FiO2 of 50%. Patient currently on sedation holiday following commands. On 03/27/2023 patient was seen and examined in the ICU she is alert responsive in no apparent distress there is no fever or chills no headache or dizziness no chest pain no shortness of breath no cough no nausea or vomiting no abdominal pain no diarrhea and no urinary symptoms temperature is 98.2 pulse 88 respiration 16 blood pressure 131/75 pulse ox 91% on room air white blood count 10.4 hemoglobin 9.9 platelet count 367 input from pulmonary general surgery and ENT reviewed On 03/28/2023 patient remains in the intensive care alert responsive 3. Patient remains with focal cord paralysis patient was evaluated by ENT and rec ommendations for follow-up outpatient with specialist for vocal cord paralysis. Patient under close monitoring for possible stridor. Current vital signs temp 98.2, heart rate 89, respiratory rate 18, blood pressure 135/76 with a pulse ox 92%. On 03/29/2023 patient was seen and examined on the medical floor she is alert and oriented 3 in no apparent distress she is still complaining of hoarseness in her voice and difficulty swallowing otherwise no complaints there is no fever or chills no headache or dizziness no chest pain no shortness of breath no cough no nausea or vomiting no abdominal pain no diarrhea and no urinary symptoms On 03/30/2023 patient alert and oriented 3. Patient still having some hoarseness and mild stridor. Denies any further episodes of shortness breath. Has been tolerating diet. IV steroids have been decreased. We'll continue to monitor patient. Current vital signs temp 98.7, heart rate 92, respiratory rate 18, blood pressure 152/71 pulse ox 96% on 2 L On 03/31/2023 patient is alert and oriented 3 in no apparent distress she is still complaining of hoarseness in her voice and stridor with her breathing otherwise she denies any complaints there is no fever or chills no headache or dizziness no chest pain no palpitation no cough no nausea or vomiting no abdominal pain no diarrhea and no urinary symptoms she remains on IV Zosyn and on oral steroids awaiting further recommendation from pulmonary ENT and infectious disease On 04/01/2023 patient is alert and oriented 3. Patient is still quite nervous about stridor been DC'd home. We'll await pulmonary input for further plan. Patient started on oral antibiotics cefazolin documented while inpatient. Patient denies chest pain. Patient denies nausea vomiting or diarrhea. Patient denies any urinary burning or frequency. Vital signs temp 98.1, heart rate 85, respiratory rate 50, blood pressure 160/76 with a pulse ox of 99 on room air Objective - Vital Signs Vital signs: Vital Signs Temp 98.1 F 04/02/23 07:04 Pulse 88 04/02/23 08:51 Resp 17 04/02/23 07:04 BP 170/78 04/02/23 07:04 Pulse Ox 91 L 04/02/23 07:04 FiO2 50 03/26/23 08:00 Intake & Output 04/01/23 04/02/23 04/02/23 18:59 06:59 18:59 Intake Total 600 Balance 600 Weight 53.6 kg Intake: Intake, IV Titration 600 Amount Sodium Chloride 0.9% 1, 600 000 ml @ 75 mls/hr IV . [id number] [facility] Rx#:[id number] Other: Voiding Method Toilet Toilet # Voids 1 3 - Exam Head normocephalic Neck dressing clean dry and intact js drain in place Lungs clear to auscultation bilaterally no wheezing or crackles Heart regular rate and rhythm S1-S2, no rub or gallop Abdomen is soft nontender nondistended positive bowel sounds no hepatospl enomegaly Extremities no edema Neuro alert and orientated to 3 - Labs CBC & Chem 7: 04/01/23 06:36 04/01/23 06:36 Labs: Abnormal Lab Results - Last 24 Hours (Table) 04/01/23 04/01/23 04/01/23 Range/Units 06:36 06:36 11:49 RBC 3.37 L (4.10-5.20) X 10*6/uL Hgb 11.0 L (12.0-15.0) d/dL Hct 32.3 L (37.2-46.3) % MCH 32.6 H (27.0-32.0) pg MPV 8.4 L (9.5-12.2) FL Lymphocytes # 0.84 L (0.90-5.00) X 10*3/uL Sodium 131 L (135-145) mmol/L Chloride 94 L (96-109) mmol/L POC Glucose (mg/dL) 160 H (70-110) mg/dL Calcium 8.3 L (8.7-10.3) mg/dL Total Protein 5.5 L (6.2-8.2) d/dL Albumin 3.4 L (3.8-4.9) d/dL 04/01/23 04/01/23 Range/Units 17:02 20:10 RBC (4.10-5.20) X 10*6/uL Hgb (12.0-15.0) d/dL Hct (37.2-46.3) % MCH (27.0-32.0) pg MPV (9.5-12.2) FL Lymphocytes # (0.90-5.00) X 10*3/uL Sodium (135-145) mmol/L Chloride (96-109) mmol/L POC Glucose (mg/dL) 149 H 161 H (70-110) mg/dL Calcium (8.7-10.3) mg/dL Total Protein (6.2-8.2) d/dL Albumin (3.8-4.9) d/dL Assessment and Plan Assessment: 1. Acute stridor secondary to soft tissue edema and swelling around incision from previous thyroidectomy on 03/10/2023. Status post surgical incision and drainage on 03/25/2023 2. Suspected aspiration pneumonia 3. Thyroidectomy on 03/10/2023 with stridor postoperatively improved with Decadron and discharged on 03/17/2023. 4. History of COPD 5. History of osteoarthritis 6. History of nicotine dependence 7. Hyponatremia. Improving 8. Vocal Cord paralysis. Patient was evaluated by ENT Patient currently admitted to the intensive care unit Infectious disease, surgical and pulmonary service is following Patient remains on IV antibiotics Repeat labs ordered
[2023-04-02 11:48] LABS: Glucose,Whole Blood 148 mg/dL (70-110)
[2023-04-02] MEDS: AMOXIC-POT CLAV 875-125MG 1 EACH TAB PO SCH ×2 (12:58→21:21)
[2023-04-02] MEDS: ALPRAZolam 0.25 MG TAB PO PRN ×2 (12:58→21:22)
[2023-04-02] MEDS: SODIUM CHLORIDE 0.9% 1,000 ML IV SCH (13:01)
[2023-04-02] MEDS: CIPROFLOXACIN HCL 500 MG TAB PO SCH ×2 (13:01→21:21)
--- NOTE | 2023-04-02 14:22 | P.PN ---
Subjective Progress Note Date: 04/02/23 CHIEF COMPLAINT: Post-thyroidectomy neck seroma HISTORY OF PRESENT ILLNESS: Patient is postop day #8 status post incision and drainage of postop infected neck seroma. Patient's has hoarseness and intermit tent stridor. She is on oral steroids. She occasionally has mild shortness of breath with activity. Afebrile. On room air PHYSICAL EXAM: VITAL SIGNS: Reviewed. GENERAL: Well-developed in no acute distress. HEENT: neck incision site clean dry and intact. Opening from [place] drain has closed. Serous drainage noted on dressing ABDOMEN: Soft. Nondistended. Nontender. ASSESSMENT: 1. Post-thyroidectomy infected neck seroma status post incision and drainage with Dr. Hahn 2. Patient's hoarseness likely due to probable recurrent laryngeal nerve palsy/injury 3. Bilateral vocal cord paralysis 4. Chronic Rectal prolapse. Currently reduced. PLAN: -If patient has persistent shortness of breath and stridor may need tracheostomy -Check chest x-ray for follow-up on shortness of breath -Continue supportive care -Continue dysphagia chopped diet -For the chronic rectal prolapse continue to observe. Currently reduced. Will eventually need surgical correction at a later time -Antibiotics per ID service -DVT prophylaxis subcu heparin Physician Manager Labor Delivery note has been reviewed by physician. Signing provider agrees with the documented findings, assessment, and plan of care. Objective - Vital Signs Vital signs: Vital Signs Temp 98.4 F 04/02/23 11:49 Pulse 91 04/02/23 12:24 Resp 18 04/02/23 11:49 BP 148/72 04/02/23 11:49 Pulse Ox 91 L 04/02/23 11:49 FiO2 50 03/26/23 08:00 Intake & Output 04/01/23 04/02/23 04/02/23 18:59 06:59 18:59 Intake Total 600 Balance 600 Weight 53.6 kg Intake: Intake, IV Titration 600 Amount Sodium Chloride 0.9% 1, 600 000 ml @ 75 mls/hr IV . [id number] [facility] Rx#:[id number] Other: Voiding Method Toilet Toilet Toilet # Voids 1 3 2 - Labs CBC & Chem 7: 04/01/23 06:36 04/01/23 06:36 Labs: Abnormal Lab Results - Last 24 Hours (Table) 04/01/23 04/01/23 04/02/23 Range/Units 17:02 20:10 11:47 POC Glucose (mg/dL) 149 H 161 H 148 H (70-110) mg/dL
--- NOTE | 2023-04-02 15:05 | P.PN ---
Subjective Progress Note Date: 03/30/23 Principal diagnosis: Neck abscess Patient is a 72-year-old female with a past medical history taken for COPD multinodular goiter in this patient status post thyroidectomy completed on 03/10/2023 patient subsequently presented back to the hospital on 03/15/2023 with increasing shortness of breath and audible stridor patient was treated with a Decadron , presenting back to the hospital increasing shortness of breath abnormal CT concerning for possible abscess in this patient with status post surgical drainage of infected hematoma. On today's evaluation that is 03/30/2023 the patient remains to be afebrile, patient is breathing comfortably on room air , the patient denies chest pain or shortness of breath cough no abdominal pain or diarrhea Objective - Vital Signs Vital signs: Vital Signs Temp 97.9 F 03/30/23 18:57 Pulse 80 03/30/23 19:42 Resp 18 03/30/23 18:57 BP 145/78 03/30/23 18:57 Pulse Ox 97 03/30/23 18:57 FiO2 50 03/26/23 08:00 Intake & Output 03/30/23 03/30/23 03/31/23 06:59 18:59 06:59 Intake Total 1100 Balance 1100 Intake: IV 200 Piperacillin-Tazobactam 3 200 .375 gm In Sodium Chloride 0.9% 100 ml @ 25 mls/hr IVPB Q8H [facility] Rx#: [id number] Intake, IV Titration 900 Amount Sodium Chloride 0.9% 1, 900 000 ml @ 75 mls/hr IV . [id number] [facility] Rx#:[id number] Other: Voiding Method Toilet Toilet # Voids 4 3 - Exam GENERAL DESCRIPTION: An elderly female lying in bed in no distress HEENT: Neck incision is clean no drainage was noticed RESPIRATORY SYSTEM: Unlabored breathing , decreased breath sounds at bases HEART: S1 S2 regular rate and rhythm , ABDOMEN: Soft , no tenderness EXTREMITIES: No edema feet - Labs CBC & Chem 7: 04/01/23 06:36 04/01/23 06:36 Labs: Abnormal Lab Results - Last 24 Hours (Table) 03/29/23 03/30/23 03/30/23 Range/Units 23:46 12:05 17:08 POC Glucose (mg/dL) 199 H 141 H 126 H (70-110) mg/dL 07/09/23 Range/Units 20:13 POC Glucose (mg/dL) 127 H (70-110) mg/dL Microbiology - Last 24 Hours (Table) 03/25/23 02:05 Blood Culture - Final Blood 03/25/23 01:45 Blood Culture - Final Blood 03/25/23 14:15 Anaerobic Culture - Final Neck 03/25/23 14:15 Anaerobic Culture - Final Neck Assessment and Plan (1) Infected hematoma following procedure Current Visit: Yes Status: Acute Code(s): [id number] - SNOMED Code(s): 420306286 Plan: 1patient presented to hospital with increasing shortness of breath stridor in this patient who did have a history of thyroidectomy on 03/10/2023 now presenting to the hospital with above symptoms patient did have abnormal CT and is s/p surgical drainage of postop seroma culture has been obtained and will need to cover for both gram-positive as well as gram-negative pathogen, patient also have right lower lobe infiltrate concern for possible aspiration pneumonitis 2-Patient local cultures currently growing Pseudomonas and Enterococcus faecalis, Enterococcus is sensitive to ampicillin 3-patient has shown clinical improvement and will continue patient on Zosyn and monitor clinical course closely Time with Patient: Less than 30
--- NOTE | 2023-04-02 15:06 | P.PN ---
Subjective Progress Note Date: 04/01/23 Principal diagnosis: Neck abscess Patient is a 72-year-old female with a past medical history taken for COPD multinodular goiter in this patient status post thyroidectomy completed on 03/10/2023 patient subsequently presented back to the hospital on 03/15/2023 with increasing shortness of breath and audible stridor patient was treated with a Decadron , presenting back to the hospital increasing shortness of breath abnormal CT concerning for possible abscess in this patient with status post surgical drainage of infected hematoma. On today's evaluation that is 04/01/2023 the patient remains to be afebrile, patient is breathing comfortably on room air , the patient denies pain to the neck area and drainage catheter has been discontinued, patient denies chest pain or shortness of breath cough no abdominal pain or diarrhea Objective - Vital Signs Vital signs: Vital Signs Temp 98.3 F 04/01/23 11:50 Pulse 76 04/01/23 12:02 Resp 18 04/01/23 11:50 BP 157/75 04/01/23 11:50 Pulse Ox 93 L 04/01/23 11:50 FiO2 50 03/26/23 08:00 Intake & Output 03/31/23 04/01/23 04/01/23 18:59 06:59 18:59 Intake Total 400 Balance 400 Weight 53.6 kg Intake: Oral 400 Other: Voiding Method Toilet Toilet Toilet # Voids 3 1 1 - Exam GENERAL DESCRIPTION: An elderly female lying in bed in no distress HEENT: Neck incision is clean no drainage was noticed RESPIRATORY SYSTEM: Unlabored breathing , decreased breath sounds at bases HEART: S1 S2 regular rate and rhythm , ABDOMEN: Soft , no tenderness EXTREMITIES: No edema feet - Labs CBC & Chem 7: 04/01/23 06:36 04/01/23 06:36 Labs: Abnormal Lab Results - Last 24 Hours (Table) 03/31/23 03/31/23 04/01/23 Range/Units 17:12 20:00 06:36 RBC (4.10-5.20) X 10*6/uL Hgb (12.0-15.0) d/dL Hct (37.2-46.3) % MCH (27.0-32.0) pg MPV (9.5-12.2) FL Lymphocytes # (0.90-5.00) X 10*3/uL Sodium 131 L (135-145) mmol/L Chloride 94 L (96-109) mmol/L POC Glucose (mg/dL) 165 H 168 H (70-110) mg/dL Calcium 8.3 L (8.7-10.3) mg/dL Total Protein 5.5 L (6.2-8.2) d/dL Albumin 3.4 L (3.8-4.9) d/dL 04/01/23 04/01/23 Range/Units 06:36 11:49 RBC 3.37 L (4.10-5.20) X 10*6/uL Hgb 11.0 L (12.0-15.0) d/dL Hct 32.3 L (37.2-46.3) % MCH 32.6 H (27.0-32.0) pg MPV 8.4 L (9.5-12.2) FL Lymphocytes # 0.84 L (0.90-5.00) X 10*3/uL Sodium (135-145) mmol/L Chloride (96-109) mmol/L POC Glucose (mg/dL) 160 H (70-110) mg/dL Calcium (8.7-10.3) mg/dL Total Protein (6.2-8.2) d/dL Albumin (3.8-4.9) d/dL Assessment and Plan (1) Infected hematoma following procedure Current Visit: Yes Status: Acute Code(s): [id number] - SNOMED Code(s): 385789088 Plan: 1patient presented to hospital with increasing shortness of breath stridor in this patient who did have a history of thyroidectomy on 03/10/2023 now presenting to the hospital with above symptoms patient did have abnormal CT and is s/p marily gical drainage of postop seroma culture has been obtained and will need to cover for both gram-positive as well as gram-negative pathogen, patient also have right lower lobe infiltrate concern for possible aspiration pneumonitis 2-Patient local cultures currently growing Pseudomonas and Enterococcus faecalis, Enterococcus is sensitive to ampicillin 3-patient has shown clinical improvement and will continue patient on Zosyn with a plan to finish therapy with oral antibiotics Time with Patient: Less than 30
--- NOTE | 2023-04-02 15:07 | P.PN ---
Subjective Progress Note Date: 04/02/23 Principal diagnosis: Neck abscess Patient is a 72-year-old female with a past medical history taken for COPD multinodular goiter in this patient status post thyroidectomy completed on 03/10/2023 patient subsequently presented back to the hospital on 03/15/2023 with increasing shortness of breath and audible stridor patient was treated with a Decadron , presenting back to the hospital increasing shortness of breath abnormal CT concerning for possible abscess in this patient with status post surgical drainage of infected hematoma. On today's evaluation that is 04/02/2023 the patient denies any fever or any chills, patient is breathing comfortably on room air , the patient denies pain to the neck area and denies any drainage from the neck incision, patient denies chest pain or shortness of breath cough no abdominal pain or diarrhea Objective - Vital Signs Vital signs: Vital Signs Temp 98.4 F 04/02/23 11:49 Pulse 91 04/02/23 12:24 Resp 18 04/02/23 11:49 BP 148/72 04/02/23 11:49 Pulse Ox 91 L 04/02/23 11:49 FiO2 50 03/26/23 08:00 Intake & Output 04/01/23 04/02/23 04/02/23 18:59 06:59 18:59 Intake Total 600 Balance 600 Weight 53.6 kg Intake: Intake, IV Titration 600 Amount Sodium Chloride 0.9% 1, 600 000 ml @ 75 mls/hr IV . [id number] [facility] Rx#:[id number] Other: Voiding Method Toilet Toilet Toilet # Voids 1 3 2 - Exam GENERAL DESCRIPTION: An elderly female lying in bed in no distress HEENT: Neck incision is clean no drainage was noticed RESPIRATORY SYSTEM: Unlabored breathing , decreased breath sounds at bases HEART: S1 S2 regular rate and rhythm , ABDOMEN: Soft , no tenderness EXTREMITIES: No edema feet - Labs CBC & Chem 7: 04/01/23 06:36 04/01/23 06:36 Labs: Abnormal Lab Results - Last 24 Hours (Table) 04/01/23 04/01/23 04/02/23 Range/Units 17:02 20:10 11:47 POC Glucose (mg/dL) 149 H 161 H 148 H (70-110) mg/dL Assessment and Plan (1) Infected hematoma following procedure Current Visit: Yes Status: Acute Code(s): [id number] - SNOMED Code(s): 445966498 Plan: 1patient presented to hospital with increasing shortness of breath stridor in this patient who did have a history of thyroidectomy on 03/10/2023 now presenting to the hospital with above symptoms patient did have abnormal CT and is s/p surgical drainage of postop seroma culture has been obtained and will need to cover for both gram-positive as well as gram-negative pathogen, patient also have right lower lobe infiltrate concern for possible aspiration pneumonitis 2-Patient local cultures currently growing Pseudomonas and Enterococcus faecalis, Enterococcus is sensitive to ampicillin 3-patient has shown clinical improvement and will continue continue with oral Augmentin and Cipro and monitor clinical course closely Time with Patient: Less than 30
--- NOTE | 2023-04-02 15:16 | XR ---
EXAMINATION TYPE: XR chest 2V DATE OF EXAM: 04/02/2023 COMPARISON: 03/26/2023 INDICATION: Short of breath TECHNIQUE: Frontal and lateral views of the chest are obtained. FINDINGS: The heart size is normal. The pulmonary vasculature is normal. Focal eventration of the lateral left diaphragm. Some mild subsegmental atelectasis is likely along t he diaphragms. Previous right lower lobe infiltrate has largely resolved. Small posterior pleural eff usions not excluded. There is flattening of diaphragms on the lateral projection with increased retro sternal airspace. Correlate for COPD. IMPRESSION: 1. Resolving right lower lobe infiltrate. 2. Minimal posterior pleural effusion. 3. Clinical correlation recommended for subsegmental atelectasis at the diaphragms. 4. COPD
--- NOTE | 2023-04-02 15:39 | P.PN ---
Subjective Progress Note Date: 04/02/23 This is a very pleasant 72-year-old female patient with a known history of chronic obstructive pulmonary disease, chronic and ongoing tobacco dependence. She was noted to have a multinodular goiter and had undergone thyroidectomy on 03/10/2023 and discharged home. She returned to the emergency room on 03/15/2023 with increasing shortness of breath and audible stridor. She had been treated with Decadron and an ENT consult was placed. She is discharged home on 03/17/2023 with Decadron. She came back to the emergency room last evening after her surgical site developed significant edema and swelling and she again developed stridor. Computed tomography scan of the neck revealed status post thyroidectomy. Fluid within the surgical bed circumferentially around the lower neck airway measuring up to 2.6 cm in thickness anteriorly, 2.3 cm in thickness laterally to the left and 2.3 cm in thickness laterally to the right. Chest x-ray reveals a right lower lobe infiltrate. White count 28.1. He moglobin 13.0. Platelets 444. Sodium 124. Potassium 4.3. Bicarb 22. BUN 14. Creatinine 0.48. Glucose 155. Pro-calcitonin 0.17. He's been initiated on IV Decadron 4 mg every 4 hours. Antibiotics in the form of cefazolin and Zosyn. DuoNeb inhalations. Heparin for DVT prophylaxis. The patient is seen today 03/26/2023 in follow-up in the intensive care unit. Last evening she did undergo incision and drainage of a postoperative infected neck seroma. She returned to the ICU and intubated on mechanical ventilator. Current settings are assist-control mode at a rate of 24, tidal volume 325, FiO2 50% and a PEEP of 5. Morning blood gases reveal a P O2 of 107, pCO2 46, pH 7.39. She is receiving lactated Ringer's 130 ML's per hour. Sedated with propofol at 50 mcg/kg/m. She required Nimbex at 2 pg/kg/m. She is on antibiotics in the form of daptomycin and Zosyn. Cultures are pending. White count 14.1. Hemoglobin 10.1. Platelets 241. Sodium 128. Potassium 3.6. Bicarb 21. BUN 11. Creatinine 0.43. Glucose 119. He remains on Decadron 4 mg IVP every 4 hours. Remains on bronchodilators. She did develop a prolapsed rectum with forceful coughing. The patient is seen today 03/27/2023 in follow-up in the intensive care unit. She is currently sitting up in bed. Awake and alert in no acute distress. Maintaining good O2 saturations in the 90s on 2 L/m per nasal cannula. She's been afebrile. Hemodynamically stable. She still has some hoarseness and very mild stridor. She had been seen by ENT yesterday and a flexible nasopharyngeal laryngoscope was passed and she was found to have bilateral vocal cord paralysis noted at both vocal cords were fixed in the median position but posteriorly has adequate airway. No significant stridor. Recent anterior not dry and intact. Cultures are pending. White count 10.4. Hemoglobin 9.9. Platelets 367. Sodium 126. Potassium 3.6. Bicarb 25. BUN 12. Creatinine 0.61. Glucose 133. She remains on Decadron, bronchodilators. Antibiotics in the form of Zosyn and daptomycin. The patient is seen today 03/28/2023 in follow-up in the intensive care unit. She is sitting up in bed. Awake and alert in no acute distress. She still has some very mild stridor. Still with a very soft voice. She is swallowing well. Anterior neck incision is clean dry well approximated. Cultures were positive for gram-negative bacilli and group D enterococcus. She remains on daptomycin and Zosyn. She is on 2 L nasal cannula. Lactated Ringer's at 20 ML's per hour. She is continued on DuoNeb inhalations, Decadron. Heparin for DVT prophylaxis. White count 7.5. Hemoglobin 11.0. Platelets 368. Sodium 127. Potassium 3.5. BUN 12. Creatinine 0.61. Glucose 122. The patient is seen today 03/29/2023 in follow-up on the regular medical floor. She is sitting up in bed. Awake and alert in no acute distress. Maintaining good O2 saturations in the 90s on 2 L/m per nasal cannula. She has some very mild stridor left greater than right. Her incision is clean dry well approximated. Drain remains in place. Dressing dry and intact. Continued on Decadron 4 mg every 4 hours remains on antibiotics in the form of Zosyn and daptomycin. Continued on bronchodilators. Heparin for DVT prophylaxis. The patient is seen today 04/09/2023 in follow-up on the regular medical floor. She remains awake and alert in no acute distress. Sitting up having breakfast. No difficulties in swallowing. No worsening shortness of breath, cough or congestion. No worsening stridor. Maintaining O2 saturations in the mid 90s on 2 L/m per nasal cannula. Afebrile. Neck incision remains clean dry well approximated. Drain remains in place. She is continued on Zosyn. Wound cultures were positive for Pseudomonas and enterococcus. Glucose 109. She is continued on DuoNeb inhalations. Decadron. Heparin for DVT prophylaxis. On today's evaluation of 03/31/2023 the patient continues to have difficulties with hoarseness and some occasional stridor. The patient underwent an ENT evaluation and the patient was found to have bilateral vocal cord paralysis. Nevertheless, the patient was told to have adequate airway patency. She is currently on room air oxygen. Surgical wound has been drained and the patient remains on IV Zosyn and the wound cultures positive for Pseudomonas and enterococcus. No active drainage. The patient remains on Medrol. The patient is also on bronchodilators. The labs from today shows a WBC count of 8.9 with a hemoglobin of 11 and a platelet count of 334. Sodiums of 133, potassium is at 3.1, bicarb is at 27, BUN is at 30 with a creatinine of 0.7. LFTs are normal. On today's evaluation of 04/01/2023, the patient continues to have stridor. The drain has been removed. The swelling in her neck is improved. She remains on IV Zosyn. The patient is also on methylprednisolone 20 mg by mouth and this is part of a burst taper as the patient is taking a Medrol Dosepak. She is not having any major stressor distress at rest. Nevertheless, she has audible stridor. Her voice is extremely muffled. The echoes at 7.3 with a hemoglobin of 11 and the BUN is at 9.7 with a creatinine of 0.6 and a sodium level is at 131. The wound cultures have grown Pseudomonas and Enterococcus mildred calis. On 04/02/2023, the patient continues to have stridor. She is anxious and on and off she is also having some issues with congestion and sputum production. No other the patient was a smoker and she has not smoked recently. She remains on a Medrol Dosepak. She is also on DuoNeb nebulized treatments [id number]. She is on Augmentin. No significant swelling in her neck area. Nevertheless, she is quite anxious and the audible stridor is obviously a concern. I discussed the case with general surgery. We are considering to repeat and airway inspection. I prefer to do a bronchoscopy, suction and it is or secretions if needed and reevaluate the patency upper airway. Objective - Vital Signs Vital signs: Vital Signs Temp 98.4 F 04/02/23 11:49 Pulse 91 04/02/23 12:24 Resp 18 04/02/23 11:49 BP 148/72 04/02/23 11:49 Pulse Ox 91 L 04/02/23 11:49 FiO2 50 03/26/23 08:00 Intake & Output 04/01/23 04/02/23 04/02/23 18:59 06:59 18:59 Intake Total 600 Balance 600 Weight 53.6 kg Intake: Intake, IV Titration 600 Amount Sodium Chloride 0.9% 1, 600 000 ml @ 75 mls/hr IV . [id number] [facility] Rx#:[id number] Other: Voiding Method Toilet Toilet Toilet # Voids 1 3 2 - Exam GENERAL EXAM: Alert, pleasant 72-year-old female, sitting up in bed, on 2 L/min per nasal cannula, comfortable in no apparent distress. Patient has audible stridor HEAD: Normocephalic. EYES: Normal reaction of pupils, equal size. NOSE: Clear with pink turbinates. THROAT: No erythema or ulcers NECK: Anterior neck dressing dry and intact. Drain remains in place, no active drainage at this point in time CHEST: No chest wall deformity. LUNGS: Equal air entry with no crackles, wheeze, rhonchi or dullness. CVS: S1 and S2 normal with no audible murmur, regular rhythm. ABDOMEN: No hepatosplenomegaly, normal bowel sounds, no guarding or rigidity. SPINE: No scoliosis or deformity SKIN: No rashes CENTRAL NERVOUS SYSTEM: No focal deficits, tone is normal in all 4 extremities. EXTREMITIES: There is no peripheral edema. No clubbing, no cyanosis. Peripheral pulses are intact. - Labs CBC & Chem 7: 04/01/23 06:36 07/11/23 06:36 Labs: Abnormal Lab Results - Last 24 Hours (Table) 04/01/23 04/01/23 04/02/23 Range/Units 17:02 20:10 11:47 POC Glucose (mg/dL) 149 H 161 H 148 H (70-110) mg/dL Assessment and Plan Plan: Acute stridor secondary to soft tissue edema and swelling around the incision from previous thyroidectomy on 03/10/2023. Status post incision and drainage on 03/25/2023 of the postoperative neck seroma. Drain in place. Cultures positive for Pseudomonas fluorescens/putida and enterococcus faecalis. Extubated on 03/26/2023. On 03/26/2023 the patient did undergo flexible nasopharyngeal laryngoscope and was noted to have vocal cord paralysis of both vocal cords and fixated in the median position but posteriorly had adequate airway. Started is still present. The patient not having any significant shortness of breath however. The stridor is still present. The drain has been removed. Clinically unchanged compared to yesterday. Remains to be anxious. Acute hypoxemic respiratory failure secondary to above in addition to suspected aspiration pneumonia of the right lower lung, currently on 1-2 L of oxygen by nasal cannula Recent admission for stridor on 03/14/2023, improved with Decadron and discharged on 03/17/2023 History of multinodular goiter status post total thyroidectomy on 03/10/2023 Hyponatremia, improved History of rectal prolapse Chronic and ongoing tobacco dependence Chronic obstructive pulmonary disease Osteoarthritis Plan: Patient continues to have persistent audible stridor Voice is muffled There is an ongoing concern for airway compromise I opted to evaluate the patient by bronchoscopy, suction and respiratory secretions and evaluate her upper and lower airway to make sure that the patient is adequate airway and based on that with him make a decision as the patient can be discharged. The presence of persistent subsided and the patient being short of breath and anxious is obviously an ongoing concern. I discussed this with the patient and her sister the bedside. The drain has been removed Monitor respiratory status very closely Continue Zosyn Continue Medrol Dosepak The patient will be kept in the hospital for now, case discussed with general surgery.
[2023-04-02 17:04] LABS: Glucose,Whole Blood 195 mg/dL (70-110)
[2023-04-02 19:52] LABS: Glucose,Whole Blood 134 mg/dL (70-110)
[2023-04-03] MEDS: SODIUM CHLORIDE 0.9% 1,000 ML IV SCH ×2 (00:53→13:05)
[2023-04-03] MEDS: LACTATED RINGERS 1,000 ML IV SCH (05:53)
[2023-04-03] MEDS: LEVOTHYROXINE 100 MCG TAB PO SCH (06:43)
[2023-04-03 07:31] LABS: Glucose,Whole Blood 114 mg/dL (70-110)
[2023-04-03] MEDS: INSULIN ASPART (NovoLOG) 100 UNIT/ML VIAL SQ SCH ×4 (07:40→22:54)
[2023-04-03] MEDS: IPRATROPIUM-ALBUTEROL 3 ML NEB INHALATION SCH ×4 (08:08→19:43)
[2023-04-03] MEDS: ALPRAZolam 0.25 MG TAB PO PRN (08:55)
[2023-04-03] MEDS: PANTOPRAZOLE 40 MG/10 ML VIAL IV SCH (09:31)
[2023-04-03] MEDS ORDERED: IV FLUID CONTINUATION 1,000 ML IV ONE (12:06)
[2023-04-03] MEDS ORDERED: LIDOCAINE 2% INJ 20 MG/ML (2 ML VIAL) ONE ×2 (12:09→19:06)
[2023-04-03] MEDS ORDERED: PROPOFOL 10 MG/ML 20 ML VIAL IV ONE ×2 (12:09→19:06)
--- NOTE | 2023-04-03 12:51 | P.PN ---
Subjective Progress Note Date: 04/03/23 CHIEF COMPLAINT: Post-thyroidectomy neck seroma HISTORY OF PRESENT ILLNESS: Patient is postop day #9 status post incision and drainage of postop infected neck seroma. Patient's has hoarseness and intermit tent stridor with occasional shortness of breath. She is on oral steroids. Patient did have bronchoscopy today. Dr. Balderas discussed case with Dr. Moya Afjs. Chest x-ray from yesterday resolving right lower lobe infiltrate. Minimal posterior pleural effusion. Clinical correlation rec ommended for subsegmental atelectasis at the diaphragms. COPD. PHYSICAL EXAM: VITAL SIGNS: Reviewed. GENERAL: Well-developed in no acute distress. HEENT: neck incision site clean dry and intact. Serous drainage noted on dressing ABDOMEN: Soft. Nondistended. Nontender. ASSESSMENT: 1. Post-thyroidectomy infected neck seroma status post incision and drainage with Dr. Hahn 2. Patient's hoarseness likely due to probable recurrent laryngeal nerve palsy/injury 3. Bilateral vocal cord paralysis 4. Chronic Rectal prolapse. Currently reduced. PLAN: -Patient scheduled for tracheostomy today with Dr. Balderas to protect airway -For the chronic rectal prolapse continue to observe. Currently reduced. Will eventually need surgical correction at a later time -Antibiotics per ID service -DVT prophylaxis subcu heparin Physician Section Cutter note has been reviewed by physician. Signing provider agrees with the documented findings, assessment, and plan of care. Objective - Vital Signs Vital signs: Vital Signs Temp 98.8 F 04/03/23 11:34 Pulse 84 04/03/23 11:58 Resp 18 04/03/23 11:34 BP 127/73 04/03/23 11:34 Pulse Ox 95 04/03/23 11:34 FiO2 50 03/26/23 08:00 Intake & Output 04/02/23 04/03/23 04/03/23 18:59 06:59 18:59 Intake Total 300 Balance 300 Intake: IV 300 Other: Voiding Method Toilet Toilet # Voids 2 1 - Labs CBC & Chem 7: 04/01/23 06:36 04/01/23 06:36 Labs: Abnormal Lab Results - Last 24 Hours (Table) 04/02/23 04/02/23 04/03/23 Range/Units 17:02 19:51 07:29 POC Glucose (mg/dL) 195 H 134 H 114 H (70-110) mg/dL
[2023-04-03] MEDS: AMOXIC-POT CLAV 875-125MG 1 EACH TAB PO SCH ×2 (13:07→21:34)
[2023-04-03] MEDS: FOLIC ACID 1 MG TAB PO SCH (13:07)
[2023-04-03] MEDS: CIPROFLOXACIN HCL 500 MG TAB PO SCH ×2 (13:07→21:34)
[2023-04-03] MEDS: HEPARIN SODIUM,PORCINE/PF 5,000 UNIT/0.5 ML SYRINGE SQ SCH ×2 (13:08→21:29)
[2023-04-03] MEDS: SODIUM CHLORIDE 0.9% 500 ML 500 ML IV SCH (13:08)
[2023-04-03] MEDS: THIAMINE 100 MG TAB PO SCH (13:08)
[2023-04-03] MEDS: MULTIVITAMINS, THERA 1 EACH TAB PO SCH (13:08)
[2023-04-03] MEDS: methylPREDNISolone 4 MG TAB TAPER PO SCH (13:08)
[2023-04-03 13:52] LABS: Glucose,Whole Blood 105 mg/dL (70-110)
[2023-04-03 16:46] LABS: Glucose,Whole Blood 97 mg/dL (70-110)
--- NOTE | 2023-04-03 16:47 | P.PN ---
Subjective Progress Note Date: 04/03/23 This is a very pleasant 72-year-old female patient with a known history of chronic obstructive pulmonary disease, chronic and ongoing tobacco dependence. She was noted to have a multinodular goiter and had undergone thyroidectomy on 03/10/2023 and discharged home. She returned to the emergency room on 03/15/2023 with increasing shortness of breath and audible stridor. She had been treated with Decadron and an ENT consult was placed. She is discharged home on 03/17/2023 with Decadron. She came back to the emergency room last evening after her surgical site developed significant edema and swelling and she again developed stridor. Computed tomography scan of the neck revealed status post thyroidectomy. Fluid within the surgical bed circumferentially around the lower neck airway measuring up to 2.6 cm in thickness anteriorly, 2.3 cm in thickness laterally to the left and 2.3 cm in thickness laterally to the right. Chest x-ray reveals a right lower lobe infiltrate. White count 28.1. He moglobin 13.0. Platelets 444. Sodium 124. Potassium 4.3. Bicarb 22. BUN 14. Creatinine 0.48. Glucose 155. Pro-calcitonin 0.17. He's been initiated on IV Decadron 4 mg every 4 hours. Antibiotics in the form of cefazolin and Zosyn. DuoNeb inhalations. Heparin for DVT prophylaxis. The patient is seen today 03/26/2023 in follow-up in the intensive care unit. Last evening she did undergo incision and drainage of a postoperative infected neck seroma. She returned to the ICU and intubated on mechanical ventilator. Current settings are assist-control mode at a rate of 24, tidal volume 325, FiO2 50% and a PEEP of 5. Morning blood gases reveal a P O2 of 107, pCO2 46, pH 7.39. She is receiving lactated Ringer's 130 ML's per hour. Sedated with propofol at 50 mcg/kg/m. She required Nimbex at 2 pg/kg/m. She is on antibiotics in the form of daptomycin and Zosyn. Cultures are pending. White count 14.1. Hemoglobin 10.1. Platelets 241. Sodium 128. Potassium 3.6. Bicarb 21. BUN 11. Creatinine 0.43. Glucose 119. He remains on Decadron 4 mg IVP every 4 hours. Remains on bronchodilators. She did develop a prolapsed rectum with forceful coughing. The patient is seen today 03/27/2023 in follow-up in the intensive care unit. She is currently sitting up in bed. Awake and alert in no acute distress. Maintaining good O2 saturations in the 90s on 2 L/m per nasal cannula. She's been afebrile. Hemodynamically stable. She still has some hoarseness and very mild stridor. She had been seen by ENT yesterday and a flexible nasopharyngeal laryngoscope was passed and she was found to have bilateral vocal cord paralysis noted at both vocal cords were fixed in the median position but posteriorly has adequate airway. No significant stridor. Recent anterior not dry and intact. Cultures are pending. White count 10.4. Hemoglobin 9.9. Platelets 367. Sodium 126. Potassium 3.6. Bicarb 25. BUN 12. Creatinine 0.61. Glucose 133. She remains on Decadron, bronchodilators. Antibiotics in the form of Zosyn and daptomycin. The patient is seen today 03/28/2023 in follow-up in the intensive care unit. She is sitting up in bed. Awake and alert in no acute distress. She still has some very mild stridor. Still with a very soft voice. She is swallowing well. Anterior neck incision is clean dry well approximated. Cultures were positive for gram-negative bacilli and group D enterococcus. She remains on daptomycin and Zosyn. She is on 2 L nasal cannula. Lactated Ringer's at 20 ML's per hour. She is continued on DuoNeb inhalations, Decadron. Heparin for DVT prophylaxis. White count 7.5. Hemoglobin 11.0. Platelets 368. Sodium 127. Potassium 3.5. BUN 12. Creatinine 0.61. Glucose 122. The patient is seen today 03/29/2023 in follow-up on the regular medical floor. She is sitting up in bed. Awake and alert in no acute distress. Maintaining good O2 saturations in the 90s on 2 L/m per nasal cannula. She has some very mild stridor left greater than right. Her incision is clean dry well approximated. Drain remains in place. Dressing dry and intact. Continued on Decadron 4 mg every 4 hours remains on antibiotics in the form of Zosyn and daptomycin. Continued on bronchodilators. Heparin for DVT prophylaxis. The patient is seen today 04/09/2023 in follow-up on the regular medical floor. She remains awake and alert in no acute distress. Sitting up having breakfast. No difficulties in swallowing. No worsening shortness of breath, cough or congestion. No worsening stridor. Maintaining O2 saturations in the mid 90s on 2 L/m per nasal cannula. Afebrile. Neck incision remains clean dry well approximated. Drain remains in place. She is continued on Zosyn. Wound cultures were positive for Pseudomonas and enterococcus. Glucose 109. She is continued on DuoNeb inhalations. Decadron. Heparin for DVT prophylaxis. On today's evaluation of 03/31/2023 the patient continues to have difficulties with hoarseness and some occasional stridor. The patient underwent an ENT evaluation and the patient was found to have bilateral vocal cord paralysis. Nevertheless, the patient was told to have adequate airway patency. She is currently on room air oxygen. Surgical wound has been drained and the patient remains on IV Zosyn and the wound cultures positive for Pseudomonas and enterococcus. No active drainage. The patient remains on Medrol. The patient is also on bronchodilators. The labs from today shows a WBC count of 8.9 with a hemoglobin of 11 and a platelet count of 334. Sodiums of 133, potassium is at 3.1, bicarb is at 27, BUN is at 30 with a creatinine of 0.7. LFTs are normal. On today's evaluation of 04/01/2023, the patient continues to have stridor. The drain has been removed. The swelling in her neck is improved. She remains on IV Zosyn. The patient is also on methylprednisolone 20 mg by mouth and this is part of a burst taper as the patient is taking a Medrol Dosepak. She is not having any major stressor distress at rest. Nevertheless, she has audible stridor. Her voice is extremely muffled. The echoes at 7.3 with a hemoglobin of 11 and the BUN is at 9.7 with a creatinine of 0.6 and a sodium level is at 131. The wound cultures have grown Pseudomonas and Enterococcus mildred calis. On 04/02/2023, the patient continues to have stridor. She is anxious and on and off she is also having some issues with congestion and sputum production. No other the patient was a smoker and she has not smoked recently. She remains on a Medrol Dosepak. She is also on DuoNeb nebulized treatments [id number]. She is on Augmentin. No significant swelling in her neck area. Nevertheless, she is quite anxious and the audible stridor is obviously a concern. I discussed the case with general surgery. We are considering to repeat and airway inspection. I prefer to do a bronchoscopy, suction and it is or secretions if needed and reevaluate the patency upper airway. On today's evaluation of 04/03/2023, the patient is slightly improved compared to yesterday. Nevertheless, she continues to be stridorous. Based on that, I performed a bronchoscopy on this patient and upper airway inspection was done and it showed significant pooling of respiratory secretions and upper airway. These were suctioned out. Examination of the vocal cords showed that the vocal cords were essentially paralyzed and there was essentially no mobility. I felt that the airway was inadequate and I also talked to the general surgeon regarding the possibility of doing a tracheostomy tube. Note that the lower airways including the trachea in the bilateral mainstem bronchi and the various segments on the right and the left were patent and there was copious amount of rest or secretions pouring within the airways. I performed surgical with suctioning. The patient tolerated the procedure well. However, she is to limit a significant degree of respiratory compromise and the patient would benefit from a tracheostomy tube and this message was shared with the general surgeon. She remains on a combination of Augmentin and ciprofloxacin. She remains anxious. Objective - Vital Signs Vital signs: Vital Signs Temp 98.1 F 04/03/23 07:59 Pulse 80 04/03/23 08:21 Resp 18 04/03/23 07:59 BP 148/78 04/03/23 07:59 Pulse Ox 94 L 04/03/23 08:11 FiO2 50 03/26/23 08:00 Intake & Output 04/02/23 04/03/23 04/03/23 18:59 06:59 18:59 Other: Voiding Method Toilet Toilet # Voids 2 1 - Exam GENERAL EXAM: Alert, pleasant 72-year-old female, sitting up in bed, on 2 L/min per nasal cannula, comfortable in no apparent distress. Patient has audible stridor HEAD: Normocephalic. EYES: Normal reaction of pupils, equal size. NOSE: Clear with pink turbinates. THROAT: No erythema or ulcers NECK: Anterior neck dressing dry and intact. Drain remains in place, no active drainage at this point in time CHEST: No chest wall deformity. LUNGS: Equal air entry with no crackles, wheeze, rhonchi or dullness. CVS: S1 and S2 normal with no audible murmur, regular rhythm. ABDOMEN: No hepatosplenomegaly, normal bowel sounds, no guarding or rigidity. SPINE: No scoliosis or deformity SKIN: No rashes CENTRAL NERVOUS SYSTEM: No focal deficits, tone is normal in all 4 extremities. EXTREMITIES: There is no peripheral edema. No clubbing, no cyanosis. Peripheral pulses are intact. - Labs CBC & Chem 7: 04/01/23 06:36 04/01/23 06:36 Labs: Abnormal Lab Results - Last 24 Hours (Table) 04/02/23 04/02/23 04/02/23 Range/Units 11:47 17:02 19:51 POC Glucose (mg/dL) 148 H 195 H 134 H (70-110) mg/dL 04/03/23 Range/Units 07:29 POC Glucose (mg/dL) 114 H (70-110) mg/dL Assessment and Plan Plan: Acute stridor secondary to soft tissue edema and swelling around the incision from previous thyroidectomy on 03/10/2023. Status post incision and drainage on 03/25/2023 of the postoperative neck seroma. Drain in place. Cultures positive for Pseudomonas fluorescens/putida and enterococcus faecalis. Extubated on 03/26/2023. On 03/26/2023 the patient did undergo flexible nasopharyngeal laryngoscope and was noted to have vocal cord paralysis of both vocal cords and fixated in the median position but posteriorly had adequate airway. Started is still present. I performed a bronchoscopy today. There was significant pooling of rest or secretions Doppler lower airways. The vocal cords were found to be paralyzed. In my assessment, the airways and the adequate probably in the order of 68 mm, a slit opening in the midline in between the cords. The vocal cord mobility was essentially absent. Acute hypoxemic respiratory failure secondary to above in addition to suspected aspiration pneumonia of the right lower lung, currently on 1-2 L of oxygen by nasal cannula Recent admission for stridor on 03/14/2023, improved with Decadron and discharged on 03/17/2023 History of multinodular goiter status post total thyroidectomy on 03/10/2023 Hyponatremia, improved History of rectal prolapse Chronic and ongoing tobacco dependence Chronic obstructive pulmonary disease Osteoarthritis Plan: Patient continues to have persistent audible stridor Voice is muffled There is an ongoing concern for airway compromise I recommend tracheostomy tube to secure the patient's airway specially that she has significant amount of secretions The bronchial aspirate will be sent for cultures Tracheostomy today Continue antibiotics Continue Medrol Dosepak We'll follow
--- NOTE | 2023-04-03 16:51 | P.PCN ---
Date of Procedure: 04/03/23 Preoperative Diagnosis: Stridor Postoperative Diagnosis: Bilateral vocal cord paralysis, respiratory compromise, airway compromise Excessive respiratory secretions both in the upper and lower airways Procedure(s) Performed: Flexible bronchoscopy Therapeutic airway suctioning Examination of the upper and lower airways Anesthesia: MAC Surgeon: Jass Moya Pathology: other Condition: stable Disposition: floor Operative Findings: This procedure was done in the bronchoscopy suite. A consent was obtained and a timeout was done. The procedure was done as the patient was having respiratory distress, stridor and there was a concern of the patient's airway patency and for that reason a bronchoscopy was done. After achieving adequate sedation, flexible bronchoscope was inserted through the left nostril. The bronchoscope was advanced to the posterior oropharynx and then to the larynx. The upper airways were patent, nevertheless, there was significant amount of rest or secretions pooling in the vallecula and around the epiglottis. No secretions were suctioned out. Epiglottis was identified. The arytenoids and the vocal cords were then inspected. There was complete the rest of the vocal cords bilaterally. The vocal cords were essentially the midline and showed no mobility, absent abduction and adduction. Posteriorly, there was a slit opening and the airway was estimated to be around 6 mm in size at its best. After applying lidocaine to the vocal cords, I was able to pass the bronchoscope through the small opening in between the cords and I advanced the bronchoscope to the lower airways. There was significant amount of respiratory secretions retained within the trachea and the bilateral mainstem bronchi and the various segments of the lower lobes bilaterally. Inspected and there was included the trachea, bilateral mainstem bronchi, right upper lobe bronchus, bronchus intermedius, right middle lobe bronchus and the right lower lobe bronchus and the various 10 segments on the right and examination of the left included left mainstem bronchus, left upper and left lower lobe bronchi and the various 8 segments on the left. After cleaning the rest or secretions, the rock scope was removed. Reinspection of the vocal cords was done and by then the patient was more awake and she was able to utter some words. I did not appreciate any vocal cord mobility. As such, I'm dictating that the patient's airway is compromised and the patient would benefit from a tracheostomy to secure a airway in this patient especially in the presence of significant respiratory secretions. The bronchial aspirates will be sent for cultures and antibiotics will be adjusted if needed. Case was discussed with the general surgeon.
[2023-04-03] MEDS ORDERED: SODIUM CHLORIDE 0.9% 1,000 ML IV ONE (18:42)
[2023-04-03] MEDS ORDERED: LIDOCAINE 2% INJ 20 MG/ML SQ ONE (18:47)
[2023-04-03] MEDS ORDERED: NEOSTIGMINE 1 MG/ML 10 ML VIAL ONE (19:06)
[2023-04-03] MEDS ORDERED: ROCURONIUM 10 MG/ML (5 ML VIAL) IV ONE (19:06)
[2023-04-03] MEDS ORDERED: SUCCINYLCHOLINE CHLORIDE 200 MG/10 ML VIAL IV ONE (19:06)
[2023-04-03] MEDS ORDERED: GLYCOPYRROLATE 0.2 MG/ML 2 ML VIAL ONE (19:06)
[2023-04-03] MEDS ORDERED: PHENYLEPHRINE 10 MG/ML VIAL ONE (19:06)
[2023-04-03] MEDS ORDERED: ONDANSETRON 4 MG/2 ML VIAL ONE (19:06)
[2023-04-03] MEDS ORDERED: fentaNYL (PF) 50 MCG/ML 2 ML AMP ONE (19:06)
[2023-04-03] MEDS ORDERED: SODIUM CHLORIDE 0.9% 50 ML with ceFAZolin 1,000 MG IV ONE ×2 (19:11)
[2023-04-03] MEDS ORDERED: LACTATED RINGERS 1,000 ML IV ONE (20:03)
[2023-04-03 20:27] LABS: Glucose,Whole Blood 88 mg/dL (70-110)
[2023-04-03] MEDS ORDERED: LORazepam 2 MG/ML INJ IV PRN (21:22)
[2023-04-03 21:34] LABS: Glucose,Whole Blood 104 mg/dL (70-110)
[2023-04-04] MEDS: HYDROmorphone 1 MG/ML 1 ML SYRINGE IVP PRN ×2 (04:02→14:17)
[2023-04-04] MEDS: SODIUM CHLORIDE 0.9% 1,000 ML IV SCH ×3 (06:06→23:42)
[2023-04-04] MEDS: LACTATED RINGERS 1,000 ML IV SCH (06:06)
[2023-04-04] MEDS: LEVOTHYROXINE 100 MCG TAB PO SCH (06:26)
[2023-04-04 06:38] LABS: Glucose,Whole Blood 80 mg/dL (70-110)
[2023-04-04] MEDS: INSULIN ASPART (NovoLOG) 100 UNIT/ML VIAL SQ SCH ×4 (06:47→20:07)
[2023-04-04 07:27] LABS: Basophils % (A) 0 %; Eosinophils # (A) 0.1 k/uL (0-0.7); Eosinophils % (A) 1 %; HGB 11.9 gm/dL (11.4-16.0); Lymphocytes # (A) 0.3 k/uL (1.0-4.8); Lymphocytes % (A) 3 %; MCH 31.7 pg (25.0-35.0); Mean Platelet Volume 6.9; Monocytes # (A) 0.2 k/uL (0-1.0); Monocytes % (A) 2 %; Neutrophils # (A) 9.7 k/uL (1.3-7.7); Neutrophils % (A) 93 %; Platelet Count 245 k/uL (150-450); RBC 3.75 m/uL (3.80-5.40); RDW 13.6 % (11.5-15.5); WBC 10.4 k/uL (3.8-10.6)
[2023-04-04 07:36] LABS: African American GFR (CKD) >90 (>60 ml/min/1.73 sqM); Anion Gap 8 mmol/L; Blood Urea Nitrogen 5 mg/dL (7-17); Carbon Dioxide 24 mmol/L (22-30); Chloride 95 mmol/L (98-107); Glucose 87 mg/dL (74-99); Non-African American GFR(CKD) >90 (>60 ml/min/1.73 sqM); Potassium 3.5 mmol/L (3.5-5.1); Sodium 127 mmol/L (137-145)
--- NOTE | 2023-04-04 07:39 | P.OP ---
Date of Procedure: 04/03/23 Preoperative Diagnosis: Stridor Postoperative Diagnosis: Stridor due to cord paralysis Procedure(s) Performed: Tracheostomy Anesthesia: HALEIGH Surgeon: Alcides Balderas Estimated Blood Loss (ml): 5 Pathology: none sent Condition: stable Disposition: PACU Indications for Procedure: Is a 72-year-old female who's developed progressive vocal cord paralysis after thyroidectomy. Patient initially had a voice which diminished. She underwent laryngoscopy 2 weeks ago was found have an adequate airway. Patient had a subsequent bronchoscopy today. Patient's found have a narrowed airway at the area the cords due to processes the cords. Patient has had recurrent issues with intermittent stridor and shortness of breath. Patient resents today for tracheostomy. Description of Procedure: The patient received general endotracheal tube anesthesia. Her neck was prepped and draped usual sterile fashion. The previous tracheostomy scar was opened. And then using left cautery the platysma was divided. A pair we lateral traction placed a wound. And then the strap muscle divided in the midline. Trachea was exposed. At this point the [employer] advanced endotracheal tube into the right mainstem bronchus. The tracheotomy then performed between the second and third cartilage rings. The endotracheal tube was then withdrawn and then under direct vision the #8 Shiley fenestrated tracheostomy tube was placed into the trachea. Patient sent to the ventilated. There appeared to be an air leak from the tracheostomy tube. Her tidal volumes unchanged from 4 50 mL to 120 mL. There appeared to be an air leak along the fenestration of the tracheostomy tube. At this point the tracheostomy tube was exchanged. The fenestrated tracheostomy tube was removed and then the nonfenestrated Shiley #8 tracheostomy tube was placed into the trachea. Patient was sent to the ventilated. The balloon was inflated. End-tidal CO2 is confirmed. Patient did have good tidal volumes with this tracheostomy tube. There is no significant bleeding seen. The skin was closed interrupted 3-0 Monocryl suture. Patient was sent to the ICU for observation overnight. Patient was spontaneously breathing off the ventilator.
[2023-04-04] MEDS: IPRATROPIUM-ALBUTEROL 3 ML NEB INHALATION SCH ×5 (08:49→20:47)
[2023-04-04] MEDS: HEPARIN SODIUM,PORCINE/PF 5,000 UNIT/0.5 ML SYRINGE SQ SCH ×2 (09:13→20:02)
[2023-04-04] MEDS: PANTOPRAZOLE 40 MG/10 ML VIAL IV SCH (09:13)
--- NOTE | 2023-04-04 09:48 | P.PN ---
Subjective Progress Note Date: 04/04/23 This is a 72-year-old female who presented to the ER with concerns of increased neck swelling. Patient recently underwent thyroidectomy and developed some stridor edema postoperatively but was treated with IV steroids DC'd home. 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 Patient apparently developed increased shortness of breath stridor and neck swelling and presented to ER for further evaluation. Patient had CT completed showing fluid within the surgical bed circumferentially and some thickening. Also concerns of possible aspiration pneumonia. Patient also found to be hyponatremic with sodium at 123. Pulmonary and surgical services were consulted along with infectious disease services. Patient started on IV antibiotics. Patient was to OR for evacuation of surgical site seroma. Patient was mechanically ventilated for airway precautions postoperatively and sent to the ICU for recovery. On 03/26/2023 I am resuming care of patient Dr. Larson covering previously Patient remains in the intensive care unit currently on CPAP with tentative plans for extubation today. Patient remains on IV daptomycin and Zosyn. Infectious disease, surgical services and pulmonary services following. Sodium level improving at 128. Current vital signs temp 97.5, heart rate 67, respiratory rate 24, blood pressure 115/72 pulse ox 99% on mechanical ventilation with an FiO2 of 50%. Patient currently on sedation holiday following commands. On 03/27/2023 patient was seen and examined in the ICU she is alert responsive in no apparent distress there is no fever or chills no headache or dizziness no chest pain no shortness of breath no cough no nausea or vomiting no abdominal pain no diarrhea and no urinary symptoms temperature is 98.2 pulse 88 respiration 16 blood pressure 131/75 pulse ox 91% on room air white blood count 10.4 hemoglobin 9.9 platelet count 367 input from pulmonary general surgery and ENT reviewed On 03/28/2023 patient remains in the intensive care alert responsive 3. Patient remains with focal cord paralysis patient was evaluated by ENT and re commendations for follow-up outpatient with specialist for vocal cord paralysis. Patient under close monitoring for possible stridor. Current vital signs temp 98.2, heart rate 89, respiratory rate 18, blood pressure 135/76 with a pulse ox 92%. On 03/29/2023 patient was seen and examined on the medical floor she is alert and oriented 3 in no apparent distress she is still complaining of hoarseness in her voice and difficulty swallowing otherwise no complaints there is no fever or chills no headache or dizziness no chest pain no shortness of breath no cough no nausea or vomiting no abdominal pain no diarrhea and no urinary symptoms On 03/30/2023 patient alert and oriented 3. Patient still having some hoarseness and mild stridor. Denies any further episodes of shortness breath. Has been tolerating diet. IV steroids have been decreased. We'll continue to monitor patient. Current vital signs temp 98.7, heart rate 92, respiratory rate 18, blood pressure 152/71 pulse ox 96% on 2 L On 03/31/2023 patient is alert and oriented 3 in no apparent distress she is still complaining of hoarseness in her voice and stridor with her breathing otherwise she denies any complaints there is no fever or chills no headache or dizziness no chest pain no palpitation no cough no nausea or vomiting no abdominal pain no diarrhea and no urinary symptoms she remains on IV Zosyn and on oral steroids awaiting further recommendation from pulmonary ENT and infectious disease On 04/01/2023 patient is alert and oriented 3. Patient is still quite nervous about stridor been DC'd home. We'll await pulmonary input for further plan. Patient started on oral antibiotics cefazolin documented while inpatient. Patient denies chest pain. Patient denies nausea vomiting or diarrhea. Patient denies any urinary burning or frequency. Vital signs temp 98.1, heart rate 85, respiratory rate 50, blood pressure 160/76 with a pulse ox of 99 on room ai On 04/04/2023 patient is alert and oriented 3. Patient underwent bronchoscopy which was found the patient did have airway compromise with excessive respiratory secretions both an upper and lower airways along with bilateral vocal cord paralysis. Patient then underwent tracheostomy for airway precautions. She is currently resting in the intensive care unit currently on trach collar. Current vital signs temp 98.6, heart rate 82, respiratory rate 17, blood pressure 126/71 pulse ox 97% collar Objective - Vital Signs Vital signs: Vital Signs Temp 98.6 F 04/04/23 09:00 Pulse 82 04/04/23 09:00 Resp 17 04/04/23 09:00 BP 126/71 04/04/23 09:00 Pulse Ox 97 04/04/23 09:00 FiO2 40 04/04/23 08:00 Intake & Output 07/04/04/23 04/04/23 18:59 06:59 18:59 Intake Total 300 1600 Output Total 360 Balance 300 1240 Intake: IV 300 1600 0.9 750 Output: Urine 350 Estimated Blood Loss 10 Other: Voiding Method Diaper External Catheter # Voids 2 0 - Exam Head normocephalic Neck dressing clean dry and intact js drain in place Lungs clear to auscultation bilaterally no wheezing or crackles Heart regular rate and rhythm S1-S2, no rub or gallop Abdomen is soft nontender nondistended positive bowel sounds no hepatosplenomegaly Extremities no edema Neuro alert and orientated to 3 - Labs CBC & Chem 7: 04/04/23 07:13 04/04/23 07:13 Labs: Abnormal Lab Results - Last 24 Hours (Table) 04/04/23 04/04/23 Range/Units 07:13 07:13 RBC 3.75 L (3.80-5.40) m/uL Neutrophils # 9.7 H (1.3-7.7) k/uL Lymphocytes # 0.3 L (1.0-4.8) k/uL Sodium 127 L (137-145) mmol/L Chloride 95 L (98-107) mmol/L BUN 5 L (7-17) mg/dL Creatinine 0.46 L (0.52-1.04) mg/dL Calcium 8.0 L (8.4-10.2) mg/dL Microbiology - Last 24 Hours (Table) 04/03/23 12:25 Gram Stain - Preliminary Bronchial Washings - Random Assessment and Plan Assessment: 1. Acute stridor secondary to soft tissue edema and swelling around incision from previous thyroidectomy on 03/10/2023. Status post surgical incision and drainage on 03/25/2023 2. Suspected aspiration pneumonia 3. Thyroidectomy on 03/10/2023 with stridor postoperatively improved with Decadron and discharged on 03/17/2023. 4. History of COPD 5. History of osteoarthritis 6. History of nicotine dependence 7. Hyponatremia. Improving 8. Vocal Cord paralysis. Patient was evaluated by ENT Patient currently admitted to the intensive care unit Infectious disease, surgical and pulmonary service is following Status post bronchoscopy with findings of compromised airway Tracheostomy placement on 04/03/2023 Repeat labs ordered
[2023-04-04 10:27] LABS: Glucose,Whole Blood 105 mg/dL (70-110)
--- NOTE | 2023-04-04 10:43 | P.PN ---
Subjective Progress Note Date: 04/03/23 This is a 72-year-old female who presented to the ER with concerns of increased neck swelling. Patient recently underwent thyroidectomy and developed some stridor edema postoperatively but was treated with IV steroids DC'd home. 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 Patient apparently developed increased shortness of breath stridor and neck swelling and presented to ER for further evaluation. Patient had CT completed showing fluid within the surgical bed circumferentially and some thickening. Also concerns of possible aspiration pneumonia. Patient also found to be hyponatremic with sodium at 123. Pulmonary and surgical services were consulted along with infectious disease services. Patient started on IV antibiotics. Patient was to OR for evacuation of surgical site seroma. Patient was mechanically ventilated for airway precautions postoperatively and sent to the ICU for recovery. On 03/26/2023 I am resuming care of patient Dr. Larson covering previously Patient remains in the intensive care unit currently on CPAP with tentative plans for extubation today. Patient remains on IV daptomycin and Zosyn. Infectious disease, surgical services and pulmonary services following. Sodium level improving at 128. Current vital signs temp 97.5, heart rate 67, respiratory rate 24, blood pressure 115/72 pulse ox 99% on mechanical ventilation with an FiO2 of 50%. Patient currently on sedation holiday following commands. On 03/27/2023 patient was seen and examined in the ICU she is alert responsive in no apparent distress there is no fever or chills no headache or dizziness no chest pain no shortness of breath no cough no nausea or vomiting no abdominal pain no diarrhea and no urinary symptoms temperature is 98.2 pulse 88 respiration 16 blood pressure 131/75 pulse ox 91% on room air white blood count 10.4 hemoglobin 9.9 platelet count 367 input from pulmonary general surgery and ENT reviewed On 03/28/2023 patient remains in the intensive care alert responsive 3. Patient remains with focal cord paralysis patient was evaluated by ENT and rec ommendations for follow-up outpatient with specialist for vocal cord paralysis. Patient under close monitoring for possible stridor. Current vital signs temp 98.2, heart rate 89, respiratory rate 18, blood pressure 135/76 with a pulse ox 92%. On 03/29/2023 patient was seen and examined on the medical floor she is alert and oriented 3 in no apparent distress she is still complaining of hoarseness in her voice and difficulty swallowing otherwise no complaints there is no fever or chills no headache or dizziness no chest pain no shortness of breath no cough no nausea or vomiting no abdominal pain no diarrhea and no urinary symptoms On 03/30/2023 patient alert and oriented 3. Patient still having some hoarseness and mild stridor. Denies any further episodes of shortness breath. Has been tolerating diet. IV steroids have been decreased. We'll continue to monitor patient. Current vital signs temp 98.7, heart rate 92, respiratory rate 18, blood pressure 152/71 pulse ox 96% on 2 L On 03/31/2023 patient is alert and oriented 3 in no apparent distress she is still complaining of hoarseness in her voice and stridor with her breathing otherwise she denies any complaints there is no fever or chills no headache or dizziness no chest pain no palpitation no cough no nausea or vomiting no abdominal pain no diarrhea and no urinary symptoms she remains on IV Zosyn and on oral steroids awaiting further recommendation from pulmonary ENT and infectious disease On 04/01/2023 patient is alert and oriented 3. Patient is still quite nervous about stridor been DC'd home. We'll await pulmonary input for further plan. Patient started on oral antibiotics cefazolin documented while inpatient. Patient denies chest pain. Patient denies nausea vomiting or diarrhea. Patient denies any urinary burning or frequency. Vital signs temp 98.1, heart rate 85, respiratory rate 50, blood pressure 160/76 with a pulse ox of 99 on room air. On 04/02/2023 patient is more alert today. Patient's daughter at bedside. Patient apparently was able to take pills with applesauce this AM. Currently on nasal cannula. Plans for hemodialysis today On 04/03/2023 patient was seen and examined on the medical floor she is alert and oriented 3 in no apparent distress she is scheduled for bronchoscopy with Dr. Moya today, will continue to follow closely Objective - Vital Signs Vital signs: Vital Signs Temp 98.4 F 04/03/23 13:23 Pulse 86 04/03/23 15:24 Resp 20 04/03/23 13:23 BP 145/72 04/03/23 13:23 Pulse Ox 94 L 04/03/23 13:23 FiO2 50 03/26/23 08:00 Intake & Output 04/02/23 04/03/23 04/03/23 18:59 06:59 18:59 Intake Total 300 Balance 300 Intake: IV 300 Other: Voiding Method Toilet Toilet # Voids 2 1 - Exam Head normocephalic Neck dressing clean dry and intact js drain in place Lungs clear to auscultation bilaterally no wheezing or crackles Heart regular rate and rhythm S1-S2, no rub or gallop Abdomen is soft nontender nondistended positive bowel sounds no hepatosplenomegaly Extremities no edema Neuro alert and orientated to 3 - Labs CBC & Chem 7: 04/01/23 06:36 04/01/23 06:36 Labs: Abnormal Lab Results - Last 24 Hours (Table) 04/02/23 04/03/23 Range/Units 19:51 07:29 POC Glucose (mg/dL) 134 H 114 H (70-110) mg/dL Assessment and Plan Assessment: 1. Acute stridor secondary to soft tissue edema and swelling around incision from previous thyroidectomy on 03/10/2023. Status post surgical incision and drainage on 03/25/2023 2. Suspected aspiration pneumonia 3. Thyroidectomy on 03/10/2023 with stridor postoperatively improved with Decadron and discharged on 03/17/2023. 4. History of COPD 5. History of osteoarthritis 6. History of nicotine dependence 7. Hyponatremia. Improving 8. Vocal Cord paralysis. Patient was evaluated by ENT Patient currently admitted to the intensive care unit Infectious disease, surgical and pulmonary service is following Patient remains on IV antibiotics Repeat labs ordered
--- NOTE | 2023-04-04 10:44 | P.PN ---
Subjective Progress Note Date: 04/01/23 This is a 72-year-old female who presented to the ER with concerns of increased neck swelling. Patient recently underwent thyroidectomy and developed some stridor edema postoperatively but was treated with IV steroids DC'd home. 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 Patient apparently developed increased shortness of breath stridor and neck swelling and presented to ER for further evaluation. Patient had CT completed showing fluid within the surgical bed circumferentially and some thickening. Also concerns of possible aspiration pneumonia. Patient also found to be hyponatremic with sodium at 123. Pulmonary and surgical services were consulted along with infectious disease services. Patient started on IV antibiotics. Patient was to OR for evacuation of surgical site seroma. Patient was mechanically ventilated for airway precautions postoperatively and sent to the ICU for recovery. On 03/26/2023 I am resuming care of patient Dr. Larson covering previously Patient remains in the intensive care unit currently on CPAP with tentative plans for extubation today. Patient remains on IV daptomycin and Zosyn. Infectious disease, surgical services and pulmonary services following. Sodium level improving at 128. Current vital signs temp 97.5, heart rate 67, respiratory rate 24, blood pressure 115/72 pulse ox 99% on mechanical ventilation with an FiO2 of 50%. Patient currently on sedation holiday following commands. On 03/27/2023 patient was seen and examined in the ICU she is alert responsive in no apparent distress there is no fever or chills no headache or dizziness no chest pain no shortness of breath no cough no nausea or vomiting no abdominal pain no diarrhea and no urinary symptoms temperature is 98.2 pulse 88 respiration 16 blood pressure 131/75 pulse ox 91% on room air white blood count 10.4 hemoglobin 9.9 platelet count 367 input from pulmonary general surgery and ENT reviewed On 03/28/2023 patient remains in the intensive care alert responsive 3. Patient remains with focal cord paralysis patient was evaluated by ENT and rec ommendations for follow-up outpatient with specialist for vocal cord paralysis. Patient under close monitoring for possible stridor. Current vital signs temp 98.2, heart rate 89, respiratory rate 18, blood pressure 135/76 with a pulse ox 92%. On 03/29/2023 patient was seen and examined on the medical floor she is alert and oriented 3 in no apparent distress she is still complaining of hoarseness in her voice and difficulty swallowing otherwise no complaints there is no fever or chills no headache or dizziness no chest pain no shortness of breath no cough no nausea or vomiting no abdominal pain no diarrhea and no urinary symptoms On 03/30/2023 patient alert and oriented 3. Patient still having some hoarseness and mild stridor. Denies any further episodes of shortness breath. Has been tolerating diet. IV steroids have been decreased. We'll continue to monitor patient. Current vital signs temp 98.7, heart rate 92, respiratory rate 18, blood pressure 152/71 pulse ox 96% on 2 L On 03/31/2023 patient is alert and oriented 3 in no apparent distress she is still complaining of hoarseness in her voice and stridor with her breathing otherwise she denies any complaints there is no fever or chills no headache or dizziness no chest pain no palpitation no cough no nausea or vomiting no abdominal pain no diarrhea and no urinary symptoms she remains on IV Zosyn and on oral steroids awaiting further recommendation from pulmonary ENT and infectious disease Objective - Vital Signs Vital signs: Vital Signs Temp 98 F 04/01/23 07:10 Pulse 80 04/01/23 09:59 Resp 18 04/01/23 07:10 BP 153/78 04/01/23 07:10 Pulse Ox 96 04/01/23 07:10 FiO2 50 03/26/23 08:00 Intake & Output 03/31/23 04/01/23 04/01/23 18:59 06:59 18:59 Intake Total 400 Balance 400 Intake: Oral 400 Other: Voiding Method Toilet Toilet Toilet # Voids 3 1 1 - Exam Head normocephalic Neck dressing clean dry and intact js drain in place Lungs clear to auscultation bilaterally no wheezing or crackles Heart regular rate and rhythm S1-S2, no rub or gallop Abdomen is soft nontender nondistended positive bowel sounds no hepatosplenomegaly Extremities no edema Neuro alert and orientated to 3 - Labs CBC & Chem 7: 03/31/23 06:14 03/31/23 16:37 Labs: Abnormal Lab Results - Last 24 Hours (Table) 03/31/23 03/31/23 03/31/23 Range/Units 06:14 06:14 11:46 RBC 3.48 L (4.10-5.20) X 10*6/uL Hgb 11.1 L (12.0-15.0) d/dL Hct 32.7 L (37.2-46.3) % MPV 8.7 L (9.5-12.2) FL Sodium 133 L (135-145) mmol/L Potassium 3.1 L (3.5-5.5) mmol/L Chloride 94 L (96-109) mmol/L Glucose 65 L (70-110) mg/dL POC Glucose (mg/dL) 123 H (70-110) mg/dL Calcium 8.3 L (8.7-10.3) mg/dL Total Protein 5.6 L (6.2-8.2) d/dL Albumin 3.5 L (3.8-4.9) d/dL 03/31/23 03/31/23 Range/Units 17:12 20:00 RBC (4.10-5.20) X 10*6/uL Hgb (12.0-15.0) d/dL Hct (37.2-46.3) % MPV (9.5-12.2) FL Sodium (135-145) mmol/L Potassium (3.5-5.5) mmol/L Chloride (96-109) mmol/L Glucose (70-110) mg/dL POC Glucose (mg/dL) 165 H 168 H (70-110) mg/dL Calcium (8.7-10.3) mg/dL Total Protein (6.2-8.2) d/dL Albumin (3.8-4.9) d/dL Assessment and Plan Assessment: 1. Acute stridor secondary to soft tissue edema and swelling around incision from previous thyroidectomy on 03/10/2023. Status post surgical incision and dr myles on 03/25/2023 2. Suspected aspiration pneumonia 3. Thyroidectomy on 03/10/2023 with stridor postoperatively improved with Decadron and discharged on 03/17/2023. 4. History of COPD 5. History of osteoarthritis 6. History of nicotine dependence 7. Hyponatremia. Improving 8. Vocal Cord paralysis. Patient was evaluated by ENT Patient currently admitted to the intensive care unit Infectious disease, surgical and pulmonary service is following Patient remains on IV antibiotics Repeat labs ordered
--- NOTE | 2023-04-04 10:50 | P.PN ---
Subjective Progress Note Date: 04/04/23 This is a 72-year-old female who presented to the ER with concerns of increased neck swelling. Patient recently underwent thyroidectomy and developed some stridor edema postoperatively but was treated with IV steroids DC'd home. 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 Patient apparently developed increased shortness of breath stridor and neck swelling and presented to ER for further evaluation. Patient had CT completed showing fluid within the surgical bed circumferentially and some thickening. Also concerns of possible aspiration pneumonia. Patient also found to be hyponatremic with sodium at 123. Pulmonary and surgical services were consulted along with infectious disease services. Patient started on IV antibiotics. Patient was to OR for evacuation of surgical site seroma. Patient was mechanically ventilated for airway precautions postoperatively and sent to the ICU for recovery. On 03/26/2023 I am resuming care of patient Dr. Larson covering previously Patient remains in the intensive care unit currently on CPAP with tentative plans for extubation today. Patient remains on IV daptomycin and Zosyn. Infectious disease, surgical services and pulmonary services following. Sodium level improving at 128. Current vital signs temp 97.5, heart rate 67, respiratory rate 24, blood pressure 115/72 pulse ox 99% on mechanical ventilation with an FiO2 of 50%. Patient currently on sedation holiday following commands. On 03/27/2023 patient was seen and examined in the ICU she is alert responsive in no apparent distress there is no fever or chills no headache or dizziness no chest pain no shortness of breath no cough no nausea or vomiting no abdominal pain no diarrhea and no urinary symptoms temperature is 98.2 pulse 88 respiration 16 blood pressure 131/75 pulse ox 91% on room air white blood count 10.4 hemoglobin 9.9 platelet count 367 input from pulmonary general surgery and ENT reviewed On 03/28/2023 patient remains in the intensive care alert responsive 3. Patient remains with focal cord paralysis patient was evaluated by ENT and rec ommendations for follow-up outpatient with specialist for vocal cord paralysis. Patient under close monitoring for possible stridor. Current vital signs temp 98.2, heart rate 89, respiratory rate 18, blood pressure 135/76 with a pulse ox 92%. On 03/29/2023 patient was seen and examined on the medical floor she is alert and oriented 3 in no apparent distress she is still complaining of hoarseness in her voice and difficulty swallowing otherwise no complaints there is no fever or chills no headache or dizziness no chest pain no shortness of breath no cough no nausea or vomiting no abdominal pain no diarrhea and no urinary symptoms On 03/30/2023 patient alert and oriented 3. Patient still having some hoarseness and mild stridor. Denies any further episodes of shortness breath. Has been tolerating diet. IV steroids have been decreased. We'll continue to monitor patient. Current vital signs temp 98.7, heart rate 92, respiratory rate 18, blood pressure 152/71 pulse ox 96% on 2 L On 03/31/2023 patient is alert and oriented 3 in no apparent distress she is still complaining of hoarseness in her voice and stridor with her breathing otherwise she denies any complaints there is no fever or chills no headache or dizziness no chest pain no palpitation no cough no nausea or vomiting no abdominal pain no diarrhea and no urinary symptoms she remains on IV Zosyn and on oral steroids awaiting further recommendation from pulmonary ENT and infectious disease On 04/02/2023 patient is more alert today. Patient's daughter at bedside. Patient apparently was able to take pills with applesauce this AM. Currently on nasal cannula. Plans for hemodialysis today On 04/03/2023 patient was seen and examined on the medical floor she is alert and oriented 3 in no apparent distress she is scheduled for bronchoscopy with Dr. Moya today, will continue to follow closely On 04/04/2023 patient is alert and oriented 3. Patient underwent bronchoscopy which was found the patient did have airway compromise with excessive respiratory secretions both an upper and lower airways along with bilateral vocal cord paralysis. Patient then underwent tracheostomy for airway precautions. She is currently resting in the intensive care unit currently on trach collar. Current vital signs temp 98.6, heart rate 82, respiratory rate 17, blood pressure 126/71 pulse ox 97% collar Objective - Vital Signs Vital signs: Vital Signs Temp 98.6 F 04/04/23 09:00 Pulse 82 04/04/23 10:00 Resp 15 04/04/23 10:00 BP 131/75 04/04/23 10:00 Pulse Ox 98 04/04/23 10:00 FiO2 40 04/04/23 08:00 Intake & Output 04/03/23 04/04/23 04/04/23 18:59 06:59 18:59 Intake Total 300 1600 225 Output Total 360 400 Balance 300 1240 -175 Intake: IV 300 1600 225 0.9 750 225 Output: Urine 350 400 Estimated Blood Loss 10 Other: Voiding Method Diaper Diaper External Catheter External Catheter # Voids 2 0 - Exam Head normocephalic Neck dressing clean dry and intact js drain in place Lungs clear to auscultation bilaterally no wheezing or crackles Heart regular rate and rhythm S1-S2, no rub or gallop Abdomen is soft nontender nondistended positive bowel sounds no hepatosplenomegaly Extremities no edema Neuro alert and orientated to 3 - Labs CBC & Chem 7: 04/04/23 07:13 04/04/23 07:13 Labs: Abnormal Lab Results - Last 24 Hours (Table) 04/04/23 04/04/23 Range/Units 07:13 07:13 RBC 3.75 L (3.80-5.40) m/uL Neutrophils # 9.7 H (1.3-7.7) k/uL Lymphocytes # 0.3 L (1.0-4.8) k/uL Sodium 127 L (137-145) mmol/L Chloride 95 L (98-107) mmol/L BUN 5 L (7-17) mg/dL Creatinine 0.46 L (0.52-1.04) mg/dL Calcium 8.0 L (8.4-10.2) mg/dL Microbiology - Last 24 Hours (Table) 04/03/23 12:25 Gram Stain - Preliminary Bronchial Washings - Random Assessment and Plan Assessment: 1. Acute stridor secondary to soft tissue edema and swelling around incision from previous thyroidectomy on 03/10/2023. Status post surgical incision and drainage on 03/25/2023 2. Suspected aspiration pneumonia 3. Thyroidectomy on 03/10/2023 with stridor postoperatively improved with Decadron and discharged on 03/17/2023. 4. History of COPD 5. History of osteoarthritis 6. History of nicotine dependence 7. Hyponatremia. Improving 8. Vocal Cord paralysis. Patient was evaluated by ENT Patient currently admitted to the intensive care unit Infectious disease, surgical and pulmonary service is following Patient remains on IV antibiotics Repeat labs ordered
--- NOTE | 2023-04-04 11:00 | P.PN ---
Subjective Progress Note Date: 04/04/23 This is a very pleasant 72-year-old female patient with a known history of chronic obstructive pulmonary disease, chronic and ongoing tobacco dependence. She was noted to have a multinodular goiter and had undergone thyroidectomy on 03/10/2023 and discharged home. She returned to the emergency room on 03/15/2023 with increasing shortness of breath and audible stridor. She had been treated with Decadron and an ENT consult was placed. She is discharged home on 03/17/2023 with Decadron. She came back to the emergency room last evening after her surgical site developed significant edema and swelling and she again developed stridor. Computed tomography scan of the neck revealed status post thyroidectomy. Fluid within the surgical bed circumferentially around the lower neck airway measuring up to 2.6 cm in thickness anteriorly, 2.3 cm in thickness laterally to the left and 2.3 cm in thickness laterally to the right. Chest x-ray reveals a right lower lobe infiltrate. White count 28.1. He moglobin 13.0. Platelets 444. Sodium 124. Potassium 4.3. Bicarb 22. BUN 14. Creatinine 0.48. Glucose 155. Pro-calcitonin 0.17. He's been initiated on IV Decadron 4 mg every 4 hours. Antibiotics in the form of cefazolin and Zosyn. DuoNeb inhalations. Heparin for DVT prophylaxis. The patient is seen today 03/26/2023 in follow-up in the intensive care unit. Last evening she did undergo incision and drainage of a postoperative infected neck seroma. She returned to the ICU and intubated on mechanical ventilator. Current settings are assist-control mode at a rate of 24, tidal volume 325, FiO2 50% and a PEEP of 5. Morning blood gases reveal a P O2 of 107, pCO2 46, pH 7.39. She is receiving lactated Ringer's 130 ML's per hour. Sedated with propofol at 50 mcg/kg/m. She required Nimbex at 2 pg/kg/m. She is on antibiotics in the form of daptomycin and Zosyn. Cultures are pending. White count 14.1. Hemoglobin 10.1. Platelets 241. Sodium 128. Potassium 3.6. Bicarb 21. BUN 11. Creatinine 0.43. Glucose 119. He remains on Decadron 4 mg IVP every 4 hours. Remains on bronchodilators. She did develop a prolapsed rectum with forceful coughing. The patient is seen today 03/27/2023 in follow-up in the intensive care unit. She is currently sitting up in bed. Awake and alert in no acute distress. Maintaining good O2 saturations in the 90s on 2 L/m per nasal cannula. She's been afebrile. Hemodynamically stable. She still has some hoarseness and very mild stridor. She had been seen by ENT yesterday and a flexible nasopharyngeal laryngoscope was passed and she was found to have bilateral vocal cord paralysis noted at both vocal cords were fixed in the median position but posteriorly has adequate airway. No significant stridor. Recent anterior not dry and intact. Cultures are pending. White count 10.4. Hemoglobin 9.9. Platelets 367. Sodium 126. Potassium 3.6. Bicarb 25. BUN 12. Creatinine 0.61. Glucose 133. She remains on Decadron, bronchodilators. Antibiotics in the form of Zosyn and daptomycin. The patient is seen today 03/28/2023 in follow-up in the intensive care unit. She is sitting up in bed. Awake and alert in no acute distress. She still has some very mild stridor. Still with a very soft voice. She is swallowing well. Anterior neck incision is clean dry well approximated. Cultures were positive for gram-negative bacilli and group D enterococcus. She remains on daptomycin and Zosyn. She is on 2 L nasal cannula. Lactated Ringer's at 20 ML's per hour. She is continued on DuoNeb inhalations, Decadron. Heparin for DVT prophylaxis. White count 7.5. Hemoglobin 11.0. Platelets 368. Sodium 127. Potassium 3.5. BUN 12. Creatinine 0.61. Glucose 122. The patient is seen today 03/29/2023 in follow-up on the regular medical floor. She is sitting up in bed. Awake and alert in no acute distress. Maintaining good O2 saturations in the 90s on 2 L/m per nasal cannula. She has some very mild stridor left greater than right. Her incision is clean dry well approximated. Drain remains in place. Dressing dry and intact. Continued on Decadron 4 mg every 4 hours remains on antibiotics in the form of Zosyn and daptomycin. Continued on bronchodilators. Heparin for DVT prophylaxis. The patient is seen today 04/09/2023 in follow-up on the regular medical floor. She remains awake and alert in no acute distress. Sitting up having breakfast. No difficulties in swallowing. No worsening shortness of breath, cough or congestion. No worsening stridor. Maintaining O2 saturations in the mid 90s on 2 L/m per nasal cannula. Afebrile. Neck incision remains clean dry well approximated. Drain remains in place. She is continued on Zosyn. Wound cultures were positive for Pseudomonas and enterococcus. Glucose 109. She is continued on DuoNeb inhalations. Decadron. Heparin for DVT prophylaxis. On today's evaluation of 03/31/2023 the patient continues to have difficulties with hoarseness and some occasional stridor. The patient underwent an ENT evaluation and the patient was found to have bilateral vocal cord paralysis. Nevertheless, the patient was told to have adequate airway patency. She is currently on room air oxygen. Surgical wound has been drained and the patient remains on IV Zosyn and the wound cultures positive for Pseudomonas and enterococcus. No active drainage. The patient remains on Medrol. The patient is also on bronchodilators. The labs from today shows a WBC count of 8.9 with a hemoglobin of 11 and a platelet count of 334. Sodiums of 133, potassium is at 3.1, bicarb is at 27, BUN is at 30 with a creatinine of 0.7. LFTs are normal. On today's evaluation of 04/01/2023, the patient continues to have stridor. The drain has been removed. The swelling in her neck is improved. She remains on IV Zosyn. The patient is also on methylprednisolone 20 mg by mouth and this is part of a burst taper as the patient is taking a Medrol Dosepak. She is not having any major stressor distress at rest. Nevertheless, she has audible stridor. Her voice is extremely muffled. The echoes at 7.3 with a hemoglobin of 11 and the BUN is at 9.7 with a creatinine of 0.6 and a sodium level is at 131. The wound cultures have grown Pseudomonas and Enterococcus mildred calis. On 04/02/2023, the patient continues to have stridor. She is anxious and on and off she is also having some issues with congestion and sputum production. No other the patient was a smoker and she has not smoked recently. She remains on a Medrol Dosepak. She is also on DuoNeb nebulized treatments [id number]. She is on Augmentin. No significant swelling in her neck area. Nevertheless, she is quite anxious and the audible stridor is obviously a concern. I discussed the case with general surgery. We are considering to repeat and airway inspection. I prefer to do a bronchoscopy, suction and it is or secretions if needed and reevaluate the patency upper airway. On today's evaluation of 04/03/2023, the patient is slightly improved compared to yesterday. Nevertheless, she continues to be stridorous. Based on that, I performed a bronchoscopy on this patient and upper airway inspection was done and it showed significant pooling of respiratory secretions and upper airway. These were suctioned out. Examination of the vocal cords showed that the vocal cords were essentially paralyzed and there was essentially no mobility. I felt that the airway was inadequate and I also talked to the general surgeon regarding the possibility of doing a tracheostomy tube. Note that the lower airways including the trachea in the bilateral mainstem bronchi and the various segments on the right and the left were patent and there was copious amount of rest or secretions pouring within the airways. I performed surgical with suctioning. The patient tolerated the procedure well. However, she is to limit a significant degree of respiratory compromise and the patient would benefit from a tracheostomy tube and this message was shared with the general surgeon. She remains on a combination of Augmentin and ciprofloxacin. She remains anxious. On 04/04/2023, the patient is post tracheostomy tube insertion. The patient underwent her surgery yesterday and the patient was given an 8.5 Shiley tracheostomy tube. The patient is doing well for now. She is on 40% Ventimask. She is coming comfortable. She continues to bring up copious amounts of rest or secretions and I already cultures both secretions and that is also still pending for now. She remains nothing by mouth. A bedside swallow evaluation will be done. This is a nonfenestrated cuffed tracheostomy tube. Otherwise, no other significant issues. Sodium is at 127, potassium levels at 3.5, BUN is at 5 the creatinine is 0.4. The [place] 10.4 with a hemoglobin of 11.9. The patient is currently on DuoNeb nebulized treatments [id number]. She is on Augmentin. She is on Medrol Dosepak which is completing. She is also on ciprofloxacin. Objective - Vital Signs Vital signs: Vital Signs Temp 98.6 F 04/04/23 09:00 Pulse 82 04/04/23 10:00 Resp 15 04/04/23 10:00 BP 131/75 04/04/23 10:00 Pulse Ox 98 04/04/23 10:00 FiO2 40 04/04/23 08:00 Intake & Output 04/03/23 04/04/23 04/04/23 18:59 06:59 18:59 Intake Total 300 1600 225 Output Total 360 400 Balance 300 1240 -175 Intake: IV 300 1600 225 0.9 750 225 Output: Urine 350 400 Estimated Blood Loss 10 Other: Voiding Method Diaper Diaper External Catheter External Catheter # Voids 2 0 - Exam GENERAL EXAM: Alert, pleasant 72-year-old female, sitting up in bed, patient has a tracheostomy tube in place and the patient has a #8 Shiley tracheostomy tube. HEAD: Normocephalic. EYES: Normal reaction of pupils, equal size. NOSE: Clear with pink turbinates. THROAT: No erythema or ulcers NECK: Anterior neck dressing dry and intact. Drain remains in place, no active drainage at this point in time CHEST: No chest wall deformity. LUNGS: Equal air entry with no crackles, wheeze, rhonchi or dullness. CVS: S1 and S2 normal with no audible murmur, regular rhythm. ABDOMEN: No hepatosplenomegaly, normal bowel sounds, no guarding or rigidity. SPINE: No scoliosis or deformity SKIN: No rashes CENTRAL NERVOUS SYSTEM: No focal deficits, tone is normal in all 4 extremities. EXTREMITIES: There is no peripheral edema. No clubbing, no cyanosis. Peripheral pulses are intact. - Labs CBC & Chem 7: 04/04/23 07:13 04/04/23 07:13 Labs: Abnormal Lab Results - Last 24 Hours (Table) 04/04/23 04/04/23 Range/Units 07:13 07:13 RBC 3.75 L (3.80-5.40) m/uL Neutrophils # 9.7 H (1.3-7.7) k/uL Lymphocytes # 0.3 L (1.0-4.8) k/uL Sodium 127 L (137-145) mmol/L Chloride 95 L (98-107) mmol/L BUN 5 L (7-17) mg/dL Creatinine 0.46 L (0.52-1.04) mg/dL Calcium 8.0 L (8.4-10.2) mg/dL Microbiology - Last 24 Hours (Table) 04/03/23 12:25 Gram Stain - Preliminary Bronchial Washings - Random Assessment and Plan Plan: Acute stridor secondary to soft tissue edema and swelling around the incision from previous thyroidectomy on 03/10/2023. Status post incision and drainage on 03/25/2023 of the postoperative neck seroma. Drain in place. Cultures positive for Pseudomonas fluorescens/putida and enterococcus faecalis. Extubated on 03/26/2023. On 03/26/2023 the patient did undergo flexible nasopharyngeal laryngoscope and was noted to have vocal cord paralysis of both vocal cords and fixated in the median position but posteriorly had adequate airway. Started is still present. I performed a bronchoscopy today. There was significant pooling of rest or secretions Doppler lower airways. The vocal cords were found to be paralyzed. In my assessment, the airways and the adequate probably in the order of 6-8 mm, a slit opening in the midline in between the cords. The vocal cord mobility was essentially absent. Based on that, the patient was given a tracheostomy tube and currently the patient has a #8.5 Shiley, nonfenestrated, cuffed Acute hypoxemic respiratory failure secondary to above , currently improved and currently she is on a 40% Ventimask/trach collar Recent admission for stridor on 03/14/2023, improved with Decadron and discharged on 03/17/2023 History of multinodular goiter status post total thyroidectomy on 03/10/2023 Hyponatremia, improved History of rectal prolapse Chronic and ongoing tobacco dependence Chronic obstructive pulmonary disease Osteoarthritis Plan: Tracheostomy care Frequent suctioning Swallow evaluation There is an ongoing concern for airway compromise Awaiting results of the bronchial aspirate cultures Continue antibiotics Continue Medrol Dosepak We'll follow Possible transfer out of the ICU at the later stage.
[2023-04-04 12:22] LABS: Glucose,Whole Blood 69 mg/dL (70-110)
[2023-04-04 12:41] LABS: Glucose,Whole Blood 143 mg/dL (70-110)
[2023-04-04] MEDS: THIAMINE 100 MG TAB PO SCH (13:14)
[2023-04-04] MEDS: FOLIC ACID 1 MG TAB PO SCH (13:14)
[2023-04-04] MEDS: MULTIVITAMINS, THERA 1 EACH TAB PO SCH (13:14)
--- NOTE | 2023-04-04 13:59 | P.PN ---
Subjective Progress Note Date: 04/04/23 CHIEF COMPLAINT: Post-thyroidectomy neck seroma HISTORY OF PRESENT ILLNESS: Patient is postop day #1 status post tracheostomy for stridor due to vocal cord paralysis. She is currently in the ICU and on tr ach collar satting at 97%. Patient is postop day #10 status post incision and drainage of postop infected neck seroma. Patient's stridor resolved. She denies shortness of breath. She does have secretions from the tracheostomy site. WBC 10.4 Hgb 11.9 platelets 245 patient is scheduled for a bedside swallow eval PHYSICAL EXAM: VITAL SIGNS: Reviewed. GENERAL: Well-developed in no acute distress. HEENT: Tracheostomy intact. There is serous sanguinous secretions from the trach site ABDOMEN: Soft. Nondistended. Nontender. ASSESSMENT: 1. Stridor due to vocal cord paralysis status post tracheostomy 2. Post-thyroidectomy infected neck seroma status post incision and drainage with Dr. Hahn 3. Chronic Rectal prolapse. Currently reduced. PLAN: -Continue tracheostomy care -Consult case management associate to arrange for home care at discharge -Patient can be discharged from surgical standpoint when cleared by pulmonary service -For the chronic rectal prolapse continue to observe. Currently reduced. Will eventually need surgical correction at a later time -Antibiotics per ID service -DVT prophylaxis subcu heparin Physician Surgical Garment Inspector note has been reviewed by physician. Signing provider agrees with the documented findings, assessment, and plan of care. Objective - Vital Signs Vital signs: Vital Signs Temp 98.6 F 04/04/23 09:00 Pulse 90 04/04/23 13:00 Resp 14 04/04/23 13:00 BP 144/68 04/04/23 13:00 Pulse Ox 97 04/04/23 13:00 FiO2 40 04/04/23 13:00 Intake & Output 04/03/23 04/04/23 04/04/23 18:59 06:59 18:59 Intake Total 300 1600 525 Output Total 360 650 Balance 300 1240 -125 Intake: IV 300 1600 525 0.9 750 525 Output: Urine 350 650 Estimated Blood Loss 10 Other: Voiding Method Diaper Diaper External Catheter External Catheter # Voids 2 0 - Labs CBC & Chem 7: 04/04/23 07:13 04/04/23 07:13 Labs: Abnormal Lab Results - Last 24 Hours (Table) 04/04/23 04/04/23 04/04/23 Range/Units 07:13 07:13 12:21 RBC 3.75 L (3.80-5.40) m/uL Neutrophils # 9.7 H (1.3-7.7) k/uL Lymphocytes # 0.3 L (1.0-4.8) k/uL Sodium 127 L (137-145) mmol/L Chloride 95 L (98-107) mmol/L BUN 5 L (7-17) mg/dL Creatinine 0.46 L (0.52-1.04) mg/dL POC Glucose (mg/dL) 69 L (70-110) mg/dL Calcium 8.0 L (8.4-10.2) mg/dL 04/04/23 Range/Units 12:39 RBC (3.80-5.40) m/uL Neutrophils # (1.3-7.7) k/uL Lymphocytes # (1.0-4.8) k/uL Sodium (137-145) mmol/L Chloride (98-107) mmol/L BUN (7-17) mg/dL Creatinine (0.52-1.04) mg/dL POC Glucose (mg/dL) 143 H (70-110) mg/dL Calcium (8.4-10.2) mg/dL Microbiology - Last 24 Hours (Table) 04/03/23 12:25 Gram Stain - Preliminary Bronchial Washings - Random
[2023-04-04] MEDS: POTASSIUM CHLORIDE 10 MEQ in WATER FOR INJECTION 1 100ML.BAG IVPB SCH ×4 (14:19→18:39)
--- NOTE | 2023-04-04 15:08 | P.PN ---
Subjective Progress Note Date: 04/04/23 Principal diagnosis: Neck abscess Patient is a 72-year-old female with a past medical history taken for COPD multinodular goiter in this patient status post thyroidectomy completed on 03/10/2023 patient subsequently presented back to the hospital on 03/15/2023 with increasing shortness of breath and audible stridor patient was treated with a Decadron , presenting back to the hospital increasing shortness of breath abnormal CT concerning for possible abscess in this patient with status post surgical drainage of infected hematoma. Patient is status post bronchoscopy was noticed to have a narrow airway and is status post tracheostomy completed on 04/03/2023 On today's evaluation that is 04/04/2023 the patient remains to be febrile, patient is breathing comfortably on 40% trach collar, the patient denies chest pain or shortness of breath cough no abdominal pain or diarrhea Objective - Vital Signs Vital signs: Vital Signs Temp 98.6 F 04/04/23 09:00 Pulse 84 04/04/23 12:25 Resp 15 04/04/23 12:00 BP 146/75 04/04/23 12:00 Pulse Ox 99 04/04/23 12:00 FiO2 40 04/04/23 12:00 Intake & Output 04/03/23 04/04/23 04/04/23 18:59 06:59 18:59 Intake Total 300 1600 225 Output Total 360 400 Balance 300 1240 -175 Intake: IV 300 1600 225 0.9 750 225 Output: Urine 350 400 Estimated Blood Loss 10 Other: Voiding Method Diaper Diaper External Catheter External Catheter # Voids 2 0 - Exam GENERAL DESCRIPTION: An elderly female lying in bed in no distress HEENT: Neck incision is dressed RESPIRATORY SYSTEM: Unlabored breathing , decreased breath sounds at bases HEART: S1 S2 regular rate and rhythm , ABDOMEN: Soft , no tenderness EXTREMITIES: No edema feet - Labs CBC & Chem 7: 04/04/23 07:13 04/04/23 07:13 Labs: Abnormal Lab Results - Last 24 Hours (Table) 04/04/23 04/04/23 04/04/23 Range/Units 07:13 07:13 12:21 RBC 3.75 L (3.80-5.40) m/uL Neutrophils # 9.7 H (1.3-7.7) k/uL Lymphocytes # 0.3 L (1.0-4.8) k/uL Sodium 127 L (137-145) mmol/L Chloride 95 L (98-107) mmol/L BUN 5 L (7-17) mg/dL Creatinine 0.46 L (0.52-1.04) mg/dL POC Glucose (mg/dL) 69 L (70-110) mg/dL Calcium 8.0 L (8.4-10.2) mg/dL Microbiology - Last 24 Hours (Table) 04/03/23 12:25 Gram Stain - Preliminary Bronchial Washings - Random Assessment and Plan (1) Infected hematoma following procedure Current Visit: Yes Status: Acute Code(s): [id number] - SNOMED Code(s): 061227893 Plan: 1patient presented to hospital with increasing shortness of breath stridor in this patient who did have a history of thyroidectomy on 03/10/2023 now presenting to the hospital with above symptoms patient did have abnormal CT and is s/p surgical drainage of postop seroma culture has been obtained and will need to cover for both gram-positive as well as gram-negative pathogen, patient also have right lower lobe infiltrate concern for possible aspiration pneumonitis 2-Patient local cultures currently growing Pseudomonas and Enterococcus faecalis, Enterococcus is sensitive to ampicillin 3-patient has shown clinical improvement however she did require tracheostomy because of the narrow airway from vocal cord paralysis antibiotic has been switched to Zosyn as the patient is nothing by mouth and the patient will monitor closely Time with Patient: Less than 30
[2023-04-04] MEDS: PIPERACILLIN-TAZOBACTAM 3.375 GM in SODIUM CHLORIDE 0.9% 100 ML IVPB SCH ×2 (16:48→23:41)
[2023-04-04] MEDS: SODIUM CHLORIDE 0.9% 500 ML 500 ML IV SCH (16:48)
[2023-04-04] MEDS: methylPREDNISolone SOD SUCCI 40 MG/ML 1 ML VIAL IV SCH ×2 (16:51→23:42)
[2023-04-04 16:57] LABS: Glucose,Whole Blood 90 mg/dL (70-110)
[2023-04-04 20:03] LABS: Glucose,Whole Blood 246 mg/dL (70-110)
[2023-04-05] MEDS: methylPREDNISolone 4 MG TAB TAPER PO SCH (00:35)
[2023-04-05] MEDS: CIPROFLOXACIN HCL 500 MG TAB PO SCH (00:35)
[2023-04-05] MEDS: AMOXIC-POT CLAV 875-125MG 1 EACH TAB PO SCH (00:35)
[2023-04-05] MEDS: LEVOTHYROXINE 100 MCG TAB PO SCH (05:57)
[2023-04-05] MEDS: LACTATED RINGERS 1,000 ML IV SCH (06:04)
[2023-04-05 06:10] LABS: Glucose,Whole Blood 159 mg/dL (70-110)
[2023-04-05 07:06] LABS: Basophils % (A) 0 %; Eosinophils % (A) 0 %; HCT 31.8 % (34.0-46.0); HGB 10.8 gm/dL (11.4-16.0); Lymphocytes # (A) 0.2 k/uL (1.0-4.8); Lymphocytes % (A) 2 %; MCH 32.4 pg (25.0-35.0); MCHC 33.9 g/dL (31.0-37.0); MCV 95.6 fL (80.0-100.0); Mean Platelet Volume 6.7; Monocytes # (A) 0.1 k/uL (0-1.0); Monocytes % (A) 2 %; Neutrophils # (A) 7.2 k/uL (1.3-7.7); Neutrophils % (A) 96 %; Platelet Count 210 k/uL (150-450); RBC 3.32 m/uL (3.80-5.40); RDW 13.3 % (11.5-15.5); WBC 7.5 k/uL (3.8-10.6)
[2023-04-05 07:18] LABS: ALT 35 U/L (4-34); AST 22 U/L (14-36); African American GFR (CKD) >90 (>60 ml/min/1.73 sqM); Alkaline Phosphatase 63 U/L (38-126); Anion Gap 7 mmol/L; Blood Urea Nitrogen 6 mg/dL (7-17); Calcium 8.5 mg/dL (8.4-10.2); Carbon Dioxide 22 mmol/L (22-30); Chloride 95 mmol/L (98-107); Glucose 157 mg/dL (74-99); Non-African American GFR(CKD) >90 (>60 ml/min/1.73 sqM); Potassium 4.1 mmol/L (3.5-5.1); Sodium 124 mmol/L (137-145); Total Bilirubin 0.7 mg/dL (0.2-1.3); Total Protein 5.5 g/dL (6.3-8.2)
[2023-04-05] MEDS: PANTOPRAZOLE 40 MG/10 ML VIAL IV SCH (08:02)
[2023-04-05] MEDS: methylPREDNISolone SOD SUCCI 40 MG/ML 1 ML VIAL IV SCH ×2 (08:02→17:18)
[2023-04-05] MEDS: THIAMINE 100 MG TAB PO SCH (08:03)
[2023-04-05] MEDS: HEPARIN SODIUM,PORCINE/PF 5,000 UNIT/0.5 ML SYRINGE SQ SCH ×2 (08:03→21:44)
[2023-04-05] MEDS: FOLIC ACID 1 MG TAB PO SCH (08:03)
[2023-04-05] MEDS: PIPERACILLIN-TAZOBACTAM 3.375 GM in SODIUM CHLORIDE 0.9% 100 ML IVPB SCH ×2 (08:03→17:18)
[2023-04-05] MEDS: MULTIVITAMINS, THERA 1 EACH TAB PO SCH (08:03)
[2023-04-05] MEDS: INSULIN ASPART (NovoLOG) 100 UNIT/ML VIAL SQ SCH ×4 (08:20→21:43)
[2023-04-05] MEDS: IPRATROPIUM-ALBUTEROL 3 ML NEB INHALATION SCH ×4 (08:45→20:58)
[2023-04-05] MEDS: ALPRAZolam 0.25 MG TAB PO PRN (08:56)
--- NOTE | 2023-04-05 09:46 | P.PN ---
Subjective Progress Note Date: 04/05/23 This is a 72-year-old female who presented to the ER with concerns of increased neck swelling. Patient recently underwent thyroidectomy and developed some stridor edema postoperatively but was treated with IV steroids DC'd home. 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 Patient apparently developed increased shortness of breath stridor and neck swelling and presented to ER for further evaluation. Patient had CT completed showing fluid within the surgical bed circumferentially and some thickening. Also concerns of possible aspiration pneumonia. Patient also found to be hyponatremic with sodium at 123. Pulmonary and surgical services were consulted along with infectious disease services. Patient started on IV antibiotics. Patient was to OR for evacuation of surgical site seroma. Patient was mechanically ventilated for airway precautions postoperatively and sent to the ICU for recovery. On 03/26/2023 I am resuming care of patient Dr. Larson covering previously Patient remains in the intensive care unit currently on CPAP with tentative plans for extubation today. Patient remains on IV daptomycin and Zosyn. Infectious disease, surgical services and pulmonary services following. Sodium level improving at 128. Current vital signs temp 97.5, heart rate 67, respiratory rate 24, blood pressure 115/72 pulse ox 99% on mechanical ventilation with an FiO2 of 50%. Patient currently on sedation holiday following commands. On 03/27/2023 patient was seen and examined in the ICU she is alert responsive in no apparent distress there is no fever or chills no headache or dizziness no chest pain no shortness of breath no cough no nausea or vomiting no abdominal pain no diarrhea and no urinary symptoms temperature is 98.2 pulse 88 respiration 16 blood pressure 131/75 pulse ox 91% on room air white blood count 10.4 hemoglobin 9.9 platelet count 367 input from pulmonary general surgery and ENT reviewed On 03/28/2023 patient remains in the intensive care alert responsive 3. Patient remains with focal cord paralysis patient was evaluated by ENT and rec ommendations for follow-up outpatient with specialist for vocal cord paralysis. Patient under close monitoring for possible stridor. Current vital signs temp 98.2, heart rate 89, respiratory rate 18, blood pressure 135/76 with a pulse ox 92%. On 03/29/2023 patient was seen and examined on the medical floor she is alert and oriented 3 in no apparent distress she is still complaining of hoarseness in her voice and difficulty swallowing otherwise no complaints there is no fever or chills no headache or dizziness no chest pain no shortness of breath no cough no nausea or vomiting no abdominal pain no diarrhea and no urinary symptoms On 03/30/2023 patient alert and oriented 3. Patient still having some hoarseness and mild stridor. Denies any further episodes of shortness breath. Has been tolerating diet. IV steroids have been decreased. We'll continue to monitor patient. Current vital signs temp 98.7, heart rate 92, respiratory rate 18, blood pressure 152/71 pulse ox 96% on 2 L On 03/31/2023 patient is alert and oriented 3 in no apparent distress she is still complaining of hoarseness in her voice and stridor with her breathing otherwise she denies any complaints there is no fever or chills no headache or dizziness no chest pain no palpitation no cough no nausea or vomiting no abdominal pain no diarrhea and no urinary symptoms she remains on IV Zosyn and on oral steroids awaiting further recommendation from pulmonary ENT and infectious disease On 04/02/2023 patient is more alert today. Patient's daughter at bedside. Patient apparently was able to take pills with applesauce this AM. Currently on nasal cannula. Plans for hemodialysis today On 04/03/2023 patient was seen and examined on the medical floor she is alert and oriented 3 in no apparent distress she is scheduled for bronchoscopy with Dr. Moya today, will continue to follow closely On 04/04/2023 patient is alert and oriented 3. Patient underwent bronchoscopy which was found the patient did have airway compromise with excessive respiratory secretions both an upper and lower airways along with bilateral vocal cord paralysis. Patient then underwent tracheostomy for airway precautions. She is currently resting in the intensive care unit currently on trach collar. Current vital signs temp 98.6, heart rate 82, respiratory rate 17, blood pressure 126/71 pulse ox 97% collar On 04/05/2023 patient was seen and examined on the medical floor she is alert and oriented 3 in no apparent distress, she is complaining of cough, tracheostomy in place there is no fever or chills no headache or dizziness no chest pain no nausea or vomiting no abdominal pain no diarrhea no blood in the stools no burning with urination no frequency or urgency no hematuria. At this time will add physical therapy and occupational therapy will recheck labs in a.m. Will continue to follow closely Objective - Vital Signs Vital signs: Vital Signs Temp 98.2 F 04/05/23 08:00 Pulse 71 04/05/23 08:00 Resp 18 04/05/23 08:00 BP 103/61 04/05/23 08:00 Pulse Ox 98 04/05/23 08:00 FiO2 35 04/04/23 21:11 Intake & Output 04/04/23 04/05/23 04/05/23 18:59 06:59 18:59 Intake Total 1100 605 Output Total 900 Balance 200 605 Intake: IV 600 250 0.9 600 250 Intake, IV Titration 500 175 Amount Piperacillin-Tazobactam 3 100 100 .375 gm In Sodium Chloride 0.9% 100 ml @ 25 mls/hr IVPB Q8HR [facility] Rx# :[id number] Potassium Chloride 10 meq 400 In Water For Injection 1 100ml.bag @ 100 mls/hr IVPB Q1HR [facility] Rx#: [id number] Sodium Chloride 0.9% 1, 75 000 ml @ 75 mls/hr IV . [id number] [facility] Rx#:[id number] Oral 180 Output: Urine 900 Other: Voiding Method External Catheter External Catheter # Voids 1 - Exam Head normocephalic Neck dressing clean dry and intact js drain in place Lungs clear to auscultation bilaterally no wheezing or crackles Heart regular rate and rhythm S1-S2, no rub or gallop Abdomen is soft nontender nondistended positive bowel sounds no hepatosplenomegaly Extremities no edema Neuro alert and orientated to 3 - Labs CBC & Chem 7: 04/05/23 06:36 04/05/23 06:36 Labs: Abnormal Lab Results - Last 24 Hours (Table) 04/04/23 04/04/23 04/04/23 Range/Units 12:21 12:39 20:02 RBC (3.80-5.40) m/uL Hgb (11.4-16.0) gm/dL Hct (34.0-46.0) % Lymphocytes # (1.0-4.8) k/uL Sodium (137-145) mmol/L Chloride (98-107) mmol/L BUN (7-17) mg/dL Creatinine (0.52-1.04) mg/dL Glucose (74-99) mg/dL POC Glucose (mg/dL) 69 L 143 H 246 H (70-110) mg/dL ALT (4-34) U/L Total Protein (6.3-8.2) g/dL Albumin (3.5-5.0) g/dL 04/05/23 04/05/23 04/05/23 Range/Units 06:08 06:36 06:36 RBC 3.32 L (3.80-5.40) m/uL Hgb 10.8 L (11.4-16.0) gm/dL Hct 31.8 L (34.0-46.0) % Lymphocytes # 0.2 L (1.0-4.8) k/uL Sodium 124 L (137-145) mmol/L Chloride 95 L (98-107) mmol/L BUN 6 L (7-17) mg/dL Creatinine 0.51 L (0.52-1.04) mg/dL Glucose 157 H (74-99) mg/dL POC Glucose (mg/dL) 159 H (70-110) mg/dL ALT 35 H (4-34) U/L Total Protein 5.5 L (6.3-8.2) g/dL Albumin 3.0 L (3.5-5.0) g/dL Microbiology - Last 24 Hours (Table) 04/03/23 12:25 Gram Stain - Preliminary Bronchial Washings - Random Assessment and Plan Assessment: 1. Acute stridor secondary to soft tissue edema and swelling around incision from previous thyroidectomy on 03/10/2023. Status post surgical incision and drainage on 03/25/2023 2. Suspected aspiration pneumonia 3. Thyroidectomy on 03/10/2023 with stridor postoperatively improved with Decadron and discharged on 03/17/2023. 4. History of COPD 5. History of osteoarthritis 6. History of nicotine dependence 7. Hyponatremia. Improving 8. Vocal Cord paralysis. Patient was evaluated by ENT Patient currently admitted to the intensive care unit Infectious disease, surgical and pulmonary service is following Patient remains on IV antibiotics Repeat labs ordered
[2023-04-05 12:04] LABS: Glucose,Whole Blood 221 mg/dL (70-110)
--- NOTE | 2023-04-05 12:20 | P.PN ---
Subjective Progress Note Date: 04/05/23 This is a very pleasant 72-year-old female patient with a known history of chronic obstructive pulmonary disease, chronic and ongoing tobacco dependence. She was noted to have a multinodular goiter and had undergone thyroidectomy on 03/10/2023 and discharged home. She returned to the emergency room on 03/15/2023 with increasing shortness of breath and audible stridor. She had been treated with Decadron and an ENT consult was placed. She is discharged home on 03/17/2023 with Decadron. She came back to the emergency room last evening after her surgical site developed significant edema and swelling and she again developed stridor. Computed tomography scan of the neck revealed status post thyroidectomy. Fluid within the surgical bed circumferentially around the lower neck airway measuring up to 2.6 cm in thickness anteriorly, 2.3 cm in thickness laterally to the left and 2.3 cm in thickness laterally to the right. Chest x-ray reveals a right lower lobe infiltrate. White count 28.1. He moglobin 13.0. Platelets 444. Sodium 124. Potassium 4.3. Bicarb 22. BUN 14. Creatinine 0.48. Glucose 155. Pro-calcitonin 0.17. He's been initiated on IV Decadron 4 mg every 4 hours. Antibiotics in the form of cefazolin and Zosyn. DuoNeb inhalations. Heparin for DVT prophylaxis. The patient is seen today 03/26/2023 in follow-up in the intensive care unit. Last evening she did undergo incision and drainage of a postoperative infected neck seroma. She returned to the ICU and intubated on mechanical ventilator. Current settings are assist-control mode at a rate of 24, tidal volume 325, FiO2 50% and a PEEP of 5. Morning blood gases reveal a P O2 of 107, pCO2 46, pH 7.39. She is receiving lactated Ringer's 130 ML's per hour. Sedated with propofol at 50 mcg/kg/m. She required Nimbex at 2 pg/kg/m. She is on antibiotics in the form of daptomycin and Zosyn. Cultures are pending. White count 14.1. Hemoglobin 10.1. Platelets 241. Sodium 128. Potassium 3.6. Bicarb 21. BUN 11. Creatinine 0.43. Glucose 119. He remains on Decadron 4 mg IVP every 4 hours. Remains on bronchodilators. She did develop a prolapsed rectum with forceful coughing. The patient is seen today 03/27/2023 in follow-up in the intensive care unit. She is currently sitting up in bed. Awake and alert in no acute distress. Maintaining good O2 saturations in the 90s on 2 L/m per nasal cannula. She's been afebrile. Hemodynamically stable. She still has some hoarseness and very mild stridor. She had been seen by ENT yesterday and a flexible nasopharyngeal laryngoscope was passed and she was found to have bilateral vocal cord paralysis noted at both vocal cords were fixed in the median position but posteriorly has adequate airway. No significant stridor. Recent anterior not dry and intact. Cultures are pending. White count 10.4. Hemoglobin 9.9. Platelets 367. Sodium 126. Potassium 3.6. Bicarb 25. BUN 12. Creatinine 0.61. Glucose 133. She remains on Decadron, bronchodilators. Antibiotics in the form of Zosyn and daptomycin. The patient is seen today 03/28/2023 in follow-up in the intensive care unit. She is sitting up in bed. Awake and alert in no acute distress. She still has some very mild stridor. Still with a very soft voice. She is swallowing well. Anterior neck incision is clean dry well approximated. Cultures were positive for gram-negative bacilli and group D enterococcus. She remains on daptomycin and Zosyn. She is on 2 L nasal cannula. Lactated Ringer's at 20 ML's per hour. She is continued on DuoNeb inhalations, Decadron. Heparin for DVT prophylaxis. White count 7.5. Hemoglobin 11.0. Platelets 368. Sodium 127. Potassium 3.5. BUN 12. Creatinine 0.61. Glucose 122. The patient is seen today 03/29/2023 in follow-up on the regular medical floor. She is sitting up in bed. Awake and alert in no acute distress. Maintaining good O2 saturations in the 90s on 2 L/m per nasal cannula. She has some very mild stridor left greater than right. Her incision is clean dry well approximated. Drain remains in place. Dressing dry and intact. Continued on Decadron 4 mg every 4 hours remains on antibiotics in the form of Zosyn and daptomycin. Continued on bronchodilators. Heparin for DVT prophylaxis. The patient is seen today 04/09/2023 in follow-up on the regular medical floor. She remains awake and alert in no acute distress. Sitting up having breakfast. No difficulties in swallowing. No worsening shortness of breath, cough or congestion. No worsening stridor. Maintaining O2 saturations in the mid 90s on 2 L/m per nasal cannula. Afebrile. Neck incision remains clean dry well approximated. Drain remains in place. She is continued on Zosyn. Wound cultures were positive for Pseudomonas and enterococcus. Glucose 109. She is continued on DuoNeb inhalations. Decadron. Heparin for DVT prophylaxis. On today's evaluation of 03/31/2023 the patient continues to have difficulties with hoarseness and some occasional stridor. The patient underwent an ENT evaluation and the patient was found to have bilateral vocal cord paralysis. Nevertheless, the patient was told to have adequate airway patency. She is currently on room air oxygen. Surgical wound has been drained and the patient remains on IV Zosyn and the wound cultures positive for Pseudomonas and enterococcus. No active drainage. The patient remains on Medrol. The patient is also on bronchodilators. The labs from today shows a WBC count of 8.9 with a hemoglobin of 11 and a platelet count of 334. Sodiums of 133, potassium is at 3.1, bicarb is at 27, BUN is at 30 with a creatinine of 0.7. LFTs are normal. On today's evaluation of 04/01/2023, the patient continues to have stridor. The drain has been removed. The swelling in her neck is improved. She remains on IV Zosyn. The patient is also on methylprednisolone 20 mg by mouth and this is part of a burst taper as the patient is taking a Medrol Dosepak. She is not having any major stressor distress at rest. Nevertheless, she has audible stridor. Her voice is extremely muffled. The echoes at 7.3 with a hemoglobin of 11 and the BUN is at 9.7 with a creatinine of 0.6 and a sodium level is at 131. The wound cultures have grown Pseudomonas and Enterococcus mildred calis. On 04/02/2023, the patient continues to have stridor. She is anxious and on and off she is also having some issues with congestion and sputum production. No other the patient was a smoker and she has not smoked recently. She remains on a Medrol Dosepak. She is also on DuoNeb nebulized treatments [id number]. She is on Augmentin. No significant swelling in her neck area. Nevertheless, she is quite anxious and the audible stridor is obviously a concern. I discussed the case with general surgery. We are considering to repeat and airway inspection. I prefer to do a bronchoscopy, suction and it is or secretions if needed and reevaluate the patency upper airway. On today's evaluation of 04/03/2023, the patient is slightly improved compared to yesterday. Nevertheless, she continues to be stridorous. Based on that, I performed a bronchoscopy on this patient and upper airway inspection was done and it showed significant pooling of respiratory secretions and upper airway. These were suctioned out. Examination of the vocal cords showed that the vocal cords were essentially paralyzed and there was essentially no mobility. I felt that the airway was inadequate and I also talked to the general surgeon regarding the possibility of doing a tracheostomy tube. Note that the lower airways including the trachea in the bilateral mainstem bronchi and the various segments on the right and the left were patent and there was copious amount of rest or secretions pouring within the airways. I performed surgical with suctioning. The patient tolerated the procedure well. However, she is to limit a significant degree of respiratory compromise and the patient would benefit from a tracheostomy tube and this message was shared with the general surgeon. She remains on a combination of Augmentin and ciprofloxacin. She remains anxious. On 04/04/2023, the patient is post tracheostomy tube insertion. The patient underwent her surgery yesterday and the patient was given an 8.5 Shiley tracheostomy tube. The patient is doing well for now. She is on 40% Ventimask. She is coming comfortable. She continues to bring up copious amounts of rest or secretions and I already cultures both secretions and that is also still pending for now. She remains nothing by mouth. A bedside swallow evaluation will be done. This is a nonfenestrated cuffed tracheostomy tube. Otherwise, no other significant issues. Sodium is at 127, potassium levels at 3.5, BUN is at 5 the creatinine is 0.4. The [place] 10.4 with a hemoglobin of 11.9. The patient is currently on DuoNeb nebulized treatments [id number]. She is on Augmentin. She is on Medrol Dosepak which is completing. She is also on ciprofloxacin. 04/05/2023, the patient is still having some of respiratory secretions from her tracheostomy tube and she is able to clear up respiratory secretions. The pa tietobias is a #8.5 [address] tracheostomy tube in place. She is breathing comfortably and her appetite has been weaned down to 35%. The sputum sample that was cultures are still negative. The echoes at 7.5 with a hemoglobin of 7.8. Sodium level is up to 124. BUN is at 6 with a creatinine of 0.5. No other new complaints otherwise for now. She is quite comfortable and the patient was transferred out of the intensive care unit yesterday. She is currently on bronchodilators with DuoNeb nebulized treatments [id number] and she is also on IV Solu-Medrol 20 mg every 8 hours. She remains on IV Zosyn. Objective - Vital Signs Vital signs: Vital Signs Temp 98.2 F 04/05/23 08:00 Pulse 84 04/05/23 08:49 Resp 18 04/05/23 08:00 BP 103/61 04/05/23 08:00 Pulse Ox 99 04/05/23 08:49 FiO2 28 04/05/23 08:49 Intake & Output 04/04/23 04/05/23 04/05/23 18:59 06:59 18:59 Intake Total 1100 605 Output Total 900 Balance 200 605 Intake: IV 600 250 0.9 600 250 Intake, IV Titration 500 175 Amount Piperacillin-Tazobactam 3 100 100 .375 gm In Sodium Chloride 0.9% 100 ml @ 25 mls/hr IVPB Q8HR [facility] Rx# :[id number] Potassium Chloride 10 meq 400 In Water For Injection 1 100ml.bag @ 100 mls/hr IVPB Q1HR [facility] Rx#: [id number] Sodium Chloride 0.9% 1, 75 000 ml @ 75 mls/hr IV . [id number] [facility] Rx#:[id number] Oral 180 Output: Urine 900 Other: Voiding Method External Catheter External Catheter Bedside Commode # Voids 1 - Exam GENERAL EXAM: Alert, pleasant 72-year-old female, sitting up in bed, patient has a tracheostomy tube in place and the patient has a #8 Shiley tracheostomy tube. The patient is on a 28% trach collar HEAD: Normocephalic. EYES: Normal reaction of pupils, equal size. NOSE: Clear with pink turbinates. THROAT: No erythema or ulcers NECK: Anterior neck dressing dry and intact. Drain remains in place, no active drainage at this point in time CHEST: No chest wall deformity. LUNGS: Equal air entry with no crackles, wheeze, rhonchi or dullness. CVS: S1 and S2 normal with no audible murmur, regular rhythm. ABDOMEN: No hepatosplenomegaly, normal bowel sounds, no guarding or rigidity. SPINE: No scoliosis or deformity SKIN: No rashes CENTRAL NERVOUS SYSTEM: No focal deficits, tone is normal in all 4 extremities. EXTREMITIES: There is no peripheral edema. No clubbing, no cyanosis. Peripheral pulses are intact. - Labs CBC & Chem 7: 04/05/23 06:36 04/05/23 06:36 Labs: Abnormal Lab Results - Last 24 Hours (Table) 04/04/23 04/04/23 04/04/23 Range/Units 12:21 12:39 20:02 RBC (3.80-5.40) m/uL Hgb (11.4-16.0) gm/dL Hct (34.0-46.0) % Lymphocytes # (1.0-4.8) k/uL Sodium (137-145) mmol/L Chloride (98-107) mmol/L BUN (7-17) mg/dL Creatinine (0.52-1.04) mg/dL Glucose (74-99) mg/dL POC Glucose (mg/dL) 69 L 143 H 246 H (70-110) mg/dL ALT (4-34) U/L Total Protein (6.3-8.2) g/dL Albumin (3.5-5.0) g/dL 04/05/23 04/05/23 04/05/23 Range/Units 06:08 06:36 06:36 RBC 3.32 L (3.80-5.40) m/uL Hgb 10.8 L (11.4-16.0) gm/dL Hct 31.8 L (34.0-46.0) % Lymphocytes # 0.2 L (1.0-4.8) k/uL Sodium 124 L (137-145) mmol/L Chloride 95 L (98-107) mmol/L BUN 6 L (7-17) mg/dL Creatinine 0.51 L (0.52-1.04) mg/dL Glucose 157 H (74-99) mg/dL POC Glucose (mg/dL) 159 H (70-110) mg/dL ALT 35 H (4-34) U/L Total Protein 5.5 L (6.3-8.2) g/dL Albumin 3.0 L (3.5-5.0) g/dL Microbiology - Last 24 Hours (Table) 04/03/23 12:25 Gram Stain - Preliminary Bronchial Washings - Random Assessment and Plan Plan: Acute stridor secondary to soft tissue edema and swelling around the incision from previous thyroidectomy on 03/10/2023. Status post incision and drainage on 03/25/2023 of the postoperative neck seroma. Drain in place. Cultures positive for Pseudomonas fluorescens/putida and enterococcus faecalis. Extubated on 03/26/2023. On 03/26/2023 the patient did undergo flexible nasopharyngeal laryngoscope and was noted to have vocal cord paralysis of both vocal cords and fixated in the median position but posteriorly had adequate airway. Started is still present. I performed a bronchoscopy today. There was significant pooling of rest or secretions Doppler lower airways. The vocal cords were found to be paralyzed. In my assessment, the airways and the adequate probably in the order of 6-8 mm, a slit opening in the midline in between the cords. The vocal cord mobility was essentially absent. Based on that, the patient was given a tracheostomy tube and currently the patient has a #8.5 Shiley, nonfenestrated, cuffed Acute hypoxemic respiratory failure secondary to above , currently improved and currently she is on a 28% trach collar Copious respiratory secretions, rule out underlying tracheal bronchitis. Cu ltures are negative. Recent admission for stridor on 03/14/2023, improved with Decadron and dischar ged on 03/17/2023 History of multinodular goiter status post total thyroidectomy on 03/10/2023 Hyponatremia, improved History of rectal prolapse Chronic and ongoing tobacco dependence Chronic obstructive pulmonary disease Osteoarthritis Plan: The patient has been weaned down to 28% trach collar Tracheostomy care Frequent suctioning Patient is doing adequate pulmonary toileting Swallow evaluation Continue antibiotics and the patient is currently on IV Zosyn Continue Solu-Medrol We'll follow
[2023-04-05 16:35] LABS: Glucose,Whole Blood 192 mg/dL (70-110)
--- NOTE | 2023-04-05 16:37 | P.PN ---
Subjective Progress Note Date: 04/05/23 CHIEF COMPLAINT: Complications from thyroidectomy HISTORY OF PRESENT ILLNESS: The patient is a 72-year-old female who presented with stridor after complications from thyroidectomy. She is status post tr acheostomy. She reports feeling better. She in on a trach collar. She communicates via a writing pad REVIEW OF ORGAN SYSTEMS: CONSTITUTIONAL: No reports of fevers or chills. GI: Denies any blood in stools or constipation. PHYSICAL EXAM: VITAL SIGNS: Stable GENERAL: Well-developed pleasant and in no acute distress. HEENT: No scleral icterus. Extraocular movements grossly intact. Moist buccal mucosa. Trach clean dry and intact NECK: Supple without lymphadenopathy. CHEST: Unlabored respirations. Equal bilateral excursions. CARDIOVASCULAR: Regular rate and rhythm. Distal 2+ pulses. ABDOMEN: Soft, diffuse abdominal tenderness. No peritonitis. MUSCULOSKELETAL: No clubbing, cyanosis, or edema. SKIN: Well perfused ASSESSMENT: 1. Stridor 2. Complications from thyroidectomy 3. Status post tracheostomy PLAN: 1. Patient seen by pulmonary with continued solu-medrol 2. Discharge pending clearance from pulmonary 3. Stable from surgical standpoint for discharge. Objective - Vital Signs Vital signs: Vital Signs Temp 98.0 F 04/05/23 13:49 Pulse 87 04/05/23 16:14 Resp 18 04/05/23 13:49 BP 111/65 04/05/23 13:49 Pulse Ox 100 04/05/23 13:49 FiO2 28 04/05/23 08:49 Intake & Output 04/04/23 04/05/23 04/05/23 18:59 06:59 18:59 Intake Total 1100 605 Output Total 900 Balance 200 605 Intake: IV 600 250 0.9 600 250 Intake, IV Titration 500 175 Amount Piperacillin-Tazobactam 3 100 100 .375 gm In Sodium Chloride 0.9% 100 ml @ 25 mls/hr IVPB Q8HR [facility] Rx# :[id number] Potassium Chloride 10 meq 400 In Water For Injection 1 100ml.bag @ 100 mls/hr IVPB Q1HR [facility] Rx#: [id number] Sodium Chloride 0.9% 1, 75 000 ml @ 75 mls/hr IV . [id number] [facility] Rx#:[id number] Oral 180 Output: Urine 900 Other: Voiding Method External Catheter External Catheter Bedside Commode # Voids 1 - Labs CBC & Chem 7: 04/05/23 06:36 04/05/23 06:36 Labs: Abnormal Lab Results - Last 24 Hours (Table) 04/04/23 04/05/23 04/05/23 Range/Units 20:02 06:08 06:36 RBC 3.32 L (3.80-5.40) m/uL Hgb 10.8 L (11.4-16.0) gm/dL Hct 31.8 L (34.0-46.0) % Lymphocytes # 0.2 L (1.0-4.8) k/uL Sodium (137-145) mmol/L Chloride (98-107) mmol/L BUN (7-17) mg/dL Creatinine (0.52-1.04) mg/dL Glucose (74-99) mg/dL POC Glucose (mg/dL) 246 H 159 H (70-110) mg/dL ALT (4-34) U/L Total Protein (6.3-8.2) g/dL Albumin (3.5-5.0) g/dL 04/05/23 04/05/23 Range/Units 06:36 12:02 RBC (3.80-5.40) m/uL Hgb (11.4-16.0) gm/dL Hct (34.0-46.0) % Lymphocytes # (1.0-4.8) k/uL Sodium 124 L (137-145) mmol/L Chloride 95 L (98-107) mmol/L BUN 6 L (7-17) mg/dL Creatinine 0.51 L (0.52-1.04) mg/dL Glucose 157 H (74-99) mg/dL POC Glucose (mg/dL) 221 H (70-110) mg/dL ALT 35 H (4-34) U/L Total Protein 5.5 L (6.3-8.2) g/dL Albumin 3.0 L (3.5-5.0) g/dL Microbiology - Last 24 Hours (Table) 04/03/23 12:25 Gram Stain - Final Bronchial Washings - Random Bronchial Washings Culture - Final
[2023-04-05] MEDS: SODIUM CHLORIDE 0.9% 500 ML 500 ML IV SCH (17:16)
[2023-04-05 20:41] LABS: Glucose,Whole Blood 199 mg/dL (70-110)
[2023-04-05] MEDS: ACETAMINOPHEN TAB 325 MG TAB PO PRN (21:43)
[2023-04-05] MEDS: SODIUM CHLORIDE 0.9% 1,000 ML IV SCH (21:47)
[2023-04-06] MEDS: methylPREDNISolone SOD SUCCI 40 MG/ML 1 ML VIAL IV SCH ×3 (01:09→16:47)
[2023-04-06] MEDS: PIPERACILLIN-TAZOBACTAM 3.375 GM in SODIUM CHLORIDE 0.9% 100 ML IVPB SCH ×3 (01:11→16:47)
[2023-04-06] MEDS: ALPRAZolam 0.25 MG TAB PO PRN (01:22)
[2023-04-06 06:16] LABS: Glucose,Whole Blood 143 mg/dL (70-110)
[2023-04-06] MEDS: INSULIN ASPART (NovoLOG) 100 UNIT/ML VIAL SQ SCH ×4 (06:43→21:46)
[2023-04-06] MEDS: LACTATED RINGERS 1,000 ML IV SCH (06:48)
[2023-04-06] MEDS: LEVOTHYROXINE 100 MCG TAB PO SCH (06:48)
[2023-04-06] MEDS: IPRATROPIUM-ALBUTEROL 3 ML NEB INHALATION SCH ×4 (08:11→20:57)
[2023-04-06] MEDS: THIAMINE 100 MG TAB PO SCH (09:22)
[2023-04-06] MEDS: PANTOPRAZOLE 40 MG/10 ML VIAL IV SCH (09:22)
[2023-04-06] MEDS: MULTIVITAMINS, THERA 1 EACH TAB PO SCH (09:22)
[2023-04-06] MEDS: FOLIC ACID 1 MG TAB PO SCH (09:22)
[2023-04-06] MEDS: HEPARIN SODIUM,PORCINE/PF 5,000 UNIT/0.5 ML SYRINGE SQ SCH ×2 (09:22→21:45)
[2023-04-06 10:01] LABS: Basophils # (A) 0.01 X 10*3/uL (0.00-0.10); Basophils % (A) 0.1 %; Eosinophils # (A) 0 X 10*3/uL (0.04-0.35); Eosinophils % (A) 0 %; HCT 29.3 % (37.2-46.3); HGB 10.1 d/dL (12.0-15.0); Lymphocytes # (A) 0.16 X 10*3/uL (0.90-5.00); Lymphocytes % (A) 1.8 %; MCH 32.6 pg (27.0-32.0); MCHC 34.5 d/dL (32.0-37.0); MCV 94.5 FL (80.0-97.0); Monocytes # (A) 0.17 X 10*3/uL (0.20-1.00); Monocytes % (A) 1.9 %; NRBC Per 100 WBC 0 X 10*3/uL (0.00-0.01); Neutrophils # (A) 8.45 X 10*3/uL (1.80-7.70); Neutrophils % (A) 95.9 %; Platelet Count 230 X 10*3/uL (140-440); RDW 13.3 % (11.5-14.5); WBC 8.82 X 10*3/uL (4.50-10.00)
--- NOTE | 2023-04-06 10:13 | P.PN ---
Subjective Progress Note Date: 04/06/23 This is a 72-year-old female who presented to the ER with concerns of increased neck swelling. Patient recently underwent thyroidectomy and developed some stridor edema postoperatively but was treated with IV steroids DC'd home. 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 Patient apparently developed increased shortness of breath stridor and neck swelling and presented to ER for further evaluation. Patient had CT completed showing fluid within the surgical bed circumferentially and some thickening. Also concerns of possible aspiration pneumonia. Patient also found to be hyponatremic with sodium at 123. Pulmonary and surgical services were consulted along with infectious disease services. Patient started on IV antibiotics. Patient was to OR for evacuation of surgical site seroma. Patient was mechanically ventilated for airway precautions postoperatively and sent to the ICU for recovery. On 03/26/2023 I am resuming care of patient Dr. Larson covering previously Patient remains in the intensive care unit currently on CPAP with tentative plans for extubation today. Patient remains on IV daptomycin and Zosyn. Infectious disease, surgical services and pulmonary services following. Sodium level improving at 128. Current vital signs temp 97.5, heart rate 67, respiratory rate 24, blood pressure 115/72 pulse ox 99% on mechanical ventilation with an FiO2 of 50%. Patient currently on sedation holiday following commands. On 03/27/2023 patient was seen and examined in the ICU she is alert responsive in no apparent distress there is no fever or chills no headache or dizziness no chest pain no shortness of breath no cough no nausea or vomiting no abdominal pain no diarrhea and no urinary symptoms temperature is 98.2 pulse 88 respiration 16 blood pressure 131/75 pulse ox 91% on room air white blood count 10.4 hemoglobin 9.9 platelet count 367 input from pulmonary general surgery and ENT reviewed On 03/28/2023 patient remains in the intensive care alert responsive 3. Patient remains with focal cord paralysis patient was evaluated by ENT and rec ommendations for follow-up outpatient with specialist for vocal cord paralysis. Patient under close monitoring for possible stridor. Current vital signs temp 98.2, heart rate 89, respiratory rate 18, blood pressure 135/76 with a pulse ox 92%. On 03/29/2023 patient was seen and examined on the medical floor she is alert and oriented 3 in no apparent distress she is still complaining of hoarseness in her voice and difficulty swallowing otherwise no complaints there is no fever or chills no headache or dizziness no chest pain no shortness of breath no cough no nausea or vomiting no abdominal pain no diarrhea and no urinary symptoms On 03/30/2023 patient alert and oriented 3. Patient still having some hoarseness and mild stridor. Denies any further episodes of shortness breath. Has been tolerating diet. IV steroids have been decreased. We'll continue to monitor patient. Current vital signs temp 98.7, heart rate 92, respiratory rate 18, blood pressure 152/71 pulse ox 96% on 2 L On 03/31/2023 patient is alert and oriented 3 in no apparent distress she is still complaining of hoarseness in her voice and stridor with her breathing otherwise she denies any complaints there is no fever or chills no headache or dizziness no chest pain no palpitation no cough no nausea or vomiting no abdominal pain no diarrhea and no urinary symptoms she remains on IV Zosyn and on oral steroids awaiting further recommendation from pulmonary ENT and infectious disease On 04/02/2023 patient is more alert today. Patient's daughter at bedside. Patient apparently was able to take pills with applesauce this AM. Currently on nasal cannula. Plans for hemodialysis today On 04/03/2023 patient was seen and examined on the medical floor she is alert and oriented 3 in no apparent distress she is scheduled for bronchoscopy with Dr. Moya today, will continue to follow closely On 04/04/2023 patient is alert and oriented 3. Patient underwent bronchoscopy which was found the patient did have airway compromise with excessive respiratory secretions both an upper and lower airways along with bilateral vocal cord paralysis. Patient then underwent tracheostomy for airway precautions. She is currently resting in the intensive care unit currently on trach collar. Current vital signs temp 98.6, heart rate 82, respiratory rate 17, blood pressure 126/71 pulse ox 97% collar On 04/05/2023 patient was seen and examined on the medical floor she is alert and oriented 3 in no apparent distress, she is complaining of cough, tracheostomy in place there is no fever or chills no headache or dizziness no chest pain no nausea or vomiting no abdominal pain no diarrhea no blood in the stools no burning with urination no frequency or urgency no hematuria. At this time will add physical therapy and occupational therapy will recheck labs in a.m. Will continue to follow closely On 04/06/2023 patient alert and oriented 3. Patient has been moved out of the ICU. Current vital signs temp 98.1, heart rate 69 respiratory rate 18, blood pressure 109/65 pulse ox of 100% on trach collar 28%. Patient denies any chest pain or shortness breath. Patient remains on IV steroids and IV antibiotics Objective - Vital Signs Vital signs: Vital Signs Temp 98.1 F 04/06/23 07:02 Pulse 84 04/06/23 08:23 Resp 18 04/06/23 07:02 BP 109/65 04/06/23 07:02 Pulse Ox 99 04/06/23 08:12 FiO2 28 04/06/23 08:12 Intake & Output 04/05/23 04/06/23 04/06/23 18:59 06:59 18:59 Output Total 0 Balance 0 Output: Urine/Stool Mix 0 Other: Voiding Method Bedside Commode Bedside Commode # Voids 2 1 - Exam Head normocephalic Neck dressing clean dry and intact js drain in place Lungs clear to auscultation bilaterally no wheezing or crackles Heart regular rate and rhythm S1-S2, no rub or gallop Abdomen is soft nontender nondistended positive bowel sounds no hepatosplenomegaly Extremities no edema Neuro alert and orientated to 3 - Labs CBC & Chem 7: 04/06/23 06:05 04/05/23 06:36 Labs: Abnormal Lab Results - Last 24 Hours (Table) 04/05/23 04/05/23 04/05/23 Range/Units 12:02 16:31 20:40 RBC (4.10-5.20) X 10*6/uL Hgb (12.0-15.0) d/dL Hct (37.2-46.3) % MCH (27.0-32.0) pg MPV (9.5-12.2) FL Neutrophils # (1.80-7.70) X 10*3/uL Lymphocytes # (0.90-5.00) X 10*3/uL Monocytes # (0.20-1.00) X 10*3/uL Eosinophils # (0.04-0.35) X 10*3/uL POC Glucose (mg/dL) 221 H 192 H 199 H (70-110) mg/dL 04/06/23 04/06/23 Range/Units 06:05 06:14 RBC 3.10 L (4.10-5.20) X 10*6/uL Hgb 10.1 L (12.0-15.0) d/dL Hct 29.3 L (37.2-46.3) % MCH 32.6 H (27.0-32.0) pg MPV 9.0 L (9.5-12.2) FL Neutrophils # 8.45 H (1.80-7.70) X 10*3/uL Lymphocytes # 0.16 L (0.90-5.00) X 10*3/uL Monocytes # 0.17 L (0.20-1.00) X 10*3/uL Eosinophils # 0 L (0.04-0.35) X 10*3/uL POC Glucose (mg/dL) 143 H (70-110) mg/dL Microbiology - Last 24 Hours (Table) 04/03/23 12:25 Gram Stain - Final Bronchial Washings - Random Bronchial Washings Culture - Final Assessment and Plan Assessment: 1. Acute stridor secondary to soft tissue edema and swelling around incision from previous thyroidectomy on 03/10/2023. Status post surgical incision and drainage on 03/25/2023. Status post tracheostomy placement on 04/03/2023 2. Suspected aspiration pneumonia 3. Thyroidectomy on 03/10/2023 with stridor postoperatively improved with Decadron and discharged on 03/17/2023. 4. History of COPD 5. History of osteoarthritis 6. History of nicotine dependence 7. Hyponatremia. Improving 8. Vocal Cord paralysis. Patient was evaluated by ENT Patient currently admitted to the intensive care unit Infectious disease, surgical and pulmonary service is following Patient remains on IV antibiotics Status post tracheostomy placement on 04/03/2023 Repeat labs ordered
[2023-04-06 10:39] LABS: ALT 28 U/L (8-44); AST 14 U/L (13-35); Albumin 3.4 d/dL (3.8-4.9); Albumin/Globulin Ratio 1.79 Ratio (1.60-3.17); Alkaline Phosphatase 52 U/L (41-126); BUN/Creat Ratio 13.71 Ratio (12.00-20.00); Blood Urea Nitrogen 9.6 mg/dL (9.0-27.0); Calcium 9.1 mg/dL (8.7-10.3); Carbon Dioxide 17.9 mmol/L (21.6-31.8); Chloride 97 mmol/L (96-109); Globulin 1.9 d/dL (1.6-3.3); Glucose 147 mg/dL (70-110); Potassium 3.8 mmol/L (3.5-5.5); Sodium 127 mmol/L (135-145); Total Bilirubin 0.3 mg/dL (0.3-1.2); Total Protein 5.3 d/dL (6.2-8.2)
--- NOTE | 2023-04-06 11:17 | P.PN ---
Subjective Progress Note Date: 04/06/23 This is a very pleasant 72-year-old female patient with a known history of chronic obstructive pulmonary disease, chronic and ongoing tobacco dependence. She was noted to have a multinodular goiter and had undergone thyroidectomy on 03/10/2023 and discharged home. She returned to the emergency room on 03/15/2023 with increasing shortness of breath and audible stridor. She had been treated with Decadron and an ENT consult was placed. She is discharged home on 03/17/2023 with Decadron. She came back to the emergency room last evening after her surgical site developed significant edema and swelling and she again developed stridor. Computed tomography scan of the neck revealed status post thyroidectomy. Fluid within the surgical bed circumferentially around the lower neck airway measuring up to 2.6 cm in thickness anteriorly, 2.3 cm in thickness laterally to the left and 2.3 cm in thickness laterally to the right. Chest x-ray reveals a right lower lobe infiltrate. White count 28.1. He moglobin 13.0. Platelets 444. Sodium 124. Potassium 4.3. Bicarb 22. BUN 14. Creatinine 0.48. Glucose 155. Pro-calcitonin 0.17. He's been initiated on IV Decadron 4 mg every 4 hours. Antibiotics in the form of cefazolin and Zosyn. DuoNeb inhalations. Heparin for DVT prophylaxis. The patient is seen today 03/26/2023 in follow-up in the intensive care unit. Last evening she did undergo incision and drainage of a postoperative infected neck seroma. She returned to the ICU and intubated on mechanical ventilator. Current settings are assist-control mode at a rate of 24, tidal volume 325, FiO2 50% and a PEEP of 5. Morning blood gases reveal a P O2 of 107, pCO2 46, pH 7.39. She is receiving lactated Ringer's 130 ML's per hour. Sedated with propofol at 50 mcg/kg/m. She required Nimbex at 2 pg/kg/m. She is on antibiotics in the form of daptomycin and Zosyn. Cultures are pending. White count 14.1. Hemoglobin 10.1. Platelets 241. Sodium 128. Potassium 3.6. Bicarb 21. BUN 11. Creatinine 0.43. Glucose 119. He remains on Decadron 4 mg IVP every 4 hours. Remains on bronchodilators. She did develop a prolapsed rectum with forceful coughing. The patient is seen today 03/27/2023 in follow-up in the intensive care unit. She is currently sitting up in bed. Awake and alert in no acute distress. Maintaining good O2 saturations in the 90s on 2 L/m per nasal cannula. She's been afebrile. Hemodynamically stable. She still has some hoarseness and very mild stridor. She had been seen by ENT yesterday and a flexible nasopharyngeal laryngoscope was passed and she was found to have bilateral vocal cord paralysis noted at both vocal cords were fixed in the median position but posteriorly has adequate airway. No significant stridor. Recent anterior not dry and intact. Cultures are pending. White count 10.4. Hemoglobin 9.9. Platelets 367. Sodium 126. Potassium 3.6. Bicarb 25. BUN 12. Creatinine 0.61. Glucose 133. She remains on Decadron, bronchodilators. Antibiotics in the form of Zosyn and daptomycin. The patient is seen today 03/28/2023 in follow-up in the intensive care unit. She is sitting up in bed. Awake and alert in no acute distress. She still has some very mild stridor. Still with a very soft voice. She is swallowing well. Anterior neck incision is clean dry well approximated. Cultures were positive for gram-negative bacilli and group D enterococcus. She remains on daptomycin and Zosyn. She is on 2 L nasal cannula. Lactated Ringer's at 20 ML's per hour. She is continued on DuoNeb inhalations, Decadron. Heparin for DVT prophylaxis. White count 7.5. Hemoglobin 11.0. Platelets 368. Sodium 127. Potassium 3.5. BUN 12. Creatinine 0.61. Glucose 122. The patient is seen today 03/29/2023 in follow-up on the regular medical floor. She is sitting up in bed. Awake and alert in no acute distress. Maintaining good O2 saturations in the 90s on 2 L/m per nasal cannula. She has some very mild stridor left greater than right. Her incision is clean dry well approximated. Drain remains in place. Dressing dry and intact. Continued on Decadron 4 mg every 4 hours remains on antibiotics in the form of Zosyn and daptomycin. Continued on bronchodilators. Heparin for DVT prophylaxis. The patient is seen today 04/09/2023 in follow-up on the regular medical floor. She remains awake and alert in no acute distress. Sitting up having breakfast. No difficulties in swallowing. No worsening shortness of breath, cough or congestion. No worsening stridor. Maintaining O2 saturations in the mid 90s on 2 L/m per nasal cannula. Afebrile. Neck incision remains clean dry well approximated. Drain remains in place. She is continued on Zosyn. Wound cultures were positive for Pseudomonas and enterococcus. Glucose 109. She is continued on DuoNeb inhalations. Decadron. Heparin for DVT prophylaxis. On today's evaluation of 03/31/2023 the patient continues to have difficulties with hoarseness and some occasional stridor. The patient underwent an ENT evaluation and the patient was found to have bilateral vocal cord paralysis. Nevertheless, the patient was told to have adequate airway patency. She is currently on room air oxygen. Surgical wound has been drained and the patient remains on IV Zosyn and the wound cultures positive for Pseudomonas and enterococcus. No active drainage. The patient remains on Medrol. The patient is also on bronchodilators. The labs from today shows a WBC count of 8.9 with a hemoglobin of 11 and a platelet count of 334. Sodiums of 133, potassium is at 3.1, bicarb is at 27, BUN is at 30 with a creatinine of 0.7. LFTs are normal. On today's evaluation of 04/01/2023, the patient continues to have stridor. The drain has been removed. The swelling in her neck is improved. She remains on IV Zosyn. The patient is also on methylprednisolone 20 mg by mouth and this is part of a burst taper as the patient is taking a Medrol Dosepak. She is not having any major stressor distress at rest. Nevertheless, she has audible stridor. Her voice is extremely muffled. The echoes at 7.3 with a hemoglobin of 11 and the BUN is at 9.7 with a creatinine of 0.6 and a sodium level is at 131. The wound cultures have grown Pseudomonas and Enterococcus mildred calis. On 04/02/2023, the patient continues to have stridor. She is anxious and on and off she is also having some issues with congestion and sputum production. No other the patient was a smoker and she has not smoked recently. She remains on a Medrol Dosepak. She is also on DuoNeb nebulized treatments [id number]. She is on Augmentin. No significant swelling in her neck area. Nevertheless, she is quite anxious and the audible stridor is obviously a concern. I discussed the case with general surgery. We are considering to repeat and airway inspection. I prefer to do a bronchoscopy, suction and it is or secretions if needed and reevaluate the patency upper airway. On today's evaluation of 04/03/2023, the patient is slightly improved compared to yesterday. Nevertheless, she continues to be stridorous. Based on that, I performed a bronchoscopy on this patient and upper airway inspection was done and it showed significant pooling of respiratory secretions and upper airway. These were suctioned out. Examination of the vocal cords showed that the vocal cords were essentially paralyzed and there was essentially no mobility. I felt that the airway was inadequate and I also talked to the general surgeon regarding the possibility of doing a tracheostomy tube. Note that the lower airways including the trachea in the bilateral mainstem bronchi and the various segments on the right and the left were patent and there was copious amount of rest or secretions pouring within the airways. I performed surgical with suctioning. The patient tolerated the procedure well. However, she is to limit a significant degree of respiratory compromise and the patient would benefit from a tracheostomy tube and this message was shared with the general surgeon. She remains on a combination of Augmentin and ciprofloxacin. She remains anxious. On 04/04/2023, the patient is post tracheostomy tube insertion. The patient underwent her surgery yesterday and the patient was given an 8.5 Shiley tracheostomy tube. The patient is doing well for now. She is on 40% Ventimask. She is coming comfortable. She continues to bring up copious amounts of rest or secretions and I already cultures both secretions and that is also still pending for now. She remains nothing by mouth. A bedside swallow evaluation will be done. This is a nonfenestrated cuffed tracheostomy tube. Otherwise, no other significant issues. Sodium is at 127, potassium levels at 3.5, BUN is at 5 the creatinine is 0.4. The [place] 10.4 with a hemoglobin of 11.9. The patient is currently on DuoNeb nebulized treatments [id number]. She is on Augmentin. She is on Medrol Dosepak which is completing. She is also on ciprofloxacin. 04/05/2023, the patient is still having some of respiratory secretions from her tracheostomy tube and she is able to clear up respiratory secretions. The pa tient is a #8.5 [address] place. She is breathing comfortably and her appetite has been weaned down to 35%. The sputum sample that was cultures are still negative. The echoes at 7.5 with a hemoglobin of 7.8. Sodium level is up to 124. BUN is at 6 with a creatinine of 0.5. No other new complaints otherwise for now. She is quite comfortable and the patient was transferred out of the intensive care unit yesterday. She is currently on bronchodilators with DuoNeb nebulized treatments [id number] and she is also on IV Solu-Medrol 20 mg every 8 hours. She remains on IV Zosyn. 04/06/2023, the patient has no specific complaints. She is doing adequate pulmonary toileting and she was able to bring up the rest or secretions. She remains on bronchodilators patient is also on IV Solu-Medrol. The secretion production supported with the use of systemic steroids. She is able to communicate. She is unable to talk. Shiley tracheostomy tube is nonfenestrated. She is able to swallow. No signs of any respiratory difficulties for now. The sodium level is at 127 which is improving. The echoes at 8.8 with a hemoglobin of 10.1. Objective - Vital Signs Vital signs: Vital Signs Temp 98.1 F 04/06/23 07:02 Pulse 84 04/06/23 08:23 Resp 18 04/06/23 07:02 BP 109/65 04/06/23 07:02 Pulse Ox 99 04/06/23 08:12 FiO2 28 04/06/23 08:12 Intake & Output 04/05/23 04/06/23 04/06/23 18:59 06:59 18:59 Output Total 0 Balance 0 Output: Urine/Stool Mix 0 Other: Voiding Method Bedside Commode Bedside Commode # Voids 2 1 - Exam GENERAL EXAM: Alert, pleasant 72-year-old female, sitting up in bed, patient has a tracheostomy tube in place and the patient has a #8 Shiley tracheostomy tube. The patient is on a 28% trach collar HEAD: Normocephalic. EYES: Normal reaction of pupils, equal size. NOSE: Clear with pink turbinates. THROAT: No erythema or ulcers NECK: Anterior neck dressing dry and intact. Drain remains in place, no active drainage at this point in time CHEST: No chest wall deformity. LUNGS: Equal air entry with no crackles, wheeze, rhonchi or dullness. CVS: S1 and S2 normal with no audible murmur, regular rhythm. ABDOMEN: No hepatosplenomegaly, normal bowel sounds, no guarding or rigidity. SPINE: No scoliosis or deformity SKIN: No rashes CENTRAL NERVOUS SYSTEM: No focal deficits, tone is normal in all 4 extremities. EXTREMITIES: There is no peripheral edema. No clubbing, no cyanosis. Peripheral pulses are intact. - Labs CBC & Chem 7: 04/06/23 06:05 04/06/23 06:05 Labs: Abnormal Lab Results - Last 24 Hours (Table) 04/05/23 04/05/23 04/05/23 Range/Units 12:02 16:31 20:40 RBC (4.10-5.20) X 10*6/uL Hgb (12.0-15.0) d/dL Hct (37.2-46.3) % MCH (27.0-32.0) pg MPV (9.5-12.2) FL Neutrophils # (1.80-7.70) X 10*3/uL Lymphocytes # (0.90-5.00) X 10*3/uL Monocytes # (0.20-1.00) X 10*3/uL Eosinophils # (0.04-0.35) X 10*3/uL POC Glucose (mg/dL) 221 H 192 H 199 H (70-110) mg/dL 04/06/23 04/06/23 Range/Units 06:05 06:14 RBC 3.10 L (4.10-5.20) X 10*6/uL Hgb 10.1 L (12.0-15.0) d/dL Hct 29.3 L (37.2-46.3) % MCH 32.6 H (27.0-32.0) pg MPV 9.0 L (9.5-12.2) FL Neutrophils # 8.45 H (1.80-7.70) X 10*3/uL Lymphocytes # 0.16 L (0.90-5.00) X 10*3/uL Monocytes # 0.17 L (0.20-1.00) X 10*3/uL Eosinophils # 0 L (0.04-0.35) X 10*3/uL POC Glucose (mg/dL) 143 H (70-110) mg/dL Microbiology - Last 24 Hours (Table) 04/03/23 12:25 Gram Stain - Final Bronchial Washings - Random Bronchial Washings Culture - Final Assessment and Plan Plan: Acute stridor secondary to soft tissue edema and swelling around the incision from previous thyroidectomy on 03/10/2023. Status post incision and drainage on 03/25/2023 of the postoperative neck seroma. Drain in place. Cultures positive for Pseudomonas fluorescens/putida and enterococcus faecalis. Extubated on 03/26/2023. On 03/26/2023 the patient did undergo flexible nasopharyngeal laryngoscope and was noted to have vocal cord paralysis of both vocal cords and fixated in the median position but posteriorly had adequate airway. Started is still present. I performed a bronchoscopy today. There was significant pooling of rest or secretions Doppler lower airways. The vocal cords were found to be paralyzed. In my assessment, the airways and the adequate probably in the order of 6-8 mm, a slit opening in the midline in between the cords. The vocal cord mobility was essentially absent. Based on that, the patient was given a tracheostomy tube and currently the patient has a #8.5 Shiley, nonfenestrated, cuffed Acute hypoxemic respiratory failure secondary to above , currently improved and currently she is on a 28% trach collar Copious respiratory secretions, rule out underlying tracheal bronchitis. Cultures are negative. Recent admission for stridor on 03/14/2023, improved with Decadron and discharged on 03/17/2023 History of multinodular goiter status post total thyroidectomy on 03/10/2023 History of rectal prolapse Chronic and ongoing tobacco dependence Chronic obstructive pulmonary disease Osteoarthritis Hyponatremia, improving Plan: Clinically stable and the patient continues to improve The patient has been weaned down to 28% trach collar Tracheostomy care Frequent suctioning and perform adequate pulmonary toileting Patient is doing adequate pulmonary toileting Swallow evaluation is adequate and the patient is able to swallow Continue antibiotics and the patient is currently on IV Zosyn Continue Solu-Medrol We'll follow
[2023-04-06 11:49] LABS: Glucose,Whole Blood 207 mg/dL (70-110)
[2023-04-06] MEDS: SODIUM CHLORIDE 0.9% 500 ML 500 ML IV SCH (13:32)
[2023-04-06] MEDS: ACETAMINOPHEN TAB 325 MG TAB PO PRN ×2 (14:53→21:46)
--- NOTE | 2023-04-06 15:32 | P.PN ---
Subjective Progress Note Date: 04/06/23 CHIEF COMPLAINT: Complications from thyroidectomy HISTORY OF PRESENT ILLNESS: The patient is a 72-year-old female who presented with stridor after complications from thyroidectomy. She is status post tr acheostomy. She is in on a trach collar. No new issues overnight. REVIEW OF ORGAN SYSTEMS: CONSTITUTIONAL: No reports of fevers or chills. GI: Denies any blood in stools or constipation. PHYSICAL EXAM: VITAL SIGNS: Stable GENERAL: Well-developed pleasant and in no acute distress. HEENT: No scleral icterus. Extraocular movements grossly intact. Moist buccal mucosa. NECK: Supple without lymphadenopathy. Trach clean dry and intact CHEST: Unlabored respirations. Equal bilateral excursions. CARDIOVASCULAR: Regular rate and rhythm. Distal 2+ pulses. ABDOMEN: Soft, diffuse abdominal tenderness. No peritonitis. MUSCULOSKELETAL: No clubbing, cyanosis, or edema. SKIN: Well perfused LABS: Reviewed. Sodium low 127, hyponatremia. ASSESSMENT: 1. Stridor 2. Complications from thyroidectomy 3. Status post tracheostomy 4. Hyponatremia PLAN: 1. Recommend correction of hyponatremia. 2. Continue trach collar Objective - Vital Signs Vital signs: Vital Signs Temp 98.4 F 04/06/23 14:24 Pulse 82 04/06/23 14:24 Resp 18 04/06/23 14:24 BP 107/59 04/06/23 14:24 Pulse Ox 99 04/06/23 14:24 FiO2 28 04/06/23 08:12 Intake & Output 04/05/23 04/06/23 04/06/23 18:59 06:59 18:59 Output Total 0 Balance 0 Output: Urine/Stool Mix 0 Other: Voiding Method Bedside Commode Bedside Commode # Voids 2 1 - Labs CBC & Chem 7: 04/06/23 06:05 04/06/23 06:05 Labs: Abnormal Lab Results - Last 24 Hours (Table) 04/05/23 04/05/23 04/06/23 Range/Units 16:31 20:40 06:05 RBC 3.10 L (4.10-5.20) X 10*6/uL Hgb 10.1 L (12.0-15.0) d/dL Hct 29.3 L (37.2-46.3) % MCH 32.6 H (27.0-32.0) pg MPV 9.0 L (9.5-12.2) FL Neutrophils # 8.45 H (1.80-7.70) X 10*3/uL Lymphocytes # 0.16 L (0.90-5.00) X 10*3/uL Monocytes # 0.17 L (0.20-1.00) X 10*3/uL Eosinophils # 0 L (0.04-0.35) X 10*3/uL Sodium (135-145) mmol/L Carbon Dioxide (21.6-31.8) mmol/L Anion Gap (4.00-12.00) mmol/L Glucose (70-110) mg/dL POC Glucose (mg/dL) 192 H 199 H (70-110) mg/dL Total Protein (6.2-8.2) d/dL Albumin (3.8-4.9) d/dL 04/06/23 04/06/23 04/06/23 Range/Units 06:05 06:14 11:48 RBC (4.10-5.20) X 10*6/uL Hgb (12.0-15.0) d/dL Hct (37.2-46.3) % MCH (27.0-32.0) pg MPV (9.5-12.2) FL Neutrophils # (1.80-7.70) X 10*3/uL Lymphocytes # (0.90-5.00) X 10*3/uL Monocytes # (0.20-1.00) X 10*3/uL Eosinophils # (0.04-0.35) X 10*3/uL Sodium 127 L (135-145) mmol/L Carbon Dioxide 17.9 L (21.6-31.8) mmol/L Anion Gap 12.10 H (4.00-12.00) mmol/L Glucose 147 H (70-110) mg/dL POC Glucose (mg/dL) 143 H 207 H (70-110) mg/dL Total Protein 5.3 L (6.2-8.2) d/dL Albumin 3.4 L (3.8-4.9) d/dL Microbiology - Last 24 Hours (Table) 04/03/23 12:25 Gram Stain - Final Bronchial Washings - Random Bronchial Washings Culture - Final
[2023-04-06] MEDS: SODIUM CHLORIDE 0.9% 1,000 ML IV SCH ×2 (16:17→22:31)
[2023-04-06 16:42] LABS: Glucose,Whole Blood 215 mg/dL (70-110)
--- NOTE | 2023-04-06 20:00 | P.PN ---
Subjective Progress Note Date: 04/05/23 Principal diagnosis: Neck abscess Patient is a 72-year-old female with a past medical history taken for COPD multinodular goiter in this patient status post thyroidectomy completed on 03/10/2023 patient subsequently presented back to the hospital on 03/15/2023 with increasing shortness of breath and audible stridor patient was treated with a Decadron , presenting back to the hospital increasing shortness of breath abnormal CT concerning for possible abscess in this patient with status post surgical drainage of infected hematoma. Patient is status post bronchoscopy was noticed to have a narrow airway and is status post tracheostomy completed on 04/03/2023 On today's evaluation that is 04/05/2023 patient remains to be afebrile patient is breathing comfortable on her trach collar denies any chest pain shortness of breath or cough no abdominal pain or diarrhea the patient has been transferred out of the ICU Objective - Vital Signs Vital signs: Vital Signs Temp 98.2 F 04/05/23 08:00 Pulse 90 04/05/23 12:08 Resp 18 04/05/23 08:00 BP 103/61 04/05/23 08:00 Pulse Ox 99 04/05/23 08:49 FiO2 28 04/05/23 08:49 Intake & Output 04/04/23 04/05/23 04/05/23 18:59 06:59 18:59 Intake Total 1100 605 Output Total 900 Balance 200 605 Intake: IV 600 250 0.9 600 250 Intake, IV Titration 500 175 Amount Piperacillin-Tazobactam 3 100 100 .375 gm In Sodium Chloride 0.9% 100 ml @ 25 mls/hr IVPB Q8HR [facility] Rx# :[id number] Potassium Chloride 10 meq 400 In Water For Injection 1 100ml.bag @ 100 mls/hr IVPB Q1HR [facility] Rx#: [id number] Sodium Chloride 0.9% 1, 75 000 ml @ 75 mls/hr IV . [id number] [facility] Rx#:[id number] Oral 180 Output: Urine 900 Other: Voiding Method External Catheter External Catheter Bedside Commode # Voids 1 - Exam GENERAL DESCRIPTION: An elderly female lying in bed in no distress HEENT: Neck incision is dressed RESPIRATORY SYSTEM: Unlabored breathing , decreased breath sounds at bases HEART: S1 S2 regular rate and rhythm , ABDOMEN: Soft , no tenderness EXTREMITIES: No edema feet - Labs CBC & Chem 7: 04/06/23 06:05 04/06/23 06:05 Labs: Abnormal Lab Results - Last 24 Hours (Table) 04/04/23 04/05/23 04/05/23 Range/Units 20:02 06:08 06:36 RBC 3.32 L (3.80-5.40) m/uL Hgb 10.8 L (11.4-16.0) gm/dL Hct 31.8 L (34.0-46.0) % Lymphocytes # 0.2 L (1.0-4.8) k/uL Sodium (137-145) mmol/L Chloride (98-107) mmol/L BUN (7-17) mg/dL Creatinine (0.52-1.04) mg/dL Glucose (74-99) mg/dL POC Glucose (mg/dL) 246 H 159 H (70-110) mg/dL ALT (4-34) U/L Total Protein (6.3-8.2) g/dL Albumin (3.5-5.0) g/dL 04/05/23 04/05/23 Range/Units 06:36 12:02 RBC (3.80-5.40) m/uL Hgb (11.4-16.0) gm/dL Hct (34.0-46.0) % Lymphocytes # (1.0-4.8) k/uL Sodium 124 L (137-145) mmol/L Chloride 95 L (98-107) mmol/L BUN 6 L (7-17) mg/dL Creatinine 0.51 L (0.52-1.04) mg/dL Glucose 157 H (74-99) mg/dL POC Glucose (mg/dL) 221 H (70-110) mg/dL ALT 35 H (4-34) U/L Total Protein 5.5 L (6.3-8.2) g/dL Albumin 3.0 L (3.5-5.0) g/dL Assessment and Plan (1) Infected hematoma following procedure Current Visit: Yes Status: Acute Code(s): [id number] - SNOMED Code(s): 242018008 Plan: 1patient presented to hospital with increasing shortness of breath stridor in this patient who did have a history of thyroidectomy on 03/10/2023 now presenting to the hospital with above symptoms patient did have abnormal CT and is s/p surgical drainage of postop seroma culture has been obtained and will need to cover for both gram-positive as well as gram-negative pathogen, patient also have right lower lobe infiltrate concern for possible aspiration pneumonitis 2-Patient local cultures currently growing Pseudomonas and Enterococcus faecalis, Enterococcus is sensitive to ampicillin 3-patient has shown clinical improvement however she did require tracheostomy because of the narrow airway from vocal cord paralysis Patient to continue with the Zosyn and monitor clinical course closely Time with Patient: Less than 30
--- NOTE | 2023-04-06 20:01 | P.PN ---
Subjective Progress Note Date: 04/06/23 Principal diagnosis: Neck abscess Patient is a 72-year-old female with a past medical history taken for COPD multinodular goiter in this patient status post thyroidectomy completed on 03/10/2023 patient subsequently presented back to the hospital on 03/15/2023 with increasing shortness of breath and audible stridor patient was treated with a Decadron , presenting back to the hospital increasing shortness of breath abnormal CT concerning for possible abscess in this patient with status post surgical drainage of infected hematoma. Patient is status post bronchoscopy was noticed to have a narrow airway and is status post tracheostomy completed on 04/03/2023 On today's evaluation that is 04/06/2023 patient denies having any fever or any chills, the patient is breathing comfortably on a trach collar. Denies any nausea vomiting tolerating her diet and no diarrhea has been reported Objective - Vital Signs Vital signs: Vital Signs Temp 98.4 F 04/06/23 14:24 Pulse 86 04/06/23 16:23 Resp 18 04/06/23 14:24 BP 107/59 04/06/23 14:24 Pulse Ox 99 04/06/23 14:24 FiO2 28 04/06/23 08:12 Intake & Output 04/06/23 04/06/23 04/07/23 06:59 18:59 06:59 Other: Voiding Method Bedside Commode Bedside Commode # Voids 1 3 # Bowel Movements 0 - Exam GENERAL DESCRIPTION: An elderly female lying in bed in no distress HEENT: Neck incision is dressed RESPIRATORY SYSTEM: Unlabored breathing , decreased breath sounds at bases HEART: S1 S2 regular rate and rhythm , ABDOMEN: Soft , no tenderness EXTREMITIES: No edema feet - Labs CBC & Chem 7: 04/06/23 06:05 04/06/23 06:05 Labs: Abnormal Lab Results - Last 24 Hours (Table) 04/05/23 04/06/23 04/06/23 Range/Units 20:40 06:05 06:05 RBC 3.10 L (4.10-5.20) X 10*6/uL Hgb 10.1 L (12.0-15.0) d/dL Hct 29.3 L (37.2-46.3) % MCH 32.6 H (27.0-32.0) pg MPV 9.0 L (9.5-12.2) FL Neutrophils # 8.45 H (1.80-7.70) X 10*3/uL Lymphocytes # 0.16 L (0.90-5.00) X 10*3/uL Monocytes # 0.17 L (0.20-1.00) X 10*3/uL Eosinophils # 0 L (0.04-0.35) X 10*3/uL Sodium 127 L (135-145) mmol/L Carbon Dioxide 17.9 L (21.6-31.8) mmol/L Anion Gap 12.10 H (4.00-12.00) mmol/L Glucose 147 H (70-110) mg/dL POC Glucose (mg/dL) 199 H (70-110) mg/dL Total Protein 5.3 L (6.2-8.2) d/dL Albumin 3.4 L (3.8-4.9) d/dL 04/06/23 04/06/23 04/06/23 Range/Units 06:14 11:48 16:41 RBC (4.10-5.20) X 10*6/uL Hgb (12.0-15.0) d/dL Hct (37.2-46.3) % MCH (27.0-32.0) pg MPV (9.5-12.2) FL Neutrophils # (1.80-7.70) X 10*3/uL Lymphocytes # (0.90-5.00) X 10*3/uL Monocytes # (0.20-1.00) X 10*3/uL Eosinophils # (0.04-0.35) X 10*3/uL Sodium (135-145) mmol/L Carbon Dioxide (21.6-31.8) mmol/L Anion Gap (4.00-12.00) mmol/L Glucose (70-110) mg/dL POC Glucose (mg/dL) 143 H 207 H 215 H (70-110) mg/dL Total Protein (6.2-8.2) d/dL Albumin (3.8-4.9) d/dL Assessment and Plan (1) Infected hematoma following procedure Current Visit: Yes Status: Acute Code(s): [id number] - SNOMED Code(s): 400750280 Plan: 1patient presented to hospital with increasing shortness of breath stridor in this patient who did have a history of thyroidectomy on 03/10/2023 now presenting to the hospital with above symptoms patient did have abnormal CT and is s/p surgical drainage of postop seroma culture has been obtained and will need to cover for both gram-positive as well as gram-negative pathogen, patient also have right lower lobe infiltrate concern for possible aspiration pneumonitis 2-Patient local cultures currently growing Pseudomonas and Enterococcus faecal is, Enterococcus is sensitive to ampicillin 3-patient has shown clinical improvement however she did require tracheostomy because of the narrow airway from vocal cord paralysis Patient to continue with the Zosyn While inpatient that may be transition to oral Augmentin and Cipro on discharge and monitor clinical course closely Time with Patient: Less than 30
[2023-04-06 20:51] LABS: Glucose,Whole Blood 197 mg/dL (70-110)
[2023-04-07] MEDS: methylPREDNISolone SOD SUCCI 40 MG/ML 1 ML VIAL IV SCH ×2 (01:01→09:03)
[2023-04-07] MEDS: PIPERACILLIN-TAZOBACTAM 3.375 GM in SODIUM CHLORIDE 0.9% 100 ML IVPB SCH ×2 (01:01→09:03)
[2023-04-07 05:51] LABS: Glucose,Whole Blood 123 mg/dL (70-110)
[2023-04-07] MEDS: LEVOTHYROXINE 100 MCG TAB PO SCH (06:07)
[2023-04-07] MEDS: LACTATED RINGERS 1,000 ML IV SCH (06:08)
[2023-04-07] MEDS: INSULIN ASPART (NovoLOG) 100 UNIT/ML VIAL SQ SCH ×2 (06:10→12:13)
[2023-04-07] MEDS: PANTOPRAZOLE 40 MG/10 ML VIAL IV SCH (09:03)
[2023-04-07] MEDS: MULTIVITAMINS, THERA 1 EACH TAB PO SCH (09:12)
[2023-04-07] MEDS: HEPARIN SODIUM,PORCINE/PF 5,000 UNIT/0.5 ML SYRINGE SQ SCH (09:12)
[2023-04-07] MEDS: THIAMINE 100 MG TAB PO SCH (09:12)
[2023-04-07] MEDS: FOLIC ACID 1 MG TAB PO SCH (09:12)
[2023-04-07] MEDS: SODIUM CHLORIDE 0.9% 1,000 ML IV SCH (09:25)
[2023-04-07 09:49] LABS: Basophils # (A) 0 X 10*3/uL (0.00-0.10); Basophils % (A) 0 %; Eosinophils # (A) 0 X 10*3/uL (0.04-0.35); Eosinophils % (A) 0 %; HCT 27.1 % (37.2-46.3); HGB 9.2 d/dL (12.0-15.0); Lymphocytes # (A) 0.27 X 10*3/uL (0.90-5.00); Lymphocytes % (A) 3.3 %; MCH 32.2 pg (27.0-32.0); MCHC 33.9 d/dL (32.0-37.0); MCV 94.8 FL (80.0-97.0); Mean Platelet Volume 9.1 FL (9.5-12.2); Monocytes # (A) 0.33 X 10*3/uL (0.20-1.00); NRBC Per 100 WBC 0 X 10*3/uL (0.00-0.01); Neutrophils # (A) 7.66 X 10*3/uL (1.80-7.70); Neutrophils % (A) 92.3 %; Platelet Count 239 X 10*3/uL (140-440); RBC 2.86 X 10*6/uL (4.10-5.20); RDW 13.4 % (11.5-14.5); WBC 8.29 X 10*3/uL (4.50-10.00)
[2023-04-07] MEDS: IPRATROPIUM-ALBUTEROL 3 ML NEB INHALATION SCH ×3 (09:50→16:19)
[2023-04-07] MEDS: SODIUM CHLORIDE 0.9% 500 ML 500 ML IV SCH (10:03)
[2023-04-07 10:05] LABS: ALT 27 U/L (8-44); AST 11 U/L (13-35); Albumin 3.2 d/dL (3.8-4.9); Albumin/Globulin Ratio 1.78 Ratio (1.60-3.17); Alkaline Phosphatase 45 U/L (41-126); BUN/Creat Ratio 14.86 Ratio (12.00-20.00); Blood Urea Nitrogen 10.4 mg/dL (9.0-27.0); Carbon Dioxide 16.9 mmol/L (21.6-31.8); Chloride 98 mmol/L (96-109); Globulin 1.8 d/dL (1.6-3.3); Glucose 126 mg/dL (70-110); Potassium 3.9 mmol/L (3.5-5.5); Sodium 129 mmol/L (135-145); Total Bilirubin <0.2 mg/dL (0.3-1.2)
[2023-04-07] MEDS: ALPRAZolam 0.25 MG TAB PO PRN (10:44)
[2023-04-07 11:25] LABS: Glucose,Whole Blood 177 mg/dL (70-110)
--- NOTE | 2023-04-07 13:32 | P.PN ---
Subjective Progress Note Date: 04/07/23 This is a very pleasant 72-year-old female patient with a known history of chronic obstructive pulmonary disease, chronic and ongoing tobacco dependence. She was noted to have a multinodular goiter and had undergone thyroidectomy on 03/10/2023 and discharged home. She returned to the emergency room on 0 03/15/2023 with increasing shortness of breath and audible stridor. She had been treated with Decadron and an ENT consult was placed. She is discharged home on 03/17/2023 with Decadron. She came back to the emergency room last evening after her surgical site developed significant edema and swelling and she again developed stridor. Computed tomography scan of the neck revealed status post thyroidectomy. Fluid within the surgical bed circumferentially around the lower neck airway measuring up to 2.6 cm in thickness anteriorly, 2.3 cm in thickness laterally to the left and 2.3 cm in thickness laterally to the right. Chest x- ray reveals a right lower lobe infiltrate. White count 28.1. Hemoglobin 13.0. Platelets 444. Sodium 124. Potassium 4.3. Bicarb 22. BUN 14. Creatinine 0.48. Glucose 155. Pro-calcitonin 0.17. He's been initiated on IV Decadron 4 mg every 4 hours. Antibiotics in the form of cefazolin and Zosyn. DuoNeb inhalations. Heparin for DVT prophylaxis. The patient is seen today 03/26/2023 in follow-up in the intensive care unit. Last evening she did undergo incision and drainage of a postoperative infected neck seroma. She returned to the ICU and intubated on mechanical ventilator. Current settings are assist-control mode at a rate of 24, tidal volume 325, FiO2 50% and a PEEP of 5. Morning blood gases reveal a P O2 of 107, pCO2 46, pH 7.39. She is receiving lactated Ringer's 130 ML's per hour. Sedated with propofol at 50 mcg/kg/m. She required Nimbex at 2 pg/kg/m. She is on antibiotics in the form of daptomycin and Zosyn. Cultures are pending. White count 14.1. Hemoglobin 10.1. Platelets 241. Sodium 128. Potassium 3.6. Bicarb 21. BUN 11. Creatinine 0.43. Glucose 119. He remains on Decadron 4 mg IVP every 4 hours. Remains on bronchodilators. She did develop a prolapsed rectum with forceful coughing. The patient is seen today 03/27/2023 in follow-up in the intensive care unit. She is currently sitting up in bed. Awake and alert in no acute distress. Maintaining good O2 saturations in the 90s on 2 L/m per nasal cannula. She's been afebrile. Hemodynamically stable. She still has some hoarseness and very mild stridor. She had been seen by ENT yesterday and a flexible nasopharyngeal laryngoscope was passed and she was found to have bilateral vocal cord paralysis noted at both vocal cords were fixed in the median position but posteriorly has adequate airway. No significant stridor. Recent anterior not dry and intact. Cultures are pending. White count 10.4. Hemoglobin 9.9. Platelets 367. Sodium 126. Potassium 3.6. Bicarb 25. BUN 12. Creatinine 0.61. Glucose 133. She remains on Decadron, bronchodilators. Antibiotics in the form of Zosyn and daptomycin. The patient is seen today 03/28/2023 in follow-up in the intensive care unit. She is sitting up in bed. Awake and alert in no acute distress. She still has some very mild stridor. Still with a very soft voice. She is swallowing well. Anterior neck incision is clean dry well approximated. Cultures were positive for gram-negative bacilli and group D enterococcus. She remains on daptomycin and Zosyn. She is on 2 L nasal cannula. Lactated Ringer's at 20 ML's per hour. She is continued on DuoNeb inhalations, Decadron. Heparin for DVT prophylaxis. White count 7.5. Hemoglobin 11.0. Platelets 368. Sodium 127. Potassium 3.5. BUN 12. Creatinine 0.61. Glucose 122. The patient is seen today 03/29/2023 in follow-up on the regular medical floor. She is sitting up in bed. Awake and alert in no acute distress. Maintaining good O2 saturations in the 90s on 2 L/m per nasal cannula. She has some very mild stridor left greater than right. Her incision is clean dry well approximated. Drain remains in place. Dressing dry and intact. Continued on Decadron 4 mg every 4 hours remains on antibiotics in the form of Zosyn and daptomycin. Continued on bronchodilators. Heparin for DVT prophylaxis. The patient is seen today 03/30/2023 in follow-up on the regular medical floor. She remains awake and alert in no acute distress. Sitting up having breakfast. No difficulties in swallowing. No worsening shortness of breath, cough or congestion. No worsening stridor. Maintaining O2 saturations in the mid 90s on 2 L/m per nasal cannula. Afebrile. Neck incision remains clean dry well approximated. Drain remains in place. She is continued on Zosyn. Wound cultures were positive for Pseudomonas and enterococcus. Glucose 109. She is continued on DuoNeb inhalations. Decadron. Heparin for DVT prophylaxis. On today's evaluation of 03/31/2023 the patient continues to have difficulties with hoarseness and some occasional stridor. The patient underwent an ENT evaluation and the patient was found to have bilateral vocal cord paralysis. Nevertheless, the patient was told to have adequate airway patency. She is currently on room air oxygen. Surgical wound has been drained and the patient remains on IV Zosyn and the wound cultures positive for Pseudomonas and enterococcus. No active drainage. The patient remains on Medrol. The patient is also on bronchodilators. The labs from today shows a WBC count of 8.9 with a hemoglobin of 11 and a platelet count of 334. Sodiums of 133, potassium is at 3.1, bicarb is at 27, BUN is at 30 with a creatinine of 0.7. LFTs are normal. On today's evaluation of 04/01/2023, the patient continues to have stridor. The drain has been removed. The swelling in her neck is improved. She remains on IV Zosyn. The patient is also on methylprednisolone 20 mg by mouth and this is part of a burst taper as the patient is taking a Medrol Dosepak. She is not having any major stressor distress at rest. Nevertheless, she has audible stridor. Her voice is extremely muffled. The echoes at 7.3 with a hemoglobin of 11 and the BUN is at 9.7 with a creatinine of 0.6 and a sodium level is at 131. The wound cultures have grown Pseudomonas and Enterococcus faecalis. On 04/02/2023, the patient continues to have stridor. She is anxious and on and off she is also having some issues with congestion and sputum production. No other the patient was a smoker and she has not smoked recently. She remains on a Medrol Dosepak. She is also on DuoNeb nebulized treatments [id number]. She is on Augmentin. No significant swelling in her neck area. Nevertheless, she is quite anxious and the audible stridor is obviously a concern. I discussed the case with general surgery. We are considering to repeat and airway inspection. I prefer to do a bronchoscopy, suction and it is or secretions if needed and reevaluate the patency upper airway. On today's evaluation of 04/03/2023, the patient is slightly improved compared to yesterday. Nevertheless, she continues to be stridorous. Based on that, I performed a bronchoscopy on this patient and upper airway inspection was done and it showed significant pooling of respiratory secretions and upper airway. These were suctioned out. Examination of the vocal cords showed that the vocal cords were essentially paralyzed and there was essentially no mobility. I felt that the airway was inadequate and I also talked to the general surgeon regarding the possibility of doing a tracheostomy tube. Note that the lower airways including the trachea in the bilateral mainstem bronchi and the various segments on the right and the left were patent and there was copious amount of rest or secretions pouring within the airways. I performed surgical with suctioning. The patient tolerated the procedure well. However, she is to limit a significant degree of respiratory compromise and the patient would benefit from a tracheostomy tube and this message was shared with the general surgeon. She remains on a combination of Augmentin and ciprofloxacin. She remains anxious. On 04/04/2023, the patient is post tracheostomy tube insertion. The patient underwent her surgery yesterday and the patient was given an 8.5 Shiley tracheostomy tube. The patient is doing well for now. She is on 40% Ventimask. She is coming comfortable. She continues to bring up copious amounts of rest or secretions and I already cultures both secretions and that is also still pending for now. She remains nothing by mouth. A bedside swallow evaluation will be done. This is a nonfenestrated cuffed tracheostomy tube. Otherwise, no other significant issues. Sodium is at 127, potassium levels at 3.5, BUN is at 5 the creatinine is 0.4. The Bayard 10.4 with a hemoglobin of 11.9. The patient is currently on DuoNeb nebulized treatments [id number]. She is on Augmentin. She is on Medrol Dosepak which is completing. She is also on ciprofloxacin. 04/05/2023, the patient is still having some of respiratory secretions from her tracheostomy tube and she is able to clear up respiratory secretions. The pat ietobias is a #8.[address] in place. She is breathing comfortably and her appetite has been weaned down to 35%. The sputum sample that was cultures are still negative. The echoes at 7.5 with a hemoglobin of 7.8. Sodium level is up to 124. BUN is at 6 with a creatinine of 0.5. No other new complaints otherwise for now. She is quite comfortable and the patient was transferred out of the intensive care unit yesterday. She is currently on bronchodilators with DuoNeb nebulized treatments [id number] and she is also on IV Solu-Medrol 20 mg every 8 hours. She remains on IV Zosyn. 04/06/2023, the patient has no specific complaints. She is doing adequate pulmonary toileting and she was able to bring up the rest or secretions. She remains on bronchodilators patient is also on IV Solu-Medrol. The secretion production supported with the use of systemic steroids. She is able to communicate. She is unable to talk. Shiley tracheostomy tube is nonfenestrated. She is able to swallow. No signs of any respiratory difficulties for now. The sodium level is at 127 which is improving. The echoes at 8.8 with a hemoglobin of 10.1. The patient is seen today 04/07/2023 in follow-up on the regular medical floor. She is sitting up in bed. Awake and alert in no acute distress. Currently on 28% FiO2 via trach collar with O2 saturations in the high 90s. She's been trialed on room air and maintaining good O2 saturations in the 90s. Bronchial wash cultures from 04/03/2023 revealed no growth. White count 8.2. Hemoglobin 9.2. Platelets 239. Sodium 129. Potassium 3.9. Bicarb 17. BUN 10. Creatinine 0.7. Glucose 126. She remains on DuoNeb inhalations, IV Solu- Medrol. Heparin for DVT prophylaxis. Continued on Zosyn. Objective - Vital Signs Vital signs: Vital Signs Temp 97.8 F 04/07/23 06:52 Pulse 86 04/07/23 12:36 Resp 18 04/07/23 10:01 BP 132/75 04/07/23 06:52 Pulse Ox 99 04/07/23 09:51 FiO2 21 04/07/23 09:51 Intake & Output 04/06/23 04/07/23 04/07/23 18:59 06:59 18:59 Intake Total 350 Output Total 250 Balance 100 Intake: Oral 350 Output: Urine 250 Other: Voiding Method Bedside Commode Bedside Commode # Voids 3 2 1 # Bowel Movements 0 0 - Exam GENERAL EXAM: Alert, pleasant 72-year-old female, sitting up in bed, on 28% FiO2 via trach collar, comfortable in no apparent distress. HEAD: Normocephalic. EYES: Normal reaction of pupils, equal size. NOSE: Clear with pink turbinates. THROAT: No erythema or ulcers NECK: Tracheostomy tube secured in place. CHEST: No chest wall deformity. LUNGS: Equal air entry with no crackles, wheeze, rhonchi or dullness. CVS: S1 and S2 normal with no audible murmur, regular rhythm. ABDOMEN: No hepatosplenomegaly, normal bowel sounds, no guarding or rigidity. SPINE: No scoliosis or deformity SKIN: No rashes CENTRAL NERVOUS SYSTEM: No focal deficits, tone is normal in all 4 extremities. EXTREMITIES: There is no peripheral edema. No clubbing, no cyanosis. Peripheral pulses are intact. - Labs CBC & Chem 7: 04/07/23 03:54 04/07/23 03:54 Labs: Abnormal Lab Results - Last 24 Hours (Table) 04/06/23 04/06/23 04/07/23 Range/Units 16:41 20:49 03:54 RBC 2.86 L (4.10-5.20) X 10*6/uL Hgb 9.2 L (12.0-15.0) d/dL Hct 27.1 L (37.2-46.3) % MCH 32.2 H (27.0-32.0) pg MPV 9.1 L (9.5-12.2) FL Lymphocytes # 0.27 L (0.90-5.00) X 10*3/uL Eosinophils # 0 L (0.04-0.35) X 10*3/uL Sodium (135-145) mmol/L Carbon Dioxide (21.6-31.8) mmol/L Anion Gap (4.00-12.00) mmol/L Glucose (70-110) mg/dL POC Glucose (mg/dL) 215 H 197 H (70-110) mg/dL Total Bilirubin (0.3-1.2) mg/dL AST (13-35) U/L Total Protein (6.2-8.2) d/dL Albumin (3.8-4.9) d/dL 04/07/23 04/07/23 04/07/23 Range/Units 03:54 05:49 11:24 RBC (4.10-5.20) X 10*6/uL Hgb (12.0-15.0) d/dL Hct (37.2-46.3) % MCH (27.0-32.0) pg MPV (9.5-12.2) FL Lymphocytes # (0.90-5.00) X 10*3/uL Eosinophils # (0.04-0.35) X 10*3/uL Sodium 129 L (135-145) mmol/L Carbon Dioxide 16.9 L (21.6-31.8) mmol/L Anion Gap 14.10 H (4.00-12.00) mmol/L Glucose 126 H (70-110) mg/dL POC Glucose (mg/dL) 123 H 177 H (70-110) mg/dL Total Bilirubin <0.2 L (0.3-1.2) mg/dL AST 11 L (13-35) U/L Total Protein 5.0 L (6.2-8.2) d/dL Albumin 3.2 L (3.8-4.9) d/dL Assessment and Plan Assessment: Acute stridor secondary to soft tissue edema and swelling around the incision from previous thyroidectomy on 03/10/2023. Status post incision and drainage on 03/25/2023 of the postoperative neck seroma. Drain in place. Cultures positive for Pseudomonas fluorescens/putida and enterococcus faecalis. Extubated on 03/26/2023. On 03/26/2023 the patient did undergo flexible nasopharyngeal laryngoscope and was noted to have vocal cord paralysis of both vocal cords and fixated in the median position but posteriorly had adequate airway. Bronchoscopy was performed 04/03/2023 and there was significant pooling of secretions in the lower airways. The vocal cords were found to be paralyzed. The vocal cord mobility was essentially absent. Based on that, the patient had undergone a tracheostomy tube insertion, #8.5 Shiley, nonfenestrated, cuffed Acute hypoxemic respiratory failure secondary to above in addition to suspected aspiration pneumonia of the right lower lung Recent admission for stridor on 03/14/2023, improved with Decadron and disc harged on 03/17/2023 History of multinodular goiter status post total thyroidectomy on 03/10/2023 Hyponatremia History of rectal prolapse Chronic and ongoing tobacco dependence Chronic obstructive pulmonary disease Osteoarthritis Plan: The patient was seen and evaluated Medications and labs reviewed Antibiotics per ID services Continue bronchodilators Heparin for DVT prophylaxis Posdsible discharge today Plan is for home with home care I have personally seen and examined the patient, performed the documentation and the assessment and plan as written. Number of minutes spent on the visit: 10.
--- NOTE | 2023-04-07 13:33 | P.PN ---
Subjective Progress Note Date: 04/07/23 CHIEF COMPLAINT: Post-thyroidectomy neck seroma HISTORY OF PRESENT ILLNESS: Patient is postop day #4 status post tracheostomy for stridor due to vocal cord paralysis. Patient is regular medical floor. Dr myles from [facility] is decreased. No stridor noted. She denies any shortness of breath. She is on trach collar satting at 99%. PHYSICAL EXAM: VITAL SIGNS: Reviewed. GENERAL: Well-developed in no acute distress. HEENT: Tracheostomy intact. Clean dry and intact ABDOMEN: Soft. Nondistended. Nontender. ASSESSMENT: 1. Stridor due to vocal cord paralysis status post tracheostomy 2. Post-thyroidectomy infected neck seroma status post incision and drainage with Dr. Hahn 3. Chronic Rectal prolapse. Currently reduced. PLAN: -Continue tracheostomy care -Continue dysphagia chopped diet -For the chronic rectal prolapse continue to observe. Currently reduced. Will eventually need surgical correction at a later time -Antibiotics per ID service -DVT prophylaxis subcu heparin Physician Configuration Engineer note has been reviewed by physician. Signing provider agrees with the documented findings, assessment, and plan of care. Objective - Vital Signs Vital signs: Vital Signs Temp 97.8 F 04/07/23 06:52 Pulse 84 04/07/23 10:05 Resp 18 04/07/23 10:01 BP 132/75 04/07/23 06:52 Pulse Ox 99 04/07/23 09:51 FiO2 21 04/07/23 09:51 Intake & Output 04/06/23 04/07/23 04/07/23 18:59 06:59 18:59 Output Total 250 Balance -250 Output: Urine 250 Other: Voiding Method Bedside Commode Bedside Commode # Voids 3 2 1 # Bowel Movements 0 0 - Labs CBC & Chem 7: 04/07/23 03:54 04/07/23 03:54 Labs: Abnormal Lab Results - Last 24 Hours (Table) 04/06/23 04/06/23 04/06/23 Range/Units 11:48 16:41 20:49 RBC (4.10-5.20) X 10*6/uL Hgb (12.0-15.0) d/dL Hct (37.2-46.3) % MCH (27.0-32.0) pg MPV (9.5-12.2) FL Lymphocytes # (0.90-5.00) X 10*3/uL Eosinophils # (0.04-0.35) X 10*3/uL Sodium (135-145) mmol/L Carbon Dioxide (21.6-31.8) mmol/L Anion Gap (4.00-12.00) mmol/L Glucose (70-110) mg/dL POC Glucose (mg/dL) 207 H 215 H 197 H (70-110) mg/dL Total Bilirubin (0.3-1.2) mg/dL AST (13-35) U/L Total Protein (6.2-8.2) d/dL Albumin (3.8-4.9) d/dL 04/07/23 04/07/23 04/07/23 Range/Units 03:54 03:54 05:49 RBC 2.86 L (4.10-5.20) X 10*6/uL Hgb 9.2 L (12.0-15.0) d/dL Hct 27.1 L (37.2-46.3) % MCH 32.2 H (27.0-32.0) pg MPV 9.1 L (9.5-12.2) FL Lymphocytes # 0.27 L (0.90-5.00) X 10*3/uL Eosinophils # 0 L (0.04-0.35) X 10*3/uL Sodium 129 L (135-145) mmol/L Carbon Dioxide 16.9 L (21.6-31.8) mmol/L Anion Gap 14.10 H (4.00-12.00) mmol/L Glucose 126 H (70-110) mg/dL POC Glucose (mg/dL) 123 H (70-110) mg/dL Total Bilirubin <0.2 L (0.3-1.2) mg/dL AST 11 L (13-35) U/L Total Protein 5.0 L (6.2-8.2) d/dL Albumin 3.2 L (3.8-4.9) d/dL
[2023-04-07 13:53] VITALS: BP 135/68; RESP 16; TEMP 98.3
--- NOTE | 2023-04-07 14:55 | P.DS ---
Providers Date of admission: 03/25/23 02:00 Expected date of discharge: 04/07/23 Attending physician: Geraldine Araya Consults: 03/25/23 02:00 Consult Physician Routine Consulting Provider: Alcides Balderas Consult Reason/Comments: post-operative patient Do you want consulting provider notified?: Yes 03/25/23 09:35 Consult Physician Urgent Consulting Provider: Joshua Lara Consult Reason/Comments: shortness of breath Do you want consulting provider notified?: Yes 03/25/23 11:16 Consult Physician Urgent Consulting Provider: Dominik Pitts Consult Reason/Comments: recent thyroidectomy, incisional redness, swelling Do you want consulting provider notified?: Yes 03/26/23 19:48 Consult Physician Routine Consulting Provider: Jack Hackett Consult Reason/Comments: recent thyroidectomy, short of breath, throat swelli ng Do you want consulting provider notified?: Already Contacted Primary care physician: Nelsy Martinez Hospital Course: Diagnosis on discharge: 1. Acute stridor secondary to soft tissue edema and swelling around incision from previous thyroidectomy on 03/10/2023. Status post surgical incision and drainage on 03/25/2023 2. Suspected aspiration pneumonia 3. Thyroidectomy on 03/10/2023 with stridor postoperatively improved with Decadron and discharged on 03/17/2023. 4. History of COPD 5. History of osteoarthritis 6. History of nicotine dependence 7. Hyponatremia. Improving 8. Vocal Cord paralysis. Patient was evaluated by ENT Hospital course: This is a 72-year-old female who presented to the ER with concerns of increased neck swelling. Patient recently underwent thyroidectomy and developed some stridor edema postoperatively but was treated with IV steroids DC'd home. 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 Patient apparently developed increased shortness of breath stridor and neck swelling and presented to ER for further evaluation. Patient had CT completed showing fluid within the surgical bed circumferentially and some thickening. Also concerns of possible aspiration pneumonia. Patient also found to be hyponatre william with sodium at 123. Pulmonary and surgical services were consulted along with infectious disease services. Patient started on IV antibiotics. Patient was to OR for evacuation of surgical site seroma. Patient was mechanically ventilated for airway precautions postoperatively and sent to the ICU for recovery. On 03/26/2023 I am resuming care of patient Dr. Larson covering previously Patient remains in the intensive care unit currently on CPAP with tentative plans for extubation today. Patient remains on IV daptomycin and Zosyn. Infectious disease, surgical services and pulmonary services following. Sodium level improving at 128. Current vital signs temp 97.5, heart rate 67, respiratory rate 24, blood pressure 115/72 pulse ox 99% on mechanical ventilation with an FiO2 of 50%. Patient currently on sedation holiday following commands. On 03/27/2023 patient was seen and examined in the ICU she is alert responsive in no apparent distress there is no fever or chills no headache or dizziness no chest pain no shortness of breath no cough no nausea or vomiting no abdominal pain no diarrhea and no urinary symptoms temperature is 98.2 pulse 88 respiration 16 blood pressure 131/75 pulse ox 91% on room air white blood count 10.4 hemoglobin 9.9 platelet count 367 input from pulmonary general surgery and ENT reviewed On 03/28/2023 patient remains in the intensive care alert responsive 3. Patient remains with focal cord paralysis patient was evaluated by ENT and recommendations for follow-up outpatient with specialist for vocal cord paralysis. Patient under close monitoring for possible stridor. Current vital signs temp 98.2, heart rate 89, respiratory rate 18, blood pressure 135/76 with a pulse ox 92%. On 03/29/2023 patient was seen and examined on the medical floor she is alert and oriented 3 in no apparent distress she is still complaining of hoarseness in her voice and difficulty swallowing otherwise no complaints there is no fever or chills no headache or dizziness no chest pain no shortness of breath no cough no nausea or vomiting no abdominal pain no diarrhea and no urinary symptoms On 03/30/2023 patient alert and oriented 3. Patient still having some hoarseness and mild stridor. Denies any further episodes of shortness breath. Has been tolerating diet. IV steroids have been decreased. We'll continue to monitor patient. Current vital signs temp 98.7, heart rate 92, respiratory rate 18, blood pressure 152/71 pulse ox 96% on 2 L On 03/31/2023 patient is alert and oriented 3 in no apparent distress she is still complaining of hoarseness in her voice and stridor with her breathing otherwise she denies any complaints there is no fever or chills no headache or dizziness no chest pain no palpitation no cough no nausea or vomiting no ab dominal pain no diarrhea and no urinary symptoms she remains on IV Zosyn and on oral steroids awaiting further recommendation from pulmonary ENT and infectious disease. On 04/01/2023 patient is alert and oriented 3. Patient is still quite nervous about stridor been DC'd home. We'll await pulmonary input for further plan. Patient started on oral antibiotics cefazolin documented while inpatient. Patient denies chest pain. Patient denies nausea vomiting or diarrhea. Patient denies any urinary burning or frequency. Vital signs temp 98.1, heart rate 85, respiratory rate 50, blood pressure 160/76 with a pulse ox of 99 on room air On 04/02/2023 patient is more alert today. Patient's daughter at bedside. Patient apparently was able to take pills with applesauce this AM. Currently on nasal cannula. Plans for hemodialysis today On 04/03/2023 patient was seen and examined on the medical floor she is alert and oriented 3 in no apparent distress she is scheduled for bronchoscopy with Dr. Moya today, will continue to follow closely On 04/04/2023 patient is alert and oriented 3. Patient underwent bronchoscopy which was found the patient did have airway compromise with excessive respiratory secretions both an upper and lower airways along with bilateral vocal cord paralysis. Patient then underwent tracheostomy for airway precautions. She is currently resting in the intensive care unit currently on trach collar. Current vital signs temp 98.6, heart rate 82, respiratory rate 17, blood pressure 126/71 pulse ox 97% collar On 04/05/2023 patient was seen and examined on the medical floor she is alert and oriented 3 in no apparent distress, she is complaining of cough, tracheostomy in place there is no fever or chills no headache or dizziness no chest pain no nausea or vomiting no abdominal pain no diarrhea no blood in the stools no burning with urination no frequency or urgency no hematuria. At this time will add physical therapy and occupational therapy will recheck labs in a.m. Will continue to follow closely On 04/06/2023 patient alert and oriented 3. Patient has been moved out of the ICU. Current vital signs temp 98.1, heart rate 69 respiratory rate 18, blood pressure 109/65 pulse ox of 100% on trach collar 28%. Patient denies any chest pain or shortness breath. Patient remains on IV steroids and IV antibiotics. On 04/07/2023 patient was seen and examined on the telemetry floor she is alert and oriented 3 in no apparent distress she was cleared by pulmonary for discharge to home today, patient will have home care to follow, recommendation per infectious disease is to continue course of Augmentin and Cipro, prescriptions were sent to her pharmacy, also patient will be on Decadron 4 mg once daily for 10 more days. Patient is very anxious about going home, she was given a prescription for Xanax when necessary, she will follow-up with her primary care physician Dr. Martinez within one week Patient Condition at Discharge: Fair Plan - Discharge Summary Discharge Rx Participant: No New Discharge Prescriptions: New Amoxic-Pot Clav 875-125Mg [Augmentin 875-125] 1 tab PO BID 10 Days #20 tab Ciprofloxacin HCl [Cipro] 500 mg PO Q12HR 10 Days #20 tab Folic Acid 1 mg PO DAILY tab ALPRAZolam [Xanax] 0.25 mg PO QID PRN tab PRN Reason: Anxiety Continue oxyCODONE HCL [OxyIR] 5 mg PO Q6H PRN 3 Days #12 tab PRN Reason: Pain Acetaminophen Tab [Tylenol] 650 mg PO Q4H PRN #30 tablet PRN Reason: Pain Ipratropium-Albuterol Nebulize [Duoneb 0.5 mg-3 mg/3 ml Soln] 3 ml INHALATION RT-QID each Multivitamins, Thera [Multivitamin (formulary)] 1 tab PO DAILY Levothyroxine Sodium [Synthroid] 100 mcg PO DAILY@0630 tab dexAMETHasone [Decadron] See Taper PO DIRECTED Discharge Medication List Multivitamins, Thera [Multivitamin (formulary)] 1 tab PO DAILY 03/07/23 [History] Acetaminophen Tab [Tylenol] 650 mg PO Q4H PRN #30 tablet 03/11/23 [Rx] oxyCODONE HCL [OxyIR] 5 mg PO Q6H PRN 3 Days #12 tab 03/11/23 [Rx] Ipratropium-Albuterol Nebulize [Duoneb 0.5 mg-3 mg/3 ml Soln] 3 ml INHALATION RT-QID each 03/17/23 [Rx] Levothyroxine Sodium [Synthroid] 100 mcg PO DAILY@0630 tab 06/26/23 [Rx] dexAMETHasone [Decadron] See Taper PO DIRECTED 03/25/23 [History] Amoxic-Pot Clav 875-125Mg [Augmentin 875-125] 1 tab PO BID 10 Days #20 tab 03/31/23 [Rx] Ciprofloxacin HCl [Cipro] 500 mg PO Q12HR 10 Days #20 tab 03/31/23 [Rx] ALPRAZolam [Xanax] 0.25 mg PO QID PRN tab 04/07/23 [Rx] Folic Acid 1 mg PO DAILY tab 04/07/23 [Rx] Follow up Appointment(s)/Referral(s): [facility] [NON-STAFF] - 1-2 Days ([facility] will call you to schedule your in home nursing visits. ) Nelsy Martinez MD [Primary Care Provider] - 1-2 days [facility] [NON-STAFF] - 1 Week (Call if you have questions about the nebulizer or walker.) [facility] [NON-STAFF] - As Needed (Call if you have questions reqarding the tracheostomy supplies. ) Jass Moya MD [STAFF PHYSICIAN] - 2 Weeks Alcides Balderas MD [STAFF PHYSICIAN] - 1 Week
[2023-04-07 16:39] VITALS: PULSE 82
== END 2023-04-07 17:24 | disposition home health service (06) | DRG 4 ==
LOC: EC 21:48 → 4SSUR 03-25 02:00 → 2SICU 03-25 12:54 → 5NMEDONC 03-28 17:55 → 2SICU 04-03 18:19 → 4SSUR 04-04 22:48
PROVIDERS: ADMIT Internal Medicine; ATTEND Internal Medicine
PROC: 0J9500Z Drainage of Left Neck Subcutaneous Tissue and Fascia with Drainage Device, Open Approach (ICD-10-PCS; 2023-03-25)
PROC: 0J9400Z Drainage of Right Neck Subcutaneous Tissue and Fascia with Drainage Device, Open Approach (ICD-10-PCS; 2023-03-25)
PROC: 0CJS8ZZ Inspection of Larynx, Via Natural or Artificial Opening Endoscopic (ICD-10-PCS; 2023-03-26)
PROC: 0B9B8ZZ Drainage of Left Lower Lobe Bronchus, Via Natural or Artificial Opening Endoscopic (ICD-10-PCS; 2023-04-03)
PROC: 0B968ZZ Drainage of Right Lower Lobe Bronchus, Via Natural or Artificial Opening Endoscopic (ICD-10-PCS; 2023-04-03)
PROC: 0B110F4 Bypass Trachea to Cutaneous with Tracheostomy Device, Open Approach (ICD-10-PCS; principal; 2023-04-03 07:30)
DX: L76.34 Postprocedural seroma of skin and subcutaneous tissue following other procedure (principal); J69.0 Pneumonitis due to inhalation of food and vomit; J96.01 Acute respiratory failure with hypoxia; E87.1 Hypo-osmolality and hyponatremia; J44.0 Chronic obstructive pulmonary disease with (acute) lower respiratory infection; L02.11 Cutaneous abscess of neck; T81.41XA Infection following a procedure, superficial incisional surgical site, initial encounter; E89.0 Postprocedural hypothyroidism; F17.200 Nicotine dependence, unspecified, uncomplicated; D49.7 Neoplasm of unspecified behavior of endocrine glands and other parts of nervous system; J38.02 Paralysis of vocal cords and larynx, bilateral; K62.3 Rectal prolapse; M19.90 Unspecified osteoarthritis, unspecified site; R13.10 Dysphagia, unspecified; B96.5 Pseudomonas (aeruginosa) (mallei) (pseudomallei) as the cause of diseases classified elsewhere; Z79.890 Hormone replacement therapy; Z85.850 Personal history of malignant neoplasm of thyroid; Z90.710 Acquired absence of both cervix and uterus
CPT/HCPCS: 31624; 36415; 36600; 70490; 71045; 71046; 74230; 80048; 80053; 82805; 83036; 83735; 84132; 84145; 85025; 85652; 87040; 87070; 87075; 87077; 87102; 87116; 87186; 87205; 87206; 87496; 87498; 87502; 87529; 87634; 87798; 94002; 94003; 94640; 94760; 96361; 96365; 96366; 96375; 99285

== ENCOUNTER 2023-05-12 12:28 | Day surgery (SDC) | payer MEDICARE, OTHER ==
[2023-05-12 13:02] VITALS: RESP 16; TEMP 97
[2023-05-12 15:14] VITALS: BP 101/67; PULSE 77
--- NOTE | 2023-05-12 18:21 | P.PCN ---
Date of Procedure: 05/12/23 Preoperative Diagnosis: bilateral vocal cord paralysis, status post tracheostomy tube insertion Postoperative Diagnosis: Bilateral vocal cord paralysis Procedure(s) Performed: Tracheostomy tube exchange Anesthesia: none Surgeon: Jass Moya Estimated Blood Loss (ml): 0 Pathology: none sent Condition: stable Disposition: same day Operative Findings: This procedure was done in the endoscopy suite. The patient has history of thyroidectomy that was complicated by bilateral vocal cord paralysis. Based on that, the patient was given a tracheostomy tube for airway protection. The patient had a non-cuffed tracheostomy tube and she was unable to phonate. This procedure was done while the patient was awake. No altered tracheostomy tube was pulled out of their without any major difficulties. Following that, I was able to pass in a #8 fenestrated non-cuffed Shiley tracheostomy tube without any major difficulties. The tube was secured in place. Immediately after insertion, the patient was able to talk while closing the tracheostomy stoma. She encountered no respiratory difficulties. She had no major surgery secretions. I offered a Passy-Lew valve for this patient and she was able to insert the valve and talk without any major difficulties. No bleeding was encountered. The patient remained quite comfortable throughout the procedure. The patient and her sister were given the appropriate education on the use of speaking valve and inner cannula. The plan for now is to monitor the patient for another 4 weeks, repeat a upper airway inspection to evaluate the vocal cord functionality and if adequate consider possibility of decannulation at the later stage. Procedure was done without any complications. No sedation was used. The patient remained hemodynamically stable and she was adequately oxygenating throughout the procedure.
== END 2023-05-12 15:31 | disposition home or self-care (01) ==
LOC: ORWHC2ENDO 12:28
PROVIDERS: ATTEND Internal Medicine Critical Care Medicine
DX: J38.02 Paralysis of vocal cords and larynx, bilateral (principal); J44.9 Chronic obstructive pulmonary disease, unspecified; J18.9 Pneumonia, unspecified organism; E04.2 Nontoxic multinodular goiter; F17.200 Nicotine dependence, unspecified, uncomplicated; M19.90 Unspecified osteoarthritis, unspecified site; Z79.51 Long term (current) use of inhaled steroids; Z79.890 Hormone replacement therapy; Z79.1 Long term (current) use of non-steroidal anti-inflammatories (NSAID); Z98.890 Other specified postprocedural states
CPT/HCPCS: 31502; L8501

== ENCOUNTER 2023-07-18 11:15 | Day surgery (SDC) | payer MEDICARE, OTHER ==
[2023-07-15 14:19] VITALS: BMI 29.1
[~2023-07-18 11:15] MED LIST changes: -ACETAMINOPHEN TAB 500 MG TAB PO PRN; -DEXAMETHASONE SOD PHOSPHATE 4 MG/ML 1 ML VIAL IV ONE; -HEPARIN SODIUM,PORCINE/PF 5,000 UNIT/0.5 ML SYRINGE SQ PRN; -HYDROmorphone 0.5 MG/0.5 ML SYRINGE IVP PRN; +LACTATED RINGERS 1,000 ML IV SCH; -LIDOCAINE 1% (10MG/ML) FOR IV START INTRADERMA PRN; -ONDANSETRON 4 MG/2 ML VIAL IVP ONE; -Pre Op ABX Message 1 EACH MISC MISCELLANE ONE; -droPERidol 5 MG/2 ML VIAL IVP ONE
[2023-07-18] MEDS ORDERED: LACTATED RINGERS 1,000 ML IV ONE (12:19)
[2023-07-18] MEDS ORDERED: LIDOCAINE 2% GLYDO JELLY 6 ML APPL TOPICAL ONE (12:54)
[2023-07-18] MEDS ORDERED: LIDOCAINE 2% INJ 20 MG/ML INTRATRACH ONE (12:56)
[2023-07-18] MEDS ORDERED: PROPOFOL 10 MG/ML 20 ML VIAL IV ONE (12:58)
[2023-07-18] MEDS ORDERED: MIDAZOLAM 2 MG/2 ML VIAL ONE (12:58)
[2023-07-18] MEDS ORDERED: KETAMINE HCL IN 0.9 % NACL 50 MG/5 ML SYRINGE ONE (12:58)
[2023-07-18 13:39] VITALS: RESP 16; TEMP 97
--- NOTE | 2023-07-18 14:22 | P.PCN ---
Date of Procedure: 07/18/23 Preoperative Diagnosis: Vocal cord paralysis, recovered Postoperative Diagnosis: Granulation tissue growing around the tracheostomy tube stoma Normal function of the vocal cords with normal abduction and adduction Procedure(s) Performed: Flexible bronchoscopy and inspection of the upper and lower airways Removal of tracheostomy tube Anesthesia: MAC Surgeon: Jass Moya Pathology: other Condition: stable Disposition: same day Operative Findings: This is a 72-year-old female patient with known history of vocal cord paralysis post thyroidectomy. The patient required a tracheostomy tube insertion for airway protection secondary to vocal cord paralysis. Subsequent follow-up in the office showed that the patient's speech was gradually improving. The patient came in today for a reevaluation of the upper and lower airways and possible removal of the tracheostomy tube. This procedure was done under conscious sedation and anesthetic agents were being administered by anesthesia the bedside The flexible bronchoscope was first introduced through the tracheostomy tube. The patient had a number HIV tracheostomy tube. The inner cannula was removed. The flexible bronchoscope was easily passed into the lower trachea. There was copious amount of respiratory secretions that were loose and liquidy and those were easily suctioned out. Airway inspection was done. The mid and the distal trachea was within normal limits. Bilateral mainstem bronchi were patent and within normal limits. Examination of the right side included a low bronchus, bronchus intermedius, right middle lobe bronchus and right lower lobe bronchus. Intervention of the left side included the left upper lobe bronchus and the left lower lobe bronchus. Oral airways are patent. Following that, bronchoscope was retracted and further examination revealed that there was some granulation tissue growing into the fenestration orifice of the tracheostomy. This was originating from the lateral wall of the trachea. The flexible bronchoscope was removed. An upper inspection was done. The flexible bronchoscope was introduced through the right nostril was advanced to the posterior oropharynx and later on to the larynx. Epiglottis was identified. Examination of the vocal cords was done and the patient normal vocal cord function mobility. There was normal abduction and adduction. The arytenoids were within normal limits. Following that, the bronchoscope was introduced into the subglottic trachea. Ventilation tissue was seen growing on the anterior wall of the trachea at around 1:00. There was another area of the relation tissue was also seen at 7:00. This was related to constant irritation created by the tracheostomy tube. The catheter was removed. The granulation tissue was visualized. The borders were quite soft. The patient a patent airway despite those cannulation tissue. There was no signs of airway compromise or anatomic obstruction. At that point, due to development of relation tissue, decided to remove the tracheostomy tube. Appropriate dressing was applied to the tracheostomy stoma. The patient was monitored patient maintain adequate oxygenation. The rest of his secretions were suctioned out. The patient was able to communicate and talk without any major difficulties and no stridor. The patient to be discharged home once stable to be followed up with me in the office. We'll keep the tracheostomy stoma closed and the appropriate dressing will be applied post-decannulation.
[2023-07-18 15:23] VITALS: BP 130/69; PULSE 100
== END 2023-07-18 15:31 | disposition home or self-care (01) ==
LOC: ORWHC2ENDO 11:15
PROVIDERS: ATTEND Internal Medicine Critical Care Medicine
DX: J38.00 Paralysis of vocal cords and larynx, unspecified (principal)
CPT/HCPCS: 31615; J2250; J2704

== ENCOUNTER 2025-04-04 08:45 | Day surgery (SDC) | payer MEDICARE ==
[~2025-04-04 08:45] MED LIST changes: -LACTATED RINGERS 1,000 ML IV SCH; +LIDOCAINE 1% (10MG/ML) FOR IV START INTRADERMA PRN
[2025-04-04 10:01] VITALS: RESP 16; TEMP 98.4
[2025-04-04] MEDS: IV FLUID CONTINUATION 1,000 ML IV ONE (10:10)
[2025-04-04] MEDS: LACTATED RINGERS 1,000 ML IV SCH (10:10)
[2025-04-04] MEDS ORDERED: PROPOFOL 10 MG/ML 20 ML VIAL IV ONE (10:23)
[2025-04-04] MEDS ORDERED: LIDOCAINE 1% INJ 10MG/ML (20 ML MDV) ONE (10:23)
[2025-04-04 10:56] VITALS: BP 106/65; PULSE 76
--- NOTE | 2025-04-04 14:35 | P.OP ---
Date of Procedure: 04/04/25 Preoperative Diagnosis: Rectal Prolapse Postoperative Diagnosis: Rectal Mass Procedure(s) Performed: Flexible Sigmoidoscopy with Biopsy Anesthesia: ENRICO Surgeon: Weston Banegas Pathology: other (Rectal Mass Biopsy) Condition: stable Disposition: PACU Description of Procedure: After informed consent was obtained, the patient was placed in the left lateral position and sedated. Monitoring was provided throughout the entire procedure. Digital rectal exam was performed revealing normal sphincter tone and no external hemorrhoids. The colonoscope was inserted into rectum and advanced under direct visualization, without difficulty, to the sigmoid colon. The quality of the preparation was good. The colonoscope was then withdrawn while carefully examining the mucosa. There was a rectal mass noted and a cold biopsy of the mass was performed. There were no hemorrhoids noted. The endoscope was removed and the procedure terminated. The patient tolerated the procedure well without complications
== END 2025-04-04 11:09 | disposition home or self-care (01) ==
LOC: ORWHC2ENDO 08:45
PROVIDERS: ATTEND Surgery
DX: K62.3 Rectal prolapse (principal); K62.89 Other specified diseases of anus and rectum; J44.9 Chronic obstructive pulmonary disease, unspecified; E07.9 Disorder of thyroid, unspecified; J38.00 Paralysis of vocal cords and larynx, unspecified; F41.9 Anxiety disorder, unspecified; M19.90 Unspecified osteoarthritis, unspecified site; Z79.51 Long term (current) use of inhaled steroids; Z79.890 Hormone replacement therapy; Z79.899 Other long term (current) drug therapy; Z87.891 Personal history of nicotine dependence; Z88.0 Allergy status to penicillin
CPT/HCPCS: 88305; 45331; J2003; J2704; 45330